=== PATIENT | female | born 1965 | race Caucasian/White ===

== ENCOUNTER 2020-08-13 22:28 | Emergency (ER) | payer OTHER ==
[2020-08-13 22:44] VITALS: TEMP 98
[2020-08-13] MEDS ORDERED: ACET/COD 300 MG/30 MG STARTER PACK 6 TAB BTL PO STA (23:23)
--- NOTE | 2020-08-14 00:05 | XR ---
EXAMINATION TYPE: XR knee complete LT DATE OF EXAM: 08/13/2020 COMPARISON: NONE HISTORY: Knee pain TECHNIQUE: 3 views FINDINGS: I see no fracture nor dislocation. Joint spaces are normal. There is no sign of joint effus ion. IMPRESSION: Negative left knee exam. No fracture.
--- NOTE | 2020-08-14 01:26 | US ---
EXAM: US Duplex Left Lower Extremity Veins CLINICAL HISTORY: ITS.REASON US Reason: Left leg pain TECHNIQUE: Real-time duplex ultrasound scan of the left lower extremity veins integrating B-mode two-dimensional vascular structure, Doppler spectral analysis, color flow Doppler imaging and compression. COMPARISON: No relevant prior studies available. FINDINGS: Deep veins: Unremarkable. No DVT in the visualized common femoral, femoral, proximal deep femoral or popliteal veins. The veins demonstrate normal color flow, are normally compressible, with normal phasic flow and/or augmentation response. Superficial veins: Saphenofemoral junction is patent. Soft tissues: No acute findings. No popliteal cyst. IMPRESSION: No evidence for deep vein thrombosis involving the left lower extremity.
--- NOTE | 2020-08-14 01:28 | ED ---
Lower Extremity Injury HPI - General Chief Complaint: Extremity Injury, Lower Stated Complaint: Knee pain Time Seen by Provider: 08/13/20 22:46 Source: patient Mode of arrival: wheelchair Limitations: no limitations - History of Present Illness Initial Comments: 55 year-old female patient presents to the emergency department for evaluation of left knee pain. States it started about a week ago but worsened today. Denies any known injury or increase strain. States [place] 2[place]5 [place] ride a couple of weeks ago. States that she always has swelling in her left leg. Denies any redness or warmth over the knee. States she has been taking ibuprofen and applying ice without relief. Denies history of knee injury or pain. Denies any fever or chills. Denies any low back pain. States the pain worsens when she bears weight and she is unable to walk due to this. Patient denies any recent rash, cough, shortness of breath, chest pain, racing heart, abdominal pain, nausea, vomiting, diarrhea, constipation, back pain, dizziness, weakness, hematuria, dysuria, urinary urgency, urinary frequency, headache, visual changes, or any other complaints. - Related Data Allergies Allergy/AdvReac Type Severity Reaction Status Date / Time No Known Allergies Allergy Verified 08/13/20 22:44 Review of Systems ROS Statement: Those systems with pertinent positive or pertinent negative responses have been documented in the HPI. ROS Other: All systems not noted in ROS Statement are negative. Past Medical History Past Medical History: No Reported History History of Any Multi-Drug Resistant Organisms: None Reported Past Surgical History: Section, Hysterectomy Additional Past Surgical History / Comment(s): left adrenal gland removed Past Psychological History: No Psychological Hx Reported Smoking Status: Never smoker Past Alcohol Use History: Occasional Past Drug Use History: Marijuana General Exam Limitations: no limitations General appearance: alert, in no apparent distress Respiratory exam: Present: normal lung sounds bilaterally. Absent: respiratory distress, wheezes, rales, rhonchi, stridor Cardiovascular Exam: Present: regular rate, normal rhythm, normal heart sounds. Absent: systolic murmur, diastolic murmur, rubs, gallop, clicks Extremities exam: Present: normal inspection, full ROM, normal capillary refill, other (No pain with valgus or varus maneuvers to the left knee. Negative drawer test. She exhibits full extension and flexion. Skin is pink, warm, dry. Cap refill less than 3 seconds. Pedal and posttibial pulses 2+). Absent: tenderness, pedal edema, joint swelling, calf tenderness Back exam: Present: normal inspection, vertebral tenderness Neurological exam: Present: alert, oriented X3, CN II-XII intact Psychiatric exam: Present: normal affect, normal mood Skin exam: Present: warm, dry, intact, normal color. Absent: rash Course Vital Signs 08/13/20 22:39 Temperature 98.0 F Pulse Rate 98 Respiratory 18 Rate Blood Pressure 162/93 O2 Sat by Pulse 98 Oximetry Procedures - Orthopedic Splinting/Casting Injury #1 Side: left Lower Extremity Injury Location: knee Lower Extremity Immobilizer: Nikko wrap Medical Decision Making - Medical Decision Making 55-year-old female patient presented to the emergency room today for evaluation of left knee pain. Physical examination is unremarkable. Negative valgus and varus maneuvers to the left knee. Negative drawer test. Neurovascular status is intact. She exhibits full flexion and extension. There is no overlying eryt gagandeep or warmth. She is afebrile. X-rays negative. She did have ultrasound of the left leg as well which was negative for DVT. I did discuss signs and results with her. We did discuss possible meniscus injury. She'll be discharged to follow-up with orthopedics for further evaluation as soon as possible. She is instructed to follow-up with her primary care physician for recheck in 1-2 days. She is given an Nikko wrap. She is given Tylenol codeine starter pack. Return parameters were discussed in detail. She verbalizes understanding and agrees with this plan. My attending is Dr. Moyer. - Radiology Data Radiology results: report reviewed, image reviewed Ultrasound of the left lower extremity was obtained. Report was reviewed in its entirety. Impression by Dr. Perez shows no evidence for DVT involving the left lower extremity. 3 views of the left knee were obtained. Report reviewed in its entirety. Impression by Dr. Doshi shows negative left knee exam. No fracture. Disposition Clinical Impression: Left knee pain Disposition: HOME SELF-CARE Condition: Good Instructions (If sedation given, give patient instructions): Knee Pain (ED) Additional Instructions: Rest, ice, elevate the knee. Follow-up the primary care physician for recheck in 1-2 days. Follow up with orthopedics for recheck as soon as possible. Return for any new, worsening, or concerning symptoms. Is patient prescribed a controlled substance at d/c from ED?: No Referrals: Joo Singh MD [Primary Care Provider] - 1-2 days Adolph Gaming MD [STAFF PHYSICIAN] - 1-2 days Time of Disposition: 01:28
[2020-08-14] MEDS ORDERED: KETOROLAC 15 MG/ML 1 ML VIAL IM STA (01:32)
[2020-08-14 02:11] VITALS: BP 167/91; PULSE 74; RESP 16
== END 2020-08-14 02:11 | disposition home or self-care (01) ==
LOC: EC 22:28
DX: M25.562 Pain in left knee (principal); M79.89 Other specified soft tissue disorders; R26.2 Difficulty in walking, not elsewhere classified; F12.90 Cannabis use, unspecified, uncomplicated
CPT/HCPCS: 73562; 93971; 99284; 96372; J1885

== ENCOUNTER 2023-04-08 11:48 | Inpatient (IN) | payer OTHER ==
--- NOTE | 2023-04-08 12:26 | ED ---
General Adult HPI - General Source: RN notes reviewed <Mary Jacques - Last Filed: 04/08/23 12:26> - General Source: patient, family, RN notes reviewed <Mechelle Parry - Last Filed: 04/08/23 23:33> - General Stated complaint: abd pain Time Seen by Provider: 04/08/23 12:25 - History of Present Illness Initial comments: 57-year-old female presents to the emergency department with a chief complaint of abdominal pain. (Mary Jacques) Patient is a 57-year-old female presented ER with chief complaint of left-sided abdominal pain. Patient has a past medical history significant for diverticulitis, hypertension, diabetes. Past surgical history of section, hysterectomy, left adrenal adrenalectomy. Patient states she's been experiencing this since around [place]. Patient describes it as an intermittent crampy pain in the left lower quadrant. No history of kidney st ones. Patient also is endorsing nausea and some recent diarrhea. Patient's last bowel movement was this morning and was satisfactory. Patient reports she does feel like she is fighting a fever and mildly chilled currently. Patient denies any urinary complaints, chest pain, shortness of breath, peripheral edema. (Mechelle Parry) - Related Data Home Medications Medication Instructions Recorded Confirmed Empagliflozin [Jardiance] 10 mg PO W/SUPPER 04/08/23 04/08/23 Levothyroxine Sodium [Synthroid] 75 mcg PO DAILY 04/08/23 04/08/23 Losartan Potassium [Cozaar] 100 mg PO DAILY 04/08/23 04/08/23 amLODIPine [Norvasc] 10 mg PO DAILY@1500 04/08/23 04/08/23 metFORMIN HCL ER [Glucophage XR] 500 mg PO DAILY 04/08/23 04/08/23 Allergies Allergy/AdvReac Type Severity Reaction Status Date / Time No Known Allergies Allergy Verified 04/08/23 20:16 Review of Systems ROS Other: All systems not noted in ROS Statement are negative. <Mary Jacques - Last Filed: 04/08/23 12:26> ROS Other: All systems not noted in ROS Statement are negative. <Mechelle Parry - Last Filed: 04/08/23 23:33> ROS Statement: Those systems with pertinent positive or pertinent negative responses have been documented in the HPI. Past Medical History Past Medical History: No Reported History History of Any Multi-Drug Resistant Organisms: None Reported Past Surgical History: Section, Hysterectomy Additional Past Surgical History / Comment(s): left adrenal gland removed Past Psychological History: No Psychological Hx Reported Smoking Status: Never smoker Past Alcohol Use History: Occasional Past Drug Use History: Marijuana <Mary Jacques - Last Filed: 04/08/23 12:26> General Exam <Mary Jacques - Last Filed: 04/08/23 12:26> General appearance: alert, in no apparent distress Respiratory exam: Present: normal lung sounds bilaterally. Absent: respiratory distress, wheezes, rales, rhonchi, stridor Cardiovascular Exam: Present: regular rate, normal rhythm, normal heart sounds. Absent: systolic murmur, diastolic murmur, rubs, gallop, clicks GI/Abdominal exam: Present: soft, tenderness (Mild left lower quadrant), normal bowel sounds. Absent: distended, guarding, rebound, rigid Back exam: Present: normal inspection Neurological exam: Present: alert, oriented X3, CN II-XII intact Psychiatric exam: Present: normal affect, normal mood Skin exam: Present: warm, dry, intact, normal color. Absent: rash <Mechelle Parry - Last Filed: 04/08/23 23:33> - General Exam Comments Initial Comments: Visual Physical Exam Vital signs reviewed General: Well-appearing, nontoxic, no acute distress. Head: Normocephalic, atraumatic Eyes: PERRLA, EOMI ENT: Airway patent Chest: Nonlabored breathing Skin: No visual rash, normal skin tone Neuro: Alert and oriented 3 Musculoskeletal: No gross abnormalities (Mary Jacques) Course Vital Signs 04/08/23 04/08/23 04/08/23 12:39 17:08 22:04 Temperature 98.0 F 97.6 F Pulse Rate 79 85 83 Respiratory 18 16 18 Rate Blood Pressure 159/87 159/92 141/83 O2 Sat by Pulse 97 96 95 Oximetry Medical Decision Making <Mary Jacques - Last Filed: 04/08/23 12:26> - Lab Data Result diagrams: 04/08/23 13:25 04/08/23 13:25 - Radiology Data Radiology results: report reviewed, image reviewed <Mechelle Parry - Last Filed: 04/08/23 23:33> - Medical Decision Making I performed the quick note portion of this exam, verbal signature Mary Jacques PA-C (Mary Jacques) Was pt. sent in by a medical professional or institution ([facility], [facility], urgent care, hospital, or intermediate...) When possible be specific @ -No Did you speak to anyone other than the patient for history (EMS, parent, family, police, friend...)? What history was obtained from this source @ -No Did you review nursing and triage notes (agree or disagree)? Why? @ -I reviewed and agree with nursing and triage notes Were old charts reviewed (outside hosp., previous admission, EMS record, old EKG, old radiological studies, urgent care reports/EKG's, intermediate records)? Report findings @ -No old charts were reviewed Differential Diagnosis (chest pain, altered mental status, abdominal pain women, abdominal pain men, vaginal bleeding, weakness, fever, dyspnea, syncope, headache, dizziness, GI bleed, back pain, seizure, CVA, palpatations, mental health, musculoskeletal)? @ -Differential Abdominal Pain Women: Appendicitis, Cholecystitis, diverticulosis, ischemic bowel, pancreatitis, hepatitis, UTI, gastroenteritis, AAA, incarcerated hernia, bowel obstruction, constipation, inflammatory bowel, hepatitis, peptic ulcer disease, splenic infarction, perforated viscus, vulvitis, ovarian torsion, PID, kidney stone, placenta abruption, this is not meant to be an all-inclusive list EKG interpreted by me (3pts min.). @ -None done X-rays interpreted by me (1pt min.). @ -None done CT interpreted by me (1pt min.). @ -CT abdomen and pelvis showed a 4.8 cm masslike density seen in the sigmoid region. Uterus appears enlarged with multiple intermixed small foci of gas. Fistula/abscess/infection cannot be excluded. Surgical clips in the left upper quadrant without adrenal gland. Multiple enlarged lymph nodes throughout pelvis and abdomen. U/S interpreted by me (1pt. min.). @ -None done What testing was considered but not performed or refused? (CT, X-rays, U/S, labs)? Why? @ -None What meds were considered but not given or refused? Why? @ -None Did you discuss the management of the patient with other professionals (professionals i.e. , PA, WOOD M[employer]DER, lab, RT, psych nurse, social scientist, research contracts supervisor, teacher, protective services officer, community case manager)? Give summary @ -Yes, I discussed this case with Dr. Chauhan, on-call general surgeon. He stated to make patient nothing by mouth at midnight and advised against antibiotics due to WBC being 11.6. Dr. Warner, ED attending, spoke with radiology about CT scan. Radiology was reporting patient had intact uterus with concern for infection/abscess. Was smoking cessation discussed for >3mins.? @ -No Was critical care preformed (if so, how long)? @ -No Were there social determinants of health that impacted care today? How? (Homelessness, low income, unemployed, alcoholism, drug addiction, transportation, low edu. Level, literacy, decrease access to med. care, fci, rehab)? @ -No Was there de-escalation of care discussed even if they declined (Discuss DNR or withdrawal of care, Hospice)? DNR status @ -No What co-morbidities impacted this encounter? (DM, HTN, Smoking, COPD, CAD, Cancer, CVA, ARF, Chemo, Hep., AIDS, mental health diagnosis, sleep apnea, morbid obesity)? @ -DM, HTN Was patient admitted / discharged? Hospital course, mention meds given and route, prescriptions, significant lab abnormalities, going to OR and other pertinent info. @ -Admitted. Patient is a 57-year-old female presented ER with chief complaint of abdominal pain. Vitals were stable on exam. Patient was tender to left lower quadrant. Labs were significant for white blood cell count of 11.6, glucose of 148, otherwise unremarkable. Urinalysis showed moderate blood with 23 RBCs and 4+ glucose. CT abdomen and pelvis was performed and was significant for a 4.8 cm masslike density near sigmoid colon. There is also multiple enlarged lymph nodes in the pelvis and abdomen. Radiology was reporting patient had an enlarged uterus with possible uterine infection/abscess. Patient stated she had a hysterectomy. More concern of diverticulitis with possible abscess was considered. General surgery, Dr. Chauhan, was consulted and accepted admission. He advised to make patient nothing by mouth at midnight and that antibiotics were not needed due to white count being 11.6. Patient did receive 1 L of IV fluids and Toradol in the ER with improvement of pain. Medicine on consult. I discussed imaging and lab findings with the patient and , at bedside. I also discussed plan with patient. Questions were answered. Patient will be admitted in stable condition for further care and treatment. Patient expressed understanding and agreement with care plan. Undiagnosed new problem with uncertain prognosis? @ -No Drug Therapy requiring intensive monitoring for toxicity (Heparin, Nitro, Insulin, Cardizem)? @ -No Were any procedures done? @ -No Diagnosis/symptom? @ -Sigmoid masslike density/leukocytosis Acute, or Chronic, or Acute on Chronic? @ -Acute Uncomplicated (without systemic symptoms) or Complicated (systemic symptoms)? @ -Complicated Side effects of treatment? @ -No Exacerbation, Progression, or Severe Exacerbation? @ -No Poses a threat to life or bodily function? How? (Chest pain, [place], [place], pneumonia, PE, COPD, DKA, ARF, appy, cholecystitis, CVA, Diverticulitis, Homicidal, Suicidal, threat to staff... and all critical care pts) @ -Possibly (Mechelle Parry) - Lab Data Lab Results 04/08/23 04/08/23 04/08/23 Range/Units 13:25 13:25 13:25 WBC 11.6 H (3.8-10.6) k/uL RBC 4.99 (3.80-5.40) m/uL Hgb 14.1 (11.4-16.0) gm/dL Hct 43.1 (34.0-46.0) % MCV 86.3 (80.0-100.0) fL MCH 28.2 (25.0-35.0) pg MCHC 32.7 (31.0-37.0) g/dL RDW 12.4 (11.5-15.5) % Plt Count 350 (150-450) k/uL MPV 6.6 Neutrophils % 87 % Lymphocytes % 8 % Monocytes % 4 % Eosinophils % 1 % Basophils % 0 % Neutrophils # 10.1 H (1.3-7.7) k/uL Lymphocytes # 0.9 L (1.0-4.8) k/uL Monocytes # 0.5 (0-1.0) k/uL Eosinophils # 0.1 (0-0.7) k/uL Basophils # 0.0 (0-0.2) k/uL Sodium 140 (137-145) mmol/L Potassium 4.4 (3.5-5.1) mmol/L Chloride 104 (98-107) mmol/L Carbon Dioxide 23 (22-30) mmol/L Anion Gap 13 mmol/L BUN 14 (7-17) mg/dL Creatinine 0.54 (0.52-1.04) mg/dL Est GFR (CKD-EPI)AfAm >90 (>60 ml/min/1.73 sqM) Est GFR (CKD-EPI)NonAf >90 (>60 ml/min/1.73 sqM) Glucose 148 H (74-99) mg/dL Plasma Lactic Acid Trip 1.1 (0.7-2.0) mmol/L Calcium 9.1 (8.4-10.2) mg/dL Total Bilirubin 0.4 (0.2-1.3) mg/dL AST 22 (14-36) U/L ALT 21 (4-34) U/L Alkaline Phosphatase 79 (38-126) U/L Total Protein 7.4 (6.3-8.2) g/dL Albumin 3.9 (3.5-5.0) g/dL Lipase 47 (23-300) U/L Urine Color Urine Appearance (Clear) Urine pH (5.0-8.0) Ur Specific [place] (1.001-1.035) Urine Protein (Negative) Urine Glucose (UA) (Negative) Urine Ketones (Negative) Urine Blood (Negative) Urine Nitrite (Negative) Urine Bilirubin (Negative) Urine Urobilinogen (<2.0) mg/dL Ur Leukocyte Esterase (Negative) Urine RBC (0-5) /hpf Ur Squamous Epith Cells (0-4) /hpf Amorphous Sediment (None) /hpf Urine Mucus (None) /hpf Influenza Type A (PCR) (Not Detectd) Influenza Type B (PCR) (Not Detectd) RSV (PCR) (Not Detectd) SARS-CoV-2 (PCR) (Not Detectd) 04/08/23 04/08/23 Range/Units 13:25 14:05 WBC (3.8-10.6) k/uL RBC (3.80-5.40) m/uL Hgb (11.4-16.0) gm/dL Hct (34.0-46.0) % MCV (80.0-100.0) fL MCH (25.0-35.0) pg MCHC (31.0-37.0) g/dL RDW (11.5-15.5) % Plt Count (150-450) k/uL MPV Neutrophils % % Lymphocytes % % Monocytes % % Eosinophils % % Basophils % % Neutrophils # (1.3-7.7) k/uL Lymphocytes # (1.0-4.8) k/uL Monocytes # (0-1.0) k/uL Eosinophils # (0-0.7) k/uL Basophils # (0-0.2) k/uL Sodium (137-145) mmol/L Potassium (3.5-5.1) mmol/L Chloride (98-107) mmol/L Carbon Dioxide (22-30) mmol/L Anion Gap mmol/L BUN (7-17) mg/dL Creatinine (0.52-1.04) mg/dL Est GFR (CKD-EPI)AfAm (>60 ml/min/1.73 sqM) Est GFR (CKD-EPI)NonAf (>60 ml/min/1.73 sqM) Glucose (74-99) mg/dL Plasma Lactic Acid Trip (0.7-2.0) mmol/L Calcium (8.4-10.2) mg/dL Total Bilirubin (0.2-1.3) mg/dL AST (14-36) U/L ALT (4-34) U/L Alkaline Phosphatase (38-126) U/L Total Protein (6.3-8.2) g/dL Albumin (3.5-5.0) g/dL Lipase (23-300) U/L Urine Color Yellow Urine Appearance Turbid H (Clear) Urine pH 5.5 (5.0-8.0) Ur Specific [place] 1.037 H (1.001-1.035) Urine Protein 1+ H (Negative) Urine Glucose (UA) 4+ H (Negative) Urine Ketones Negative (Negative) Urine Blood Moderate H (Negative) Urine Nitrite Negative (Negative) Urine Bilirubin Negative (Negative) Urine Urobilinogen <2.0 (<2.0) mg/dL Ur Leukocyte Esterase Trace H (Negative) Urine RBC 23 H (0-5) /hpf Ur Squamous Epith Cells 1 (0-4) /hpf Amorphous Sediment Few H (None) /hpf Urine Mucus Few H (None) /hpf Influenza Type A (PCR) Not Detected (Not Detectd) Influenza Type B (PCR) Not Detected (Not Detectd) RSV (PCR) Not Detected (Not Detectd) SARS-CoV-2 (PCR) Not Detected (Not Detectd) Disposition <Mary Jacques - Last Filed: 04/08/23 12:26> Time of Disposition: 19:30 <Mechelle Parry - Last Filed: 04/08/23 23:33> Clinical Impression: Abdominal pain Disposition: ADMITTED IP TO THIS HOSP Condition: Stable
[2023-04-08 13:32] LABS: Basophils % (A) 0 %; Eosinophils # (A) 0.1 k/uL (0-0.7); Eosinophils % (A) 1 %; HCT 43.1 % (34.0-46.0); HGB 14.1 gm/dL (11.4-16.0); Lymphocytes # (A) 0.9 k/uL (1.0-4.8); Lymphocytes % (A) 8 %; MCH 28.2 pg (25.0-35.0); MCHC 32.7 g/dL (31.0-37.0); MCV 86.3 fL (80.0-100.0); Mean Platelet Volume 6.6; Monocytes # (A) 0.5 k/uL (0-1.0); Monocytes % (A) 4 %; Neutrophils # (A) 10.1 k/uL (1.3-7.7); Neutrophils % (A) 87 %; Platelet Count 350 k/uL (150-450); RBC 4.99 m/uL (3.80-5.40); RDW 12.4 % (11.5-15.5); WBC 11.6 k/uL (3.8-10.6)
[2023-04-08 13:42] LABS: ALT 21 U/L (4-34); AST 22 U/L (14-36); African American GFR (CKD) >90 (>60 ml/min/1.73 sqM); Albumin 3.9 g/dL (3.5-5.0); Alkaline Phosphatase 79 U/L (38-126); Anion Gap 13 mmol/L; Blood Urea Nitrogen 14 mg/dL (7-17); Calcium 9.1 mg/dL (8.4-10.2); Carbon Dioxide 23 mmol/L (22-30); Chloride 104 mmol/L (98-107); Glucose 148 mg/dL (74-99); Lipase 47 U/L (23-300); Non-African American GFR(CKD) >90 (>60 ml/min/1.73 sqM); Potassium 4.4 mmol/L (3.5-5.1); Sodium 140 mmol/L (137-145); Total Bilirubin 0.4 mg/dL (0.2-1.3); Total Protein 7.4 g/dL (6.3-8.2)
[2023-04-08 14:34] LABS: Amorphous Sediment,Urine Few /hpf; Appearance,Urine Turbid (Clear); Bilirubin,Urine Negative (Negative); Blood,Urine Moderate (Negative); Color,Urine Yellow; Glucose,Urine (UA) 4+ (Negative); Ketones,Urine Negative (Negative); Leukocyte Esterase,Urine Trace (Negative); Mucus,Urine Few /hpf; Nitrite,Urine Negative (Negative); PH, Urine 5.5 (5.0-8.0); Protein,Urine 1+ (Negative); RBC,Urine 23 /hpf (0-5); Specific Gravity,Urine 1.037 (1.001-1.035); Squamous Epithelial Cell,Urine 1 /hpf (0-4); Urobilinogen,Urine <2.0 mg/dL (<2.0)
[2023-04-08] MEDS ORDERED: KETOROLAC 15 MG/ML 1 ML VIAL IVP STA (17:17)
[2023-04-08] MEDS ORDERED: SODIUM CHLORIDE 0.9% 1,000 ML IV STA (17:17)
--- NOTE | 2023-04-08 18:34 | CT ---
EXAMINATION TYPE: CT abdomen pelvis w con CT DLP: 2389.8 mGycm, Automated exposure control for dose reduction was used. DATE OF EXAM: 04/08/2023 4:30 PM COMPARISON: CLINICAL INDICATION:Female, 57 years old with history of LLQ abdominal pain; LLQ pain TECHNIQUE: Axial CT of the abdomen and pelvis. Sagittal and coronal reformats were created on a [employer] workstation. Contrast used:100 mL of Isovue 300 with IV Contrast, (none if empty) Oral contrast used: without Oral Contrast (none if empty) FINDINGS: LOWER CHEST: Unremarkable ABDOMEN LIVER: Moderate hepatic steatosis without focal lesions seen. Omar's lobe is present. GALLBLADDER AND BILE DUCTS: Unremarkable gallbladder. No biliary ductal dilatation. PANCREAS: Unremarkable. SPLEEN: Unremarkable. ADRENAL GLANDS: Right adrenal is unremarkable. Left adrenal is not readily identified, possibly absen t. KIDNEYS AND URETERS: Kidneys enhance symmetrically. Contrast excretion is symmetric. There is no evid ence of hydronephrosis. PELVIS BLADDER: Nearly empty and not well evaluated. No intraluminal gas is suggested.. REPRODUCTIVE: Uterus appears enlarged with lobular areas of low attenuation present within. There are also multiple intermixed small foci of gas. Endometrial stripe is not seen. Ovaries are not clearly identified. ABDOMEN & PELVIS STOMACH AND BOWEL: Limited assessment without enteric contrast. The stomach and small bowel appear no ndistended, no evidence of obstruction. The cecum appears to be low lying and located farther medial than is usual within the pelvis. A normal appendix is seen. There is heterogeneous material with stoo l signature seen anterior to the abnormal uterus, believed to be all within the cecum however this is in close apposition to the uterus, and fistula here cannot be excluded. The ascending colon and soto sverse colon appear relatively empty and decompressed. There are multiple diverticula seen in the mars cending and sigmoid colon. A segment of sigmoid colon sits in close apposition to the left side of th e uterus. There is a somewhat masslike density seen in the sigmoid region measuring up to 4.8 cm, how ever this could be inflammatory pseudotumor rather than a true mass. This could represent phlegmon re lated to diverticulitis. Given the bubbles of gas in the uterus, fistula and/or infection to the uter us is suspected. PERITONEUM/RETROPERITONEUM: No evidence of pneumoperitoneum or free fluid. There are surgical clips in the left upper quadrant, cranial to the renal artery and laterally in the abdomen, medial to the descending colon. Correlate with surgical history. VASCULATURE: Minimal arterial atherosclerotic disease without evidence of critical stenosis or AAA. P ortal veins, splenic vein, IVC and tributaries appear grossly patent as seen. LYMPH NODES: No inguinal adenopathy. Nonenlarged to borderline prominent lymph nodes in the pelvis. T here are multiple mildly enlarged nodes along the iliac arterial trees and extending cranially in the left more than right para-aortic locations. One of the largest is left para-aortic just below the le ft renal artery measuring 25 x 19 mm. Another example is also left para-aortic, measuring 18 x 13 mm. Other examples are possible. SOFT TISSUE/ABDOMINAL WALL: Tiny fat-containing umbilical hernia. Calcified nodule likely injection g ranuloma in the right gluteal subcutaneous fat. MUSCULOSKELETAL: No acute osseous abnormalities. Mild/moderate degenerative changes of the spine, gr eatest at L5-S1 where there is mild to moderate canal and neural foraminal stenoses. IMPRESSION: 1. Abnormal appearance of the pelvis. 2. Uterus appears enlarged with lobular areas of low attenuation present within. There are also mult iple intermixed small foci of gas. Concern for uterine infection/abscesses, versus fibroid uterus wit h superimposed infection and/or fistulization. 3. Multiple diverticula in the descending and sigmoid colon. A segment of sigmoid colon sits in clos e apposition to the left side of the uterus. There is a somewhat masslike density seen in the sigmoid region measuring up to 4.8 cm, however this could be inflammatory pseudotumor rather than a true mas s. This could represent phlegmon related to diverticulitis. Given the bubbles of gas in the uterus, f istula and/or superinfection of the uterus is suspected. 4. Cecum appears low-lying and in close apposition to the uterus; fistula here cannot be excluded. 5. Surgical clips in the left upper quadrant, and nonvisualization of the left adrenal. Correlate wi th surgical history. 6. Multiple borderline enlarged lymph nodes in the pelvis, and multiple mildly to moderately enlarge d nodes within the abdomen, mostly left para-aortic. Correlate for any cancer history, this could rep resent metastases or lymphoma. Reactive nodes are in the differential.
[2023-04-08] MEDS ORDERED: HYDROmorphone 2 MG TAB PO PRN (19:29)
[2023-04-08] MEDS ORDERED: NALOXONE 0.4 MG/ML 1 ML VIAL IV PRN (19:29)
[2023-04-08] MEDS: SODIUM CHLORIDE 0.9% 1,000 ML IV SCH (20:00)
[2023-04-08] MEDS ORDERED: HYDROmorphone 1 MG/ML 1 ML SYRINGE IVP PRN (20:22)
[2023-04-09] MEDS ORDERED: MORPHINE SULFATE 2 MG/ML SYRINGE IVP STA (01:35)
[2023-04-09] MEDS ORDERED: PIPERACILLIN-TAZOBACTAM 3.375 GM in SODIUM CHLORIDE 0.9% 100 ML IVPB STA (02:17)
--- NOTE | 2023-04-09 02:18 | P.CONS ---
History of Present Illness - Reason for Consult Consult date: 04/08/23 - History of Present Illness Patient is a 57-year-old female with a PMH of diverticulitis and peridiverticular abscess, adrenal mass status post resection, type II DM, hypertension, and hypothyroidism who presents to the emergency room with complaints of left lower quadrant abdominal discomfort. Patient reports she has been experiencing intermittent left lower quadrant discomfort for the past 2 weeks, 6 out of 10 at maximal intensity, dull in nature, with associated nausea and 2 episodes of vomiting earlier today. She also reports experiencing intermittent chills at home. Denies experiencing chest pain or shortness of breath. Reports ongoing 3 out of 10 abdominal discomfort at the time of interview. CT abdomen and pelvis in the emergency room revealed concerns for infection with abscess up to 4.8 cm in the sigmoid region. Laboratory evaluation was remarkable for leukocytosis of 11.6, glucose 148, lactic acid 1.1, abnormal UA, and negative viral respiratory panel. ED documentation reviewed and case discussed with ED provider. Review of systems: Pertinent positives and negatives as discussed in HPI, a complete review of systems was performed and all other systems are negative. Physical examination: Vital signs reviewed General: non toxic, no distress, appears at stated age, obese Derm: no unusual rashes/lesions, warm Head: atraumatic, normocephalic, symmetric Eyes: EOMI, no lid lag, anicteric sclera, pupils equal round reactive to light ENT: Nose and ears atraumatic Neck: No cervical lymphadenopathy, trachea midline, supple Mouth: no lip lesion, mucus membranes moist Cardiovascular: S1S2 reg, no murmur, positive dorsalis pedis pulse bilateral, no edema Lungs: CTA bilateral, no rhonchi, no rales, no accessory muscle use Abdominal: soft, mild left lower quadrant abdominal discomfort, no guarding Ext: muscle strength 5 out of 5 in all 4 extremities grossly, no gross muscle atrophy, no contractures, Neuro: CN II-XI grossly intact, no gross focal neuro deficits Psych: Alert, oriented, appropriate affect Assessment: Chronic conditions: Hypertension, hypothyroidism, type II DM Acute diverticulitis with abscess Imaging: CT abdomen and pelvis in the emergency room revealed concerns for infection with abscess up to 4.8 cm in the sigmoid region. Data Review: Laboratory evaluation was remarkable for leukocytosis of 11.6, glucose 148, lactic acid 1.1, abnormal UA, and negative viral respiratory panel. Plan: Continue with home antihypertensives and Synthroid Insulin sliding scale and blood glucose monitoring Defer management of diverticulitis and peridiverticular abscess to primary surgery service. Will order a stat dose of Zosyn. Patient currently nothing by mouth and receiving normal saline fluids at 130 mL/hr We appreciate this opportunity to be involved in this patient's care. We will follow the patient with you. For any further questions, please not hesitate to contact the [facility] [place] inpatient team. Past Medical History Past Medical History: No Reported History, Diabetes Mellitus, Hypertension History of Any Multi-Drug Resistant Organisms: None Reported Past Surgical History: Section, Hysterectomy Additional Past Surgical History / Comment(s): left adrenal gland removed Past Psychological History: No Psychological Hx Reported Smoking Status: Never smoker Past Alcohol Use History: Occasional Past Drug Use History: Marijuana Medications and Allergies Home Medications Medication Instructions Recorded Confirmed Type Empagliflozin [Jardiance] 10 mg PO W/SUPPER 04/08/23 04/08/23 History Levothyroxine Sodium [Synthroid] 75 mcg PO DAILY 04/08/23 04/08/23 History Losartan Potassium [Cozaar] 100 mg PO DAILY 04/08/23 04/08/23 History amLODIPine [Norvasc] 10 mg PO DAILY@1500 04/08/23 04/08/23 History metFORMIN HCL ER [Glucophage XR] 500 mg PO DAILY 04/08/23 04/08/23 History Allergies Allergy/AdvReac Type Severity Reaction Status Date / Time No Known Allergies Allergy Verified 04/08/23 20:16 Physical Exam Vitals: Vital Signs Temp Pulse Resp BP Pulse Ox 04/08/23 22:04 97.6 F 83 18 141/83 95 04/08/23 17:08 85 16 159/92 96 04/08/23 12:39 98.0 F 79 18 159/87 97 Intake and Output 04/08/23 04/08/23 04/09/23 14:59 22:59 06:59 Other: Weight 127.006 kg Results CBC & Chem 7: 04/08/23 13:25 04/08/23 13:25 Labs: Abnormal Lab Results - Last 24 Hours (Table) 04/08/23 04/08/23 04/08/23 Range/Units 13:25 13:25 14:05 WBC 11.6 H (3.8-10.6) k/uL Neutrophils # 10.1 H (1.3-7.7) k/uL Lymphocytes # 0.9 L (1.0-4.8) k/uL Glucose 148 H (74-99) mg/dL Urine Appearance Turbid H (Clear) Ur Specific [place] 1.037 H (1.001-1.035) Urine Protein 1+ H (Negative) Urine Glucose (UA) 4+ H (Negative) Urine Blood Moderate H (Negative) Ur Leukocyte Esterase Trace H (Negative) Urine RBC 23 H (0-5) /hpf Amorphous Sediment Few H (None) /hpf Urine Mucus Few H (None) /hpf
[2023-04-09] MEDS: SODIUM CHLORIDE 0.9% 1,000 ML IV SCH ×3 (03:43→17:00)
[2023-04-09 04:14] LABS: Basophils % (A) 0 %; Eosinophils % (A) 0 %; HCT 37.3 % (34.0-46.0); HGB 12.1 gm/dL (11.4-16.0); Lymphocytes # (A) 1.1 k/uL (1.0-4.8); Lymphocytes % (A) 10 %; MCHC 32.5 g/dL (31.0-37.0); MCV 86.2 fL (80.0-100.0); Mean Platelet Volume 6.6; Monocytes # (A) 0.5 k/uL (0-1.0); Monocytes % (A) 4 %; Neutrophils # (A) 9.6 k/uL (1.3-7.7); Neutrophils % (A) 85 %; Platelet Count 309 k/uL (150-450); RBC 4.33 m/uL (3.80-5.40); RDW 12.6 % (11.5-15.5); WBC 11.4 k/uL (3.8-10.6)
[2023-04-09 04:21] LABS: INR 1.1 (<1.2); Prothrombin Time 12.1 sec (10.0-12.5)
[2023-04-09 04:22] LABS: ALT 19 U/L (4-34); AST 20 U/L (14-36); African American GFR (CKD) >90 (>60 ml/min/1.73 sqM); Albumin 3.2 g/dL (3.5-5.0); Alkaline Phosphatase 71 U/L (38-126); Amylase 33 U/L (30-110); Anion Gap 10 mmol/L; Blood Urea Nitrogen 12 mg/dL (7-17); Calcium 8.3 mg/dL (8.4-10.2); Carbon Dioxide 22 mmol/L (22-30); Chloride 103 mmol/L (98-107); Glucose 134 mg/dL (74-99); Lipase 40 U/L (23-300); Magnesium 1.8 mg/dL (1.6-2.3); Non-African American GFR(CKD) >90 (>60 ml/min/1.73 sqM); Phosphorus 3.1 mg/dL (2.5-4.5); Sodium 135 mmol/L (137-145); Total Bilirubin 0.5 mg/dL (0.2-1.3); Total Protein 6.3 g/dL (6.3-8.2)
[2023-04-09 06:13] LABS: Glucose,Whole Blood 129 mg/dL (70-110)
[2023-04-09] MEDS: INSULIN ASPART (NovoLOG) 100 UNIT/ML VIAL SQ SCH ×4 (06:21→21:05)
[2023-04-09] MEDS: LEVOTHYROXINE 75 MCG TAB PO SCH (06:24)
[2023-04-09] MEDS ORDERED: PEG 3350 (236 GM/BTL) + LYTES 4,000 ML BOTTLE PO ONE (07:49)
[2023-04-09] MEDS: LOSARTAN 50 MG TAB PO SCH (09:33)
[2023-04-09] MEDS ORDERED: FUROSEMIDE 10 MG/ML 4 ML VIAL IV PRN (10:26)
[2023-04-09] MEDS: PIPERACILLIN-TAZOBACTAM 3.375 GM in SODIUM CHLORIDE 0.9% 100 ML IVPB SCH ×2 (10:50→20:19)
[2023-04-09 11:24] LABS: Glucose,Whole Blood 119 mg/dL (70-110)
[2023-04-09] MEDS ORDERED: HYDROmorphone 1 MG/ML 1 ML SYRINGE IVP PRN (11:26)
--- NOTE | 2023-04-09 13:59 | P.PN ---
Subjective Progress Note Date: 04/09/23 (delayed charting seen at 1115) Patient is a 57-year-old female with known diabetes on oral medications only, hypertension, and hypothyroidism who presented with complaints of abdominal pain was subsequently diagnosed with acute diverticulitis with possible abscess formation. She was admitted to surgery were consulted for medical management. Patient seen and examined at bedside. Her pain is somewhat better than yesterday. She states she has had a hysterectomy in the past. She denies any chest pain, shortness breath, nausea and vomiting, diarrhea, constipation. Vital signs reviewed General:, no distress, appears at stated age Cardiovascular: S1S2 reg, no murmur, positive posterior tibial pulse bilateral, Lungs: CTA bilateral, no rhonchi, no rales , no accessory muscle use Abdominal: soft, tender to palpation diffusely, no guarding, no appreciable organomegaly Ext: no gross muscle atrophy, no edema b/l lower extremities, no contractures Neuro: CN II-XI grossly intact, no focal neuro deficits Psych: Alert, oriented, appropriate affect Assessment/Plan: Acute diverticulitis with abscess formation, possible fistulous ? uterus-- patient reports hysterectomy but on CT radiology notes lobulaed uterus -Case discussed with nurse practitioner from general surgery. Plan will be for colonoscopy in a.m. -Start Zosyn 3.375 g IVPB every 8 hours. Patient received 1 dose in the ER. The patient's nothing by mouth status and colonoscopy prep will start Dilaudid 0.5-1 mg every 3 hours as needed for pain. - depending on results of Colonoscopy consider GLASS DEPOSITION TENDER consult. Diabetes mellitus type 2 -Metformin and Jardiance on hold -SSI, follow BS Hypertension -Continue with Cozaar 100 mg daily, Norvasc 10 mg daily Chronic: Obesity, Class III Hypothyroidism Imaging: CT abdomen and pelvis-multiple diverticula in the ascending sigmoid colon mass like density in the sigmoid colon measuring 4.8 cm could be inflammatory pseudotumor rather than a true mass, uterus appears enlarged and lobulated areas (however patient's that she had a hysterectomy). Enlarged lymph nodes. Data Review: Labs reviewed from today include CBC and CMP which are remarkable for white blood cell count 11.4, sodium 135. Thank you for allowing us to participate in the care of this pleasant patient. Do not hesitate to contact us with questions. Someone can be reached from the [facility] hospitalist group all hours of the day at [phone] or via perfect serve. This dictation was prepared using [employer] voice recognition software. Though every attempt is made to correct errors during dictation some may still exist. Objective - Vital Signs Vital signs: Vital Signs Temp 98.3 F 04/09/23 06:59 Pulse 81 04/09/23 06:59 Resp 18 04/09/23 06:59 BP 100/67 04/09/23 06:59 Pulse Ox 92 L 04/09/23 06:59 FiO2 Intake & Output 04/08/23 04/09/23 04/09/23 18:59 06:59 18:59 Weight 127.006 kg 127.006 kg Other: # Voids 2 - Labs CBC & Chem 7: 04/09/23 03:47 04/09/23 03:47 Labs: Abnormal Lab Results - Last 24 Hours (Table) 04/08/23 04/09/23 04/09/23 Range/Units 14:05 03:47 03:47 WBC 11.4 H (3.8-10.6) k/uL Neutrophils # 9.6 H (1.3-7.7) k/uL Sodium 135 L (137-145) mmol/L Glucose 134 H (74-99) mg/dL POC Glucose (mg/dL) (70-110) mg/dL Calcium 8.3 L (8.4-10.2) mg/dL Albumin 3.2 L (3.5-5.0) g/dL Urine Appearance Turbid H (Clear) Ur Specific [place] 1.037 H (1.001-1.035) Urine Protein 1+ H (Negative) Urine Glucose (UA) 4+ H (Negative) Urine Blood Moderate H (Negative) Ur Leukocyte Esterase Trace H (Negative) Urine RBC 23 H (0-5) /hpf Amorphous Sediment Few H (None) /hpf Urine Mucus Few H (None) /hpf 04/09/23 04/09/23 Range/Units 06:12 11:18 WBC (3.8-10.6) k/uL Neutrophils # (1.3-7.7) k/uL Sodium (137-145) mmol/L Glucose (74-99) mg/dL POC Glucose (mg/dL) 129 H 119 H (70-110) mg/dL Calcium (8.4-10.2) mg/dL Albumin (3.5-5.0) g/dL Urine Appearance (Clear) Ur Specific [place] (1.001-1.035) Urine Protein (Negative) Urine Glucose (UA) (Negative) Urine Blood (Negative) Ur Leukocyte Esterase (Negative) Urine RBC (0-5) /hpf Amorphous Sediment (None) /hpf Urine Mucus (None) /hpf
--- NOTE | 2023-04-09 14:05 | P.GSHP ---
History of Present Illness H&P Date: 04/09/23 CHIEF COMPLAINT: Abdominal pain HISTORY OF PRESENT ILLNESS: This is a 57-year-old female who presented with left lower quadrant abdominal pain. She reports that the pain has been intermittent for about 2 weeks and then within the last week the pain has worsened. She describes it as a burning sensation. She did have 2 episodes of vomiting yesterday. She reports her bowel movements are normal. She does have a prior history of diverticulitis with abscess that had required drainage of abscess in the past. Her last colonoscopy was about 10 years ago and she did have evidence of diverticulosis. She did have a cool guard 1 year ago. Family history does include a mother with intestinal cancer and father with Crohn's disease. Patient's past surgical history includes a hysterectomy at age 49 she's also had and a left adrenal gland removed. Patient had a computed tomography scan of the abdomen with concerns of sigmoid mass and she is scheduled for a colonoscopy tomorrow with Dr. stewart. PAST MEDICAL HISTORY: Diabetes, hypertension, diverticulitis PAST SURGICAL HISTORY: , hysterectomy, left adrenal gland removed MEDICATIONS: See below ALLERGIES: See below SOCIAL HISTORY: No illicit drug use. REVIEW OF SYSTEMS: CONSTITUTIONAL: Denies fever or chills. HEENT: Denies blurred vision, vision changes, or eye pain. Denies hemoptysis CARDIOVASCULAR: Denies chest pain or pressure. RESPIRATORY: No shortness of breath. GASTROINTESTINAL: See HPI for pertinent findings HEMATOLOGIC: Denies bleeding disorders. GENITOURINARY: Denies any blood in urine or increased urinary frequency. SKIN: Denies pruitis. Denies rash. PHYSICAL EXAM: VITAL SIGNS: Reviewed GENERAL: Well-developed in no acute distress. ABDOMEN: Soft. Nondistended. Lower quadrant tenderness with palpation NEUROLOGIC: Alert and oriented. Cranial nerves II through XII grossly intact. LABORATORY DATA: IMAGING: Computed tomography scan abdomen and pelvis abnormal appearance of the pelvis. Multiple diverticula in the descending and sigmoid colon. A segment of sigmoid colon sits and close opposition to the left side of the uterus. There is somewhat masslike density seen in the sigmoid colon measuring up to 4.8 cm however this could be inflammatory pseudotumor rather than a true mass. This could represent phlegmon related diverticulitis. Please note that computed tomography scan does report uterus. However, patient has had a hysterectomy. ASSESSMENT: 1. Possible sigmoid colon mass 2. Acute diverticulitis with possible abscess 3. Left lower quadrant Abdominal pain PLAN: -Patient scheduled for colonoscopy tomorrow with Dr. Stewart -Clear liquid diet today -Start GoLYTELY bowel prep -Nothing by mouth after midnight -Continue IV antibiotics Physician Stockroom Supervisor note has been reviewed by physician. Signing provider agrees with the documented findings, assessment, and plan of care. Past Medical History Past Medical History: No Reported History, Diabetes Mellitus, Hypertension History of Any Multi-Drug Resistant Organisms: None Reported Past Surgical History: Section, Hysterectomy Additional Past Surgical History / Comment(s): left adrenal gland removed Past Anesthesia/Blood Transfusion Reactions: No Reported Reaction Past Psychological History: No Psychological Hx Reported Smoking Status: Never smoker Past Alcohol Use History: Occasional Past Drug Use History: Marijuana Medications and Allergies Home Medications Medication Instructions Recorded Confirmed Type Empagliflozin [Jardiance] 10 mg PO W/SUPPER 04/08/23 04/08/23 History Levothyroxine Sodium [Synthroid] 75 mcg PO DAILY 04/08/23 04/08/23 History Losartan Potassium [Cozaar] 100 mg PO DAILY 04/08/23 04/08/23 History amLODIPine [Norvasc] 10 mg PO DAILY@1500 04/08/23 04/08/23 History metFORMIN HCL ER [Glucophage XR] 500 mg PO DAILY 04/08/23 04/08/23 History Allergies Allergy/AdvReac Type Severity Reaction Status Date / Time No Known Allergies Allergy Verified 04/08/23 20:16 Surgical - Exam Vital Signs Temp Pulse Resp BP Pulse Ox 98.0 F 79 18 159/87 97 04/08/23 12:39 04/08/23 12:39 04/08/23 12:39 04/08/23 12:39 04/08/23 12:39 Results - Labs 04/09/23 03:47 04/09/23 03:47 Abnormal Lab Results - Last 24 Hours (Table) 04/08/23 04/08/23 04/08/23 Range/Units 13:25 13:25 14:05 WBC 11.6 H (3.8-10.6) k/uL Neutrophils # 10.1 H (1.3-7.7) k/uL Lymphocytes # 0.9 L (1.0-4.8) k/uL Sodium (137-145) mmol/L Glucose 148 H (74-99) mg/dL POC Glucose (mg/dL) (70-110) mg/dL Calcium (8.4-10.2) mg/dL Albumin (3.5-5.0) g/dL Urine Appearance Turbid H (Clear) Ur Specific [place] 1.037 H (1.001-1.035) Urine Protein 1+ H (Negative) Urine Glucose (UA) 4+ H (Negative) Urine Blood Moderate H (Negative) Ur Leukocyte Esterase Trace H (Negative) Urine RBC 23 H (0-5) /hpf Amorphous Sediment Few H (None) /hpf Urine Mucus Few H (None) /hpf 04/09/23 04/09/23 04/09/23 Range/Units 03:47 03:47 06:12 WBC 11.4 H (3.8-10.6) k/uL Neutrophils # 9.6 H (1.3-7.7) k/uL Lymphocytes # (1.0-4.8) k/uL Sodium 135 L (137-145) mmol/L Glucose 134 H (74-99) mg/dL POC Glucose (mg/dL) 129 H (70-110) mg/dL Calcium 8.3 L (8.4-10.2) mg/dL Albumin 3.2 L (3.5-5.0) g/dL Urine Appearance (Clear) Ur Specific [place] (1.001-1.035) Urine Protein (Negative) Urine Glucose (UA) (Negative) Urine Blood (Negative) Ur Leukocyte Esterase (Negative) Urine RBC (0-5) /hpf Amorphous Sediment (None) /hpf Urine Mucus (None) /hpf 04/09/23 Range/Units 11:18 WBC (3.8-10.6) k/uL Neutrophils # (1.3-7.7) k/uL Lymphocytes # (1.0-4.8) k/uL Sodium (137-145) mmol/L Glucose (74-99) mg/dL POC Glucose (mg/dL) 119 H (70-110) mg/dL Calcium (8.4-10.2) mg/dL Albumin (3.5-5.0) g/dL Urine Appearance (Clear) Ur Specific [place] (1.001-1.035) Urine Protein (Negative) Urine Glucose (UA) (Negative) Urine Blood (Negative) Ur Leukocyte Esterase (Negative) Urine RBC (0-5) /hpf Amorphous Sediment (None) /hpf Urine Mucus (None) /hpf Diabetes panel 04/08/23 04/09/23 Range/Units 13:25 03:47 Sodium 140 135 L (137-145) mmol/L Potassium 4.4 4.0 (3.5-5.1) mmol/L Chloride 104 103 (98-107) mmol/L Carbon Dioxide 23 22 (22-30) mmol/L BUN 14 12 (7-17) mg/dL Creatinine 0.54 0.52 (0.52-1.04) mg/dL Glucose 148 H 134 H (74-99) mg/dL Calcium 9.1 8.3 L (8.4-10.2) mg/dL AST 22 20 (14-36) U/L ALT 21 19 (4-34) U/L Alkaline Phosphatase 79 71 (38-126) U/L Total Protein 7.4 6.3 (6.3-8.2) g/dL Albumin 3.9 3.2 L (3.5-5.0) g/dL Calcium panel 04/08/23 04/09/23 Range/Units 13:25 03:47 Calcium 9.1 8.3 L (8.4-10.2) mg/dL Phosphorus 3.1 (2.5-4.5) mg/dL Albumin 3.9 3.2 L (3.5-5.0) g/dL Pituitary panel 04/08/23 04/09/23 Range/Units 13:25 03:47 Sodium 140 135 L (137-145) mmol/L Potassium 4.4 4.0 (3.5-5.1) mmol/L Chloride 104 103 (98-107) mmol/L Carbon Dioxide 23 22 (22-30) mmol/L BUN 14 12 (7-17) mg/dL Creatinine 0.54 0.52 (0.52-1.04) mg/dL Glucose 148 H 134 H (74-99) mg/dL Calcium 9.1 8.3 L (8.4-10.2) mg/dL Adrenal panel 04/08/23 04/09/23 Range/Units 13:25 03:47 Sodium 140 135 L (137-145) mmol/L Potassium 4.4 4.0 (3.5-5.1) mmol/L Chloride 104 103 (98-107) mmol/L Carbon Dioxide 23 22 (22-30) mmol/L BUN 14 12 (7-17) mg/dL Creatinine 0.54 0.52 (0.52-1.04) mg/dL Glucose 148 H 134 H (74-99) mg/dL Calcium 9.1 8.3 L (8.4-10.2) mg/dL Total Bilirubin 0.4 0.5 (0.2-1.3) mg/dL AST 22 20 (14-36) U/L ALT 21 19 (4-34) U/L Alkaline Phosphatase 79 71 (38-126) U/L Total Protein 7.4 6.3 (6.3-8.2) g/dL Albumin 3.9 3.2 L (3.5-5.0) g/dL
[2023-04-09] MEDS: amLODIPine 10 MG TAB PO SCH (16:42)
[2023-04-09] MEDS: HYDROmorphone 0.5 MG/0.5 ML SYRINGE IVP PRN (16:42)
[2023-04-09 16:53] LABS: Glucose,Whole Blood 119 mg/dL (70-110)
[2023-04-09 21:04] LABS: Glucose,Whole Blood 105 mg/dL (70-110)
[2023-04-10] MEDS: SODIUM CHLORIDE 0.9% 1,000 ML IV SCH ×3 (01:09→17:15)
[2023-04-10] MEDS: LEVOTHYROXINE 75 MCG TAB PO SCH (03:01)
[2023-04-10] MEDS: PIPERACILLIN-TAZOBACTAM 3.375 GM in SODIUM CHLORIDE 0.9% 100 ML IVPB SCH ×3 (04:25→20:17)
[2023-04-10 06:01] LABS: Glucose,Whole Blood 117 mg/dL (70-110)
[2023-04-10] MEDS: INSULIN ASPART (NovoLOG) 100 UNIT/ML VIAL SQ SCH ×4 (06:08→21:10)
[2023-04-10 06:24] LABS: Basophils % (A) 0 %; Eosinophils # (A) 0.2 k/uL (0-0.7); Eosinophils % (A) 2 %; HCT 36.5 % (34.0-46.0); HGB 12.2 gm/dL (11.4-16.0); Lymphocytes # (A) 1.2 k/uL (1.0-4.8); Lymphocytes % (A) 12 %; MCH 28.8 pg (25.0-35.0); MCHC 33.6 g/dL (31.0-37.0); MCV 85.8 fL (80.0-100.0); Mean Platelet Volume 6.7; Monocytes # (A) 0.4 k/uL (0-1.0); Monocytes % (A) 4 %; Neutrophils # (A) 7.9 k/uL (1.3-7.7); Neutrophils % (A) 81 %; Platelet Count 318 k/uL (150-450); RBC 4.25 m/uL (3.80-5.40); RDW 12.4 % (11.5-15.5); WBC 9.7 k/uL (3.8-10.6)
[2023-04-10 06:56] LABS: African American GFR (CKD) >90 (>60 ml/min/1.73 sqM); Anion Gap 8 mmol/L; Blood Urea Nitrogen 6 mg/dL (7-17); Calcium 8.3 mg/dL (8.4-10.2); Carbon Dioxide 24 mmol/L (22-30); Chloride 104 mmol/L (98-107); Glucose 124 mg/dL (74-99); Non-African American GFR(CKD) >90 (>60 ml/min/1.73 sqM); Potassium 4.2 mmol/L (3.5-5.1); Sodium 136 mmol/L (137-145)
[2023-04-10] MEDS: LOSARTAN 50 MG TAB PO SCH (08:48)
[2023-04-10] MEDS: LACTATED RINGERS 1,000 ML IV SCH (09:51)
--- NOTE | 2023-04-10 10:45 | P.PN ---
Subjective Progress Note Date: 04/10/23 CHIEF COMPLAINT: Sigmoid colon mass HISTORY OF PRESENT ILLNESS: Patient scheduled for colonoscopy today. Completed a prep. Stools are clear. Afebrile. Vitals stable. WBC is down from 11.4-9.7 Hgb 12.2 platelets 318 sodium 136 potassium 4.2 creatinine 0.49 and magnesium 2.0 PHYSICAL EXAM: VITAL SIGNS: Reviewed. GENERAL: Well-developed in no acute distress. ABDOMEN: Soft. Nondistended. Left lower quadrant tenderness with palpation NEUROLOGIC: Alert and oriented. Cranial nerves II through XII grossly intact. ASSESSMENT: 1. Possible sigmoid colon mass 2. Acute diverticulitis with possible abscess 3. Left lower quadrant Abdominal pain PLAN: -Patient scheduled for colonoscopy today with Dr. Chauhan -Continue antibiotics Physician Chemical Tester note has been reviewed by physician. Signing provider agrees with the documented findings, assessment, and plan of care. Objective - Vital Signs Vital signs: Vital Signs Temp 98.5 F 04/10/23 08:02 Pulse 85 04/10/23 08:02 Resp 20 04/10/23 08:02 BP 149/82 04/10/23 08:02 Pulse Ox 93 L 04/10/23 08:02 FiO2 Intake & Output 04/09/23 04/10/23 04/10/23 18:59 06:59 18:59 Intake Total 1240 Balance 1240 Intake: Intake, IV Titration 1240 Amount Piperacillin-Tazobactam 3 100 .375 gm In Sodium Chloride 0.9% 100 ml @ 200 mls/hr IVPB ONCE [facility] Rx#:[id number] Piperacillin-Tazobactam 3 100 .375 gm In Sodium Chloride 0.9% 100 ml @ 25 mls/hr IVPB Q8H [facility] Rx#: [id number] Sodium Chloride 0.9% 1, 1040 000 ml @ 130 mls/hr IV . Q7H42M [facility] Rx#:[id number] Other: # Voids 7 # Bowel Movements 7 - Labs CBC & Chem 7: 04/10/23 06:13 04/10/23 06:13 Labs: Abnormal Lab Results - Last 24 Hours (Table) 04/09/23 04/09/23 04/09/23 Range/Units 11:07 11:18 16:52 Neutrophils # (1.3-7.7) k/uL Sodium (137-145) mmol/L BUN (7-17) mg/dL Creatinine (0.52-1.04) mg/dL Glucose (74-99) mg/dL POC Glucose (mg/dL) 119 H 119 H (70-110) mg/dL Calcium (8.4-10.2) mg/dL Crossmatch See Detail 04/10/23 04/10/23 04/10/23 Range/Units 05:58 06:13 06:13 Neutrophils # 7.9 H (1.3-7.7) k/uL Sodium 136 L (137-145) mmol/L BUN 6 L (7-17) mg/dL Creatinine 0.49 L (0.52-1.04) mg/dL Glucose 124 H (74-99) mg/dL POC Glucose (mg/dL) 117 H (70-110) mg/dL Calcium 8.3 L (8.4-10.2) mg/dL Crossmatch
[2023-04-10 11:01] LABS: Glucose,Whole Blood 125 mg/dL (70-110)
[2023-04-10] MEDS ORDERED: PROPOFOL 10 MG/ML 20 ML VIAL IV ONE (12:50)
[2023-04-10] MEDS ORDERED: IV FLUID CONTINUATION 400 ML IV ONE (13:04)
--- NOTE | 2023-04-10 13:10 | P.OP ---
Date of Procedure: 04/10/23 Preoperative Diagnosis: Sigmoid mass Postoperative Diagnosis: Normal colonoscopy to distal sigmoid Procedure(s) Performed: Colonoscopy Anesthesia: MELISSA Surgeon: Kris Chauhan Pathology: none sent Condition: stable Disposition: PACU Description of Procedure: The patient's placed on the endoscopy table in the lateral position. He was she received IV sedation. His rectal exam is performed which revealed no abnormalities. Flexible colonoscope was then advanced into the rectum. Scope was then advanced into the sigmoid colon. In the distal sigmoid colon there colon was very tortuous. Scope could not be advanced beyond this. At this point scope withdrawn. The visualized sigmoid colon and rectum appeared normal. Scope withdrawn for patient.
[2023-04-10] MEDS: amLODIPine 10 MG TAB PO SCH (16:06)
--- NOTE | 2023-04-10 16:29 | P.PN ---
Subjective Progress Note Date: 04/10/23 Patient is a 57-year-old female with known diabetes on oral medications only, hypertension, and hypothyroidism who presented with complaints of abdominal pain was subsequently diagnosed with acute diverticulitis with possible abscess formation. She was admitted to surgery were consulted for medical management. Pt doing well today with no reports of pain, reports her prep went well and is anticipating colonoscopy later today. Vital signs reviewed General:, no distress, appears at stated age Cardiovascular: S1S2 reg, no murmur, positive posterior tibial pulse bilateral, Lungs: CTA bilateral, no rhonchi, no rales , no accessory muscle use Abdominal: soft, tender to palpation diffusely, no guarding, no appreciable organomegaly Ext: no gross muscle atrophy, no edema b/l lower extremities, no contractures Neuro: CN II-XI grossly intact, no focal neuro deficits Psych: Alert, oriented, appropriate affect Assessment/Plan: Acute diverticulitis with abscess formation, possible fistulous ? uterus-- patient reports hysterectomy but on CT radiology notes lobulaed uteru s -Case discussed with nurse practitioner from general surgery. Plan will be for colonoscopy in a.m. -Start Zosyn 3.375 g IVPB every 8 hours. Patient received 1 dose in the ER. The patient's nothing by mouth status and colonoscopy prep will start Dilaudid 0.5-1 mg every 3 hours as needed for pain. - depending on results of Colonoscopy consider PLUMBING ASSEMBLER consult. Diabetes mellitus type 2 -Metformin and Jardiance on hold -SSI, follow BS Hypertension -Continue with Cozaar 100 mg daily, Norvasc 10 mg daily Chronic: Obesity, Class III Hypothyroidism Imaging: No imaging reviewed today Data Review: No labs reviewed today Thank you for allowing us to participate in the care of this pleasant patient. Do not hesitate to contact us with questions. Someone can be reached from the [facility] hospitalist group all hours of the day at [phone] or via [employer]. This dictation was prepared using [employer] voice recognition software. Though every attempt is made to correct errors during dictation some may still exist. Objective - Vital Signs Vital signs: Vital Signs Temp 98.4 F 04/10/23 13:50 Pulse 73 04/10/23 13:50 Resp 20 04/10/23 13:50 BP 130/79 04/10/23 13:50 Pulse Ox 95 04/10/23 13:50 FiO2 Intake & Output 04/09/23 04/10/23 04/10/23 18:59 06:59 18:59 Intake Total 1240 100 Balance 1240 100 Intake: IV 100 Intake, IV Titration 1240 Amount Piperacillin-Tazobactam 3 100 .375 gm In Sodium Chloride 0.9% 100 ml @ 200 mls/hr IVPB [facility] Rx#:[id number] Piperacillin-Tazobactam 3 100 .375 gm In Sodium Chloride 0.9% 100 ml @ 25 mls/hr IVPB Q8H [facility] Rx#: [id number] Sodium Chloride 0.9% 1, 1040 000 ml @ 130 mls/hr IV . Q7H42M [facility] Rx#:[id number] Other: # Voids 7 # Bowel Movements 7 - Labs CBC & Chem 7: 04/10/23 06:13 04/10/23 06:13 Labs: Abnormal Lab Results - Last 24 Hours (Table) 04/09/23 04/10/23 04/10/23 Range/Units 16:52 05:58 06:13 Neutrophils # 7.9 H (1.3-7.7) k/uL Sodium (137-145) mmol/L BUN (7-17) mg/dL Creatinine (0.52-1.04) mg/dL Glucose (74-99) mg/dL POC Glucose (mg/dL) 119 H 117 H (70-110) mg/dL Calcium (8.4-10.2) mg/dL 04/10/23 04/10/23 Range/Units 06:13 10:59 Neutrophils # (1.3-7.7) k/uL Sodium 136 L (137-145) mmol/L BUN 6 L (7-17) mg/dL Creatinine 0.49 L (0.52-1.04) mg/dL Glucose 124 H (74-99) mg/dL POC Glucose (mg/dL) 125 H (70-110) mg/dL Calcium 8.3 L (8.4-10.2) mg/dL
[2023-04-10 16:39] LABS: Glucose,Whole Blood 156 mg/dL (70-110)
[2023-04-10] MEDS: ACETAMINOPHEN TAB 325 MG TAB PO PRN (20:22)
[2023-04-10 20:58] LABS: Glucose,Whole Blood 121 mg/dL (70-110)
[2023-04-11] MEDS: SODIUM CHLORIDE 0.9% 1,000 ML IV SCH ×2 (02:17→20:26)
[2023-04-11] MEDS: PIPERACILLIN-TAZOBACTAM 3.375 GM in SODIUM CHLORIDE 0.9% 100 ML IVPB SCH ×3 (03:38→20:53)
[2023-04-11] MEDS: LEVOTHYROXINE 75 MCG TAB PO SCH (05:58)
[2023-04-11] MEDS: INSULIN ASPART (NovoLOG) 100 UNIT/ML VIAL SQ SCH ×4 (07:49→21:01)
[2023-04-11] MEDS: LOSARTAN 50 MG TAB PO SCH (09:18)
[2023-04-11] MEDS: ACETAMINOPHEN TAB 325 MG TAB PO PRN (09:19)
[2023-04-11 10:58] LABS: Glucose,Whole Blood 135 mg/dL (70-110)
--- NOTE | 2023-04-11 11:13 | P.PN ---
Subjective Progress Note Date: 04/11/23 CHIEF COMPLAINT: Sigmoid colon mass HISTORY OF PRESENT ILLNESS: Patient status post colonoscopy. Patient had normal colonoscopy up to the distal sigmoid colon. Then the colon became very tortuous. Scope could not be advanced beyond this. Patient continues to have left-sided abdominal pain but does report some improvement. Denies any nausea or vomiting. She is tolerating the clear liquids. Afebrile. PHYSICAL EXAM: VITAL SIGNS: Reviewed. GENERAL: Well-developed in no acute distress. ABDOMEN: Soft. Nondistended. Left lower quadrant tenderness with palpation NEUROLOGIC: Alert and oriented. Cranial nerves II through XII grossly intact. ASSESSMENT: 1. Possible sigmoid colon mass 2. Acute diverticulitis with possible abscess 3. Left lower quadrant Abdominal pain PLAN: -Computed tomography scan abdomen and pelvis with oral and IV contrast ordered today for further evaluation of the left lower quadrant abdominal pain and possible sigmoid mass -Patient scheduled for sigmoid colectomy and possible colostomy on 04/14/[address] stewart -Continue clear liquid diet -Continue pain management -Add ensure for protein supplement -Encourage patient to ambulate -Continue antibiotics -DVT prophylaxis subcu heparin Physician Recordist note has been reviewed by physician. Signing provider agrees with the documented findings, assessment, and plan of care. Objective - Vital Signs Vital signs: Vital Signs Temp 98.1 F 04/11/23 06:50 Pulse 73 04/11/23 06:50 Resp 18 04/11/23 06:50 BP 136/84 04/11/23 06:50 Pulse Ox 95 04/11/23 06:50 FiO2 Intake & Output 04/10/23 04/11/23 04/11/23 18:59 06:59 18:59 Intake Total 100 Balance 100 Intake: IV 100 Other: # Voids 3 1 - Labs CBC & Chem 7: 04/10/23 06:13 04/10/23 06:13 Labs: Abnormal Lab Results - Last 24 Hours (Table) 04/09/23 04/10/23 04/10/23 Range/Units 11:07 10:59 16:37 POC Glucose (mg/dL) 125 H 156 H (70-110) mg/dL Crossmatch See Detail 04/10/23 Range/Units 20:56 POC Glucose (mg/dL) 121 H (70-110) mg/dL Crossmatch
[2023-04-11] MEDS: LACTATED RINGERS 1,000 ML IV SCH (11:44)
[2023-04-11] MEDS: HEPARIN SODIUM,PORCINE 5,000 UNIT/ML 1 ML VIAL SQ SCH ×2 (11:57→20:53)
[2023-04-11] MEDS: IOPAMIDOL CONTRAST (ORAL USE) VIAL PO PRN ×2 (11:57→13:00)
--- NOTE | 2023-04-11 14:32 | CT ---
EXAMINATION TYPE: CT abdomen pelvis w con DATE OF EXAM: 04/11/2023 HISTORY: ABDOMINAL PAIN. follow up on possible sigmoid mass CT DLP: 2667.4mGycm Automated Exposure Control for Dose Reduction was Utilized. CONTRAST: CT scan of the abdomen and pelvis is performed with oral and with IV Contrast, patient injected with 100ML mL of Isovue 300. COMPARISON: Prior CT 3 days earlier FINDINGS: LUNG BASES: No significant abnormality is appreciated. LIVER/GB: Liver remains diffusely low dense consistent with fatty infiltrative hepatocellular disease . PANCREAS: No significant abnormality is seen. SPLEEN: No significant abnormality is seen. ADRENALS: No significant abnormality is seen. KIDNEYS: No significant abnormality is seen. Bowel: Oral contrast reaches the level of the splenic flexure. No abnormal small or large bowel dilat ation. Persistent focal moderate to severe wall thickening in the sigmoid colon with diverticulosis. Persistent adjacent focal fluid collection or abscesses with largest measuring near 4.2 cm axial imag e 74 has similar appearance to prior study axial image 76. Area of concern on prior mass shows better visualized portion of the lumen on current study but persistent wall thickening. UTERUS/ADNEXA: Small sized anteverted uterus projects to right of midline adjacent to sigmoid colon. Poor separation from adjacent colon once again noted. LYMPH NODES: Prominent but subcentimeter lymph nodes along the left iliac chain vessels. There are la rger more suspicious lymph nodes in the left retroperitoneum. Lymph node at level of the left kidney measures 2.0 x 1.9 cm axial image 36 is redemonstrated. OSSEOUS STRUCTURES: No significant abnormality is seen. OTHER: No significant additional abnormality is seen. IMPRESSION: Similar findings to prior study. Presumed colitis and/or diverticulitis sigmoid colon wit h adjacent abscess formation. Poor differentiation from adjacent uterus. Abnormal adenopathy is noted . Underlying neoplasm not excluded.
--- NOTE | 2023-04-11 14:37 | P.PN ---
Subjective Progress Note Date: 04/11/23 Patient is a 57-year-old female with known diabetes on oral medications only, hypertension, and hypothyroidism who presented with complaints of abdominal pain was subsequently diagnosed with acute diverticulitis with possible abscess formation. She was admitted to surgery were consulted for medical management. Pt doing well today with no reports of pain, reports her prep went well and is anticipating colonoscopy later today. Vital signs reviewed General:, no distress, appears at stated age Cardiovascular: S1S2 reg, no murmur, positive posterior tibial pulse bilateral, Lungs: CTA bilateral, no rhonchi, no rales , no accessory muscle use Abdominal: soft, tender to palpation diffusely, no guarding, no appreciable organomegaly Ext: no gross muscle atrophy, no edema b/l lower extremities, no contractures Neuro: CN II-XI grossly intact, no focal neuro deficits Psych: Alert, oriented, appropriate affect Assessment/Plan: Acute diverticulitis with abscess formation, possible fistulous ? uterus-- patient reports hysterectomy but on CT radiology notes lobulaed uteru s -Case discussed with nurse practitioner from general surgery. Plan will be for colonoscopy in a.m. -Start Zosyn 3.375 g IVPB every 8 hours. Patient received 1 dose in the ER. The patient's nothing by mouth status and colonoscopy prep will start Dilaudid 0.5-1 mg every 3 hours as needed for pain. - depending on results of Colonoscopy consider QUALITY NURSE consult. Diabetes mellitus type 2 -Metformin and Jardiance on hold -SSI, follow BS Hypertension -Continue with Cozaar 100 mg daily, Norvasc 10 mg daily Chronic: Obesity, Class III Hypothyroidism Imaging: No imaging reviewed today Data Review: No labs reviewed today Thank you for allowing us to participate in the care of this pleasant patient. Do not hesitate to contact us with questions. Someone can be reached from the [facility] hospitalist group all hours of the day at [phone] or via [employer]. This dictation was prepared using [employer] voice recognition software. Though every attempt is made to correct errors during dictation some may still exist. Objective - Vital Signs Vital signs: Vital Signs Temp 98.7 F 04/11/23 12:40 Pulse 63 04/11/23 12:40 Resp 17 04/11/23 12:40 BP 134/83 04/11/23 12:40 Pulse Ox 97 04/11/23 12:40 FiO2 Intake & Output 04/10/23 04/11/23 04/11/23 18:59 06:59 18:59 Intake Total 100 Balance 100 Intake: IV 100 Other: # Voids 3 1 - Labs CBC & Chem 7: 04/10/23 06:13 04/10/23 06:13 Labs: Abnormal Lab Results - Last 24 Hours (Table) 04/09/23 04/10/23 04/10/23 Range/Units 11:07 16:37 20:56 POC Glucose (mg/dL) 156 H 121 H (70-110) mg/dL Crossmatch See Detail 04/11/23 Range/Units 10:57 POC Glucose (mg/dL) 135 H (70-110) mg/dL Crossmatch
[2023-04-11 15:10] VITALS: BMI 46.5
[2023-04-11 16:46] LABS: Glucose,Whole Blood 160 mg/dL (70-110)
[2023-04-11] MEDS: amLODIPine 10 MG TAB PO SCH (17:18)
[2023-04-11 20:22] LABS: Glucose,Whole Blood 95 mg/dL (70-110)
[2023-04-12] MEDS: SODIUM CHLORIDE 0.9% 1,000 ML IV SCH ×4 (03:41→23:58)
[2023-04-12] MEDS: PIPERACILLIN-TAZOBACTAM 3.375 GM in SODIUM CHLORIDE 0.9% 100 ML IVPB SCH ×3 (03:47→21:48)
[2023-04-12 06:22] LABS: Glucose,Whole Blood 112 mg/dL (70-110)
[2023-04-12] MEDS: LEVOTHYROXINE 75 MCG TAB PO SCH (06:39)
[2023-04-12 07:41] LABS: HCT 36.6 % (34.0-46.0); HGB 11.9 gm/dL (11.4-16.0); MCH 28.2 pg (25.0-35.0); MCHC 32.6 g/dL (31.0-37.0); MCV 86.5 fL (80.0-100.0); Mean Platelet Volume 6.7; Platelet Count 328 k/uL (150-450); RBC 4.24 m/uL (3.80-5.40); RDW 12.6 % (11.5-15.5); WBC 10.5 k/uL (3.8-10.6)
[2023-04-12 07:55] LABS: African American GFR (CKD) >90 (>60 ml/min/1.73 sqM); Anion Gap 11 mmol/L; Blood Urea Nitrogen 5 mg/dL (7-17); Calcium 8.6 mg/dL (8.4-10.2); Carbon Dioxide 24 mmol/L (22-30); Chloride 104 mmol/L (98-107); Glucose 114 mg/dL (74-99); Non-African American GFR(CKD) >90 (>60 ml/min/1.73 sqM); Potassium 4.1 mmol/L (3.5-5.1); Sodium 139 mmol/L (137-145)
[2023-04-12] MEDS: INSULIN ASPART (NovoLOG) 100 UNIT/ML VIAL SQ SCH ×4 (08:31→21:47)
[2023-04-12] MEDS: LACTATED RINGERS 1,000 ML IV SCH (08:56)
[2023-04-12] MEDS: LOSARTAN 50 MG TAB PO SCH (08:57)
[2023-04-12] MEDS: HEPARIN SODIUM,PORCINE 5,000 UNIT/ML 1 ML VIAL SQ SCH ×2 (08:57→21:49)
--- NOTE | 2023-04-12 10:46 | P.PN ---
Subjective Progress Note Date: 04/12/23 (Surgery) PHYSICAL EXAM: VITAL SIGNS: Reviewed. GENERAL: Well-developed in no acute distress. ABDOMEN: Soft. Nondistended. Left lower quadrant tenderness with palpation NEUROLOGIC: Alert and oriented. Cranial nerves II through XII grossly intact. ASSESSMENT: 1. Possible sigmoid colon mass 2. Acute diverticulitis with possible abscess. Redemonstrated on computed tomography scan. 3. Left lower quadrant Abdominal pain PLAN: -CT scan from yesterday unchanged from before showing diverticular disease and abscess. -Patient scheduled for sigmoid colectomy and possible colostomy on Friday, with Dr. stewart -Continue clear liquid diet -Continue pain management -Add ensure for protein supplement -Encourage patient to ambulate -Continue antibiotics -DVT prophylaxis subcu heparin Objective - Vital Signs Vital signs: Vital Signs Temp 99.7 F H 04/12/23 07:22 Pulse 76 04/12/23 07:22 Resp 18 04/12/23 07:22 BP 122/69 04/12/23 07:22 Pulse Ox 96 04/12/23 07:22 FiO2 Intake & Output 04/11/23 04/12/23 04/12/23 18:59 06:59 18:59 Weight 127.006 kg Other: # Voids 5 - Labs CBC & Chem 7: 04/12/23 06:54 04/12/23 06:54 Labs: Abnormal Lab Results - Last 24 Hours (Table) 04/11/23 04/11/23 04/12/23 Range/Units 10:57 16:45 06:21 BUN (7-17) mg/dL Glucose (74-99) mg/dL POC Glucose (mg/dL) 135 H 160 H 112 H (70-110) mg/dL 04/12/23 Range/Units 06:54 BUN 5 L (7-17) mg/dL Glucose 114 H (74-99) mg/dL POC Glucose (mg/dL) (70-110) mg/dL
[2023-04-12 11:46] LABS: Glucose,Whole Blood 172 mg/dL (70-110)
--- NOTE | 2023-04-12 12:33 | P.PN ---
Subjective Progress Note Date: 04/12/23 Patient is a 57-year-old female with known diabetes on oral medications only, hypertension, and hypothyroidism who presented with complaints of abdominal pain was subsequently diagnosed with acute diverticulitis with possible abscess formation. She was admitted to surgery were consulted for medical management. Pt doing well today with no reports of pain, reports her prep went well and is anticipating colonoscopy later today. Vital signs reviewed General:, no distress, appears at stated age Cardiovascular: S1S2 reg, no murmur, positive posterior tibial pulse bilateral, Lungs: CTA bilateral, no rhonchi, no rales , no accessory muscle use Abdominal: soft, tender to palpation diffusely, no guarding, no appreciable organomegaly Ext: no gross muscle atrophy, no edema b/l lower extremities, no contractures Neuro: CN II-XI grossly intact, no focal neuro deficits Psych: Alert, oriented, appropriate affect Assessment/Plan: Acute diverticulitis with abscess formation, possible fistulous ? uterus-- patient reports hysterectomy but on CT radiology notes lobulaed uteru s -Case discussed with nurse practitioner from general surgery. Plan will be for colonoscopy in a.m. -Start Zosyn 3.375 g IVPB every 8 hours. Patient received 1 dose in the ER. The patient's nothing by mouth status and colonoscopy prep will start Dilaudid 0.5-1 mg every 3 hours as needed for pain. - depending on results of Colonoscopy consider SUPERVISOR DRYING AND WINDING consult. Diabetes mellitus type 2 -Metformin and Jardiance on hold -SSI, follow BS Hypertension -Continue with Cozaar 100 mg daily, Norvasc 10 mg daily Chronic: Obesity, Class III Hypothyroidism Imaging: No imaging reviewed today Data Review: No labs reviewed today Thank you for allowing us to participate in the care of this pleasant patient. Do not hesitate to contact us with questions. Someone can be reached from the [facility] hospitalist group all hours of the day at [phone] or via [employer]. This dictation was prepared using [employer] voice recognition software. Though every attempt is made to correct errors during dictation some may still exist. Objective - Vital Signs Vital signs: Vital Signs Temp 99.7 F H 04/12/23 07:22 Pulse 76 04/12/23 07:22 Resp 18 04/12/23 07:22 BP 122/69 04/12/23 07:22 Pulse Ox 96 04/12/23 07:22 FiO2 Intake & Output 04/11/23 04/12/23 04/12/23 18:59 06:59 18:59 Weight 127.006 kg Other: # Voids 5 - Labs CBC & Chem 7: 04/12/23 06:54 04/12/23 06:54 Labs: Abnormal Lab Results - Last 24 Hours (Table) 04/11/23 04/12/23 04/12/23 Range/Units 16:45 06:21 06:54 BUN 5 L (7-17) mg/dL Glucose 114 H (74-99) mg/dL POC Glucose (mg/dL) 160 H 112 H (70-110) mg/dL 04/12/23 Range/Units 11:44 BUN (7-17) mg/dL Glucose (74-99) mg/dL POC Glucose (mg/dL) 172 H (70-110) mg/dL
[2023-04-12] MEDS: amLODIPine 10 MG TAB PO SCH (14:48)
[2023-04-12 16:26] LABS: Glucose,Whole Blood 82 mg/dL (70-110)
[2023-04-12 20:10] LABS: Glucose,Whole Blood 147 mg/dL (70-110)
[2023-04-13] MEDS: PIPERACILLIN-TAZOBACTAM 3.375 GM in SODIUM CHLORIDE 0.9% 100 ML IVPB SCH ×3 (04:12→21:06)
[2023-04-13 05:58] LABS: Glucose,Whole Blood 116 mg/dL (70-110)
[2023-04-13] MEDS: INSULIN ASPART (NovoLOG) 100 UNIT/ML VIAL SQ SCH ×4 (06:10→21:06)
[2023-04-13] MEDS: SODIUM CHLORIDE 0.9% 1,000 ML IV SCH ×3 (06:11→21:10)
[2023-04-13] MEDS: LEVOTHYROXINE 75 MCG TAB PO SCH (06:13)
[2023-04-13] MEDS ORDERED: droPERidol 5 MG/2 ML VIAL IVP ONE (07:52)
[2023-04-13] MEDS ORDERED: ONDANSETRON 4 MG/2 ML VIAL IVP PRN (07:52)
[2023-04-13] MEDS ORDERED: HYDROmorphone 0.5 MG/0.5 ML SYRINGE IVP PRN (07:52)
[2023-04-13] MEDS ORDERED: SCOPOLAMINE 1 MG/72 HR PATCH TRANSDERM ONE (07:52)
[2023-04-13] MEDS ORDERED: LIDOCAINE 1% (10MG/ML) FOR IV START INTRADERMA PRN (07:52)
[2023-04-13] MEDS ORDERED: DEXAMETHASONE SOD PHOSPHATE 4 MG/ML 1 ML VIAL IV ONE (07:52)
[2023-04-13] MEDS: LACTATED RINGERS 1,000 ML IV SCH ×2 (07:53→08:18)
[2023-04-13] MEDS: LOSARTAN 50 MG TAB PO SCH (08:24)
[2023-04-13] MEDS: HEPARIN SODIUM,PORCINE 5,000 UNIT/ML 1 ML VIAL SQ SCH ×2 (08:24→21:06)
--- NOTE | 2023-04-13 10:58 | P.PN ---
Subjective Progress Note Date: 04/13/23 Patient still. Her pain is improved. She is scheduled for sigmoidectomy with possible colostomy tomorrow. Objective - Vital Signs Vital signs: Vital Signs Temp 98 F 04/13/23 07:06 Pulse 73 04/13/23 08:30 Resp 18 04/13/23 08:30 BP 130/68 04/13/23 07:06 Pulse Ox 94 L 04/13/23 07:06 FiO2 Intake & Output 04/12/23 04/13/23 04/13/23 18:59 06:59 18:59 Intake Total 480 550 Balance 480 550 Intake: Intake, IV Titration 480 Amount Piperacillin-Tazobactam 3 200 .375 gm In Sodium Chloride 0.9% 100 ml @ 25 mls/hr IVPB Q8H [facility] Rx#: [id number] Sodium Chloride 0.9% 1, 280 000 ml @ 130 mls/hr IV . Q7H42M [facility] Rx#:[id number] Oral 550 Other: # Voids 1 3 - Labs CBC & Chem 7: 04/12/23 06:54 04/12/23 06:54 Labs: Abnormal Lab Results - Last 24 Hours (Table) 04/12/23 04/12/23 04/13/23 Range/Units 11:44 20:09 05:56 POC Glucose (mg/dL) 172 H 147 H 116 H (70-110) mg/dL Assessment and Plan Plan: Sigmoid colon mass possible diverticulitis possible neoplasm patient will underg o bowel resection tomorrow. Patient aware the risk of colostomy.
[2023-04-13 11:18] LABS: Glucose,Whole Blood 170 mg/dL (70-110)
--- NOTE | 2023-04-13 12:11 | P.PN ---
Subjective Progress Note Date: 04/13/23 Patient is a 57-year-old female with known diabetes on oral medications only, hypertension, and hypothyroidism who presented with complaints of abdominal pain was subsequently diagnosed with acute diverticulitis with possible abscess formation. She was admitted to surgery were consulted for medical management. Pt doing well today with no reports of pain, reports her prep went well and is anticipating colonoscopy later today. Vital signs reviewed General:, no distress, appears at stated age Cardiovascular: S1S2 reg, no murmur, positive posterior tibial pulse bilateral, Lungs: CTA bilateral, no rhonchi, no rales , no accessory muscle use Abdominal: soft, tender to palpation diffusely, no guarding, no appreciable organomegaly Ext: no gross muscle atrophy, no edema b/l lower extremities, no contractures Neuro: CN II-XI grossly intact, no focal neuro deficits Psych: Alert, oriented, appropriate affect Assessment/Plan: Acute diverticulitis with abscess formation, possible fistulous ? uterus-- patient reports hysterectomy but on CT radiology notes lobulaed uteru s -Case discussed with nurse practitioner from general surgery. Plan will be for colonoscopy in a.m. -Start Zosyn 3.375 g IVPB every 8 hours. Patient received 1 dose in the ER. The patient's nothing by mouth status and colonoscopy prep will start Dilaudid 0.5-1 mg every 3 hours as needed for pain. - depending on results of Colonoscopy consider ABALONE SHELLER consult. Diabetes mellitus type 2 -Metformin and Jardiance on hold -SSI, follow BS Hypertension -Continue with Cozaar 100 mg daily, Norvasc 10 mg daily Chronic: Obesity, Class III Hypothyroidism Imaging: No imaging reviewed today Data Review: No labs reviewed today Thank you for allowing us to participate in the care of this pleasant patient. Do not hesitate to contact us with questions. Someone can be reached from the [facility] hospitalist group all hours of the day at [phone] or via [employer] This dictation was prepared using [employer] voice recognition software. Though every attempt is made to correct errors during dictation some may still exist. Objective - Vital Signs Vital signs: Vital Signs Temp 98 F 04/13/23 07:06 Pulse 73 04/13/23 08:30 Resp 18 04/13/23 08:30 BP 130/68 04/13/23 07:06 Pulse Ox 94 L 04/13/23 07:06 FiO2 Intake & Output 04/12/23 04/13/23 04/13/23 18:59 06:59 18:59 Intake Total 480 550 Balance 480 550 Intake: Intake, IV Titration 480 Amount Piperacillin-Tazobactam 3 200 .375 gm In Sodium Chloride 0.9% 100 ml @ 25 mls/hr IVPB Q8H [facility] Rx#: [id number] Sodium Chloride 0.9% 1, 280 000 ml @ 130 mls/hr IV . Q7H42M [facility] Rx#:[id number] Oral 550 Other: # Voids 1 3 - Labs CBC & Chem 7: 04/12/23 06:54 04/12/23 06:54 Labs: Abnormal Lab Results - Last 24 Hours (Table) 04/12/23 04/13/23 04/13/23 Range/Units 20:09 05:56 11:16 POC Glucose (mg/dL) 147 H 116 H 170 H (70-110) mg/dL
[2023-04-13] MEDS: amLODIPine 10 MG TAB PO SCH (15:42)
[2023-04-13 17:08] LABS: Glucose,Whole Blood 119 mg/dL (70-110)
[2023-04-13 20:58] LABS: Glucose,Whole Blood 178 mg/dL (70-110)
[2023-04-14] MEDS: PIPERACILLIN-TAZOBACTAM 3.375 GM in SODIUM CHLORIDE 0.9% 100 ML IVPB SCH ×3 (04:32→17:15)
[2023-04-14 05:23] LABS: Glucose,Whole Blood 108 mg/dL (70-110)
[2023-04-14 05:34] LABS: African American GFR (CKD) >90 (>60 ml/min/1.73 sqM); Anion Gap 8 mmol/L; Blood Urea Nitrogen 5 mg/dL (7-17); Calcium 8.4 mg/dL (8.4-10.2); Carbon Dioxide 24 mmol/L (22-30); Chloride 106 mmol/L (98-107); Glucose 109 mg/dL (74-99); Non-African American GFR(CKD) >90 (>60 ml/min/1.73 sqM); Potassium 3.9 mmol/L (3.5-5.1); Sodium 138 mmol/L (137-145)
[2023-04-14 05:39] LABS: HCT 35.6 % (34.0-46.0); HGB 11.7 gm/dL (11.4-16.0); MCH 27.9 pg (25.0-35.0); MCHC 32.9 g/dL (31.0-37.0); MCV 84.8 fL (80.0-100.0); Mean Platelet Volume 6.6; Platelet Count 339 k/uL (150-450); RDW 12.5 % (11.5-15.5); WBC 9.6 k/uL (3.8-10.6)
[2023-04-14] MEDS: INSULIN ASPART (NovoLOG) 100 UNIT/ML VIAL SQ SCH ×4 (05:39→23:00)
[2023-04-14] MEDS: SODIUM CHLORIDE 0.9% 1,000 ML IV SCH ×2 (05:39→10:30)
[2023-04-14] MEDS: LEVOTHYROXINE 75 MCG TAB PO SCH (05:43)
[2023-04-14 06:00] LABS: Band Neutrophils % 1 %; Eosinophils # (M) 0.19 k/uL (0-0.7); Monocytes # (M) 0.48 k/uL (0-1.0); Neutrophils % (M) 67 %; Nucleated Red Blood Cells 0 /100 WBC (0-0); Total Cells Counted 100
[2023-04-14] MEDS: LOSARTAN 50 MG TAB PO SCH (09:09)
[2023-04-14] MEDS: HEPARIN SODIUM,PORCINE 5,000 UNIT/ML 1 ML VIAL SQ SCH ×2 (09:10→23:08)
--- NOTE | 2023-04-14 11:01 | P.PN ---
Subjective Progress Note Date: 04/14/23 Patient is a 57-year-old female with known diabetes on oral medications only, hypertension, and hypothyroidism who presented with complaints of abdominal pain was subsequently diagnosed with acute diverticulitis with possible abscess formation. She was admitted to surgery were consulted for medical management. Pt doing well today with no reports of pain, reports her prep went well and is anticipating surgery later today. Vital signs reviewed General:, no distress, appears at stated age Cardiovascular: S1S2 reg, no murmur, positive posterior tibial pulse bilateral, Lungs: CTA bilateral, no rhonchi, no rales , no accessory muscle use Abdominal: soft, tender to palpation diffusely, no guarding, no appreciable organomegaly Ext: no gross muscle atrophy, no edema b/l lower extremities, no contractures Neuro: CN II-XI grossly intact, no focal neuro deficits Psych: Alert, oriented, appropriate affect Assessment/Plan: Acute diverticulitis with abscess formation, possible fistulous ? uterus-- patient reports hysterectomy but on CT radiology notes lobulaed uterus -Plan is for sigmoidectomy today as discussed with general surgery - Zosyn 3.375 g IVPB every 8 hours. -Dilaudid 0.5-1 mg every 3 hours as needed for pain. Diabetes mellitus type 2 -Metformin and Jardiance on hold -SSI, follow BS Hypertension -Continue with Cozaar 100 mg daily, Norvasc 10 mg daily Chronic: Obesity, Class III Hypothyroidism Imaging: No imaging reviewed today Data Review: No labs reviewed today Thank you for allowing us to participate in the care of this pleasant patient. Do not hesitate to contact us with questions. Someone can be reached from the [facility] hospitalist group all hours of the day at [phone] or via [employer]. This dictation was prepared using [employer] voice recognition software. Though every attempt is made to correct errors during dictation some may still exist. Objective - Vital Signs Vital signs: Vital Signs Temp 98.9 F 04/14/23 07:49 Pulse 74 04/14/23 07:49 Resp 20 04/14/23 07:49 BP 122/70 04/14/23 07:49 Pulse Ox 96 04/14/23 07:49 FiO2 Intake & Output 04/13/23 04/14/23 04/14/23 18:59 06:59 18:59 Intake Total 800 450 Balance 800 450 Intake: Oral 800 450 Other: # Voids 2 2 - Labs CBC & Chem 7: 04/14/23 05:00 04/14/23 05:00 Labs: Abnormal Lab Results - Last 24 Hours (Table) 04/13/23 04/13/23 04/13/23 Range/Units 11:16 17:07 20:56 BUN (7-17) mg/dL Glucose (74-99) mg/dL POC Glucose (mg/dL) 170 H 119 H 178 H (70-110) mg/dL 04/14/23 Range/Units 05:00 BUN 5 L (7-17) mg/dL Glucose 109 H (74-99) mg/dL POC Glucose (mg/dL) (70-110) mg/dL
[2023-04-14 11:35] LABS: Glucose,Whole Blood 101 mg/dL (70-110)
[2023-04-14] MEDS ORDERED: IV FLUID CONTINUATION 800 ML IV ONE ×2 (12:15)
[2023-04-14] MEDS ORDERED: MIDAZOLAM 2 MG/2 ML VIAL IVP ONE (12:45)
[2023-04-14] MEDS ORDERED: ONDANSETRON 4 MG/2 ML VIAL IVP ONE (12:47)
[2023-04-14] MEDS ORDERED: DEXAMETHASONE SOD PHOSPHATE 4 MG/ML 1 ML VIAL IVP ONE (12:48)
[2023-04-14] MEDS ORDERED: LACTATED RINGERS 1,000 ML IV ONE ×2 (12:49→18:02)
--- NOTE | 2023-04-14 13:04 | P.PN ---
Subjective Progress Note Date: 04/14/23 CHIEF COMPLAINT: Sigmoid colon mass HISTORY OF PRESENT ILLNESS: Patient sitting comfortably at bedside chair. She does still report some left-sided abdominal pain. She is scheduled for sigmoid colectomy today. Denies any nausea vomiting. Vitals stable. WBC 9.6 Hgb 11.7 platelets 339 sodium is 138 potassium 3.9 creatinine 0.55 PHYSICAL EXAM: VITAL SIGNS: Reviewed. GENERAL: Well-developed in no acute distress. ABDOMEN: Soft. Nondistended. Left lower quadrant tenderness with palpation NEUROLOGIC: Alert and oriented. Cranial nerves II through XII grossly intact. ASSESSMENT: 1. Possible sigmoid colon mass 2. Acute diverticulitis with possible abscess 3. Left lower quadrant Abdominal pain PLAN: -Patient scheduled for sigmoid colectomy with possible colostomy today with Dr. stewart -Keep patient nothing by mouth Physician Body Engineer note has been reviewed by physician. Signing provider agrees with the documented findings, assessment, and plan of care. Objective - Vital Signs Vital signs: Vital Signs Temp 98.3 F 04/14/23 12:12 Pulse 74 04/14/23 12:12 Resp 18 04/14/23 12:12 BP 121/63 04/14/23 12:12 Pulse Ox 96 04/14/23 12:12 FiO2 Intake & Output 04/13/23 04/14/23 04/14/23 18:59 06:59 18:59 Intake Total 800 450 Balance 800 450 Intake: Oral 800 450 Other: # Voids 2 2 - Labs CBC & Chem 7: 04/14/23 05:00 04/14/23 05:00 Labs: Abnormal Lab Results - Last 24 Hours (Table) 04/13/23 04/13/23 04/14/23 Range/Units 17:07 20:56 05:00 BUN 5 L (7-17) mg/dL Glucose 109 H (74-99) mg/dL POC Glucose (mg/dL) 119 H 178 H (70-110) mg/dL
--- NOTE | 2023-04-14 13:23 | P.ANPRN ---
Procedure Note - Anesthesia - Epidural/Spinal Epidural Continuous Time Out Performed: Yes Date of Procedure: 04/14/23 Procedure Start Time: 12:44 Procedure Stop Time: 12:52 Location of Patient: PreOp Indication: Acute Post-Operative Pain, Analgesia, Requested by Surgeon Sedation Type: Sedate with meaningful contact maintained Preparation: Sterile Prep Position: Sitting Catheter: Indwelling Needle Guage: 18 Injectate: Negative S/S with test dose of 3 ml 1.5% lido with epi. Narrative: Negative CSF, paresthesia or blood. L3-4 level Blood Aspirated: No Pain Paresthesia on Injection Noted: No Events: Uneventful and Well Tolerated
[2023-04-14] MEDS ORDERED: NALOXONE 0.4 MG/ML 1 ML VIAL IV PRN (13:26)
[2023-04-14] MEDS: amLODIPine 10 MG TAB PO SCH (16:18)
[2023-04-14] MEDS ORDERED: NEOSTIGMINE 1 MG/ML 10 ML VIAL ONE (16:35)
[2023-04-14] MEDS ORDERED: ROCURONIUM 10 MG/ML (5 ML VIAL) IV ONE (16:35)
[2023-04-14] MEDS ORDERED: HYDROmorphone (PF) 1 MG/ML ONE (16:35)
[2023-04-14] MEDS ORDERED: MIDAZOLAM 2 MG/2 ML VIAL ONE (16:35)
[2023-04-14] MEDS ORDERED: SUCCINYLCHOLINE CHLORIDE 200 MG/10 ML VIAL IV ONE (16:35)
[2023-04-14] MEDS ORDERED: LIDOCAINE 1% INJ 10MG/ML (20 ML MDV) ONE (16:35)
[2023-04-14] MEDS ORDERED: PROPOFOL 10 MG/ML 20 ML VIAL IV ONE (16:35)
[2023-04-14] MEDS ORDERED: fentaNYL (PF) 50 MCG/ML 2 ML AMP ONE (16:35)
[2023-04-14] MEDS ORDERED: GLYCOPYRROLATE 0.2 MG/ML 2 ML VIAL ONE (16:35)
--- NOTE | 2023-04-14 18:23 | P.OP ---
Date of Procedure: 04/14/23 Preoperative Diagnosis: Colon mass Postoperative Diagnosis: : Colonic/Pelvic mass pathology pending Procedure(s) Performed: Excision of pelvic mass Diverting colostomy Partial omentectomy Anesthesia: MELISSA Surgeon: Kris Chauhan Estimated Blood Loss (ml): 50 Pathology: other (Pelvic mass, omentum) Condition: stable Disposition: PACU Description of Procedure: The patient's placed on the operative table in the supine position. She received general endotracheal tube anesthesia. Her abdomen was then prepped and draped after she was placed in dorsal 5 position. A low midline incision was made. The abdomen was entered using electrocautery. The patient is morbidly obese. Her BMI is 46. The omentum was dissected out of the pelvis. And then the pelvis exam. There appeared to be inflammatory mass on the distal sigmoid colon. The mass did not appear to have the typical appearance of colon cancer or diverticulitis. The colon appeared to be scarred in this area. Using blunt dissection the mass was able to be dissected off the wall of the colon. The mass measured 8 x 6 x 6 cm. He was sent to pathology. At this point due to the scarring of the colon decided perform diverting colostomy. The colon was transected with the MARYLOU stapler. And then the white line of Toldt was divided left colon was mobilized. The colon was brought up through the abdominal wall and a suitable spot in the left periumbilical area. The abdomen was irrigated there is no bleeding seen. A portion of the omentum was pathology. The fascia was then closed with looped #1 PDS suture. Skin was closed edgardo. Patient top she will she was sent to recovery room in stable condition..
[2023-04-14] MEDS: ROPIVACAINE 250 MG, HYDROMORPHONE (PF) 5 MG in SODIUM CHLORIDE 0.9% 200 ML EPIDURAL PRN (18:33)
[2023-04-14] MEDS ORDERED: HYDROmorphone 0.5 MG/0.5 ML SYRINGE IVP ONE (18:58)
[2023-04-14 19:37] LABS: Glucose,Whole Blood 159 mg/dL (70-110)
[2023-04-14 20:54] LABS: Glucose,Whole Blood 153 mg/dL (70-110)
[2023-04-14 22:21] LABS: Basophils % (A) 0 %; Eosinophils % (A) 0 %; HCT 36.5 % (34.0-46.0); HGB 12.3 gm/dL (11.4-16.0); Hypochromasia Slight; Lymphocytes # (A) 0.5 k/uL (1.0-4.8); Lymphocytes % (A) 3 %; MCH 29.2 pg (25.0-35.0); MCHC 33.7 g/dL (31.0-37.0); MCV 86.6 fL (80.0-100.0); Mean Platelet Volume 7.1; Monocytes # (A) 0.9 k/uL (0-1.0); Monocytes % (A) 6 %; Neutrophils # (A) 14.3 k/uL (1.3-7.7); Neutrophils % (A) 90 %; Platelet Count 422 k/uL (150-450); RBC 4.22 m/uL (3.80-5.40); RDW 12.5 % (11.5-15.5); WBC 15.9 k/uL (3.8-10.6)
[2023-04-14] MEDS: LACTATED RINGERS 1,000 ML IV SCH (22:59)
[2023-04-14] MEDS: HYDROmorphone 0.5 MG/0.5 ML SYRINGE IVP PRN (23:06)
[2023-04-15] MEDS: SODIUM CHLORIDE 0.9% 1,000 ML IV SCH ×3 (01:16→20:04)
[2023-04-15 02:16] LABS: Glucose,Whole Blood 245 mg/dL (70-110)
[2023-04-15 02:46] LABS: BUN/Creat Ratio 14.17 Ratio (12.00-20.00); Blood Urea Nitrogen 8.5 mg/dL (9.0-27.0); Calcium 9.1 mg/dL (8.7-10.3); Carbon Dioxide 23.5 mmol/L (21.6-31.8); Chloride 106 mmol/L (96-109); Glucose 141 mg/dL (70-110); Potassium 4.6 mmol/L (3.5-5.5); Sodium 141 mmol/L (135-145)
[2023-04-15] MEDS: PIPERACILLIN-TAZOBACTAM 3.375 GM in SODIUM CHLORIDE 0.9% 100 ML IVPB SCH ×3 (04:10→21:01)
[2023-04-15 05:40] LABS: Glucose,Whole Blood 151 mg/dL (70-110)
[2023-04-15] MEDS: INSULIN ASPART (NovoLOG) 100 UNIT/ML VIAL SQ SCH ×4 (06:04→20:24)
[2023-04-15] MEDS: LEVOTHYROXINE 75 MCG TAB PO SCH (06:13)
[2023-04-15 08:27] LABS: Basophils % (A) 0 %; Eosinophils % (A) 0 %; HCT 37.3 % (34.0-46.0); HGB 11.8 gm/dL (11.4-16.0); Hypochromasia Moderate; Lymphocytes # (A) 0.7 k/uL (1.0-4.8); Lymphocytes % (A) 5 %; MCH 28.1 pg (25.0-35.0); MCHC 31.7 g/dL (31.0-37.0); MCV 88.7 fL (80.0-100.0); Mean Platelet Volume 7.3; Monocytes # (A) 0.5 k/uL (0-1.0); Monocytes % (A) 4 %; Neutrophils # (A) 12.3 k/uL (1.3-7.7); Neutrophils % (A) 90 %; Platelet Count 445 k/uL (150-450); RDW 12.5 % (11.5-15.5); WBC 13.6 k/uL (3.8-10.6)
[2023-04-15] MEDS: HYDROmorphone 0.5 MG/0.5 ML SYRINGE IVP PRN ×3 (08:28→18:49)
[2023-04-15 08:38] LABS: African American GFR (CKD) >90 (>60 ml/min/1.73 sqM); Anion Gap 9 mmol/L; Blood Urea Nitrogen 13 mg/dL (7-17); Calcium 8.8 mg/dL (8.4-10.2); Carbon Dioxide 29 mmol/L (22-30); Chloride 106 mmol/L (98-107); Glucose 117 mg/dL (74-99); Non-African American GFR(CKD) 80 (>60 ml/min/1.73 sqM); Potassium 5.5 mmol/L (3.5-5.1); Sodium 144 mmol/L (137-145)
[2023-04-15] MEDS: HEPARIN SODIUM,PORCINE 5,000 UNIT/ML 1 ML VIAL SQ SCH ×3 (09:59→23:58)
[2023-04-15] MEDS: LOSARTAN 50 MG TAB PO SCH (10:00)
--- NOTE | 2023-04-15 11:20 | P.PN ---
Progress Note - Text 04/15/23 622am 57-year-old female status post explore lap. Patient has an epidural catheter for postop pain control with the solution running at 8 mL an hour with a VAS of 5. No sensory or motor deficit noted. Plan to continue epidural infusion
[2023-04-15 11:30] LABS: Glucose,Whole Blood 89 mg/dL (70-110)
--- NOTE | 2023-04-15 13:42 | P.PN ---
Subjective Progress Note Date: 04/15/23 (delayed charting seen at 1030) Patient is a 57-year-old female with known diabetes on oral medications only, hypertension, and hypothyroidism who presented with complaints of abdominal pain was subsequently diagnosed with acute diverticulitis with possible abscess formation. She was admitted to surgery were consulted for medical management. She underwent colonoscopy on 04/10/2023 where the surgery was unable to advance the scope past the tortuous distal sigmoid colon. Patient subsequently underwent repeat CT which again showed possible fistulous mass near the colon. She then underwent surgery on 04/14/2023 with excision of the pelvis mass, diverting colostomy, and partial omentectomy. Patient seen and examined at bedside. Pain is fairly well-controlled. No nausea or vomiting. No shortness of breath. Vital signs reviewed General: Nontoxic, no distress, appears at stated age Cardiovascular: S1S2 reg, no murmur, positive posterior tibial pulse bilateral, Lungs: Decresed bs b/l with increased respiratory rate, no rhonchi, no rales, no accessory muscle use Abdominal: Soft, tender to palpation diffusely, no guarding, no appreciable organomegaly, colostomy in place with bloody discharge Ext: No gross muscle atrophy, no edema b/l lower extremities, no contractures Neuro: CN II-XI grossly intact, no focal neuro deficits Psych: Alert, oriented, appropriate affect Assessment/Plan: Acute diverticulitis with abscess formation, possible fistulous Pelvic mass- s/p ressection with colosomy and patial omentectom -Start Zosyn 3.375 g IVPB every 8 hours D # 7. - Conitnue NGT - Await pathology from surgery - Dilaudid 0.5-1 mg every 3 hours as needed for pain. - depending on results of Colonoscopy consider CASINO CAGE MANAGER consult. - DC normal saline. Started on 0.45 normal saline at 75 cc/h - With increased respiratory rate check chest x-ray to rule out signs of fluid overload Diabetes mellitus type 2 -Metformin and Jardiance on hold -SSI, follow BS Hypertension -Continue with Cozaar 100 mg daily, Norvasc 10 mg daily Hyperkalemia -Undetermined cause. Repeat potassium level this afternoon - stop ARB Chronic: Obesity, Class III Hypothyroidism Imaging: None new Data Review: Labs reviewed from today include CBC and basic metabolic profile which are remarkable for white blood cell count 13.6, potassium 5.5. DVT prophylaxis: Heparin 5000 units every 8 hours Thank you for allowing us to participate in the care of this pleasant patient. Do not hesitate to contact us with questions. Someone can be reached from the [facility] hospitalist group all hours of the day at [phone] or via [employer]. This dictation was prepared using [employer] voice recognition software. Though every attempt is made to correct errors during dictation some may still exist. Objective - Vital Signs Vital signs: Vital Signs Temp 98.6 F 04/15/23 07:24 Pulse 69 04/15/23 07:24 Resp 20 04/15/23 07:24 BP 132/67 04/15/23 07:24 Pulse Ox 93 L 04/15/23 07:24 FiO2 Intake & Output 04/14/23 04/15/23 04/15/23 18:59 06:59 18:59 Intake Total 2100 Output Total 900 75 Balance 1200 -75 Intake: IV 2100 Output: Urine 850 75 Uretheral (Lees) 75 Estimated Blood Loss 50 Other: Voiding Method Indwelling Catheter - Labs CBC & Chem 7: 04/15/23 08:13 04/15/23 08:13 Labs: Abnormal Lab Results - Last 24 Hours (Table) 04/14/23 04/14/23 04/14/23 Range/Units 19:35 20:52 21:26 WBC 15.9 H (3.8-10.6) k/uL Neutrophils # 14.3 H (1.3-7.7) k/uL Lymphocytes # 0.5 L (1.0-4.8) k/uL Potassium (3.5-5.1) mmol/L BUN (9.0-27.0) mg/dL Glucose (70-110) mg/dL POC Glucose (mg/dL) 159 H 153 H (70-110) mg/dL 04/14/23 04/15/23 04/15/23 Range/Units 21:26 02:15 05:39 WBC (3.8-10.6) k/uL Neutrophils # (1.3-7.7) k/uL Lymphocytes # (1.0-4.8) k/uL Potassium (3.5-5.1) mmol/L BUN 8.5 L (9.0-27.0) mg/dL Glucose 141 H (70-110) mg/dL POC Glucose (mg/dL) 245 H 151 H (70-110) mg/dL 04/15/23 04/15/23 Range/Units 08:13 08:13 WBC 13.6 H (3.8-10.6) k/uL Neutrophils # 12.3 H (1.3-7.7) k/uL Lymphocytes # 0.7 L (1.0-4.8) k/uL Potassium 5.5 H (3.5-5.1) mmol/L BUN (9.0-27.0) mg/dL Glucose 117 H (70-110) mg/dL POC Glucose (mg/dL) (70-110) mg/dL
[2023-04-15] MEDS: SODIUM CHLORIDE 0.45% 1,000 ML IV SCH ×2 (14:06→18:09)
[2023-04-15 14:41] LABS: African American GFR (CKD) 86 (>60 ml/min/1.73 sqM); Anion Gap 11 mmol/L; Blood Urea Nitrogen 16 mg/dL (7-17); Calcium 8.7 mg/dL (8.4-10.2); Carbon Dioxide 26 mmol/L (22-30); Chloride 104 mmol/L (98-107); Glucose 98 mg/dL (74-99); Non-African American GFR(CKD) 75 (>60 ml/min/1.73 sqM); Potassium 4.8 mmol/L (3.5-5.1); Sodium 141 mmol/L (137-145)
--- NOTE | 2023-04-15 14:42 | P.PN ---
Subjective Progress Note Date: 04/15/23 CHIEF COMPLAINT: Pelvic mass HISTORY OF PRESENT ILLNESS: Patient postop day #1 excision of pelvic mass, d iverting colostomy and partial omentectomy. Patient has epidural in place for pain control. She did require an extra dose of IV Dilaudid. She denies any nausea or vomiting. Afebrile. WBC is down from 15-13.6 Hgb 11.8 platelets 445 sodium 144 potassium is 5.5 creatinine 0.83 PHYSICAL EXAM: VITAL SIGNS: Reviewed. GENERAL: Well-developed in no acute distress. ABDOMEN: Mildly distended. Abdominal and's dressing clean dry and intact. Ostomy on the left serosanguineous drainage. No stool output. NEUROLOGIC: Alert and oriented. Cranial nerves II through XII grossly intact. ASSESSMENT: 1. Colonic/pelvic mass 2. Hyperkalemia PLAN: -Continue clear liquid diet -Continue epidural for pain control -Continue Lees catheter -Medicine service has adjusted IV fluids -Repeat potassium level in a.m. -Encourage patient to ambulate -Consult physical therapy -Encourage patient to use incentive spirometer -DVT prophylaxis subcu heparin Physician Beam Dyer note has been reviewed by physician. Signing provider agrees with the documented findings, assessment, and plan of care. Objective - Vital Signs Vital signs: Vital Signs Temp 98.6 F 04/15/23 07:24 Pulse 69 04/15/23 07:24 Resp 20 04/15/23 07:24 BP 132/67 04/15/23 07:24 Pulse Ox 93 L 04/15/23 07:24 FiO2 Intake & Output 04/14/23 04/15/23 04/15/23 18:59 06:59 18:59 Intake Total 2100 Output Total 900 75 Balance 1200 -75 Intake: IV 2100 Output: Urine 850 75 Uretheral (Lees) 75 Estimated Blood Loss 50 Other: Voiding Method Indwelling Catheter - Labs CBC & Chem 7: 04/15/23 08:13 04/15/23 08:13 Labs: Abnormal Lab Results - Last 24 Hours (Table) 04/14/23 04/14/23 04/14/23 Range/Units 19:35 20:52 21:26 WBC 15.9 H (3.8-10.6) k/uL Neutrophils # 14.3 H (1.3-7.7) k/uL Lymphocytes # 0.5 L (1.0-4.8) k/uL Potassium (3.5-5.1) mmol/L BUN (9.0-27.0) mg/dL Glucose (70-110) mg/dL POC Glucose (mg/dL) 159 H 153 H (70-110) mg/dL 04/14/23 04/15/23 04/15/23 Range/Units 21:26 02:15 05:39 WBC (3.8-10.6) k/uL Neutrophils # (1.3-7.7) k/uL Lymphocytes # (1.0-4.8) k/uL Potassium (3.5-5.1) mmol/L BUN 8.5 L (9.0-27.0) mg/dL Glucose 141 H (70-110) mg/dL POC Glucose (mg/dL) 245 H 151 H (70-110) mg/dL 04/15/23 04/15/23 Range/Units 08:13 08:13 WBC 13.6 H (3.8-10.6) k/uL Neutrophils # 12.3 H (1.3-7.7) k/uL Lymphocytes # 0.7 L (1.0-4.8) k/uL Potassium 5.5 H (3.5-5.1) mmol/L BUN (9.0-27.0) mg/dL Glucose 117 H (70-110) mg/dL POC Glucose (mg/dL) (70-110) mg/dL
--- NOTE | 2023-04-15 15:56 | XR ---
EXAMINATION TYPE: XR chest 2V DATE OF EXAM: 04/15/2023 COMPARISON: None HISTORY: 57 year-old female shortness of breath, dyspnea TECHNIQUE: AP and lateral views FINDINGS: Heart borderline enlarged. Low lung volumes with crowded vascular markings. Further limitation due to large body habitus resulting in hazy densities. Some patchy right basilar opacity likely represents atelectasis. Otherwise, no consolidation or pleural effusion. IMPRESSION: AP exam further limited by large body habitus and hypoventilatory changes. Suspect some patchy atelec tasis at the right base.
[2023-04-15] MEDS: amLODIPine 10 MG TAB PO SCH (15:57)
[2023-04-15] MEDS: ROPIVACAINE 250 MG, HYDROMORPHONE (PF) 5 MG in SODIUM CHLORIDE 0.9% 200 ML EPIDURAL PRN (16:56)
[2023-04-15 17:05] LABS: Glucose,Whole Blood 96 mg/dL (70-110)
[2023-04-15] MEDS: ONDANSETRON 4 MG/2 ML VIAL IVP PRN (18:53)
[2023-04-15 20:23] LABS: Glucose,Whole Blood 115 mg/dL (70-110)
[2023-04-15] MEDS: PANTOPRAZOLE 40 MG/10 ML VIAL IVP SCH (22:40)
[2023-04-15] MEDS: LACTATED RINGERS 1,000 ML IV SCH (23:41)
[2023-04-16] MEDS: HYDROmorphone 0.5 MG/0.5 ML SYRINGE IVP PRN (03:34)
[2023-04-16] MEDS: PIPERACILLIN-TAZOBACTAM 3.375 GM in SODIUM CHLORIDE 0.9% 100 ML IVPB SCH ×3 (04:12→20:11)
[2023-04-16 05:35] LABS: Glucose,Whole Blood 107 mg/dL (70-110)
[2023-04-16] MEDS: INSULIN ASPART (NovoLOG) 100 UNIT/ML VIAL SQ SCH ×4 (06:02→21:35)
[2023-04-16] MEDS: LEVOTHYROXINE 75 MCG TAB PO SCH (06:19)
--- NOTE | 2023-04-16 06:41 | P.PN ---
Progress Note - Text Progress Note Date: 04/16/23 Postoperative day #2 status post explaretory laparotomy ,colectomy ,epidural catheter placed for postoperative analgesia, patient doing well epidural site okay, patient currently on combination of epidural infusion solution of Ropivacaine 0.0625% and Dilaudid 20 g per mL the infusion rate at 8 ml per hour , patient had no motor deficit epidural site okay , vital signs stable ,VAS 5 /10 , Assessment and plan= post operative day # 2 patient doing well ,pain well controlled , there is no anesthesia related complications
[2023-04-16] MEDS: HEPARIN SODIUM,PORCINE 5,000 UNIT/ML 1 ML VIAL SQ SCH ×3 (08:48→23:31)
[2023-04-16] MEDS: PANTOPRAZOLE 40 MG/10 ML VIAL IVP SCH (08:48)
[2023-04-16] MEDS ORDERED: FAMOTIDINE 20 MG TAB PO STA (10:04)
[2023-04-16 10:49] LABS: HCT 30.2 % (37.2-46.3); HGB 9.7 g/dL (12.0-15.0); MCH 27.9 pg (27.0-32.0); MCHC 32.1 g/dL (32.0-37.0); MCV 86.8 FL (80.0-97.0); Mean Platelet Volume 8.4 FL (9.5-12.2); NRBC Per 100 WBC 0 X 10*3/uL (0.00-0.01); Platelet Count 325 X 10*3/uL (140-440); RBC 3.48 X 10*6/uL (4.10-5.20); RDW 12.4 % (11.5-14.5); WBC 10.25 X 10*3/uL (4.50-10.00)
[2023-04-16 11:01] LABS: BUN/Creat Ratio 17.83 Ratio (12.00-20.00); Blood Urea Nitrogen 10.7 mg/dL (9.0-27.0); Calcium 8.4 mg/dL (8.7-10.3); Carbon Dioxide 25.5 mmol/L (21.6-31.8); Chloride 100 mmol/L (96-109); Glucose 127 mg/dL (70-110); Potassium 4.1 mmol/L (3.5-5.5); Sodium 134 mmol/L (135-145)
--- NOTE | 2023-04-16 11:14 | P.PN ---
Subjective Progress Note Date: 04/16/23 CHIEF COMPLAINT: Pelvic mass HISTORY OF PRESENT ILLNESS: Patient postop day #2 excision of pelvic mass, d iverting colostomy and partial omentectomy. Patient reports her pain is controlled with Epidural. She did have some nausea this morning. No output from her ostomy. Afebrile. WBC 13.6 down to 10.25 hgb 11.8 down to 9.7 platelets 325 sodium 134 creatinine 0.6 potassium down from 5.5-4.1 chest x-ray report suspect some patchy atelectasis at right base. Large body habitus and hypoventilatory changes. PHYSICAL EXAM: VITAL SIGNS: Reviewed. GENERAL: Well-developed in no acute distress. ABDOMEN: Midline incision clean dry and intact. Ostomy with sanguinous output. Stoma. NEUROLOGIC: Alert and oriented. Cranial nerves II through XII grossly intact. ASSESSMENT: 1. Colonic/pelvic mass PLAN: -Continue clear liquid diet -Continue epidural for pain control -Continue Lees catheter -Continue IV fluids -Change incisional dressing to Optifoam -Continue antiemetics -Encourage patient to ambulate -Encourage patient to use incentive spirometer -Pathology results pending -DVT prophylaxis subcu heparin and GI prophylaxis IV Protonix Physician Grinder Mill Operator note has been reviewed by physician. Signing provider agrees with the documented findings, assessment, and plan of care. Objective - Vital Signs Vital signs: Vital Signs Temp 98.9 F 04/16/23 08:30 Pulse 72 04/16/23 08:30 Resp 20 04/16/23 08:30 BP 108/72 04/16/23 08:30 Pulse Ox 95 04/16/23 10:01 FiO2 Intake & Output 04/15/23 04/16/23 04/16/23 18:59 06:59 18:59 Output Total 325 950 Balance -325 -950 Weight 127.006 kg Output: Urine 325 950 Uretheral (Lees) 75 Other: Voiding Method Indwelling Catheter Indwelling Catheter - Labs CBC & Chem 7: 04/16/23 07:27 04/16/23 07:27 Labs: Abnormal Lab Results - Last 24 Hours (Table) 04/15/23 04/16/23 04/16/23 Range/Units 20:19 07:27 07:27 WBC 10.25 H (4.50-10.00) X 10*3/uL RBC 3.48 L (4.10-5.20) X 10*6/uL Hgb 9.7 L (12.0-15.0) g/dL Hct 30.2 L (37.2-46.3) % MPV 8.4 L (9.5-12.2) FL Sodium 134 L (135-145) mmol/L Glucose 127 H (70-110) mg/dL POC Glucose (mg/dL) 115 H (70-110) mg/dL Calcium 8.4 L (8.7-10.3) mg/dL
[2023-04-16 11:18] LABS: Glucose,Whole Blood 139 mg/dL (70-110)
[2023-04-16] MEDS: ONDANSETRON 4 MG/2 ML VIAL IVP PRN (11:26)
--- NOTE | 2023-04-16 11:40 | P.PN ---
Subjective Progress Note Date: 04/16/23 Patient is a 57-year-old female with known diabetes on oral medications only, hypertension, and hypothyroidism who presented with complaints of abdominal pain was subsequently diagnosed with acute diverticulitis with possible abscess formation. She was admitted to surgery were consulted for medical management. She underwent colonoscopy on 04/10/2023 where the surgery was unable to advance the scope past the tortuous distal sigmoid colon. Patient subsequently underwent repeat CT which again showed possible fistulous mass near the colon. She then underwent surgery on 04/14/2023 with excision of the pelvis mass, diverting colostomy, and partial omentectomy. Patient seen and examined at bedside. She is having some nausea and continues to have some postoperative pain in her abdomen. She is feeling as though her acid reflux is much worse than before surgery. She has not yet had any significant output into her colostomy bag. Vital signs reviewed General: Nontoxic, no distress, appears at stated age Cardiovascular: S1S2 reg, no murmur, positive posterior tibial pulse bilateral, Lungs: Decresed bs b/l with increased respiratory rate, no rhonchi, no rales, no accessory muscle use Abdominal: Soft, tender to palpation diffusely, no guarding, no appreciable organomegaly, colostomy in place with bloody discharge Ext: No gross muscle atrophy, no edema b/l lower extremities, no contractures Neuro: CN II-XI grossly intact, no focal neuro deficits Psych: Alert, oriented, appropriate affect Assessment/Plan: Acute diverticulitis with abscess formation, possible fistulous Pelvic mass- s/p ressection with colosomy and patial omentectom - Zosyn 3.375 g IVPB every 8 hours D # 8. - Conitnue NGT - Await pathology from surgery -General surgery note reviewed from today: Continue clear liquid diet and epidural. - Dilaudid 0.5-1 mg every 3 hours as needed for pain. - Lactated ringers normal saline at 75 cc/h Acute blood loss anemia, antiicpated outcome of surgery - no indication for transfusion at this time - will avoid oral iron until bowel function returns - repeat CBC in AM Diabetes mellitus type 2 -Metformin and Jardiance on hold -SSI, follow BS Hypertension -Continue with Cozaar 100 mg daily, Norvasc 10 mg daily GERD -Increase Protonix to 40 mg IV twice daily, Pepcid 20 mg oral x 1 now Hyperkalemia, factitious Chronic: Obesity, Class III Hypothyroidism Imaging: None new Data Review: Labs reviewed from today include CBC and basic metabolic profile which are remarkable for white blood cell count 10.25, hemoglobin 9.7, sodium 134 DVT prophylaxis: Heparin 5000 units every 8 hours Thank you for allowing us to participate in the care of this pleasant patient. Do not hesitate to contact us with questions. Someone can be reached from the [facility] hospitalist group all hours of the day at [phone] or via [employer]. This dictation was prepared using [employer] voice recognition software. Though every attempt is made to correct errors during dictation some may still exist. Objective - Vital Signs Vital signs: Vital Signs Temp 98.9 F 04/16/23 08:30 Pulse 72 04/16/23 08:30 Resp 20 04/16/23 08:30 BP 108/72 04/16/23 08:30 Pulse Ox 95 04/16/23 10:01 FiO2 Intake & Output 04/15/23 04/16/23 04/16/23 18:59 06:59 18:59 Output Total 325 950 Balance -325 -950 Weight 127.006 kg Output: Urine 325 950 Uretheral (Lees) 75 Other: Voiding Method Indwelling Catheter Indwelling Catheter - Labs CBC & Chem 7: 04/16/23 07:27 04/16/23 07:27 Labs: Abnormal Lab Results - Last 24 Hours (Table) 04/15/23 04/16/23 04/16/23 Range/Units 20:19 07:27 07:27 WBC 10.25 H (4.50-10.00) X 10*3/uL RBC 3.48 L (4.10-5.20) X 10*6/uL Hgb 9.7 L (12.0-15.0) g/dL Hct 30.2 L (37.2-46.3) % MPV 8.4 L (9.5-12.2) FL Sodium 134 L (135-145) mmol/L Glucose 127 H (70-110) mg/dL POC Glucose (mg/dL) 115 H (70-110) mg/dL Calcium 8.4 L (8.7-10.3) mg/dL 04/16/23 Range/Units 11:16 WBC (4.50-10.00) X 10*3/uL RBC (4.10-5.20) X 10*6/uL Hgb (12.0-15.0) g/dL Hct (37.2-46.3) % MPV (9.5-12.2) FL Sodium (135-145) mmol/L Glucose (70-110) mg/dL POC Glucose (mg/dL) 139 H (70-110) mg/dL Calcium (8.7-10.3) mg/dL
[2023-04-16] MEDS: LACTATED RINGERS 1,000 ML IV SCH (12:21)
[2023-04-16] MEDS: amLODIPine 10 MG TAB PO SCH (16:19)
[2023-04-16 16:50] LABS: Glucose,Whole Blood 127 mg/dL (70-110)
[2023-04-16 21:25] LABS: Glucose,Whole Blood 113 mg/dL (70-110)
[2023-04-16] MEDS: ROPIVACAINE 250 MG, HYDROMORPHONE (PF) 5 MG in SODIUM CHLORIDE 0.9% 200 ML EPIDURAL PRN (23:28)
[2023-04-17] MEDS: PIPERACILLIN-TAZOBACTAM 3.375 GM in SODIUM CHLORIDE 0.9% 100 ML IVPB SCH ×3 (04:14→20:25)
[2023-04-17] MEDS: LACTATED RINGERS 1,000 ML IV SCH ×2 (04:23→15:29)
[2023-04-17 05:29] LABS: Glucose,Whole Blood 118 mg/dL (70-110)
[2023-04-17] MEDS: INSULIN ASPART (NovoLOG) 100 UNIT/ML VIAL SQ SCH ×4 (05:37→20:20)
[2023-04-17] MEDS: LEVOTHYROXINE 75 MCG TAB PO SCH (05:39)
--- NOTE | 2023-04-17 07:47 | P.PN ---
Progress Note - Text Progress Note Date: 04/17/23 ionPostoperative day #3 status post low anterior resection epidural catheter placed for postoperative analgesia, patient doing well epidural site okay, patient currently on combination of epidural infusion solution of Ropivacaine 0.0625% and Dilaudid 20 g per mL the infusion rate at 8 ml per hour , patient had no motor deficit epidural site okay , vital signs stable ,VAS /10 , Assessment and plan= post operative day # patient doing well ,pain well controlled , there is no anesthesia related complicats
[2023-04-17] MEDS: PANTOPRAZOLE 40 MG/10 ML VIAL IVPB SCH (08:36)
[2023-04-17] MEDS: HEPARIN SODIUM,PORCINE 5,000 UNIT/ML 1 ML VIAL SQ SCH ×2 (08:37→15:32)
[2023-04-17 09:25] LABS: Basophils # (A) 0.02 X 10*3/uL (0.00-0.10); Basophils % (A) 0.2 %; Eosinophils # (A) 0.17 X 10*3/uL (0.04-0.35); Eosinophils % (A) 2.1 %; HCT 33.7 % (37.2-46.3); HGB 10.8 g/dL (12.0-15.0); Lymphocytes # (A) 0.91 X 10*3/uL (0.90-5.00); Lymphocytes % (A) 11.1 %; MCH 27.5 pg (27.0-32.0); MCV 85.8 FL (80.0-97.0); Mean Platelet Volume 8.5 FL (9.5-12.2); Monocytes # (A) 0.57 X 10*3/uL (0.20-1.00); NRBC Per 100 WBC 0 X 10*3/uL (0.00-0.01); Neutrophils # (A) 6.48 X 10*3/uL (1.80-7.70); Platelet Count 354 X 10*3/uL (140-440); RBC 3.93 X 10*6/uL (4.10-5.20)
--- NOTE | 2023-04-17 11:09 | P.PN ---
Progress Note - Text Progress Note Date: 04/17/23 Patient was seen and evaluated at bedside. Postop day # 3 status post Excision of pelvic mass, Diverting colostomy, Partial omentectomy. Patient is sitting in chair comfortably. Rated pain levels are 2-3 out of 10 in severity. Moving extremities well without any difficulty. He denied any red flag symptoms, pain over the catheter site. Physical exam: Vital signs: stable, afebrile Catheter site: Clean, and intact Dressing. no tenderness over the catheter area. Moving lower extremities without difficulty. Assessment: Acute postoperative pain secondary to Excision of pelvic mass, Diverting colostomy, Partial omentectomy. Plan: Discontinue epidural today. Call anesthesia as needed
[2023-04-17 11:19] LABS: Glucose,Whole Blood 136 mg/dL (70-110)
--- NOTE | 2023-04-17 12:50 | P.PN ---
Subjective Progress Note Date: 04/17/23 CHIEF COMPLAINT: Pelvic mass HISTORY OF PRESENT ILLNESS: Patient postop day #3 Excision of pelvic mass, d iverting colostomy and partial omentectomy. Patient had epidural Lees catheter removed today. She does report a pain is controlled. Denies any nausea or vomiting. Ostomy with no stool output. Afebrile. WBC is down from 10.25-8.20 Hgb 10.8 platelets 354. 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 PHYSICAL EXAM: VITAL SIGNS: Reviewed. GENERAL: Well-developed in no acute distress. ABDOMEN: Midline incision clean dry and intact. Ostomy with sanguinous output. Stoma beefy red. NEUROLOGIC: Alert and oriented. Cranial nerves II through XII grossly intact. ASSESSMENT: 1. Colonic/pelvic mass PLAN: -Continue clear liquid diet -Discontinue epidural and Lees catheter -IV Dilaudid PRN for pain -Continue IV fluids -Encourage patient to ambulate -Encourage patient to use incentive spirometer -DVT prophylaxis subcu heparin and GI prophylaxis IV Protonix Physician Solar Sales Advisor note has been reviewed by physician. Signing provider agrees with the documented findings, assessment, and plan of care. Objective - Vital Signs Vital signs: Vital Signs Temp 97.6 F 04/17/23 08:00 Pulse 77 04/17/23 08:00 Resp 16 04/17/23 08:00 BP 134/79 04/17/23 08:00 Pulse Ox 96 04/17/23 08:00 FiO2 Intake & Output 04/16/23 04/17/23 04/17/23 18:59 06:59 18:59 Intake Total 205 Output Total 1100 1900 Balance -1100 -1695 Intake: Intake, IV Titration 205 Amount Ropivacaine 250 mg 205 Hydromorphone (Pf) 5 mg In Sodium Chloride 0.9% 200 ml @ Per Protocol EPIDURAL .Q0M PRN Rx#: [id number] Output: Urine 1000 1900 Uretheral (Lees) 1000 Stool 100 Other: Voiding Method Indwelling Catheter Indwelling Catheter Indwelling Catheter - Labs CBC & Chem 7: 04/17/23 06:00 04/16/23 07:27 Labs: Abnormal Lab Results - Last 24 Hours (Table) 04/16/23 04/16/23 04/17/23 Range/Units 16:49 21:22 05:25 RBC (4.10-5.20) X 10*6/uL Hgb (12.0-15.0) g/dL Hct (37.2-46.3) % MPV (9.5-12.2) FL Immature Gran # (0.00-0.04) X 10*3/uL POC Glucose (mg/dL) 127 H 113 H 118 H (70-110) mg/dL 04/17/23 04/17/23 Range/Units 06:00 11:18 RBC 3.93 L (4.10-5.20) X 10*6/uL Hgb 10.8 L (12.0-15.0) g/dL Hct 33.7 L (37.2-46.3) % MPV 8.5 L (9.5-12.2) FL Immature Gran # 0.05 H (0.00-0.04) X 10*3/uL POC Glucose (mg/dL) 136 H (70-110) mg/dL
[2023-04-17] MEDS: amLODIPine 10 MG TAB PO SCH (15:32)
[2023-04-17] MEDS: HYDROmorphone 0.5 MG/0.5 ML SYRINGE IVP PRN ×2 (16:33→20:29)
--- NOTE | 2023-04-17 16:38 | P.PN ---
Subjective Progress Note Date: 04/17/23 (delayed charting seen at approx 0915) Patient is a 57-year-old female with known diabetes on oral medications only, hypertension, and hypothyroidism who presented with complaints of abdominal pain was subsequently diagnosed with acute diverticulitis with possible abscess formation. She was admitted to surgery were consulted for medical management. She underwent colonoscopy on 04/10/2023 where the surgery was unable to advance the scope past the tortuous distal sigmoid colon. Patient subsequently unde rwent repeat CT which again showed possible fistulous mass near the colon. She then underwent surgery on 04/14/2023 with excision of the pelvis mass, diverting colostomy, and partial omentectomy. Patient seen and examined at bedside. She is feeling slightly better today. Pain is better controlled. Her acid reflux is improved. She did have some gas in her ostomy bag. Vital signs reviewed General: Nontoxic, no distress, appears at stated age Cardiovascular: S1S2 reg, no murmur, positive posterior tibial pulse bilateral, Lungs: CTA b/l with increased respiratory rate, no rhonchi, no rales, no accessory muscle use Abdominal: Soft, tender to palpation diffusely, no guarding, colostomy in place with bloody discharge Ext: No gross muscle atrophy, no edema b/l lower extremities, no contractures Neuro: CN II-XI grossly intact, no focal neuro deficits Psych: Alert, oriented, appropriate affect Assessment/Plan: Acute diverticulitis with abscess formation, possible fistulous Pelvic mass- s/p resection with colosomy and patial omentectomy - Zosyn 3.375 g IVPB every 8 hours D # 9. - Pathology consistent with inflammation, negative for neoplasm -Surgery note reviewed: Continue clear liquid diet, discontinue epidural and Lees. - Dilaudid 0.5-1 mg every 3 hours as needed for pain. - Lactated ringers normal saline at 75 cc/h Acute blood loss anemia, antiicpated outcome of surgery - no indication for transfusion at this time - will avoid oral iron until bowel function returns - repeat CBC in AM Diabetes mellitus type 2 -Metformin and Jardiance on hold -SSI, follow BS Hypertension -Continue with Cozaar 100 mg daily, Norvasc 10 mg daily GERD -Increase Protonix to 40 mg IV twice daily, Pepcid 20 mg oral x 1 now Hyperkalemia, factitious Chronic: Obesity, Class III Hypothyroidism Imaging: None new Data Review: Labs reviewed from today include CBC which is remarkable for hemoglobin 10.8 DVT prophylaxis: Heparin 5000 units every 8 hours Thank you for allowing us to participate in the care of this pleasant patient. Do not hesitate to contact us with questions. Someone can be reached from the [facility] [place] hospitalist group all hours of the day at [phone] or via perfect serve. This dictation was prepared using [employer] voice recognition software. Though every attempt is made to correct errors during dictation some may still exist. Objective - Vital Signs Vital signs: Vital Signs Temp 98.5 F 04/17/23 15:49 Pulse 80 04/17/23 15:49 Resp 17 04/17/23 15:49 BP 111/73 04/17/23 15:49 Pulse Ox 93 L 04/17/23 15:49 FiO2 Intake & Output 04/16/23 04/17/23 04/17/23 18:59 06:59 18:59 Intake Total 205 100 Output Total 1100 1900 1400 Balance -1100 -1695 -1300 Intake: Intake, IV Titration 205 100 Amount Piperacillin-Tazobactam 3 100 .375 gm In Sodium Chloride 0.9% 100 ml @ 25 mls/hr IVPB Q8H [facility] Rx#: [id number] Ropivacaine 250 mg 205 Hydromorphone (Pf) 5 mg In Sodium Chloride 0.9% 200 ml @ Per Protocol EPIDURAL .Q0M PRN Rx#: [id number] Output: Urine 1000 1900 1400 Uretheral (Lees) 1000 1400 Stool 100 Other: Voiding Method Indwelling Catheter Indwelling Catheter Indwelling Catheter - Labs CBC & Chem 7: 04/17/23 06:00 04/16/23 07:27 Labs: Abnormal Lab Results - Last 24 Hours (Table) 04/16/23 04/16/23 04/17/23 Range/Units 16:49 21:22 05:25 RBC (4.10-5.20) X 10*6/uL Hgb (12.0-15.0) g/dL Hct (37.2-46.3) % MPV (9.5-12.2) FL Immature Gran # (0.00-0.04) X 10*3/uL POC Glucose (mg/dL) 127 H 113 H 118 H (70-110) mg/dL 04/17/23 04/17/23 Range/Units 06:00 11:18 RBC 3.93 L (4.10-5.20) X 10*6/uL Hgb 10.8 L (12.0-15.0) g/dL Hct 33.7 L (37.2-46.3) % MPV 8.5 L (9.5-12.2) FL Immature Gran # 0.05 H (0.00-0.04) X 10*3/uL POC Glucose (mg/dL) 136 H (70-110) mg/dL
[2023-04-17 16:45] LABS: Glucose,Whole Blood 110 mg/dL (70-110)
[2023-04-17 19:02] LABS: Glucose,Whole Blood 122 mg/dL (70-110)
[2023-04-18] MEDS: HEPARIN SODIUM,PORCINE 5,000 UNIT/ML 1 ML VIAL SQ SCH ×3 (00:14→15:54)
[2023-04-18] MEDS: HYDROmorphone 0.5 MG/0.5 ML SYRINGE IVP PRN ×2 (00:15→04:15)
[2023-04-18] MEDS: PIPERACILLIN-TAZOBACTAM 3.375 GM in SODIUM CHLORIDE 0.9% 100 ML IVPB SCH ×3 (04:14→21:25)
[2023-04-18 06:09] LABS: Glucose,Whole Blood 113 mg/dL (70-110)
[2023-04-18] MEDS: LACTATED RINGERS 1,000 ML IV SCH (06:47)
[2023-04-18] MEDS: LEVOTHYROXINE 75 MCG TAB PO SCH (06:47)
[2023-04-18] MEDS: INSULIN ASPART (NovoLOG) 100 UNIT/ML VIAL SQ SCH ×4 (06:48→21:19)
[2023-04-18 07:07] LABS: HCT 34.9 % (34.0-46.0); HGB 11.1 gm/dL (11.4-16.0); MCH 27.3 pg (25.0-35.0); MCHC 31.8 g/dL (31.0-37.0); MCV 85.7 fL (80.0-100.0); Mean Platelet Volume 6.7; Platelet Count 408 k/uL (150-450); RBC 4.07 m/uL (3.80-5.40); RDW 12.6 % (11.5-15.5)
[2023-04-18 07:13] LABS: African American GFR (CKD) >90 (>60 ml/min/1.73 sqM); Anion Gap 8 mmol/L; Blood Urea Nitrogen 5 mg/dL (7-17); Calcium 8.3 mg/dL (8.4-10.2); Carbon Dioxide 30 mmol/L (22-30); Chloride 100 mmol/L (98-107); Glucose 113 mg/dL (74-99); Magnesium 1.9 mg/dL (1.6-2.3); Non-African American GFR(CKD) >90 (>60 ml/min/1.73 sqM); Potassium 3.7 mmol/L (3.5-5.1); Sodium 138 mmol/L (137-145)
[2023-04-18] MEDS: PANTOPRAZOLE 40 MG/10 ML VIAL IVPB SCH (08:17)
[2023-04-18 11:27] LABS: Glucose,Whole Blood 88 mg/dL (70-110)
--- NOTE | 2023-04-18 11:38 | P.PN ---
Subjective Progress Note Date: 04/18/23 CHIEF COMPLAINT: Pelvic mass HISTORY OF PRESENT ILLNESS: Patient postop day #4 Excision of pelvic mass, d iverting colostomy and partial omentectomy. Patient had epidural and Lees catheter removed yesterday. Patient reports urinating without difficulty. She reports her pain is controlled. She denies any nausea or vomiting. She is having flatus from her stoma. No stool yet. Afebrile. 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 PHYSICAL EXAM: VITAL SIGNS: Reviewed. GENERAL: Well-developed in no acute distress. ABDOMEN: Midline incisional dressing clean dry and intact. Ostomy with sanguinous output. Stoma beefy red. NEUROLOGIC: Alert and oriented. Cranial nerves II through XII grossly intact. ASSESSMENT: 1. Pelvic mass PLAN: -Advance diet to full liquids and then advance as tolerated starting tomorrow -Add [place] for oral pain management -Discontinue IV fluids -Encourage patient to ambulate -Encourage patient to use incentive spirometer -DVT prophylaxis subcu heparin and GI prophylaxis IV Protonix -Anticipate discharge on Friday Physician Threading Machine Setter note has been reviewed by physician. Signing provider agrees with the documented findings, assessment, and plan of care. Objective - Vital Signs Vital signs: Vital Signs Temp 98.7 F 04/18/23 08:00 Pulse 66 04/18/23 08:00 Resp 17 04/18/23 08:00 BP 128/73 04/18/23 08:00 Pulse Ox 92 L 04/18/23 08:00 FiO2 Intake & Output 04/17/23 04/18/23 04/18/23 18:59 06:59 18:59 Intake Total 100 Output Total 1400 Balance -1300 Intake: Intake, IV Titration 100 Amount Piperacillin-Tazobactam 3 100 .375 gm In Sodium Chloride 0.9% 100 ml @ 25 mls/hr IVPB Q8H [facility] Rx#: [id number] Output: Urine 1400 Uretheral (Lees) 1400 Other: Voiding Method Indwelling Catheter Toilet - Labs CBC & Chem 7: 04/18/23 06:06 04/18/23 06:06 Labs: Abnormal Lab Results - Last 24 Hours (Table) 04/17/23 04/17/23 04/18/23 Range/Units 11:18 19:01 06:06 Hgb 11.1 L (11.4-16.0) gm/dL BUN (7-17) mg/dL Glucose (74-99) mg/dL POC Glucose (mg/dL) 136 H 122 H (70-110) mg/dL Calcium (8.4-10.2) mg/dL 04/18/23 04/18/23 Range/Units 06:06 06:08 Hgb (11.4-16.0) gm/dL BUN 5 L (7-17) mg/dL Glucose 113 H (74-99) mg/dL POC Glucose (mg/dL) 113 H (70-110) mg/dL Calcium 8.3 L (8.4-10.2) mg/dL
[2023-04-18] MEDS: HYDROcodone/APAP 5-325MG 1 EACH TAB PO PRN ×3 (14:20→22:54)
--- NOTE | 2023-04-18 15:23 | P.PN ---
Subjective Progress Note Date: 04/18/23 (delayed charting seen at 0915) Patient is a 57-year-old female with known diabetes on oral medications only, hypertension, and hypothyroidism who presented with complaints of abdominal pain was subsequently diagnosed with acute diverticulitis with possible abscess formation. She was admitted to surgery were consulted for medical management. She underwent colonoscopy on 04/10/2023 where the surgery was unable to advance the scope past the tortuous distal sigmoid colon. Patient subsequently underwent repeat CT which again showed possible fistulous mass near the colon. She then underwent surgery on 04/14/2023 with excision of the pelvis mass, diverting colostomy, and partial omentectomy. Patient seen and examined at bedside. Doing well today. Pain is well- controlled. Passing more gas into the ostomy bag. Vital signs reviewed General: Nontoxic, no distress, appears at stated age Cardiovascular: S1S2 reg, no murmur, positive posterior tibial pulse bilateral, Lungs: CTA b/l with increased respiratory rate, no rhonchi, no rales, no accessory muscle use Abdominal: Soft, tender to palpation diffusely, no guarding, colostomy in place with bloody discharge Ext: No gross muscle atrophy, no edema b/l lower extremities, no contractures Neuro: CN II-XI grossly intact, no focal neuro deficits Psych: Alert, oriented, appropriate affect Assessment/Plan: Acute diverticulitis with abscess formation, possible fistulous Pelvic mass- s/p resection with colosomy and patial omentectomy - Zosyn 3.375 g IVPB every 8 hours D # 10. - Pathology consistent with inflammation, negative for neoplasm -Surgery note reviewed: Continue clear liquid diet, discontinue epidural and Lees. - Gen surgery note reviewed: Advance to full liquid diet, oral [place] for pain. - Dilaudid 0.5-1 mg every 3 hours as needed for pain. - Discontinue Lactated ringers Acute blood loss anemia, anticipated outcome of surgery - no indication for transfusion at this time - will avoid oral iron until bowel function returns - repeat CBC in AM Diabetes mellitus type 2 -Metformin and Jardiance on hold -SSI, follow BS Hypertension -Continue with Cozaar 100 mg daily, Norvasc 10 mg daily GERD -Protonix to 40 mg IV twice daily Hyperkalemia, factitious Chronic: Obesity, Class III Hypothyroidism Imaging: None new Data Review: Labs reviewed from today include CBC and basic metabolic profile which are rather unremarkable other than a hemoglobin of 11.1 DVT prophylaxis: Heparin 5000 units every 8 hours Thank you for allowing us to participate in the care of this pleasant patient. Do not hesitate to contact us with questions. Someone can be reached from the [facility] hospitalist group all hours of the day at [phone] or via perfect serve. This dictation was prepared using [employer] voice recognition software. Though every attempt is made to correct errors during dictation some may still exist. Objective - Vital Signs Vital signs: Vital Signs Temp 98.7 F 04/18/23 08:00 Pulse 66 04/18/23 08:00 Resp 17 04/18/23 08:00 BP 128/73 04/18/23 08:00 Pulse Ox 92 L 04/18/23 08:00 FiO2 Intake & Output 04/17/23 04/18/23 04/18/23 18:59 06:59 18:59 Intake Total 100 Output Total 1400 Balance -1300 Weight 127.006 kg Intake: Intake, IV Titration 100 Amount Piperacillin-Tazobactam 3 100 .375 gm In Sodium Chloride 0.9% 100 ml @ 25 mls/hr IVPB Q8H [facility] Rx#: [id number] Output: Urine 1400 Uretheral (Lees) 1400 Other: Voiding Method Indwelling Catheter Toilet - Labs CBC & Chem 7: 04/18/23 06:06 04/18/23 06:06 Labs: Abnormal Lab Results - Last 24 Hours (Table) 04/17/23 04/18/23 04/18/23 Range/Units 19:01 06:06 06:06 Hgb 11.1 L (11.4-16.0) gm/dL BUN 5 L (7-17) mg/dL Glucose 113 H (74-99) mg/dL POC Glucose (mg/dL) 122 H (70-110) mg/dL Calcium 8.3 L (8.4-10.2) mg/dL 04/18/23 Range/Units 06:08 Hgb (11.4-16.0) gm/dL BUN (7-17) mg/dL Glucose (74-99) mg/dL POC Glucose (mg/dL) 113 H (70-110) mg/dL Calcium (8.4-10.2) mg/dL
[2023-04-18] MEDS: amLODIPine 10 MG TAB PO SCH (15:54)
[2023-04-18 16:39] LABS: Glucose,Whole Blood 110 mg/dL (70-110)
[2023-04-18 20:37] LABS: Glucose,Whole Blood 119 mg/dL (70-110)
[2023-04-19] MEDS: HEPARIN SODIUM,PORCINE 5,000 UNIT/ML 1 ML VIAL SQ SCH ×4 (00:43→23:58)
[2023-04-19] MEDS: HYDROcodone/APAP 5-325MG 1 EACH TAB PO PRN ×4 (04:13→20:56)
[2023-04-19] MEDS: PIPERACILLIN-TAZOBACTAM 3.375 GM in SODIUM CHLORIDE 0.9% 100 ML IVPB SCH ×3 (04:13→20:55)
[2023-04-19 05:17] LABS: Glucose,Whole Blood 115 mg/dL (70-110)
[2023-04-19] MEDS: LEVOTHYROXINE 75 MCG TAB PO SCH (05:50)
[2023-04-19] MEDS: INSULIN ASPART (NovoLOG) 100 UNIT/ML VIAL SQ SCH ×4 (06:38→20:11)
[2023-04-19] MEDS: PANTOPRAZOLE 40 MG/10 ML VIAL IVPB SCH (08:04)
[2023-04-19 10:17] LABS: HCT 33.3 % (37.2-46.3); HGB 10.7 g/dL (12.0-15.0); MCH 27.1 pg (27.0-32.0); MCHC 32.1 g/dL (32.0-37.0); MCV 84.3 FL (80.0-97.0); Mean Platelet Volume 8.4 FL (9.5-12.2); NRBC Per 100 WBC 0 X 10*3/uL (0.00-0.01); Platelet Count 373 X 10*3/uL (140-440); RBC 3.95 X 10*6/uL (4.10-5.20); RDW 12.1 % (11.5-14.5)
[2023-04-19 10:20] LABS: ALT 16 U/L (8-44); AST 18 U/L (13-35); Albumin 2.8 g/dL (3.8-4.9); Albumin/Globulin Ratio 1.08 Ratio (1.60-3.17); Alkaline Phosphatase 47 U/L (41-126); Blood Urea Nitrogen 5.1 mg/dL (9.0-27.0); Calcium 8.2 mg/dL (8.7-10.3); Carbon Dioxide 28.6 mmol/L (21.6-31.8); Chloride 101 mmol/L (96-109); Globulin 2.6 g/dL (1.6-3.3); Glucose 107 mg/dL (70-110); Magnesium 1.9 mg/dL (1.5-2.4); Phosphorus 3.6 mg/dL (2.4-5.1); Potassium 3.5 mmol/L (3.5-5.5); Sodium 139 mmol/L (135-145); Total Bilirubin 0.3 mg/dL (0.3-1.2); Total Protein 5.4 g/dL (6.2-8.2)
[2023-04-19 11:31] LABS: Glucose,Whole Blood 126 mg/dL (70-110)
--- NOTE | 2023-04-19 14:25 | P.PN ---
Subjective Progress Note Date: 04/19/23 NAEON. No worsening abdominal pain. No F/C. No SOB or CP. Tolerating diet. Admits to flatus per ostomy, no bowel movement appreciated. Tolerating FLD. Objective - Vital Signs Vital signs: Vital Signs Temp 97.7 F 04/19/23 07:40 Pulse 83 04/19/23 07:40 Resp 18 04/19/23 07:40 BP 139/85 04/19/23 07:40 Pulse Ox 92 L 04/19/23 07:40 FiO2 Intake & Output 04/18/23 04/19/23 04/19/23 18:59 06:59 18:59 Weight 127.006 kg - Exam Gen: AxO, NAD Pulm: non-labored respirations Abd: soft, mildly-tender around incisions, non-distended. No guarding/rebound/rigidity Ostomy: pink and patent, gas and bowel sweat seen in ostomy bag, no stool appreciated Extrem: no edema seen - Labs CBC & Chem 7: 04/19/23 05:47 04/19/23 05:47 Labs: Abnormal Lab Results - Last 24 Hours (Table) 04/18/23 04/19/23 04/19/23 Range/Units 20:36 05:15 05:47 RBC 3.95 L (4.10-5.20) X 10*6/uL Hgb 10.7 L (12.0-15.0) g/dL Hct 33.3 L (37.2-46.3) % MPV 8.4 L (9.5-12.2) FL BUN (9.0-27.0) mg/dL Creatinine (0.6-1.5) mg/dL BUN/Creatinine Ratio (12.00-20.00) Ratio POC Glucose (mg/dL) 119 H 115 H (70-110) mg/dL Calcium (8.7-10.3) mg/dL Total Protein (6.2-8.2) g/dL Albumin (3.8-4.9) g/dL Albumin/Globulin Ratio (1.60-3.17) Ratio 04/19/23 04/19/23 Range/Units 05:47 11:30 RBC (4.10-5.20) X 10*6/uL Hgb (12.0-15.0) g/dL Hct (37.2-46.3) % MPV (9.5-12.2) FL BUN 5.1 L (9.0-27.0) mg/dL Creatinine 0.5 L (0.6-1.5) mg/dL BUN/Creatinine Ratio 10.20 L (12.00-20.00) Ratio POC Glucose (mg/dL) 126 H (70-110) mg/dL Calcium 8.2 L (8.7-10.3) mg/dL Total Protein 5.4 L (6.2-8.2) g/dL Albumin 2.8 L (3.8-4.9) g/dL Albumin/Globulin Ratio 1.08 L (1.60-3.17) Ratio Assessment and Plan Assessment: Patient is a 57 year old female who is s/p pelvic mass excision; diverting colostomy creation Plan: -FLD as tolerated -IVF hydration -PRN pain and nausea control -DVT/GI Ppx -Encourage ambulation -Potential DC on 04/20/23 Jarrell Hidalgo MD General Surgery
--- NOTE | 2023-04-19 14:53 | P.PN ---
Subjective Progress Note Date: 04/19/23 Hospital course: Patient is a very pleasant 57-year-old female with a past medical history of hypertension, type II [id number] diabetes mellitus, and hypothyroidism. She presented to the emergency department on 04/08/23 with a chief complaint of abdominal pain. Patient was subsequently diagnosed with acute diverticulitis with concerns of abscess formation the CT findings showing concerns of multiple diverticula in the descending and sigmoid colon was somewhat masslike density in the sigmoid region measuring up to 4.8 cm and concerns as well as abnormal appearance of pelvis/uterus which appears enlarged with concerns of infection/abscess. Patient was admitted under Gen. surgery team and we were consulted for medical management throughout her hospitalization. On 04/14/23 patient underwent surgical procedure with excision of pelvic mass, diverting colostomy, and partial omentectomy by Dr Chauhan. Physical exam: Patient seen and fully evaluated at bedside this morning. She was sitting up in the chair this morning and appears to be doing well. She is postoperative day 5. Her diet was advanced to full liquid diet this morning and she is tolerating well with no reported episodes of nausea or vomiting. Patient reports she has been experiencing an excessive amount of air per ostomy but has not yet had a bowel movement as of yet. She reports postoperative pain is controlled at this time states obviously worsens with movement but is currently controlled. Again she denies having any nausea or vomiting, shortness of breath, chest pain, palpitations, or experiencing any difficulties with her urinary function. Vital signs reviewed and stable. General: Nontoxic, no distress and appears stated age. Derm: Skin warm and dry, normal coloration for ethnicity. Head: Atraumatic, normocephalic and symmetric. Eyes: EOMs intact, no lid lag, and anicteric sclera Mouth: no lip lesions, mucus membranes moist Cardiovascular: regular rate and rhythm with normal S1S2, no murmur, positive posterior tibial pulses bilaterally, and cap refill < 2 seconds. Lungs: Respirations even, regular, and unlabored on room air. Lungs CTA bilaterally, no rhonchi, no rales, no wheezing, and no accessory muscle usage. Abdominal: soft, nontender to palpation, no guarding, no appreciable organomegaly. Colostomy in place. Stoma pink. Surgical Incision midline, dres sing in place with no signs of drainage or shadowing on dressing. Ext: ROM intact. No gross muscle atrophy, no edema, no contractures Neuro: Speech clear, face symmetrical and CN II-XII grossly intact with no noted focal neuro deficits Psych: Alert and oriented to person, place, time, and situation. Appropriate and pleasant affect. Assessment and Plan of Care: Acute diverticulitis with abscess formation, possible fistulous Pelvic mass- s/p resection with colosomy and patial omentectomy -Continue IV antibiotics with Zosyn 3.375 g IVPB every 8 hours D # 11. -Surgical Pathology report reviewed and was negative for neoplasm. Lobulated benign adipose tissue consistent with focal acute and chronic inflammation. -Surgery note reviewed: Continue clear liquid diet, discontinue epidural and F o[place]. -Gen surgery note reviewed: Advance to full liquid diet, oral [place] for pain. -Continuous symptomatic care and pain management with Dilaudid 0.5-1 mg every 3 hours as needed for pain. -Patient tolerating oral intake, no need for further IV fluids. Acute blood loss anemia, anticipated outcome of surgery -Stable and expected outcome of surgical procedure, no indication for transfusion or further intervention at this time -Will avoid oral iron supplementation until bowel function returns - repeat CBC in AM Diabetes mellitus type 2 -Metformin and Jardiance on hold -Continue with glycemic protocol NovoLog sliding scale. Hypertension -Continue with Cozaar 100 mg daily, Norvasc 10 mg daily GERD -Continue GI prophylaxis with Protonix 40 mg IV twice daily Hyperkalemia, factitious Chronic: Obesity, Class III -Recommend outpatient structured weight management program. Hypothyroidism -Continue daily medication regimen with levothyroxine 75 g daily. Imaging reviewed: -Known imaging for review. Data Reviewed: -Labs completed and reviewed. CBC showing stable normocytic anemia with hemoglobin of 10.7. BMP unremarkable. Magnesium normal findings at 1.9. Liver profile unremarkable. -Vital signs reviewed and stable. Blood pressure 139/85, heart rate 83, respiratory rate 18, temp 97.7 her and I, SpO2 of 92% on room air. DVT prophylaxis: Heparin 5000 units every 8 hours Thank you for allowing us to participate in the care of this pleasant patient. Do not hesitate to contact us with questions. Someone can be reached from the [facility] hospitalist group all hours of the day at [phone] or via perfect serve. Patient was seen independently by Nurse Pracitioner. This document was prepared using [employer] dictation software. Please allow for errors in aquatic performer, while rare they do occur. Gary Ramey NP rendered care for this patient independently, reviewed the findings and plan as documented in the note above. I did not physically speak with or examine the patient on this date. Objective - Vital Signs Vital signs: Vital Signs Temp 97.7 F 04/19/23 07:40 Pulse 83 04/19/23 07:40 Resp 18 04/19/23 07:40 BP 139/85 04/19/23 07:40 Pulse Ox 92 L 04/19/23 07:40 FiO2 Intake & Output 04/18/23 04/19/23 04/19/23 18:59 06:59 18:59 Weight 127.006 kg - Labs CBC & Chem 7: 04/19/23 05:47 04/19/23 05:47 Labs: Abnormal Lab Results - Last 24 Hours (Table) 04/18/23 04/19/23 Range/Units 20:36 05:15 POC Glucose (mg/dL) 119 H 115 H (70-110) mg/dL
[2023-04-19] MEDS: amLODIPine 10 MG TAB PO SCH (15:44)
[2023-04-19 17:01] LABS: Glucose,Whole Blood 104 mg/dL (70-110)
[2023-04-19 20:01] LABS: Glucose,Whole Blood 127 mg/dL (70-110)
[2023-04-20] MEDS: HYDROcodone/APAP 5-325MG 1 EACH TAB PO PRN ×5 (01:35→21:10)
[2023-04-20] MEDS: PIPERACILLIN-TAZOBACTAM 3.375 GM in SODIUM CHLORIDE 0.9% 100 ML IVPB SCH ×3 (04:30→21:10)
[2023-04-20 05:08] LABS: Glucose,Whole Blood 105 mg/dL (70-110)
[2023-04-20] MEDS: LEVOTHYROXINE 75 MCG TAB PO SCH (06:06)
[2023-04-20] MEDS: INSULIN ASPART (NovoLOG) 100 UNIT/ML VIAL SQ SCH ×4 (06:51→20:17)
[2023-04-20] MEDS: HEPARIN SODIUM,PORCINE 5,000 UNIT/ML 1 ML VIAL SQ SCH ×3 (08:15→23:26)
[2023-04-20] MEDS: PANTOPRAZOLE 40 MG/10 ML VIAL IVPB SCH (08:15)
[2023-04-20 10:03] LABS: HGB 10.9 g/dL (12.0-15.0); MCH 28.8 pg (27.0-32.0); MCHC 34.1 g/dL (32.0-37.0); MCV 84.7 FL (80.0-97.0); Mean Platelet Volume 8.5 FL (9.5-12.2); NRBC Per 100 WBC 0 X 10*3/uL (0.00-0.01); Platelet Count 385 X 10*3/uL (140-440); RBC 3.78 X 10*6/uL (4.10-5.20); RDW 12.4 % (11.5-14.5); WBC 9.27 X 10*3/uL (4.50-10.00)
[2023-04-20 10:16] LABS: ALT 18 U/L (8-44); AST 15 U/L (13-35); Albumin 2.8 g/dL (3.8-4.9); Albumin/Globulin Ratio 1.12 Ratio (1.60-3.17); Alkaline Phosphatase 44 U/L (41-126); Blood Urea Nitrogen 4.9 mg/dL (9.0-27.0); Calcium 8.6 mg/dL (8.7-10.3); Carbon Dioxide 29.1 mmol/L (21.6-31.8); Chloride 104 mmol/L (96-109); Globulin 2.5 g/dL (1.6-3.3); Glucose 110 mg/dL (70-110); Potassium 3.5 mmol/L (3.5-5.5); Sodium 142 mmol/L (135-145); Total Bilirubin 0.3 mg/dL (0.3-1.2); Total Protein 5.3 g/dL (6.2-8.2)
[2023-04-20 11:36] LABS: Glucose,Whole Blood 140 mg/dL (70-110)
--- NOTE | 2023-04-20 11:45 | P.PN ---
Subjective Progress Note Date: 04/20/23 Hospital course: Patient is a very pleasant 57-year-old female with a past medical history of hypertension, type II qir-onkbgyv-uaubahqun diabetes mellitus, and hypothyroidism. She presented to the emergency department on 04/08/23 with a chief complaint of abdominal pain. Patient was subsequently diagnosed with acute diverticulitis with concerns of abscess formation the CT findings showing concerns of multiple diverticula in the descending and sigmoid colon was somewhat masslike density in the sigmoid region measuring up to 4.8 cm and concerns as well as abnormal appearance of pelvis/uterus which appears enlarged with concerns of infection/abscess. Patient was admitted under Gen. surgery team and we were consulted for medical management throughout her hospitalization. On 04/14/23 patient underwent surgical procedure with excision of pelvic mass, diverting colostomy, and partial omentectomy by Dr Chauhan. Physical exam: Patient seen and fully evaluated at bedside this morning. She is postoperative day 6. Patient appears to be doing well. She was sitting up in the chair. She reports continued flatus from ostomy but denies any passing of stool as of yet. Patient tolerating full liquid diet and denies experiencing any nausea or vomiting. Vital signs reviewed and stable. General: Nontoxic, no distress and appears stated age. Derm: Skin warm and dry, normal coloration for ethnicity. Head: Atraumatic, normocephalic and symmetric. Eyes: EOMs intact, no lid lag, and anicteric sclera Mouth: no lip lesions, mucus membranes moist Cardiovascular: regular rate and rhythm with normal S1S2, no murmur, positive posterior tibial pulses bilaterally, and cap refill < 2 seconds. Lungs: Respirations even, regular, and unlabored on room air. Lungs CTA bilaterally, no rhonchi, no rales, no wheezing, and no accessory muscle usage. Abdominal: soft, nontender to palpation, no guarding, no appreciable organomegaly. Colostomy in place. Stoma pink. Surgical Incision midline, dressing in place with no signs of drainage or shadowing on dressing. Ext: ROM intact. No gross muscle atrophy, no edema, no contractures Neuro: Speech clear, face symmetrical and CN II-XII grossly intact with no noted focal neuro deficits Psych: Alert and oriented to person, place, time, and situation. Appropriate and pleasant affect. Assessment and Plan of Care: Acute diverticulitis with abscess formation, possible fistulous Pelvic mass- s/p resection with colosomy and patial omentectomy -Continue IV antibiotics with Zosyn 3.375 g IVPB every 8 hours D # 12. -Surgical Pathology report reviewed and was negative for neoplasm. Lobulated benign adipose tissue consistent with focal acute and chronic inflammation. -Gen surgery note reviewed: Continue full liquid diet and encourage ambulation. -Continuous symptomatic care and pain management with Tina 5/325 mg every 4 ho urs as needed for moderate pain and Dilaudid 0.5 mg every 3 hours as needed for severe pain. -Patient tolerating oral intake well, no need for further IV fluids. Acute blood loss anemia, anticipated outcome of surgery and stable -Hemoglobin 10.9 and stable and expected outcome of surgical procedure, no indication for transfusion or further intervention at this time -Will avoid oral iron supplementation until bowel function returns - repeat CBC in AM Diabetes mellitus type 2 -Metformin and Jardiance on hold -Continue with glycemic protocol NovoLog sliding scale. Blood glucose levels will controlled and have ranged between 104 and 127 over the past 24 hours. Hypertension -Continue with Cozaar 100 mg daily and Norvasc 10 mg daily GERD -Continue GI prophylaxis with Protonix 40 mg IV twice daily Hyperkalemia, factitious Chronic: Obesity, Class III -Recommend outpatient structured weight management program. Hypothyroidism -Continue daily medication regimen with levothyroxine 75 g daily. Imaging reviewed: -No new imaging for review. Data Reviewed: -Labs completed and reviewed. CBC showing stable normocytic anemia with hemoglobin of 10.9. BMP unremarkable with morning glucose 110. Liver profile normal findings. -Vital signs reviewed and stable. Blood pressure 137/74, heart rate 75, respiratory rate 20, temp 97.9F, SpO2 of 93% on room air. DVT prophylaxis: Heparin 5000 units every 8 hours Thank you for allowing us to participate in the care of this pleasant patient. Do not hesitate to contact us with questions. Someone can be reached from the [facility] hospitalist group all hours of the day at [phone] or via [employer] serve. Patient was seen independently by Nurse Pracitioner. This document was prepared using [employer] dictation software. Please allow for errors in preschool special education teacher, while rare they do occur. Gary Ramey NP rendered care for this patient independently, reviewed the findings and plan as documented in the note above. I did not physically speak with or examine the patient on this date. Objective - Vital Signs Vital signs: Vital Signs Temp 97.9 F 04/20/23 07:47 Pulse 75 04/20/23 07:47 Resp 20 04/20/23 07:47 BP 137/74 04/20/23 07:47 Pulse Ox 93 L 04/20/23 07:47 FiO2 - Labs CBC & Chem 7: 04/21/23 04:47 04/21/23 04:47 Labs: Abnormal Lab Results - Last 24 Hours (Table) 04/19/23 04/19/23 04/19/23 Range/Units 05:47 05:47 11:30 RBC 3.95 L (4.10-5.20) X 10*6/uL Hgb 10.7 L (12.0-15.0) g/dL Hct 33.3 L (37.2-46.3) % MPV 8.4 L (9.5-12.2) FL BUN 5.1 L (9.0-27.0) mg/dL Creatinine 0.5 L (0.6-1.5) mg/dL BUN/Creatinine Ratio 10.20 L (12.00-20.00) Ratio POC Glucose (mg/dL) 126 H (70-110) mg/dL Calcium 8.2 L (8.7-10.3) mg/dL Total Protein 5.4 L (6.2-8.2) g/dL Albumin 2.8 L (3.8-4.9) g/dL Albumin/Globulin Ratio 1.08 L (1.60-3.17) Ratio 04/19/23 Range/Units 20:00 RBC (4.10-5.20) X 10*6/uL Hgb (12.0-15.0) g/dL Hct (37.2-46.3) % MPV (9.5-12.2) FL BUN (9.0-27.0) mg/dL Creatinine (0.6-1.5) mg/dL BUN/Creatinine Ratio (12.00-20.00) Ratio POC Glucose (mg/dL) 127 H (70-110) mg/dL Calcium (8.7-10.3) mg/dL Total Protein (6.2-8.2) g/dL Albumin (3.8-4.9) g/dL Albumin/Globulin Ratio (1.60-3.17) Ratio
--- NOTE | 2023-04-20 12:44 | P.PN ---
Subjective Progress Note Date: 04/20/23 She denies nausea or vomiting. Tolerating diet full liquid. Midline dressing intact. Ostomy with liquid no formed stool. She just started eating. Advance diet. Monitor ostomy once stoma appliance is down. Objective - Vital Signs Vital signs: Vital Signs Temp 97.9 F 04/20/23 07:47 Pulse 75 04/20/23 07:47 Resp 20 04/20/23 07:47 BP 137/74 04/20/23 07:47 Pulse Ox 93 L 04/20/23 07:47 FiO2 - Labs CBC & Chem 7: 04/20/23 05:34 04/20/23 05:34 Labs: Abnormal Lab Results - Last 24 Hours (Table) 04/19/23 04/20/23 04/20/23 Range/Units 20:00 05:34 05:34 RBC 3.78 L (4.10-5.20) X 10*6/uL Hgb 10.9 L (12.0-15.0) g/dL Hct 32.0 L (37.2-46.3) % MPV 8.5 L (9.5-12.2) FL BUN 4.9 L (9.0-27.0) mg/dL Creatinine 0.5 L (0.6-1.5) mg/dL BUN/Creatinine Ratio 9.80 L (12.00-20.00) Ratio POC Glucose (mg/dL) 127 H (70-110) mg/dL Calcium 8.6 L (8.7-10.3) mg/dL Total Protein 5.3 L (6.2-8.2) g/dL Albumin 2.8 L (3.8-4.9) g/dL Albumin/Globulin Ratio 1.12 L (1.60-3.17) Ratio 04/20/23 Range/Units 11:35 RBC (4.10-5.20) X 10*6/uL Hgb (12.0-15.0) g/dL Hct (37.2-46.3) % MPV (9.5-12.2) FL BUN (9.0-27.0) mg/dL Creatinine (0.6-1.5) mg/dL BUN/Creatinine Ratio (12.00-20.00) Ratio POC Glucose (mg/dL) 140 H (70-110) mg/dL Calcium (8.7-10.3) mg/dL Total Protein (6.2-8.2) g/dL Albumin (3.8-4.9) g/dL Albumin/Globulin Ratio (1.60-3.17) Ratio
[2023-04-20] MEDS: amLODIPine 10 MG TAB PO SCH (16:03)
[2023-04-20 16:23] LABS: Glucose,Whole Blood 124 mg/dL (70-110)
[2023-04-20 20:12] LABS: Glucose,Whole Blood 121 mg/dL (70-110)
[2023-04-21] MEDS: HYDROcodone/APAP 5-325MG 1 EACH TAB PO PRN ×3 (02:16→11:49)
[2023-04-21] MEDS: PIPERACILLIN-TAZOBACTAM 3.375 GM in SODIUM CHLORIDE 0.9% 100 ML IVPB SCH ×2 (04:50→11:41)
[2023-04-21 06:12] LABS: Glucose,Whole Blood 101 mg/dL (70-110)
[2023-04-21] MEDS: INSULIN ASPART (NovoLOG) 100 UNIT/ML VIAL SQ SCH ×2 (06:17→11:51)
[2023-04-21] MEDS: LEVOTHYROXINE 75 MCG TAB PO SCH (06:46)
[2023-04-21 08:51] LABS: ALT 18 U/L (8-44); AST 15 U/L (13-35); Albumin 2.9 g/dL (3.8-4.9); Albumin/Globulin Ratio 1.12 Ratio (1.60-3.17); Alkaline Phosphatase 46 U/L (41-126); Blood Urea Nitrogen 5.4 mg/dL (9.0-27.0); Calcium 8.6 mg/dL (8.7-10.3); Carbon Dioxide 27.1 mmol/L (21.6-31.8); Chloride 104 mmol/L (96-109); Globulin 2.6 g/dL (1.6-3.3); Glucose 115 mg/dL (70-110); Potassium 3.9 mmol/L (3.5-5.5); Sodium 140 mmol/L (135-145); Total Bilirubin 0.3 mg/dL (0.3-1.2); Total Protein 5.5 g/dL (6.2-8.2)
[2023-04-21] MEDS: PANTOPRAZOLE 40 MG/10 ML VIAL IVPB SCH (09:06)
[2023-04-21] MEDS: HEPARIN SODIUM,PORCINE 5,000 UNIT/ML 1 ML VIAL SQ SCH (09:06)
[2023-04-21 09:23] LABS: HCT 33.2 % (37.2-46.3); HGB 10.5 g/dL (12.0-15.0); MCH 27.1 pg (27.0-32.0); MCHC 31.6 g/dL (32.0-37.0); MCV 85.6 FL (80.0-97.0); Mean Platelet Volume 8.5 FL (9.5-12.2); NRBC Per 100 WBC 0 X 10*3/uL (0.00-0.01); Platelet Count 382 X 10*3/uL (140-440); RBC 3.88 X 10*6/uL (4.10-5.20); RDW 12.6 % (11.5-14.5); WBC 9.78 X 10*3/uL (4.50-10.00)
[2023-04-21 11:43] LABS: Glucose,Whole Blood 137 mg/dL (70-110)
--- NOTE | 2023-04-21 12:48 | P.DS ---
Providers Date of admission: 04/08/23 21:37 Expected date of discharge: 04/21/23 Attending physician: Kris Chauhan Consults: 04/08/23 19:29 Consult Physician Stat Consulting Provider: Ricardo Jewell Consult Reason/Comments: DM/HTN/sigmoid mass Do you want consulting provider notified?: Yes Primary care physician: Joo Singh Hospital Course: Discharge diagnosis 1. Pelvic mass status post Excision of pelvic mass, diverting colostomy and partial omentectomy. Hospital course This is a 57-year-old female who presented with abdominal pain left lower quadrant. She was taken to the OR for excision of pelvic mass, diverting colostomy and partial omentectomy. 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 Patient tolerated surgery. Her pain is controlled. She has been up and ambulating. She is afebrile. She is tolerating diet. Her ostomy is functioning. She is stable for discharge. Please refer to chart for any further details. Physician On Air Personality note has been reviewed by physician. Signing provider agrees with the documented findings, assessment, and plan of care. Patient Condition at Discharge: Stable Plan - Discharge Summary New Discharge Prescriptions: New Ibuprofen [Motrin] 600 mg PO Q8HR PRN #30 tab PRN Reason: Pain oxyCODONE HCL [OxyIR] 5 mg PO Q6H PRN 3 Days #12 tab PRN Reason: Pain Acetaminophen Tab [Tylenol] 1,000 mg PO Q6HR PRN #30 tablet PRN Reason: Pain Continue Levothyroxine Sodium [Synthroid] 75 mcg PO DAILY metFORMIN HCL ER [Glucophage XR] 500 mg PO DAILY amLODIPine [Norvasc] 10 mg PO DAILY@1500 Empagliflozin [Jardiance] 10 mg PO W/SUPPER Losartan Potassium [Cozaar] 100 mg PO DAILY Discharge Medication List Empagliflozin [Jardiance] 10 mg PO W/SUPPER 04/08/23 [History] Levothyroxine Sodium [Synthroid] 75 mcg PO DAILY 04/08/23 [History] Losartan Potassium [Cozaar] 100 mg PO DAILY 04/08/23 [History] amLODIPine [Norvasc] 10 mg PO DAILY@1500 04/08/23 [History] metFORMIN HCL ER [Glucophage XR] 500 mg PO DAILY 04/08/23 [History] Acetaminophen Tab [Tylenol] 1,000 mg PO Q6HR PRN #30 tablet 04/18/23 [Rx] Ibuprofen [Motrin] 600 mg PO Q8HR PRN #30 tab 04/18/23 [Rx] oxyCODONE HCL [OxyIR] 5 mg PO Q6H PRN 3 Days #12 tab 04/18/23 [Rx] Follow up Appointment(s)/Referral(s): Joo Singh MD [Primary Care Provider] - 1-2 days [facility], [NON-STAFF] - 1 Week ([facility] will call you to arrange a visit) Kris Chauhan MD [STAFF PHYSICIAN] - 1 Week Activity/Diet/Wound Care/Special Instructions: No driving while taking OxyIR No lifting over 10 pounds Shower daily. No soaking or tub baths for 2 weeks Very light activity until you are reevaluated at your follow up appointment with your surgeon Discharge Disposition: HOME SELF-CARE
--- NOTE | 2023-04-21 13:14 | P.PN ---
Subjective Progress Note Date: 04/21/23 Hospital course: Patient is a very pleasant 57-year-old female with a past medical history of hypertension, type II jiv-utmtavk-yzehyztek diabetes mellitus, and hypothyroidism. She presented to the emergency department on 04/08/23 with a chief complaint of abdominal pain. Patient was subsequently diagnosed with acute diverticulitis with concerns of abscess formation the CT findings showing concerns of multiple diverticula in the descending and sigmoid colon was somewhat masslike density in the sigmoid region measuring up to 4.8 cm and concerns as well as abnormal appearance of pelvis/uterus which appears enlarged with concerns of infection/abscess. Patient was admitted under Gen. surgery team and we were consulted for medical management throughout her hospitalization. On 04/14/23 patient underwent surgical procedure with excision of pelvic mass, diverting colostomy, and partial omentectomy by Dr Chauhan. Physical exam: Patient seen and fully evaluated at bedside this morning. She is postoperative day 7. Patient appears to be doing well. Patient tolerating a low fiber diet and denies having any episodes of nausea or vomiting. Patient now having stool output from colostomy. Patient ambulating in the halls and denies having any needs, questions, or concerns at this time. From a medical perspective patient is stable for discharge once cleared by primary admitting general surgery team. Vital signs reviewed and stable. General: Nontoxic, no distress and appears stated age. Derm: Skin warm and dry, normal coloration for ethnicity. Head: Atraumatic, normocephalic and symmetric. Eyes: EOMs intact, no lid lag, and anicteric sclera Mouth: no lip lesions, mucus membranes moist Cardiovascular: regular rate and rhythm with normal S1S2, no murmur, positive posterior tibial pulses bilaterally, and cap refill < 2 seconds. Lungs: Respirations even, regular, and unlabored on room air. Lungs CTA bilaterally, no rhonchi, no rales, no wheezing, and no accessory muscle usage. Abdominal: soft, nontender to palpation, no guarding, no appreciable organomeg leslie. Colostomy in place. Stoma pink. Surgical Incision midline, dressing in place with no signs of drainage or shadowing on dressing. Ext: ROM intact. No gross muscle atrophy, no edema, no contractures Neuro: Speech clear, face symmetrical and CN II-XII grossly intact with no noted focal neuro deficits Psych: Alert and oriented to person, place, time, and situation. Appropriate and pleasant affect. Assessment and Plan of Care: Acute diverticulitis with abscess formation, possible fistulous Pelvic mass- s/p resection with colosomy and patial omentectomy -Continue IV antibiotics with Zosyn 3.375 g IVPB every 8 hours D # 12. -Surgical Pathology report reviewed and was negative for neoplasm. Lobulated benign adipose tissue consistent with focal acute and chronic inflammation. -Gen surgery note reviewed: Continue low fiber diet. -Continuous symptomatic care and pain management with David 5/325 mg every 4 hours as needed for moderate pain and Dilaudid 0.5 mg every 3 hours as needed for severe pain. -Patient tolerating oral intake well, no need for further IV fluids. Acute blood loss anemia, anticipated outcome of surgery and stable -Hemoglobin 10.9 and stable and expected outcome of surgical procedure, no indication for transfusion or further intervention at this time -Will avoid oral iron supplementation until bowel function returns - repeat CBC in AM Diabetes mellitus type 2 -Metformin and Jardiance on hold -Continue with glycemic protocol NovoLog sliding scale. Blood glucose levels will controlled and have ranged between 104 and 127 over the past 24 hours. Hypertension -Continue with Cozaar 100 mg daily and Norvasc 10 mg daily GERD -Continue GI prophylaxis with Protonix 40 mg IV twice daily Hyperkalemia, factitious Chronic: Obesity, Class III -Recommend outpatient structured weight management program. Hypothyroidism -Continue daily medication regimen with levothyroxine 75 g daily. Imaging reviewed: -No new imaging for review. Data Reviewed: -Labs completed and reviewed. BMP remains unremarkable with sodium 140, potassium 3.9, chloride 104, bicarb 27.1, and anion gap of 8.90 with BUN of 5.4 and creatinine is 0.6. Blood glucose 105. -Vital signs reviewed and stable. Blood pressure 145/78, heart rate 73, respiratory rate 18, temp 97.7F, SpO2 of 96% on room air. DVT prophylaxis: Heparin 5000 units every 8 hours From a medical perspective, patient is stable for discharge once cleared by primary admitting general surgery team. Thank you for allowing us to participate in the care of this pleasant patient. Do not hesitate to contact us with questions. Someone can be reached from the [facility] hospitalist group all hours of the day at [phone] or via [employer]. Patient was seen independently by Nurse Pracitioner. This document was prepared using [employer] dictation software. Please allow for errors in nitro man, while rare they do occur. Gary Ramey WHITING MACHINE OPERATOR rendered care for this patient independently, reviewed the findings and plan as documented in the note above. I did not physically speak with or examine the patient on this date. Objective - Vital Signs Vital signs: Vital Signs Temp 97.7 F 04/21/23 07:23 Pulse 73 04/21/23 07:23 Resp 18 04/21/23 07:23 BP 145/78 04/21/23 07:23 Pulse Ox 96 04/21/23 07:23 FiO2 - Labs CBC & Chem 7: 04/21/23 04:47 04/21/23 04:47 Labs: Abnormal Lab Results - Last 24 Hours (Table) 04/20/23 04/20/23 04/20/23 Range/Units 05:34 05:34 11:35 RBC 3.78 L (4.10-5.20) X 10*6/uL Hgb 10.9 L (12.0-15.0) g/dL Hct 32.0 L (37.2-46.3) % MPV 8.5 L (9.5-12.2) FL BUN 4.9 L (9.0-27.0) mg/dL Creatinine 0.5 L (0.6-1.5) mg/dL BUN/Creatinine Ratio 9.80 L (12.00-20.00) Ratio Glucose (70-110) mg/dL POC Glucose (mg/dL) 140 H (70-110) mg/dL Calcium 8.6 L (8.7-10.3) mg/dL Total Protein 5.3 L (6.2-8.2) g/dL Albumin 2.8 L (3.8-4.9) g/dL Albumin/Globulin Ratio 1.12 L (1.60-3.17) Ratio 04/20/23 04/20/23 04/21/23 Range/Units 16:22 20:10 04:47 RBC (4.10-5.20) X 10*6/uL Hgb (12.0-15.0) g/dL Hct (37.2-46.3) % MPV (9.5-12.2) FL BUN 5.4 L (9.0-27.0) mg/dL Creatinine (0.6-1.5) mg/dL BUN/Creatinine Ratio 9.00 L (12.00-20.00) Ratio Glucose 115 H (70-110) mg/dL POC Glucose (mg/dL) 124 H 121 H (70-110) mg/dL Calcium 8.6 L (8.7-10.3) mg/dL Total Protein 5.5 L (6.2-8.2) g/dL Albumin 2.9 L (3.8-4.9) g/dL Albumin/Globulin Ratio 1.12 L (1.60-3.17) Ratio
[2023-04-21 15:14] VITALS: BP 131/72; PULSE 72; RESP 15; TEMP 97.6
[2023-04-21] MEDS: amLODIPine 10 MG TAB PO SCH (15:18)
== END 2023-04-21 16:10 | disposition home or self-care (01) | DRG 330 ==
LOC: EC 11:48 → 4SSUR 21:37
PROVIDERS: ADMIT Surgery; ATTEND Surgery
PROC: 0DJD8ZZ Inspection of Lower Intestinal Tract, Via Natural or Artificial Opening Endoscopic (ICD-10-PCS; 2023-04-10)
PROC: 0DTN0ZZ Resection of Sigmoid Colon, Open Approach (ICD-10-PCS; 2023-04-14)
PROC: 0DBU0ZZ Excision of Omentum, Open Approach (ICD-10-PCS; 2023-04-14)
PROC: 3E0R33Z Introduction of Anti-inflammatory into Spinal Canal, Percutaneous Approach (ICD-10-PCS; 2023-04-14)
PROC: 00HU33Z Insertion of Infusion Device into Spinal Canal, Percutaneous Approach (ICD-10-PCS; 2023-04-14)
PROC: 3E0R3BZ Introduction of Anesthetic Agent into Spinal Canal, Percutaneous Approach (ICD-10-PCS; 2023-04-14)
PROC: 0D1N0Z4 Bypass Sigmoid Colon to Cutaneous, Open Approach (ICD-10-PCS; principal; 2023-04-14 15:15)
DX: K57.20 Diverticulitis of large intestine with perforation and abscess without bleeding (principal); D62 Acute posthemorrhagic anemia; K63.2 Fistula of intestine; Z68.42 Body mass index [BMI] 45.0-49.9, adult; E66.01 Morbid (severe) obesity due to excess calories; E11.9 Type 2 diabetes mellitus without complications; I10 Essential (primary) hypertension; E03.9 Hypothyroidism, unspecified; E87.5 Hyperkalemia; K21.9 Gastro-esophageal reflux disease without esophagitis; R59.0 Localized enlarged lymph nodes; Z79.84 Long term (current) use of oral hypoglycemic drugs; Z79.890 Hormone replacement therapy; Z79.899 Other long term (current) drug therapy; Z28.310 Unvaccinated for COVID-19; Z11.52 Encounter for screening for COVID-19; Z80.0 Family history of malignant neoplasm of digestive organs; Z83.79 Family history of other diseases of the digestive system; Z87.19 Personal history of other diseases of the digestive system; Z90.89 Acquired absence of other organs; Z86.03 Personal history of neoplasm of uncertain behavior
CPT/HCPCS: 36415; 45330; 71046; 74177; 80048; 80053; 81001; 82150; 83605; 83690; 83735; 84100; 85025; 85027; 85610; 86850; 86900; 86901; 86920; 87636; 88305; 88307; 94760; 96361; 96374; 96375; 99285

== ENCOUNTER → 2023-07-10 | Outpatient (CLI) | payer OTHER | END | disposition home or self-care (01) | LOC: LABPAT 10:26 | PROVIDERS: ATTEND Surgery | DX: Z53.9 Procedure and treatment not carried out, unspecified reason (principal) ==

== ENCOUNTER → 2023-07-10 | Outpatient (CLI) | payer OTHER ==
[2023-07-10 14:49] LABS: Basophils # (A) 0.04 X 10*3/uL (0.00-0.10); Basophils % (A) 0.7 %; Eosinophils # (A) 0.31 X 10*3/uL (0.04-0.35); Eosinophils % (A) 5.1 %; HCT 44.4 % (37.2-46.3); HGB 14.5 g/dL (12.0-15.0); Lymphocytes # (A) 1.37 X 10*3/uL (0.90-5.00); Lymphocytes % (A) 22.7 %; MCH 27.7 pg (27.0-32.0); MCHC 32.7 g/dL (32.0-37.0); MCV 84.7 FL (80.0-97.0); Mean Platelet Volume 8.7 FL (9.5-12.2); Monocytes # (A) 0.34 X 10*3/uL (0.20-1.00); Monocytes % (A) 5.6 %; NRBC Per 100 WBC 0 X 10*3/uL (0.00-0.01); Neutrophils # (A) 3.96 X 10*3/uL (1.80-7.70); Neutrophils % (A) 65.6 %; Platelet Count 291 X 10*3/uL (140-440); RBC 5.24 X 10*6/uL (4.10-5.20); RDW 14.1 % (11.5-14.5); WBC 6.04 X 10*3/uL (4.50-10.00)
[2023-07-10 17:11] LABS: Carbon Dioxide 22.3 mmol/L (21.6-31.8); Chloride 106 mmol/L (96-109); Chol/HDL Ratio 3.35 Ratio; LDL Cholesterol,Calculated 86.1 mg/dL (0.0-131.0); Potassium 4.7 mmol/L (3.5-5.5); Sodium 141 mmol/L (135-145)
== END | disposition home or self-care (01) ==
LOC: LABWHC1 10:24
PROVIDERS: ATTEND Family Medicine
DX: Z00.01 Encounter for general adult medical examination with abnormal findings (principal)
CPT/HCPCS: 36415; 80051; 80061; 84443; 85025; 93005

== ENCOUNTER → 2023-07-18 | Outpatient (CLI) | payer OTHER | END | disposition home or self-care (01) | LOC: LABPAT 10:15 | PROVIDERS: ATTEND Surgery | DX: Z01.812 Encounter for preprocedural laboratory examination (principal); K57.32 Diverticulitis of large intestine without perforation or abscess without bleeding | CPT/HCPCS: 86850; 86900; 86901 ==

== ENCOUNTER 2023-07-25 07:00 | Inpatient (IN) | payer OTHER ==
[2023-07-25] MEDS ORDERED: HYDROmorphone 0.5 MG/0.5 ML SYRINGE IVP PRN (07:28)
[2023-07-25] MEDS ORDERED: MIDAZOLAM 2 MG/2 ML VIAL IV PRN (07:28)
[2023-07-25] MEDS: LACTATED RINGERS 1,000 ML IV SCH (07:40)
[2023-07-25 08:01] LABS: Glucose,Whole Blood 176 mg/dL (70-110)
[2023-07-25] MEDS: DEXAMETHASONE SOD PHOSPHATE 4 MG/ML 1 ML VIAL IV ONE (08:09)
[2023-07-25] MEDS: ONDANSETRON 4 MG/2 ML VIAL IVP ONE (08:09)
[2023-07-25] MEDS: MIDAZOLAM 2 MG/2 ML VIAL IVP ONE (08:13)
[2023-07-25] MEDS ORDERED: NALOXONE 0.4 MG/ML 1 ML VIAL IV PRN (08:41)
--- NOTE | 2023-07-25 08:41 | P.ANPRN ---
Procedure Note - Anesthesia - Epidural/Spinal Epidural Continuous Time Out Performed: Yes Date of Procedure: 07/25/23 Procedure Start Time: 08:13 Procedure Stop Time: 08:20 Location of Patient: PreOp Indication: Acute Post-Operative Pain, Requested by Surgeon Sedation Type: Sedate with meaningful contact maintained Preparation: Sterile Dressing Position: Sitting Catheter: Indwelling Needle Guage: 18 Blood Aspirated: Yes Pain Paresthesia on Injection Noted: Yes Events: Uneventful and Well Tolerated
--- NOTE | 2023-07-25 08:52 | P.GSHP ---
History of Present Illness H&P Date: 07/25/23 Chief Complaint: History of perforated diverticulitis This a 58-year-old female with previous history of perforated diverticulitis. Patient presents today for reversal colostomy. Past Medical History Past Medical History: Diabetes Mellitus, Hypertension, Thyroid Disorder Additional Past Medical History / Comment(s): diverticulitis History of Any Multi-Drug Resistant Organisms: None Reported Past Surgical History: Bowel Resection, Section, Hysterectomy Additional Past Surgical History / Comment(s): left adrenal gland removed, pelvic mass removal/partial omentectomy/colostomy Past Anesthesia/Blood Transfusion Reactions: No Reported Reaction Past Psychological History: No Psychological Hx Reported Smoking Status: Never smoker Past Alcohol Use History: Occasional Past Drug Use History: Marijuana - Past Family History Mother Family Medical History: Cancer, Diabetes Mellitus Additional Family Medical History / Comment(s): "heart issues", bowel CA Father Additional Family Medical History / Comment(s): Crohn's disease Medications and Allergies Home Medications Medication Instructions Recorded Confirmed Type Empagliflozin [Jardiance] 10 mg PO W/SUPPER 04/08/23 07/25/23 History Levothyroxine Sodium [Synthroid] 75 mcg PO DAILY 04/08/23 07/25/23 History Losartan Potassium [Cozaar] 100 mg PO DAILY 04/08/23 07/25/23 History amLODIPine [Norvasc] 10 mg PO DAILY 04/08/23 07/25/23 History metFORMIN HCL ER [Glucophage XR] 500 mg PO DAILY 04/08/23 07/25/23 History Allergies Allergy/AdvReac Type Severity Reaction Status Date / Time No Known Allergies Allergy Verified 07/25/23 07:40 Surgical - Exam Vital Signs Temp Pulse Resp BP Pulse Ox 97.2 F L 84 18 122/72 96 07/25/23 07:39 07/25/23 07:39 07/25/23 07:39 07/25/23 07:39 07/25/23 07:39 - General well developed, well nourished, no distress - Eyes PERRL - ENT normal pinna - Neck no masses - Respiratory normal expansion - Cardiovascular Rhythm: regular - Abdomen Colostomy left lower quadrant Abdomen: soft, non tender Results - Labs Abnormal Lab Results - Last 24 Hours (Table) 07/25/23 Range/Units 07:57 POC Glucose (mg/dL) 176 H (70-110) mg/dL Assessment and Plan Assessment: History of perforated diverticulitis. Patient will be scheduled for reversal colostomy.
[2023-07-25] MEDS ORDERED: HEPARIN SODIUM,PORCINE 5,000 UNIT/ML 1 ML VIAL ONE (09:32)
[2023-07-25] MEDS ORDERED: SUCCINYLCHOLINE CHLORIDE 200 MG/10 ML VIAL IV ONE (09:32)
[2023-07-25] MEDS ORDERED: ROCURONIUM 10 MG/ML (5 ML VIAL) IV ONE (09:32)
[2023-07-25] MEDS ORDERED: LIDOCAINE 1% INJ 10MG/ML (20 ML MDV) ONE (09:32)
[2023-07-25] MEDS ORDERED: NEOSTIGMINE 1 MG/ML 10 ML VIAL ONE (09:32)
[2023-07-25] MEDS ORDERED: PROPOFOL 10 MG/ML 20 ML VIAL IV ONE (09:32)
[2023-07-25] MEDS ORDERED: PHENYLEPHRINE-0.9% NACL SYG 1,000 MCG/10 ML SYRINGE ONE (09:32)
[2023-07-25] MEDS ORDERED: WATER FOR INJECTION, STERILE 10 ML VIAL IV ONE (09:32)
[2023-07-25] MEDS ORDERED: GLYCOPYRROLATE 0.2 MG/ML 2 ML VIAL ONE (09:32)
[2023-07-25] MEDS ORDERED: fentaNYL (PF) 50 MCG/ML 2 ML AMP ONE (09:32)
[2023-07-25] MEDS ORDERED: ePHEDrine 50 MG/ML 1 ML VIAL ONE (09:32)
[2023-07-25] MEDS: metroNIDAZOLE-NS PMX 500 MG in SALINE 1 100ML.BAG IVPB PRN (10:02)
[2023-07-25] MEDS: LACTATED RINGERS 1,000 ML IV ONE (10:43)
--- NOTE | 2023-07-25 13:16 | P.OP ---
Date of Procedure: 07/25/23 Preoperative Diagnosis: History of perforated diverticulitis Postoperative Diagnosis: History of perforated diverticulitis Extensive adhesions Procedure(s) Performed: Exploratory laparotomy Lysis of extensive adhesions Small bowel resection Partial colectomy with end colostomy Partial omentectomy Takedown of splenic flexure Anesthesia: MELISSA Surgeon: Kris Chauhan Estimated Blood Loss (ml): 100 Pathology: other (Colon, omentum, small bowel) Condition: stable Disposition: PACU Description of Procedure: The patient's placed on the operating table in the supine position. She received general anesthesia. She was then placed in dorsal lithotomy position. Her abdomen was prepped and draped usual sterile fashion. Using an Ioban the colostomy was draped. This midline using left cautery and subcutaneous tissue divided. And then the fascia was opened. Extensive adhesions between small bowel fashion. These were lysed with sharp dissection. There were extensive adhesions from the peritoneal cavity. Approximately 35 minutes operative used to lyse adhesions. The colostomy was visualized. The colostomy was transected next the fascia using the GI stapler. At this point the abdomen pelvis. The small bowel was dissected out of the pelvis using sharp dissection. There was a question of bowel habits several serosal tears and some scarring from adhesions. This portion of bowel was transected with a GI stapler proximally distally and then the LigaSure device used to divide the mesentery. A sensor functional end-to-end staple anastomosis using the MARYLOU stapler. The distal colon was visualized. The distal colon was palpated towards the rectum. There appeared to be inflammatory changes especially colon. It was then decided to dissect the remaining sigmoid colon and Scarred rectum. Using the LigaSure device the mesentery of the bowel was divided. And then the rectum was dissected down to a suitable position where the rectum was not inflamed. The rectum was then transected with the contour stapler. The splenic flexure was then mobilized. This was done with sharp dissection electrocautery. This wasn't done in order to increase the length of the proximal colon to the pelvis. Once the colon was mobilized. There was adequate length to the pelvis. This point the proximal colon was opened at the staple line. The anvil for the 29 mm stapler was placed in the colon. And then the stapler was closed with a GI stapler. The ample spike was driven through the staple line. At this point the social service assistant went below and inserted the anal dilator. Sequential diDilation of the anus was performed using the 25 the 29 mm EEA dilators. Next the stapler is placed into the rectum. The stapler was positioned appropriately. And then the spike was driven through the rectal wall. The rectal wall appeared to be quite neck. The ampulla could not be safely connected to the stapler due to the thickness of the rectal wall. The stapler was then repositioned and once again we tried to position the stapler and dried the spike through the rectal wall. However this wasn't possible due to the thickness of the rectum. At this point decided to not perform a anastomosis. The site of the previous colostomy was then dissected. The colon within the colostomy site was excised. And then the proximal colon was brought up through the old colostomy site. The abdomen was irrigated there was no bleeding seen. The fascia was then closed with looped #1 PDS suture. Skin was closed edgardo. The colostomy then matured with 3-0 Vicryl suture. The colostomy appliance applied. Then the prevena: System was placed on the skin. Patient top she will well. She was sent to recovery room in stable condition.
[2023-07-25] MEDS: ROPIVACAINE 250 MG, HYDROMORPHONE (PF) 5 MG in SODIUM CHLORIDE 0.9% 200 ML EPIDURAL PRN (13:26)
[2023-07-25] MEDS: PHENYLEPHRINE-0.9% NACL SYG 1,000 MCG/10 ML SYRINGE IVP ONE (13:34)
[2023-07-25] MEDS: fentaNYL (PF) 50 MCG/ML 2 ML AMP INTRATHECA ONE (13:42)
[2023-07-25] MEDS: ALBUMIN HUMAN 5% (12.5gm) 250 ML BOTTLE IVPB ONE (14:03)
[2023-07-25] MEDS: ePHEDrine 50 MG/ML 1 ML VIAL IVP ONE (14:04)
[2023-07-25] MEDS: SODIUM CHLORIDE 0.9% 1,000 ML IV ONE ×4 (14:12→16:53)
[2023-07-25 14:17] LABS: Glucose,Whole Blood 147 mg/dL (70-110)
[2023-07-25 14:35] LABS: Basophils % (A) 0 %; Eosinophils % (A) 0 %; HCT 37.1 % (34.0-46.0); HGB 11.8 gm/dL (11.4-16.0); Lymphocytes # (A) 0.6 k/uL (1.0-4.8); Lymphocytes % (A) 4 %; MCH 27.8 pg (25.0-35.0); MCHC 31.8 g/dL (31.0-37.0); MCV 87.5 fL (80.0-100.0); Mean Platelet Volume 6.9; Monocytes # (A) 0.4 k/uL (0-1.0); Monocytes % (A) 3 %; Neutrophils # (A) 11.6 k/uL (1.3-7.7); Neutrophils % (A) 92 %; Platelet Count 251 k/uL (150-450); RBC 4.24 m/uL (3.80-5.40); RDW 14.6 % (11.5-15.5); WBC 12.6 k/uL (3.8-10.6)
[2023-07-25] MEDS ORDERED: DEXTROSE 50% SYRINGE 50 ML IVP PRN ×2 (16:36)
--- NOTE | 2023-07-25 16:39 | P.CONS ---
History of Present Illness - Reason for Consult Consult date: 07/25/23 - History of Present Illness 58 year old F with PMH of perforated diverticulitis with colostomy, HTN, hypothyroidim, diabetes mellitus presents to [facility] for elective surgery. She underwent exploratory laparotomy, lysis of adhesions, small bowel resection, partial colectomy with end colostomy, partial omentectomy and takedown of splenic flexure with Dr. Chauhan on 07/24. [facility] has been consulted for medical management of this patient. Patient was seen and examined in recovery. She reports well controlled pain 2- 3/10 in severity. Post operative complications include hypoxia and hypotension. She was given 100 mcg of IV phenylephrine, 20 mcg of ephedrine IV and 250 ml of 5% albumin. Her epidural has been placed on hold. Pre-operative antibiotics included one dose of Flagyl 500 mg IV and Cefzolin 2g IV. Per RN, she has received about 5L of IVF so far. Patient reports no chest pain, shortness of breath, palpitations, lightheadedness. She reports a history of snoring and likely undiagnosed sleep apnea. She reports history of left adrenal gland removal. She denies smoking cigarettes or drinking alcohol. Patient is currently on 4L NC saturation high 90s. Her SBP is in the 90s and MAP in the 70s during my encounter. CBC shows WBC 12.6 with neutrophilia. POC glucose 147. General: non toxic, no distress, appears at stated age Derm: warm, dry Head: atraumatic, normocephalic, symmetric Eyes: EOMI, no lid lag, anicteric sclera Mouth: no lip lesion, mucus membranes moist Cardiovascular: S1S2 reg, no murmur Lungs: CTA bilateral, no rhonchi, no rales , no accessory muscle use Ext: no gross muscle atrophy, no edema, no contractures Neuro: no focal neuro deficits Psych: Alert, oriented, appropriate affect Based on my assessment of this patient, this patient meets a high complexity level of care. Patient has an acute diagnosis of shock and hypoxia post operatively that poses a threat to life or bodily function. Shock: Per RN, she has received about 5L of IVF so far. Likely due to effects of anesthesia. MAP maintaining in the 70s during my encounter. Hold amlodipine and losartan. Continue IV hydration. Telemetry monitoring. Maintain MAP > 65. Phenylephrine 0.5 mcg/kg/min ordered by anesthesia on hold. Check TSH and cortisol. Consider echocardiogram if requires pressors. Hypoxia: Currently on 4L NC. Reports history of snoring and likely undiagnosed sleep apnea. Likely due to effects of anesthesia. Supplemental O2 to maintain O2 saturation > 92%. Incentive spirometer. CXR ordered. Pulmonary consulted. Leukocytosis: Likely reactive from surgery. Monitor fever profile. Hypothyroidism: Synthroid 75 mcg PO QD. Diabetes mellitus: ISS. Accuchecks ACHS. Hypoglycemic precautions. Check A1c. CODE STATUS: FULL CODE. DVT Prophylaxis: SCD GI Prophylaxis: Designated medical POA if patient is not able to make medical decisions for themselves: I have reviewed the following healthcare network consultant notes: Operative note. I have reviewed the results of the following tests: CBC, POC glucose. I have ordered the following tests: A1c. TSH. Cortisol. CXR I have discussed the care of this patient with the following independent historian: NORMA. I have independently interpreted the following test below: I have discussed the management of this patient with the following physician: Past Medical History Past Medical History: Diabetes Mellitus, Hypertension, Thyroid Disorder Additional Past Medical History / Comment(s): diverticulitis History of Any Multi-Drug Resistant Organisms: None Reported Past Surgical History: Bowel Resection, Section, Hysterectomy Additional Past Surgical History / Comment(s): left adrenal gland removed, pelvic mass removal/partial omentectomy/colostomy Past Anesthesia/Blood Transfusion Reactions: No Reported Reaction Past Psychological History: No Psychological Hx Reported Smoking Status: Never smoker Past Alcohol Use History: Occasional Past Drug Use History: Marijuana - Past Family History Mother Family Medical History: Cancer, Diabetes Mellitus Additional Family Medical History / Comment(s): "heart issues", bowel CA Father Additional Family Medical History / Comment(s): Crohn's disease Medications and Allergies Home Medications Medication Instructions Recorded Confirmed Type Empagliflozin [Jardiance] 10 mg PO W/SUPPER 04/08/23 07/25/23 History Levothyroxine Sodium [Synthroid] 75 mcg PO DAILY 04/08/23 07/25/23 History Losartan Potassium [Cozaar] 100 mg PO DAILY 04/08/23 07/25/23 History amLODIPine [Norvasc] 10 mg PO DAILY 04/08/23 07/25/23 History metFORMIN HCL ER [Glucophage XR] 500 mg PO DAILY 04/08/23 07/25/23 History Allergies Allergy/AdvReac Type Severity Reaction Status Date / Time No Known Allergies Allergy Verified 07/25/23 07:40 Physical Exam Vitals: Vital Signs Temp Pulse Pulse Resp BP BP Pulse Ox 07/25/23 16:23 93 16 95/48 100 07/25/23 16:08 72 16 100/52 99 07/25/23 15:53 86 16 104/44 99 07/25/23 15:38 92 16 96/51 99 07/25/23 15:23 75 16 105/52 98 07/25/23 15:08 70 16 95/44 86 L 07/25/23 14:53 97.4 F L 63 16 97/52 97 07/25/23 14:38 83 16 93/47 92 L 07/25/23 14:23 88 16 90/43 98 07/25/23 14:08 93 16 83/52 99 07/25/23 13:52 70 16 75/43 100 07/25/23 13:37 77 16 82/46 92 L 07/25/23 13:22 97.6 F 88 12 83/43 98 07/25/23 08:26 80 17 100/57 97 07/25/23 07:39 97.2 F L 84 18 122/72 96 Intake and Output 07/25/23 07/25/23 07/25/23 06:59 14:59 22:59 Intake Total 1455 Output Total 100 Balance 1355 Intake: IV 1455 Output: Estimated Blood Loss 100 Other: Weight 114.2 kg Results CBC & Chem 7: 07/25/23 14:29 Labs: Abnormal Lab Results - Last 24 Hours (Table) 07/25/23 07/25/23 07/25/23 Range/Units 07:57 14:15 14:29 WBC 12.6 H (3.8-10.6) k/uL Neutrophils # 11.6 H (1.3-7.7) k/uL Lymphocytes # 0.6 L (1.0-4.8) k/uL POC Glucose (mg/dL) 176 H 147 H (70-110) mg/dL
[2023-07-25 16:49] LABS: Basophils % (A) 0 %; Eosinophils % (A) 0 %; HCT 38.6 % (34.0-46.0); HGB 12.2 gm/dL (11.4-16.0); Lymphocytes # (A) 0.6 k/uL (1.0-4.8); Lymphocytes % (A) 5 %; MCH 28.2 pg (25.0-35.0); MCHC 31.6 g/dL (31.0-37.0); MCV 89.2 fL (80.0-100.0); Mean Platelet Volume 6.8; Monocytes # (A) 0.6 k/uL (0-1.0); Monocytes % (A) 5 %; Neutrophils # (A) 11.6 k/uL (1.3-7.7); Neutrophils % (A) 90 %; Platelet Count 286 k/uL (150-450); RBC 4.32 m/uL (3.80-5.40); RDW 14.6 % (11.5-15.5); WBC 12.9 k/uL (3.8-10.6)
--- NOTE | 2023-07-25 17:40 | P.CNPUL ---
History of Present Illness Consult date: 07/25/23 Requesting physician: Kris Chauhan Reason for consult: other (, ICU management) Chief complaint: Status post attempt for reversal colostomy History of present illness: This is a 58-year-old female admitted electively today for exploratory laparotomy and the plan was to reverse colostomy patient had previous history of perforated diverticulitis, and the plan was to explore and possibly reverse colostomy. Patient ended up having significant amount of adhesions, she underwent lysis of extensive adhesions, small bowel resection partial colectomy with end colostomy partial omentectomy takedown of splenic flexure, and could not reverse colostomy. Postoperatively, patient was in the recovery room, and she required multiple fluid boluses blood pressure remained soft in spite of 5 L of fluids. Her hemoglobin postoperatively was 12.2, baseline hemoglobin is 11.8. Considering her low blood pressure, I was notified about this patient, and I saw the patient in the recovery room. During my evaluation, the patient seems to be pleasant, in no distress, did not seem in any form of distress. Her labs were all reviewed, discussed her condition with Dr. Chauhan over the phone, and I am planning to admit the patient to the ICU for relatively low soft blood pressure, may or may not require pressors for low blood pressure. Patient had no chest pain, no shortness of breath, no palpitations, and again her labs were basically unremarkable. Review of Systems REVIEW OF SYSTEMS: CONSTITUTIONAL: Negative. EYES: Negative. ENT: Negative. CARDIAC: Negative. PULMONARY: No cough no wheezing no shortness of breath GI: Negative. GENITOURINARY: Negative. MUSCULOSKELETAL: Negative. SKIN: Negative. NEUROPSYCH: Negative. ENDOCRINE: Negative. HEMATOLOGIC: Negative. Past Medical History Past Medical History: Diabetes Mellitus, Hypertension, Thyroid Disorder Additional Past Medical History / Comment(s): diverticulitis History of Any Multi-Drug Resistant Organisms: None Reported Past Surgical History: Bowel Resection, Section, Hysterectomy Additional Past Surgical History / Comment(s): left adrenal gland removed, pelvic mass removal/partial omentectomy/colostomy Past Anesthesia/Blood Transfusion Reactions: No Reported Reaction Past Psychological History: No Psychological Hx Reported Smoking Status: Never smoker Past Alcohol Use History: Occasional Past Drug Use History: Marijuana - Past Family History Mother Family Medical History: Cancer, Diabetes Mellitus Additional Family Medical History / Comment(s): "heart issues", bowel CA Father Additional Family Medical History / Comment(s): Crohn's disease Medications and Allergies Home Medications Medication Instructions Recorded Confirmed Type Empagliflozin [Jardiance] 10 mg PO W/SUPPER 04/08/23 07/25/23 History Levothyroxine Sodium [Synthroid] 75 mcg PO DAILY 04/08/23 07/25/23 History Losartan Potassium [Cozaar] 100 mg PO DAILY 04/08/23 07/25/23 History amLODIPine [Norvasc] 10 mg PO DAILY 04/08/23 07/25/23 History metFORMIN HCL ER [Glucophage XR] 500 mg PO DAILY 04/08/23 07/25/23 History Allergies Allergy/AdvReac Type Severity Reaction Status Date / Time No Known Allergies Allergy Verified 07/25/23 07:40 Physical Exam Vitals: Vital Signs Temp Pulse Pulse Resp BP BP Pulse Ox 07/25/23 16:53 88 16 96/46 93 L 07/25/23 16:37 56 L 16 99/53 92 L 07/25/23 16:23 93 16 95/48 100 07/25/23 16:08 72 16 100/52 99 07/25/23 15:53 86 16 104/44 99 07/25/23 15:38 92 16 96/51 99 07/25/23 15:23 75 16 105/52 98 07/25/23 15:08 70 16 95/44 86 L 07/25/23 14:53 97.4 F L 63 16 97/52 97 07/25/23 14:38 83 16 93/47 92 L 07/25/23 14:23 88 16 90/43 98 07/25/23 14:08 93 16 83/52 99 07/25/23 13:52 70 16 75/43 100 07/25/23 13:37 77 16 82/46 92 L 07/25/23 13:22 97.6 F 88 12 83/43 98 07/25/23 08:26 80 17 100/57 97 07/25/23 07:39 97.2 F L 84 18 122/72 96 Intake and Output 07/25/23 07/25/23 07/25/23 06:59 14:59 22:59 Intake Total 3455 Output Total 100 350 Balance 3355 -350 Intake: IV 3455 Output: Urine 350 Estimated Blood Loss 100 Other: Weight 114.2 kg General: Reveals a 58-year-old female in no distress, on room air Head: Atraumatic, normocephalic. Skin: Skin is warm and dry and no rashes or lesions are noted. Eye: Pupils are equal, round and reactive to light, extra-ocular movements are intact; there is normal conjunctiva bilaterally. Ears, nose, mouth and throat: There are moist mucous membranes and no oral lesions. Neck: The neck is supple, there is no tenderness or JVD. Cardiovascular: Distant S1-S2, no S3 gallop. Respiratory: Symmetrical chest expansion, clear bilaterally no rhonchi no wheeze s Gastrointestinal: Colostomy is noted, wound VAC is noted, abdomen is soft, minimally tender, no rebound no guarding. Diminished bowel sounds. Musculoskeletal: No deformities and no limitation range of motion Neurological: Alert and oriented x 3 no gross focal deficit Psychiatric: Normal mood affect and normal mental status examination Results - Laboratory Findings CBC and BMP: 07/25/23 14:29 Abnormal lab findings: Abnormal Labs 07/25/23 07/25/23 07/25/23 07:57 14:15 14:29 WBC 12.6 H Neutrophils # 11.6 H Lymphocytes # 0.6 L POC Glucose (mg/dL) 176 H 147 H - Diagnostic Findings Chest x-ray: image reviewed (Chest x-ray showed no evidence of active disease, no evidence of congestive heart failure) Assessment and Plan Assessment: Impression: Status post exploratory laparotomy, lysis of extensive adhesions, small bowel resection, partial colectomy and end colostomy partial omentectomy and takedown of splenic flexure postoperative day #0 Postoperative hypotension, most likely hypovolemic shock in nature, patient is improving with fluid boluses, nonetheless I believe the patient should be admitted to the ICU since her blood pressure remains soft may or may not require more fluids or pressors. Type 2 diabetes Benign essential hypertension History of perforated diverticulitis History of hypothyroidism, on replacement therapy History of colostomy Recommendation: Admit patient to ICU Continue fluid maintenance for now no need for further fluid boluses at this point Monitor blood pressure closely in the ICU may consider more fluid boluses or pressors Serum cortisol level is pending, thyroid profile is pending Repeat CBC in the next few hours and monitor hemoglobin make sure there is no bleeding or blood loss. Incentive spirometry GI and DVT prophylaxis Will continue to follow. While in ICU Time with Patient: Greater than 30
--- NOTE | 2023-07-25 17:42 | XR ---
EXAMINATION TYPE: XR chest 1V portable DATE OF EXAM: 07/25/2023 4:56 PM CLINICAL INDICATION:Female, 58 years old with history of hypoxia; COMPARISON: None TECHNIQUE: XR chest 1V portable Frontal view of the chest. FINDINGS: Lungs/Pleura: Low lung volumes are present. There is no evidence of pleural effusion, focal consolida tion, or pneumothorax. Pulmonary vascularity: Unremarkable. Heart/mediastinum: Cardiomediastinal silhouette is unremarkable. Musculoskeletal: No acute osseous pathology. Other findings: None IMPRESSION: Low lung volumes with a generalized hazy appearance which could represent atelectasis versus pulmonar y edema correlate with serum BNP.
[2023-07-25 17:49] LABS: Glucose,Whole Blood 141 mg/dL (70-110)
[2023-07-25] MEDS: HEPARIN SODIUM,PORCINE 5,000 UNIT/ML 1 ML VIAL SQ SCH (18:08)
[2023-07-25] MEDS: PHENYLEPHRINE 40 MG in SODIUM CHLORIDE 0.9% 250 ML IV SCH (18:08)
[2023-07-25] MEDS ORDERED: Magnesium Replacement Protocol 1 EACH MISC MISCELLANE PRN (18:16)
[2023-07-25] MEDS ORDERED: Potassium Replacement Protocol 1 EACH MISC MISCELLANE PRN (18:16)
[2023-07-25] MEDS ORDERED: Phosphorus Replacement Protoco 1 EACH MISC MISCELLANE PRN (18:16)
[2023-07-25] MEDS: ONDANSETRON 4 MG/2 ML VIAL IVP PRN (18:28)
[2023-07-25] MEDS: SCOPOLAMINE 1 MG/72 HR PATCH TRANSDERM ONE (18:47)
[2023-07-25] MEDS: HYDROmorphone 1 MG/ML 1 ML SYRINGE IVP PRN (18:47)
[2023-07-25] MEDS: INSULIN ASPART (NovoLOG) 100 UNIT/ML VIAL SQ SCH (18:47)
[2023-07-25] MEDS: D5-0.45% NACL WITH KCL 20MEQ/L 1,000 ML IV SCH (19:04)
[2023-07-25 19:48] LABS: Basophils % (A) 0 %; Eosinophils % (A) 0 %; HGB 11.9 gm/dL (11.4-16.0); Hypochromasia Slight; Lymphocytes # (A) 0.5 k/uL (1.0-4.8); Lymphocytes % (A) 4 %; MCH 28.5 pg (25.0-35.0); Mean Platelet Volume 6.7; Monocytes # (A) 0.5 k/uL (0-1.0); Monocytes % (A) 4 %; Neutrophils # (A) 10.6 k/uL (1.3-7.7); Neutrophils % (A) 91 %; Platelet Count 249 k/uL (150-450); RBC 4.16 m/uL (3.80-5.40); RDW 14.5 % (11.5-15.5); WBC 11.7 k/uL (3.8-10.6)
[2023-07-25 19:53] LABS: ALT 24 U/L (4-34); AST 27 U/L (14-36); African American GFR (CKD) >90 (>60 ml/min/1.73 sqM); Albumin 3.4 g/dL (3.5-5.0); Alkaline Phosphatase 53 U/L (38-126); Anion Gap 9 mmol/L; Blood Urea Nitrogen 12 mg/dL (7-17); Calcium 8.1 mg/dL (8.4-10.2); Carbon Dioxide 18 mmol/L (22-30); Chloride 109 mmol/L (98-107); Glucose 146 mg/dL (74-99); Magnesium 1.6 mg/dL (1.6-2.3); Non-African American GFR(CKD) >90 (>60 ml/min/1.73 sqM); Phosphorus 4.7 mg/dL (2.5-4.5); Sodium 136 mmol/L (137-145); Total Bilirubin 0.4 mg/dL (0.2-1.3); Total Protein 6.2 g/dL (6.3-8.2)
[2023-07-25 19:57] LABS: Partial Thromboplastin Time 22.9 sec (22.0-30.0); Prothrombin Time 11.1 sec (10.0-12.5)
[2023-07-25 20:16] LABS: Glucose,Whole Blood 157 mg/dL (70-110)
[2023-07-25] MEDS: ALVIMOPAN 12 MG CAPSULE PO SCH (20:56)
[2023-07-26 04:43] LABS: Basophils % (A) 0 %; Eosinophils % (A) 0 %; HCT 37.8 % (34.0-46.0); HGB 11.4 gm/dL (11.4-16.0); Hypochromasia Moderate; Lymphocytes # (A) 0.9 k/uL (1.0-4.8); Lymphocytes % (A) 9 %; MCH 27.3 pg (25.0-35.0); MCHC 30.1 g/dL (31.0-37.0); MCV 90.8 fL (80.0-100.0); Mean Platelet Volume 7.4; Monocytes # (A) 0.6 k/uL (0-1.0); Monocytes % (A) 7 %; Neutrophils # (A) 7.6 k/uL (1.3-7.7); Neutrophils % (A) 82 %; Platelet Count 268 k/uL (150-450); RBC 4.16 m/uL (3.80-5.40); RDW 14.6 % (11.5-15.5); WBC 9.2 k/uL (3.8-10.6)
[2023-07-26 05:05] LABS: African American GFR (CKD) 87 (>60 ml/min/1.73 sqM); Anion Gap 6 mmol/L; Blood Urea Nitrogen 14 mg/dL (7-17); Carbon Dioxide 24 mmol/L (22-30); Chloride 106 mmol/L (98-107); Glucose 132 mg/dL (74-99); Non-African American GFR(CKD) 76 (>60 ml/min/1.73 sqM); Potassium 5.5 mmol/L (3.5-5.1); Sodium 136 mmol/L (137-145)
[2023-07-26 06:28] LABS: Glucose,Whole Blood 102 mg/dL (70-110)
[2023-07-26] MEDS: LEVOTHYROXINE 75 MCG TAB PO SCH (06:30)
[2023-07-26 06:50] LABS: T4, Free (Free Thyroxine) 1.11 ng/dL (0.78-2.19)
[2023-07-26] MEDS: PANTOPRAZOLE 40 MG/10 ML VIAL IV SCH (08:29)
[2023-07-26] MEDS: FUROSEMIDE 10 MG/ML 2 ML VIAL IV ONE (09:20)
[2023-07-26] MEDS: SODIUM CHLORIDE 0.9% 1,000 ML IV SCH (09:20)
--- NOTE | 2023-07-26 11:41 | P.PN ---
Subjective Progress Note Date: 07/26/23 Hospital course 58 year old F with PMH of perforated diverticulitis with colostomy, HTN, hypothyroidim, diabetes mellitus presents to [facility] for elective surgery. She underwent exploratory laparotomy, lysis of adhesions, small bowel resection, partial colectomy with end colostomy, partial omentectomy and takedown of splenic flexure with Dr. Chauhan on 07/24. [facility] has been consulted for medical management of this patient. After the procedure darcie leger was transferred to the ICU for hypoxia and hypotension. Patient was started on pressors. Patient also started on broad-spectrum antibiotics. HPI Patient seen this morning. Patient is complaining of abdominal pain. She otherwise has no other acute complaints. Patient currently off pressors. Her blood pressures in the 90s systolically. Patient is also getting 100 cc of normal saline fluid. She is on 5 L nasal cannula. Physical exam General examination - Alert and Oriented 3 in NAD Heart - + S1S2 no murmurs Lungs -crackles in bilateral lower lungs Abdomen surgical incision in the mid abdomen with wound VAC, ostomy with serosan guineous fluid. Diffuse tenderness to palpate as expected after surgery Extremities - No edema [employer] - Moving all 4 extremities spontaneously Psych - Calm and cooperative Assessment and plan Shock: This could be due to anesthesia Patient's hemoglobin is stable so hemorrhagic shock ruled out No clear source of infection. Possible source of infection could be peritonitis Likely etiology of the hypotension is the anesthesia Patient is now off pressors Continue with fluids Hold BP meds and restart when patient able to tolerate Continue with aggressive fluids for now since blood pressure is still on the soft side. Continue to monitor for signs of volume overload Dip Filler on board Need to be cautious with pain medications Follow-up on blood culture Status post exploratory laparotomy, lysis of adhesions, small bowel resection, partial colectomy with end colostomy, partial omentectomy and takedown of splenic flexure As per your primary team management Acute hypoxic respiratory failure likely due to pulmonary edema from aggressive fluids given during surgery and after surgery Dip Filler ordered one-time dose of IV Lasix 20 mg Leukocytosis Likely reactive Resolved Hypothyroidism Continue Synthroid Diabetes mellitus Sliding scale insulin DVT prophylaxis: Will defer to surgery. Patient currently on subcu heparin Objective - Vital Signs Vital signs: Vital Signs Temp 98.1 F 07/26/23 08:00 Pulse 74 07/26/23 11:00 Resp 19 07/26/23 11:00 BP 90/44 07/26/23 11:00 Pulse Ox 95 07/26/23 11:00 FiO2 40 07/26/23 07:47 Intake & Output 07/25/23 07/26/23 07/26/23 18:59 06:59 18:59 Intake Total 3465 2605 460 Output Total 450 585 413 Balance 3015 2020 47 Weight 114.2 kg 121.4 kg Intake: IV 3465 1405 210 D5-0.45% NaCl with KCl 1375 20Meq/l 1,000 ml @ 125 mls/hr IV .Q8H PAIRS Rx#: [id number] Invasive Line 3 10 30 10 Sodium Chloride 0.9% 1, 200 000 ml @ 100 mls/hr IV . Q10H [place] Rx#:[id number] Oral 1200 250 Output: Urine 350 585 413 Estimated Blood Loss 100 Other: Voiding Method Indwelling Catheter Indwelling Catheter Indwelling Catheter - Labs CBC & Chem 7: 07/26/23 04:00 07/26/23 04:00 Labs: Abnormal Lab Results - Last 24 Hours (Table) 07/25/23 07/25/23 07/25/23 Range/Units 14:15 14:29 16:24 WBC 12.6 H 12.9 H (3.8-10.6) k/uL MCHC (31.0-37.0) g/dL Neutrophils # 11.6 H 11.6 H (1.3-7.7) k/uL Lymphocytes # 0.6 L 0.6 L (1.0-4.8) k/uL Sodium (137-145) mmol/L Potassium (3.5-5.1) mmol/L Chloride (98-107) mmol/L Carbon Dioxide (22-30) mmol/L Glucose (74-99) mg/dL POC Glucose (mg/dL) 147 H (70-110) mg/dL Hemoglobin A1c (<=6.0) % Calcium (8.4-10.2) mg/dL Phosphorus (2.5-4.5) mg/dL Total Protein (6.3-8.2) g/dL Albumin (3.5-5.0) g/dL TSH (0.465-4.680) mIU/L Cortisol (3.1-22.4) UG/DL 07/25/23 07/25/23 07/25/23 Range/Units 17:47 18:45 18:45 WBC 11.7 H (3.8-10.6) k/uL MCHC (31.0-37.0) g/dL Neutrophils # 10.6 H (1.3-7.7) k/uL Lymphocytes # 0.5 L (1.0-4.8) k/uL Sodium 136 L (137-145) mmol/L Potassium (3.5-5.1) mmol/L Chloride 109 H (98-107) mmol/L Carbon Dioxide 18 L (22-30) mmol/L Glucose 146 H (74-99) mg/dL POC Glucose (mg/dL) 141 H (70-110) mg/dL Hemoglobin A1c (<=6.0) % Calcium 8.1 L (8.4-10.2) mg/dL Phosphorus 4.7 H (2.5-4.5) mg/dL Total Protein 6.2 L (6.3-8.2) g/dL Albumin 3.4 L (3.5-5.0) g/dL TSH (0.465-4.680) mIU/L Cortisol (3.1-22.4) UG/DL 07/25/23 07/25/23 07/26/23 Range/Units 18:45 20:14 04:00 WBC (3.8-10.6) k/uL MCHC (31.0-37.0) g/dL Neutrophils # (1.3-7.7) k/uL Lymphocytes # (1.0-4.8) k/uL Sodium (137-145) mmol/L Potassium (3.5-5.1) mmol/L Chloride (98-107) mmol/L Carbon Dioxide (22-30) mmol/L Glucose (74-99) mg/dL POC Glucose (mg/dL) 157 H (70-110) mg/dL Hemoglobin A1c 6.1 H (<=6.0) % Calcium 8.3 L (8.4-10.2) mg/dL Phosphorus (2.5-4.5) mg/dL Total Protein (6.3-8.2) g/dL Albumin (3.5-5.0) g/dL TSH (0.465-4.680) mIU/L Cortisol (3.1-22.4) UG/DL 07/26/23 07/26/23 Range/Units 04:00 04:00 WBC (3.8-10.6) k/uL MCHC 30.1 L (31.0-37.0) g/dL Neutrophils # (1.3-7.7) k/uL Lymphocytes # 0.9 L (1.0-4.8) k/uL Sodium 136 L (137-145) mmol/L Potassium 5.5 H (3.5-5.1) mmol/L Chloride (98-107) mmol/L Carbon Dioxide (22-30) mmol/L Glucose 132 H (74-99) mg/dL POC Glucose (mg/dL) (70-110) mg/dL Hemoglobin A1c (<=6.0) % Calcium 8.0 L (8.4-10.2) mg/dL Phosphorus (2.5-4.5) mg/dL Total Protein (6.3-8.2) g/dL Albumin (3.5-5.0) g/dL TSH 5.270 H (0.465-4.680) mIU/L Cortisol 2.3 L (3.1-22.4) UG/DL
[2023-07-26 11:59] LABS: Glucose,Whole Blood 137 mg/dL (70-110)
--- NOTE | 2023-07-26 12:54 | P.PN ---
Subjective Progress Note Date: 07/26/23 Principal diagnosis: Status post exploratory laparotomy lysis of extensive adhesions and bowel resection and partial colectomy with end colostomy partial omentectomy, postoperative day #1 This is a 58-year-old female admitted electively today for exploratory laparotomy and the plan was to reverse colostomy patient had previous history of perforated diverticulitis, and the plan was to explore and possibly reverse colostomy. Patient ended up having significant amount of adhesions, she underwent lysis of extensive adhesions, small bowel resection partial colectomy with end colostomy partial omentectomy takedown of splenic flexure, and could not reverse colostomy. Postoperatively, patient was in the recovery room, and she required multiple fluid boluses blood pressure remained soft in spite of 5 L of fluids. Her hemoglobin postoperatively was 12.2, baseline hemoglobin is 11.8. Considering her low blood pressure, I was notified about this patient, and I saw the patient in the recovery room. During my evaluation, the patient seems to be pleasant, in no distress, did not seem in any form of distress. Her labs were all reviewed, discussed her condition with Dr. Chauhan over the phone, and I am planning to admit the patient to the ICU for relatively low soft blood pressure, may or may not require pressors for low blood pressure. Patient had no chest pain, no shortness of breath, no palpitations, and again her labs were basically unremarkable. Patient reevaluated today on 07/26/2023, patient remains in the ICU, I saw her yesterday on consultation and transferred the patient to the ICU mostly because of relatively low soft blood pressure. Patient received multiple fluid boluses in the recovery room after her surgery, and her blood pressure remained m arginal. Admitted to the ICU, did not require any pressors overnight. Remains on IV fluids, urine output is marginal, and the patient will be receiving a dose of Lasix 20 mg IV push. Patient required to go on BiPAP last night because of obstructive sleep apnea symptoms and findings while she was sleeping with stop breathing episodes and desaturation while sleeping. Today the patient is doing well, relatively asymptomatic.On 3 L nasal cannula with O2 saturation of 97%. WBC count is 9.2 hemoglobin 11.4 potassium is a bit high at 5.5 patient will receive a dose of Lasix today. Renal profile is normal bicarb is normal, serum cortisol is low at 2.3, that may explain the low blood pressure yesterday after her surgery, hence I will give the patient a dose of Solu-Cortef, may eventually require a Cortrosyn stimulation test Objective - Vital Signs Vital signs: Vital Signs Temp 98.4 F 07/26/23 12:00 Pulse 82 07/26/23 12:00 Resp 19 07/26/23 12:00 BP 83/56 07/26/23 12:00 Pulse Ox 97 07/26/23 12:00 FiO2 40 07/26/23 07:47 Intake & Output 07/25/23 07/26/23 07/26/23 18:59 06:59 18:59 Intake Total 3465 2605 560 Output Total 450 585 643 Balance 3014 Weight 114.2 kg 121.4 kg Intake: IV 3465 1405 310 D5-0.45% NaCl with KCl 1375 20Meq/l 1,000 ml @ 125 mls/hr IV .Q8H [facility] Rx#: [id number] Invasive Line 3 10 30 10 Sodium Chloride 0.9% 1, 300 000 ml @ 100 mls/hr IV . Q10H [facility] Rx#:[id number] Oral 1200 250 Output: Urine 350 585 643 Estimated Blood Loss 100 Other: Voiding Method Indwelling Catheter Indwelling Catheter Indwelling Catheter - Exam General: Reveals a 58-year-old female in no distress, on 3 L nasal cannula with O2 sats of 97% Head: Atraumatic, normocephalic. Skin: Skin is warm and dry and no rashes or lesions are noted. Eye: Pupils are equal, round and reactive to light, extra-ocular movements are intact; there is normal conjunctiva bilaterally. Ears, nose, mouth and throat: There are moist mucous membranes and no oral lesions. Neck: The neck is supple, there is no tenderness or JVD. Cardiovascular: Distant S1-S2, no S3 gallop. Respiratory: Symmetrical chest expansion, clear bilaterally no rhonchi no wheeze s Gastrointestinal: Colostomy is noted, wound VAC is noted, abdomen is soft, minimally tender, no rebound no guarding. Diminished bowel sounds. Musculoskeletal: No deformities and no limitation range of motion Neurological: Alert and oriented x 3 no gross focal deficit Psychiatric: Normal mood affect and normal mental status examination - Labs CBC & Chem 7: 07/26/23 04:00 07/26/23 04:00 Labs: Abnormal Lab Results - Last 24 Hours (Table) 07/25/23 07/25/23 07/25/23 Range/Units 14:15 14:29 16:24 WBC 12.6 H 12.9 H (3.8-10.6) k/uL MCHC (31.0-37.0) g/dL Neutrophils # 11.6 H 11.6 H (1.3-7.7) k/uL Lymphocytes # 0.6 L 0.6 L (1.0-4.8) k/uL Sodium (137-145) mmol/L Potassium (3.5-5.1) mmol/L Chloride (98-107) mmol/L Carbon Dioxide (22-30) mmol/L Glucose (74-99) mg/dL POC Glucose (mg/dL) 147 H (70-110) mg/dL Hemoglobin A1c (<=6.0) % Calcium (8.4-10.2) mg/dL Phosphorus (2.5-4.5) mg/dL Total Protein (6.3-8.2) g/dL Albumin (3.5-5.0) g/dL TSH (0.465-4.680) mIU/L Cortisol (3.1-22.4) UG/DL 07/25/23 07/25/23 07/25/23 Range/Units 17:47 18:45 18:45 WBC 11.7 H (3.8-10.6) k/uL MCHC (31.0-37.0) g/dL Neutrophils # 10.6 H (1.3-7.7) k/uL Lymphocytes # 0.5 L (1.0-4.8) k/uL Sodium 136 L (137-145) mmol/L Potassium (3.5-5.1) mmol/L Chloride 109 H (98-107) mmol/L Carbon Dioxide 18 L (22-30) mmol/L Glucose 146 H (74-99) mg/dL POC Glucose (mg/dL) 141 H (70-110) mg/dL Hemoglobin A1c (<=6.0) % Calcium 8.1 L (8.4-10.2) mg/dL Phosphorus 4.7 H (2.5-4.5) mg/dL Total Protein 6.2 L (6.3-8.2) g/dL Albumin 3.4 L (3.5-5.0) g/dL TSH (0.465-4.680) mIU/L Cortisol (3.1-22.4) UG/DL 07/25/23 07/25/23 07/26/23 Range/Units 18:45 20:14 04:00 WBC (3.8-10.6) k/uL MCHC (31.0-37.0) g/dL Neutrophils # (1.3-7.7) k/uL Lymphocytes # (1.0-4.8) k/uL Sodium (137-145) mmol/L Potassium (3.5-5.1) mmol/L Chloride (98-107) mmol/L Carbon Dioxide (22-30) mmol/L Glucose (74-99) mg/dL POC Glucose (mg/dL) 157 H (70-110) mg/dL Hemoglobin A1c 6.1 H (<=6.0) % Calcium 8.3 L (8.4-10.2) mg/dL Phosphorus (2.5-4.5) mg/dL Total Protein (6.3-8.2) g/dL Albumin (3.5-5.0) g/dL TSH (0.465-4.680) mIU/L Cortisol (3.1-22.4) UG/DL 07/26/23 07/26/23 07/26/23 Range/Units 04:00 04:00 11:58 WBC (3.8-10.6) k/uL MCHC 30.1 L (31.0-37.0) g/dL Neutrophils # (1.3-7.7) k/uL Lymphocytes # 0.9 L (1.0-4.8) k/uL Sodium 136 L (137-145) mmol/L Potassium 5.5 H (3.5-5.1) mmol/L Chloride (98-107) mmol/L Carbon Dioxide (22-30) mmol/L Glucose 132 H (74-99) mg/dL POC Glucose (mg/dL) 137 H (70-110) mg/dL Hemoglobin A1c (<=6.0) % Calcium 8.0 L (8.4-10.2) mg/dL Phosphorus (2.5-4.5) mg/dL Total Protein (6.3-8.2) g/dL Albumin (3.5-5.0) g/dL TSH 5.270 H (0.465-4.680) mIU/L Cortisol 2.3 L (3.1-22.4) UG/DL Assessment and Plan Assessment: Impression: Status post exploratory laparotomy, lysis of extensive adhesions, small bowel resection, partial colectomy and end colostomy partial omentectomy and takedown of splenic flexure postoperative day #0 Postoperative hypotension, most likely hypovolemic shock in nature, considering her low serum cortisol level, I am suspecting that the patient may have adrenal insufficiency and the patient received a dose of Solu-Cortef, if her blood pressure significantly improved may have to consider Cortrosyn stimulation test on this patient. And maintain the patient on Cortef Type 2 diabetes Benign essential hypertension History of perforated diverticulitis History of hypothyroidism, on replacement therapy History of colostomy Recommendation: Continue present supportive care measures Continue IV fluids Gentle diuresis considering her urine output is extremely poor and marginal Give the patient 1 dose of Solu-Cortef and if blood pressure significantly improved this may be consistent with adrenal insufficiency Serum cortisol level is low suggestive of adrenal insufficiency Incentive spirometry GI and DVT prophylaxis Blood pressure is noted to improve and urine output improves in the next few hours, may consider transferring the patient out of the ICU to regular medical floor. Will continue to follow. Time with Patient: Less than 30
[2023-07-26] MEDS: HYDROCORTISONE SUCCINATE 100 MG/2 ML VIAL IV STA (12:56)
[2023-07-26 16:38] LABS: Glucose,Whole Blood 148 mg/dL (70-110)
[2023-07-26 20:16] LABS: Glucose,Whole Blood 112 mg/dL (70-110)
--- NOTE | 2023-07-26 20:29 | P.PN ---
Subjective Progress Note Date: 07/26/23 Status post exploratory laparotomy lysis of extensive adhesions and bowel resection and partial colectomy with end colostomy partial omentectomy, postoperative day #1 doing well chest CTA B CV RRR Abd soft NT ND + BS Objective - Vital Signs Vital signs: Vital Signs Temp 99.3 F 07/26/23 17:58 Pulse 90 07/26/23 17:58 Resp 18 07/26/23 17:58 BP 125/56 07/26/23 17:58 Pulse Ox 93 L 07/26/23 17:58 FiO2 40 07/26/23 07:47 Intake & Output 07/26/23 07/26/23 07/27/23 06:59 18:59 06:59 Intake Total 2605 1310 Output Total 585 1278 Balance 2020 32 Weight 121.4 kg Intake: IV 1405 810 D5-0.45% NaCl with KCl 1375 20Meq/l 1,000 ml @ 125 mls/hr IV .Q8H [facility] Rx#: [id number] Invasive Line 3 30 10 Sodium Chloride 0.9% 1, 800 000 ml @ 100 mls/hr IV . Q10H [facility] Rx#:[id number] Oral 1200 500 Output: Urine 585 1278 Other: Voiding Method Indwelling Catheter Indwelling Catheter - Labs CBC & Chem 7: 07/26/23 04:00 07/26/23 04:00 Labs: Abnormal Lab Results - Last 24 Hours (Table) 07/26/23 07/26/23 07/26/23 Range/Units 04:00 04:00 04:00 MCHC 30.1 L (31.0-37.0) g/dL Lymphocytes # 0.9 L (1.0-4.8) k/uL Sodium 136 L (137-145) mmol/L Potassium 5.5 H (3.5-5.1) mmol/L Glucose 132 H (74-99) mg/dL POC Glucose (mg/dL) (70-110) mg/dL Hemoglobin A1c 6.1 H (<=6.0) % Calcium 8.0 L (8.4-10.2) mg/dL TSH 5.270 H (0.465-4.680) mIU/L Cortisol 2.3 L (3.1-22.4) UG/DL 07/26/23 07/26/2324 Range/Units 11:58 16:36 20:14 MCHC (31.0-37.0) g/dL Lymphocytes # (1.0-4.8) k/uL Sodium (137-145) mmol/L Potassium (3.5-5.1) mmol/L Glucose (74-99) mg/dL POC Glucose (mg/dL) 137 H 148 H 112 H (70-110) mg/dL Hemoglobin A1c (<=6.0) % Calcium (8.4-10.2) mg/dL TSH (0.465-4.680) mIU/L Cortisol (3.1-22.4) UG/DL Assessment and Plan (1) Diverticulitis large intestine w/o perforation or abscess w/o bleeding Current Visit: Yes Status: Acute Code(s): K57.32 - DVTRCLI OF LG INT W/O PERFORATION OR ABSCESS W/O BLEEDING SNOMED Code(s): 9407167 Plan: doing well, CLD DVT Prophylaxix
[2023-07-27 06:06] LABS: Glucose,Whole Blood 126 mg/dL (70-110)
--- NOTE | 2023-07-27 09:11 | P.PN ---
Subjective Progress Note Date: 07/27/23 Patient feels better today. She has had some issues with her for prevena Wound system Leaking Her blood pressures have been stable. On exam vital signs are stable. Abdomen soft. Incision is clean dry intact. Colostomy has no significant output. Status post attempted reversal of colostomy with small bowel and colonic resection. Patient can receive supportive care. Objective - Vital Signs Vital signs: Vital Signs Temp 98.3 F 07/27/23 08:00 Pulse 105 H 07/27/23 08:00 Resp 18 07/27/23 08:00 BP 112/60 07/27/23 08:00 Pulse Ox 93 L 07/27/23 08:00 FiO2 40 07/27/23 04:04 Intake & Output 07/26/23 07/27/23 07/27/23 18:59 06:59 18:59 Intake Total 1310 Output Total 1278 520 Balance 32 -520 Intake: IV 810 Invasive Line 3 10 Sodium Chloride 0.9% 1, 800 000 ml @ 100 mls/hr IV . Q10H [facility] Rx#:[id number] Oral 500 Output: Urine 1278 520 Other: Voiding Method Indwelling Catheter Indwelling Catheter - Labs CBC & Chem 7: 07/26/23 04:00 07/26/23 04:00 Labs: Abnormal Lab Results - Last 24 Hours (Table) 07/26/23 07/26/23 07/26/23 Range/Units 04:00 04:00 11:58 POC Glucose (mg/dL) 137 H (70-110) mg/dL Hemoglobin A1c 6.1 H (<=6.0) % Cortisol 2.3 L (3.1-22.4) UG/DL 07/26/23 07/26/23 07/27/23 Range/Units 16:36 20:14 06:03 POC Glucose (mg/dL) 148 H 112 H 126 H (70-110) mg/dL Hemoglobin A1c (<=6.0) % Cortisol (3.1-22.4) UG/DL Microbiology - Last 24 Hours (Table) 07/25/23 18:50 Blood Culture - Preliminary Blood
[2023-07-27 11:45] LABS: Glucose,Whole Blood 111 mg/dL (70-110)
[2023-07-27] MEDS: HYDROCORTISONE SUCCINATE 100 MG/2 ML VIAL IV SCH (11:59)
[2023-07-27] MEDS: PIPERACILLIN-TAZOBACTAM 3.375 GM in SODIUM CHLORIDE 0.9% 100 ML IVPB SCH (12:00)
[2023-07-27 12:36] LABS: African American GFR (CKD) >90 (>60 ml/min/1.73 sqM); Anion Gap 6 mmol/L; Blood Urea Nitrogen 9 mg/dL (7-17); Carbon Dioxide 23 mmol/L (22-30); Chloride 106 mmol/L (98-107); Glucose 111 mg/dL (74-99); Non-African American GFR(CKD) >90 (>60 ml/min/1.73 sqM); Potassium 4.4 mmol/L (3.5-5.1); Sodium 135 mmol/L (137-145)
[2023-07-27 12:41] LABS: Basophils % (A) 0 %; Eosinophils # (A) 0.1 k/uL (0-0.7); Eosinophils % (A) 1 %; HCT 33.6 % (34.0-46.0); HGB 10.6 gm/dL (11.4-16.0); Hypochromasia Slight; Lymphocytes # (A) 0.8 k/uL (1.0-4.8); Lymphocytes % (A) 7 %; MCH 28.9 pg (25.0-35.0); MCHC 31.6 g/dL (31.0-37.0); MCV 91.4 fL (80.0-100.0); Mean Platelet Volume 7.2; Monocytes # (A) 0.7 k/uL (0-1.0); Monocytes % (A) 6 %; Neutrophils # (A) 9.5 k/uL (1.3-7.7); Neutrophils % (A) 85 %; Platelet Count 215 k/uL (150-450); RBC 3.67 m/uL (3.80-5.40); RDW 14.4 % (11.5-15.5); WBC 11.1 k/uL (3.8-10.6)
--- NOTE | 2023-07-27 13:19 | P.PN ---
Subjective Progress Note Date: 07/27/23 Hospital course 58 year old F with PMH of perforated diverticulitis with colostomy, HTN, hypothyroidim, diabetes mellitus presents to [facility] for elective surgery. She underwent exploratory laparotomy, lysis of adhesions, small bowel resection, partial colectomy with end colostomy, partial omentectomy and takedown of splenic flexure with Dr. Chauhan on 07/24. [facility] has been consulted for medical management of this patient. After the procedure darcie leger was transferred to the ICU for hypoxia and hypotension. Patient was started on pressors. Patient also started on broad-spectrum antibiotics. As there is no source of infection the antibiotics were discontinued. Patient's cortisol was low which is the likely etiology of the hypotension. 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 Patient was given a dose of hydrocortisone 100 mg after which her blood pressure responded well. [facility] Director started the patient on hydrocortisone 50 mg twice daily. Patient's chest x-ray showed findings consistent with pulmonary edema. Patient likely became volume overloaded from aggressive fluids given during surgery and after surgery. Patient was given a dose of IV Lasix. Her hypoxia is improving and she is now being weaned off of the nasal cannula.. HPI Patient seen this morning. She denies any acute complaints. No other acute issues overnight. Physical exam General examination - Alert and Oriented 3 in NAD Heart - + S1S2 no murmurs Lungs -crackles in bilateral lower lungs Abdomen surgical incision in the mid abdomen with wound VAC, ostomy with serosanguineous fluid. Diffuse tenderness to palpate as expected after surgery Extremities - No edema KILN SETTER - Moving all 4 extremities spontaneously Psych - Calm and cooperative Assessment and plan Shock: Likely due to adrenal insufficiency since cortisol level was low and patient responded well to IV hydrocortisone Patient's hemoglobin is stable so hemorrhagic shock ruled out No clear source of infection. Antibiotics discontinued Patient is now off pressors and transferred out of ICU Decrease fluids Hold BP meds and restart when patient able to tolerate Child Care Centre Director on board Patient started hydrocortisone 50 mg twice daily Follow-up on blood culture Status post exploratory laparotomy, lysis of adhesions, small bowel resection, partial colectomy with end colostomy, partial omentectomy and takedown of spl enic flexure As per your primary team management Acute hypoxic respiratory failure likely due to pulmonary edema from aggressive fluids given during surgery and after surgery Responded well to Lasix Will defer Lasix to grand scribe Wean O2 as tolerated. Patient current 2 L nasal cannula Leukocytosis Likely reactive Resolved Hypothyroidism Continue Synthroid Diabetes mellitus Sliding scale insulin DVT prophylaxis: Will defer to surgery. Patient currently on subcu heparin Objective - Vital Signs Vital signs: Vital Signs Temp 99.0 F 07/27/23 12:00 Pulse 67 07/27/23 12:00 Resp 18 07/27/23 12:00 BP 111/56 07/27/23 12:00 Pulse Ox 92 L 07/27/23 12:00 FiO2 40 07/27/23 04:04 Intake & Output 07/26/23 07/27/23 07/27/23 18:59 06:59 18:59 Intake Total 1310 Output Total 1278 520 425 Balance 32 -520 -425 Intake: IV 810 Invasive Line 3 10 Sodium Chloride 0.9% 1, 800 000 ml @ 50 mls/hr IV . Q20H [facility] Rx#:[id number] Oral 500 Output: Urine 1278 520 425 Other: Voiding Method Indwelling Catheter Indwelling Catheter - Labs CBC & Chem 7: 07/27/23 10:42 07/27/23 10:42 Labs: Abnormal Lab Results - Last 24 Hours (Table) 07/26/23 07/26/23 07/27/23 Range/Units 16:36 20:14 06:03 WBC (3.8-10.6) k/uL RBC (3.80-5.40) m/uL Hgb (11.4-16.0) gm/dL Hct (34.0-46.0) % Neutrophils # (1.3-7.7) k/uL Lymphocytes # (1.0-4.8) k/uL Sodium (137-145) mmol/L Glucose (74-99) mg/dL POC Glucose (mg/dL) 148 H 112 H 126 H (70-110) mg/dL Calcium (8.4-10.2) mg/dL 07/27/23 07/27/23 07/27/23 Range/Units 10:42 10:42 11:43 WBC 11.1 H (3.8-10.6) k/uL RBC 3.67 L (3.80-5.40) m/uL Hgb 10.6 L (11.4-16.0) gm/dL Hct 33.6 L (34.0-46.0) % Neutrophils # 9.5 H (1.3-7.7) k/uL Lymphocytes # 0.8 L (1.0-4.8) k/uL Sodium 135 L (137-145) mmol/L Glucose 111 H (74-99) mg/dL POC Glucose (mg/dL) 111 H (70-110) mg/dL Calcium 8.0 L (8.4-10.2) mg/dL Microbiology - Last 24 Hours (Table) 07/25/23 18:50 Blood Culture - Preliminary Blood
--- NOTE | 2023-07-27 15:51 | P.PN ---
Subjective Progress Note Date: 07/27/23 Principal diagnosis: Status post exploratory laparotomy lysis of extensive adhesions and bowel resection and partial colectomy with end colostomy partial omentectomy, postoperative day #2 This is a 58-year-old female admitted electively today for exploratory laparotomy and the plan was to reverse colostomy patient had previous history of perforated diverticulitis, and the plan was to explore and possibly reverse colostomy. Patient ended up having significant amount of adhesions, she underwent lysis of extensive adhesions, small bowel resection partial colectomy with end colostomy partial omentectomy takedown of splenic flexure, and could not reverse colostomy. Postoperatively, patient was in the recovery room, and she required multiple fluid boluses blood pressure remained soft in spite of 5 L of fluids. Her hemoglobin postoperatively was 12.2, baseline hemoglobin is 11.8. Considering her low blood pressure, I was notified about this patient, and I saw the patient in the recovery room. During my evaluation, the patient seems to be pleasant, in no distress, did not seem in any form of distress. Her labs were all reviewed, discussed her condition with Dr. Chauhan over the phone, and I am planning to admit the patient to the ICU for relatively low soft blood pressure, may or may not require pressors for low blood pressure. Patient had no chest pain, no shortness of breath, no palpitations, and again her labs were basically unremarkable. Patient reevaluated today on 07/26/2023, patient remains in the ICU, I saw her yesterday on consultation and transferred the patient to the ICU mostly because of relatively low soft blood pressure. Patient received multiple fluid boluses in the recovery room after her surgery, and her blood pressure remained m arginal. Admitted to the ICU, did not require any pressors overnight. Remains on IV fluids, urine output is marginal, and the patient will be receiving a dose of Lasix 20 mg IV push. Patient required to go on BiPAP last night because of obstructive sleep apnea symptoms and findings while she was sleeping with stop breathing episodes and desaturation while sleeping. Today the patient is doing well, relatively asymptomatic.On 3 L nasal cannula with O2 saturation of 97%. WBC count is 9.2 hemoglobin 11.4 potassium is a bit high at 5.5 patient will receive a dose of Lasix today. Renal profile is normal bicarb is normal, serum cortisol is low at 2.3, that may explain the low blood pressure yesterday after her surgery, hence I will give the patient a dose of Solu-Cortef, may eventually require a Cortrosyn stimulation test Patient was reevaluated today on 07/27/2023, patient is doing better today, she has mostly some vague abdominal pain, her blood pressure seems to have stabilized.This morning blood pressure is ranging between 101 11, mean arterial pressure is 75 patient was given Solu-Cortef yesterday for very low cortisol level, patient told me today that she had one of her 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 Believe the patient clearly has adrenal insufficiency, and she would benefit from going home on Cortef and follow-up with endocrinology on outpatient basis. Meantime she is still receiving Cortef at 50 mg IV push every 12 hours, and that seems to be helping her blood pressure significantly. Plus her potassium came down from 5.5-4.4 today CBC is relatively normal hemoglobin is 10.6. Basic metabolic profile is normal renal profile is normal bicarb is 23 Objective - Vital Signs Vital signs: Vital Signs Temp 98.7 F 07/27/23 15:23 Pulse 78 07/27/23 15:23 Resp 18 07/27/23 15:23 BP 109/58 07/27/23 15:23 Pulse Ox 95 07/27/23 15:23 FiO2 40 07/27/23 04:04 Intake & Output 07/26/23 07/27/23 07/27/23 18:59 06:59 18:59 Intake Total 1310 Output Total 1278 520 425 Balance 32 -520 -425 Intake: IV 810 Invasive Line 3 10 Sodium Chloride 0.9% 1, 800 000 ml @ 50 mls/hr IV . Q20H [facility] Rx#:[id number] Oral 500 Output: Urine 1278 520 425 Other: Voiding Method Indwelling Catheter Indwelling Catheter Indwelling Catheter - Exam General: Reveals a 58-year-old female in no distress, on 2 L nasal cannula O2 saturation 95% Head: Atraumatic, normocephalic. Skin: Skin is warm and dry and no rashes or lesions are noted. Eye: Pupils are equal, round and reactive to light, extra-ocular movements are intact; there is normal conjunctiva bilaterally. Ears, nose, mouth and throat: There are moist mucous membranes and no oral lesions. Neck: The neck is supple, there is no tenderness or JVD. Cardiovascular: Distant S1-S2, no S3 gallop. Respiratory: Symmetrical chest expansion, clear bilaterally no rhonchi no wheezes Gastrointestinal: Colostomy is noted, wound VAC is noted, abdomen is soft, mi nimally tender, no rebound no guarding. Diminished bowel sounds. Musculoskeletal: No deformities and no limitation range of motion Neurological: Alert and oriented x 3 no gross focal deficit Psychiatric: Normal mood affect and normal mental status examination - Labs CBC & Chem 7: 07/27/23 10:42 07/27/23 10:42 Labs: Abnormal Lab Results - Last 24 Hours (Table) 07/26/23 07/26/23 07/27/23 Range/Units 16:36 20:14 06:03 WBC (3.8-10.6) k/uL RBC (3.80-5.40) m/uL Hgb (11.4-16.0) gm/dL Hct (34.0-46.0) % Neutrophils # (1.3-7.7) k/uL Lymphocytes # (1.0-4.8) k/uL Sodium (137-145) mmol/L Glucose (74-99) mg/dL POC Glucose (mg/dL) 148 H 112 H 126 H (70-110) mg/dL Calcium (8.4-10.2) mg/dL 07/27/23 07/27/23 07/27/23 Range/Units 10:42 10:42 11:43 WBC 11.1 H (3.8-10.6) k/uL RBC 3.67 L (3.80-5.40) m/uL Hgb 10.6 L (11.4-16.0) gm/dL Hct 33.6 L (34.0-46.0) % Neutrophils # 9.5 H (1.3-7.7) k/uL Lymphocytes # 0.8 L (1.0-4.8) k/uL Sodium 135 L (137-145) mmol/L Glucose 111 H (74-99) mg/dL POC Glucose (mg/dL) 111 H (70-110) mg/dL Calcium 8.0 L (8.4-10.2) mg/dL Microbiology - Last 24 Hours (Table) 07/25/23 18:50 Blood Culture - Preliminary Blood Assessment and Plan Assessment: Impression: Status post exploratory laparotomy, lysis of extensive adhesions, small bowel resection, partial colectomy and end colostomy partial omentectomy and takedown of splenic flexure postoperative day #2 Postoperative hypotension, most likely hypovolemic shock in nature, considering her low serum cortisol level, I am suspecting that the patient may have adrenal insufficiency and the patient received a dose of Solu-Cortef, if her blood pressure significantly improved may have to consider Cortrosyn stimulation test on this patient. And maintain the patient on Cortef Type 2 diabetes Benign essential hypertension History of perforated diverticulitis History of hypothyroidism, on replacement therapy History of colostomy strongly suspect underlying adrenal insufficiency based on her low serum cortisol level Recommendation: Continue present supportive care measures Continue IV fluids Continue Solu-Cortef, most likely the patient will need to be discharged home on oral Cortef Incentive spirometry GI and DVT prophylaxis Recommend follow-up on her adrenal insufficiency with endocrinology on outpatient basis Time with Patient: Less than 30
[2023-07-27 16:30] LABS: Glucose,Whole Blood 118 mg/dL (70-110)
[2023-07-27 20:03] LABS: Glucose,Whole Blood 103 mg/dL (70-110)
[2023-07-28] MEDS: SODIUM CHLORIDE 0.9% 1,000 ML IV ONE (03:27)
[2023-07-28 06:07] LABS: Glucose,Whole Blood 116 mg/dL (70-110)
[2023-07-28] MEDS: ONDANSETRON 4 MG/2 ML VIAL IVP STA (06:46)
[2023-07-28 11:20] LABS: African American GFR (CKD) >90 (>60 ml/min/1.73 sqM); Anion Gap 5 mmol/L; Blood Urea Nitrogen 11 mg/dL (7-17); Carbon Dioxide 27 mmol/L (22-30); Chloride 106 mmol/L (98-107); Glucose 116 mg/dL (74-99); Non-African American GFR(CKD) >90 (>60 ml/min/1.73 sqM); Potassium 4.3 mmol/L (3.5-5.1); Sodium 138 mmol/L (137-145)
[2023-07-28] MEDS: METOCLOPRAMIDE 5 MG/ML 2 ML VIAL IVP SCH (11:37)
[2023-07-28 11:40] LABS: Glucose,Whole Blood 113 mg/dL (70-110)
[2023-07-28 11:50] LABS: Basophils % (A) 0 %; Eosinophils % (A) 0 %; HCT 33.8 % (34.0-46.0); HGB 10.9 gm/dL (11.4-16.0); Hypochromasia Slight; Lymphocytes # (A) 0.5 k/uL (1.0-4.8); Lymphocytes % (A) 5 %; MCH 28.8 pg (25.0-35.0); MCHC 32.1 g/dL (31.0-37.0); MCV 89.6 fL (80.0-100.0); Monocytes # (A) 0.4 k/uL (0-1.0); Monocytes % (A) 4 %; Neutrophils # (A) 9.6 k/uL (1.3-7.7); Neutrophils % (A) 90 %; Platelet Count 238 k/uL (150-450); RBC 3.77 m/uL (3.80-5.40); RDW 14.3 % (11.5-15.5); WBC 10.7 k/uL (3.8-10.6)
--- NOTE | 2023-07-28 13:27 | XR ---
EXAMINATION TYPE: XR chest 1V portable DATE OF EXAM: 07/28/2023 Comparison: 07/25/2023 Clinical History: 58-year-old female confirm NG placement Findings: NG tube courses below the diaphragm, satisfactory. Heart mildly enlarged. Interstitial changes have i ncreased. No sizable pleural effusion. Impression: Satisfactory NG tube. Hypoventilatory changes and suspected mild interstitial pulmonary edema.
--- NOTE | 2023-07-28 13:37 | P.PN ---
Subjective Progress Note Date: 07/28/23 Hospital course 58 year old F with PMH of perforated diverticulitis with colostomy, HTN, hypothyroidim, diabetes mellitus presents to [facility] for elective surgery. She underwent exploratory laparotomy, lysis of adhesions, small bowel resection, partial colectomy with end colostomy, partial omentectomy and takedown of splenic flexure with Dr. Chauhan on 07/24. [facility] has been consulted for medical management of this patient. After the procedure darcie leger was transferred to the ICU for hypoxia and hypotension. Patient was started on pressors. Patient also started on broad-spectrum antibiotics. As there is no source of infection the antibiotics were discontinued. Patient's cortisol was low which is the likely etiology of the hypotension. 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 Patient was given a dose of hydrocortisone 100 mg after which her blood pressure responded well. Cable Lacer started the patient on hydrocortisone 50 mg twice daily. Patient's chest x-ray showed findings consistent with pulmonary edema. Patient likely became volume overloaded from aggressive fluids given during surgery and after surgery. Patient was given a dose of IV Lasix. Her hypoxia is improving and she is now being weaned off of the nasal cannula. On 07/28/2023 patient became nauseous. Likely developed ileus. NG tube placed. General surgery following. HPI Patient seen this morning. She is complaining of nausea and vomiting. Patient states that she has not had a bowel movement since her surgery. Physical exam General examination - Alert and Oriented 3 in NAD Heart - + S1S2 no murmurs Lungs -crackles in bilateral lower lungs Abdomen surgical incision in the mid abdomen with wound VAC, ostomy with serosanguineous fluid. 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 Blood cultures are negative to date. Antibiotics discontinued Patient is now off pressors and transferred out of ICU Hold BP meds and restart when patient able to tolerate Blood pressure has improved Patient started hydrocortisone 50 mg twice daily by travel money advisor Once patient's nausea resolves we will start tapering down on hydrocortisone. I recommend the following tapering regimen 50/25 x 3 days then 30/20 x 3 days then 20/10 and then to follow-up with PCP or director industrial relations for further tapering and testing. Status post exploratory laparotomy, lysis of adhesions, small bowel resection, partial colectomy with end colostomy, partial omentectomy and takedown of splenic flexure As per your primary team management Postop ileus NG tube placed As per your primary team management Avoid opioids Acute hypoxic respiratory failure likely due to pulmonary edema from aggressive fluids given during surgery and after surgery Responded well to Lasix Will defer Lasix to pulmonology Wean O2 as tolerated. Patient current 2 L nasal cannula Leukocytosis Likely reactive Improving Hypothyroidism Continue Synthroid Diabetes mellitus Sliding scale insulin DVT prophylaxis: Will defer to surgery. Patient currently on subcu heparin Objective - Vital Signs Vital signs: Vital Signs Temp 98.4 F 07/28/23 11:58 Pulse 90 07/28/23 11:58 Resp 19 07/28/23 11:58 BP 159/81 07/28/23 11:58 Pulse Ox 94 L 07/28/23 11:58 FiO2 40 07/27/23 04:04 Intake & Output 07/27/23 07/28/23 07/28/23 18:59 06:59 18:59 Output Total 425 1270 20 Balance -425 -1270 -20 Output: Urine 425 770 Emesis 500 Other 20 Other: Voiding Method Indwelling Catheter Indwelling Catheter Indwelling Catheter - Labs CBC & Chem 7: 07/28/23 09:30 07/28/23 09:30 Labs: Abnormal Lab Results - Last 24 Hours (Table) 07/27/23 07/28/23 07/28/23 Range/Units 16:29 06:05 09:30 WBC 10.7 H (3.8-10.6) k/uL RBC 3.77 L (3.80-5.40) m/uL Hgb 10.9 L (11.4-16.0) gm/dL Hct 33.8 L (34.0-46.0) % Neutrophils # 9.6 H (1.3-7.7) k/uL Lymphocytes # 0.5 L (1.0-4.8) k/uL Glucose (74-99) mg/dL POC Glucose (mg/dL) 118 H 116 H (70-110) mg/dL Calcium (8.4-10.2) mg/dL 07/28/23 07/28/23 Range/Units 09:30 11:39 WBC (3.8-10.6) k/uL RBC (3.80-5.40) m/uL Hgb (11.4-16.0) gm/dL Hct (34.0-46.0) % Neutrophils # (1.3-7.7) k/uL Lymphocytes # (1.0-4.8) k/uL Glucose 116 H (74-99) mg/dL POC Glucose (mg/dL) 113 H (70-110) mg/dL Calcium 8.0 L (8.4-10.2) mg/dL Microbiology - Last 24 Hours (Table) 07/25/23 18:50 Blood Culture - Preliminary Blood
--- NOTE | 2023-07-28 14:10 | P.PN ---
Subjective Progress Note Date: 07/28/23 Principal diagnosis: Diverticulitis. This is a 58-year-old female admitted electively today for exploratory laparotomy and the plan was to reverse colostomy patient had previous history of perforated diverticulitis, and the plan was to explore and possibly reverse colostomy. Patient ended up having significant amount of adhesions, she underwent lysis of extensive adhesions, small bowel resection partial colectomy with end colostomy partial omentectomy takedown of splenic flexure, and could not reverse colostomy. Postoperatively, patient was in the recovery room, and she required multiple fluid boluses blood pressure remained soft in spite of 5 L of fluids. Her hemoglobin postoperatively was 12.2, baseline hemoglobin is 11.8. Considering her low blood pressure, I was notified about this patient, and I saw the patient in the recovery room. During my evaluation, the patient seems to be pleasant, in no distress, did not seem in any form of distress. Her labs were all reviewed, discussed her condition with Dr. Chauhan over the phone, and I am planning to admit the patient to the ICU for relatively low soft blood pressure, may or may not require pressors for low blood pressure. Patient had no chest pain, no shortness of breath, no palpitations, and again her labs were basically unremarkable. Patient reevaluated today on 07/26/2023, patient remains in the ICU, I saw her yesterday on consultation and transferred the patient to the ICU mostly because of relatively low soft blood pressure. Patient received multiple fluid boluses in the recovery room after her surgery, and her blood pressure remained marginal. Admitted to the ICU, did not require any pressors overnight. Remains on IV fluids, urine output is marginal, and the patient will be receiving a dose of Lasix 20 mg IV push. Patient required to go on BiPAP last night because of obstructive sleep apnea symptoms and findings while she was sleeping with stop breathing episodes and desaturation while sleeping. Today the patient is doing well, relatively asymptomatic.On 3 L nasal cannula with O2 saturation of 97%. WBC count is 9.2 hemoglobin 11.4 potassium is a bit high at 5.5 patient will receive a dose of Lasix today. Renal profile is normal bicarb is normal, serum cortisol is low at 2.3, that may explain the low blood pressure yesterday after her surgery, hence I will give the patient a dose of Solu-Cortef, may eventually require a Cortrosyn stimulation test Patient was reevaluated today on 07/27/2023, patient is doing better today, she has mostly some vague abdominal pain, her blood pressure seems to have stabilized.This morning blood pressure is ranging between 101 11, mean arterial pressure is 75 patient was given Solu-Cortef yesterday for very low cortisol level, patient told me today that she had one of her 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 Believe the patient clearly has adrenal insufficiency, and she would benefit from going home on Cortef and follow-up with endocrinology on outpatient basis. Meantime she is still receiving Cortef at 50 mg IV push every 12 hours, and that seems to be helping her blood pressure significantly. Plus her potassium came down from 5.5-4.4 today CBC is relatively normal hemoglobin is 10.6. Basic metabolic profile is normal renal profile is normal bicarb is 23 Progress note dated July 28, 2023. The patient is seen today in room 369. She appears to be relatively stable. She continues on oxygen at 2 L, and saline at 120 cc an hour. In addition, she continues on Zosyn. She has no specific complaints today. She denies any shortness of breath, cough, wheezing, or chest tightness. Current labs include a white count 10.7, hemoglobin 10.9, hematocrit 33.8, and a platelet count of 238,000. Sodium 138, potassium 4.3, chlorides 106, CO2 27, BUN 11, creatinine 0.56. Glucose is 116. Calcium is 8.0. Chest x-ray shows small lung volumes, and some mild interstitial pulmonary edema. Objective - Vital Signs Vital signs: Vital Signs Temp 98.4 F 07/28/23 11:58 Pulse 90 07/28/23 11:58 Resp 19 07/28/23 11:58 BP 159/81 07/28/23 11:58 Pulse Ox 94 L 07/28/23 11:58 FiO2 40 07/27/23 04:04 Intake & Output 07/27/23 07/28/23 07/28/23 18:59 06:59 18:59 Output Total 425 1270 1220 Balance -425 -1270 -1220 Output: Urine 425 770 400 Stool 800 Emesis 500 Other 20 Other: Voiding Method Indwelling Catheter Indwelling Catheter Indwelling Catheter - Exam No acute distress, oriented 3. No respiratory distress. Currently on 2 L. HEENT examination is grossly unremarkable. Mucous membranes are moist. No oral lesions. Neck supple. Full range of motion. No adenopathy thyromegaly or neck vein distention. Cardiovascular examination reveals regular rhythm rate. S1-S2 normal. No S3 or S4. No discernible murmur noted. Lungs reveal clear breath sounds. Breath sounds are equal bilaterally. No adventitious lung sounds including wheezes rhonchi or crackles. Abdomen is soft. Colostomy is noted. Bowel sounds are noted. Extremities are intact. No cyanosis clubbing or edema. Skin is without rash or lesion. Neurologic examination is brief but nonfocal. - Labs CBC & Chem 7: 07/28/23 09:30 07/28/23 09:30 Labs: Abnormal Lab Results - Last 24 Hours (Table) 07/27/23 07/28/23 07/28/23 Range/Units 16:29 06:05 09:30 WBC 10.7 H (3.8-10.6) k/uL RBC 3.77 L (3.80-5.40) m/uL Hgb 10.9 L (11.4-16.0) gm/dL Hct 33.8 L (34.0-46.0) % Neutrophils # 9.6 H (1.3-7.7) k/uL Lymphocytes # 0.5 L (1.0-4.8) k/uL Glucose (74-99) mg/dL POC Glucose (mg/dL) 118 H 116 H (70-110) mg/dL Calcium (8.4-10.2) mg/dL 07/28/23 07/28/23 Range/Units 09:30 11:39 WBC (3.8-10.6) k/uL RBC (3.80-5.40) m/uL Hgb (11.4-16.0) gm/dL Hct (34.0-46.0) % Neutrophils # (1.3-7.7) k/uL Lymphocytes # (1.0-4.8) k/uL Glucose 116 H (74-99) mg/dL POC Glucose (mg/dL) 113 H (70-110) mg/dL Calcium 8.0 L (8.4-10.2) mg/dL Microbiology - Last 24 Hours (Table) 07/25/23 18:50 Blood Culture - Preliminary Blood Assessment and Plan Assessment: S/P exploratory laparotomy, lysis of extensive adhesions, small bowel resection, partial colectomy and end colostomy, partial omentectomy, and takedown of splenic flexure, postop day #3. Postoperative hypotension, likely related to low volumes, resolved. Possible adrenal insufficiency. Type 2 diabetes mellitus. Benign essential hypertension. History of perforated diverticulitis. History of hypothyroidism. Plan: Plan dated July 28, 2023. The patient appears to be doing relatively well. Labs, x-rays, and medications are reviewed. We will continue to follow and make recommendations along the way. My partner started the patient on Solu-Cortef, thinking that the patient might have adrenal insufficiency. The patient can be discharged home on oral Cortef, typically at doses of 20 mg in the morning, and 10 mg in the evening, which can be weaned over time. Additional recommendations and suggestions are f orthcoming. Time with Patient: Less than 30
--- NOTE | 2023-07-28 16:31 | P.PN ---
Subjective Progress Note Date: 07/28/23 CHIEF COMPLAINT: History of perforated diverticulitis HISTORY OF PRESENT ILLNESS: Patient postop day #1 status post exploratory laparotomy, lysis of adhesions, small bowel resection, partial colectomy with end colostomy and partial omentectomy and takedown of splenic flexure. Patient had 3 episodes of emesis during the night. They did make her n.p.o. She has had no output from her ostomy. Abdomen is more distended. She had decreased urine output they gave a fluid bolus. Her Prevana wound VAC has been changed. And now there is no leak. WBC 10.7 afebrile. PHYSICAL EXAM: VITAL SIGNS: Reviewed. GENERAL: Well-developed in no acute distress. HEENT: No sclera icterus. Extraocular movements grossly intact. Moist buccal mucosa. Head is atraumatic, normocephalic. ABDOMEN: Soft. Mildly distended. Ostomy no stool. Babb stoma. Pre-Kaylah dressing intact NEUROLOGIC: Alert and oriented. Cranial nerves II through XII grossly intact. ASSESSMENT: 1. History of perforated diverticulitis and extensive adhesions 2. Possible postoperative ileus PLAN: -NG tube for decompression -Keep patient n.p.o. -Continue Prevana wound vac dressing -Continue IV fluids -Continue antibiotics -Consult PT OT. Encourage patient to increase activity level -Continue antiemetics -Reglan scheduled added -DVT prophylaxis subcu heparin and GI prophylaxis Protonix Physician Helper Driver note has been reviewed by physician. Signing provider agrees with the documented findings, assessment, and plan of care. Objective - Vital Signs Vital signs: Vital Signs Temp 98.6 F 07/28/23 15:41 Pulse 86 07/28/23 15:41 Resp 15 07/28/23 15:41 BP 143/74 07/28/23 15:41 Pulse Ox 93 L 07/28/23 15:41 FiO2 40 07/27/23 04:04 Intake & Output 07/27/23 07/28/23 07/28/23 18:59 06:59 18:59 Output Total 425 1270 1220 Balance -425 -1270 -1220 Output: Urine 425 770 Emesis 500 1200 Other 20 Other: Voiding Method Indwelling Catheter Indwelling Catheter Indwelling Catheter - Labs CBC & Chem 7: 07/28/23 09:30 07/28/23 09:30 Labs: Abnormal Lab Results - Last 24 Hours (Table) 07/27/23 07/28/23 07/28/23 Range/Units 16:29 06:05 09:30 WBC 10.7 H (3.8-10.6) k/uL RBC 3.77 L (3.80-5.40) m/uL Hgb 10.9 L (11.4-16.0) gm/dL Hct 33.8 L (34.0-46.0) % Neutrophils # 9.6 H (1.3-7.7) k/uL Lymphocytes # 0.5 L (1.0-4.8) k/uL Glucose (74-99) mg/dL POC Glucose (mg/dL) 118 H 116 H (70-110) mg/dL Calcium (8.4-10.2) mg/dL 07/28/23 07/28/23 Range/Units 09:30 11:39 WBC (3.8-10.6) k/uL RBC (3.80-5.40) m/uL Hgb (11.4-16.0) gm/dL Hct (34.0-46.0) % Neutrophils # (1.3-7.7) k/uL Lymphocytes # (1.0-4.8) k/uL Glucose 116 H (74-99) mg/dL POC Glucose (mg/dL) 113 H (70-110) mg/dL Calcium 8.0 L (8.4-10.2) mg/dL Microbiology - Last 24 Hours (Table) 07/25/23 18:50 Blood Culture - Preliminary Blood
[2023-07-28 17:06] LABS: Glucose,Whole Blood 87 mg/dL (70-110)
[2023-07-28] MEDS: traZODone HCL 50 MG TAB PO SCH (19:47)
[2023-07-28 20:06] LABS: Glucose,Whole Blood 85 mg/dL (70-110)
[2023-07-29 00:08] LABS: Glucose,Whole Blood 95 mg/dL (70-110)
[2023-07-29 06:16] LABS: Glucose,Whole Blood 97 mg/dL (70-110)
[2023-07-29 10:13] LABS: Basophils % (A) 0 %; Eosinophils # (A) 0.3 k/uL (0-0.7); Eosinophils % (A) 4 %; HCT 31.1 % (34.0-46.0); HGB 9.8 gm/dL (11.4-16.0); Lymphocytes # (A) 0.8 k/uL (1.0-4.8); Lymphocytes % (A) 9 %; MCH 28.1 pg (25.0-35.0); MCHC 31.5 g/dL (31.0-37.0); MCV 89.1 fL (80.0-100.0); Mean Platelet Volume 7.2; Monocytes # (A) 0.4 k/uL (0-1.0); Monocytes % (A) 5 %; Neutrophils # (A) 7.3 k/uL (1.3-7.7); Neutrophils % (A) 82 %; Platelet Count 297 k/uL (150-450); RBC 3.49 m/uL (3.80-5.40); RDW 14.2 % (11.5-15.5); WBC 8.9 k/uL (3.8-10.6)
[2023-07-29 10:30] LABS: African American GFR (CKD) >90 (>60 ml/min/1.73 sqM); Anion Gap 4 mmol/L; Blood Urea Nitrogen 12 mg/dL (7-17); Calcium 7.7 mg/dL (8.4-10.2); Carbon Dioxide 27 mmol/L (22-30); Chloride 109 mmol/L (98-107); Glucose 99 mg/dL (74-99); Magnesium 1.9 mg/dL (1.6-2.3); Non-African American GFR(CKD) >90 (>60 ml/min/1.73 sqM); Potassium 3.7 mmol/L (3.5-5.1); Sodium 140 mmol/L (137-145)
[2023-07-29 11:34] LABS: Glucose,Whole Blood 112 mg/dL (70-110)
--- NOTE | 2023-07-29 12:37 | P.PN ---
Subjective Progress Note Date: 07/29/23 Principal diagnosis: Diverticulitis. This is a 58-year-old female admitted electively today for exploratory laparotomy and the plan was to reverse colostomy patient had previous history of perforated diverticulitis, and the plan was to explore and possibly reverse colostomy. Patient ended up having significant amount of adhesions, she underwent lysis of extensive adhesions, small bowel resection partial colectomy with end colostomy partial omentectomy takedown of splenic flexure, and could not reverse colostomy. Postoperatively, patient was in the recovery room, and she required multiple fluid boluses blood pressure remained soft in spite of 5 L of fluids. Her hemoglobin postoperatively was 12.2, baseline hemoglobin is 11.8. Considering her low blood pressure, I was notified about this patient, and I saw the patient in the recovery room. During my evaluation, the patient seems to be pleasant, in no distress, did not seem in any form of distress. Her labs were all reviewed, discussed her condition with Dr. Chauhan over the phone, and I am planning to admit the patient to the ICU for relatively low soft blood pressure, may or may not require pressors for low blood pressure. Patient had no chest pain, no shortness of breath, no palpitations, and again her labs were basically unremarkable. Patient reevaluated today on 07/26/2023, patient remains in the ICU, I saw her yesterday on consultation and transferred the patient to the ICU mostly because of relatively low soft blood pressure. Patient received multiple fluid boluses in the recovery room after her surgery, and her blood pressure remained marginal. Admitted to the ICU, did not require any pressors overnight. Remains on IV fluids, urine output is marginal, and the patient will be receiving a dose of Lasix 20 mg IV push. Patient required to go on BiPAP last night because of obstructive sleep apnea symptoms and findings while she was sleeping with stop breathing episodes and desaturation while sleeping. Today the patient is doing well, relatively asymptomatic.On 3 L nasal cannula with O2 saturation of 97%. WBC count is 9.2 hemoglobin 11.4 potassium is a bit high at 5.5 patient will receive a dose of Lasix today. Renal profile is normal bicarb is normal, serum cortisol is low at 2.3, that may explain the low blood pressure yesterday after her surgery, hence I will give the patient a dose of Solu-Cortef, may eventually require a Cortrosyn stimulation test Patient was reevaluated today on 07/27/2023, patient is doing better today, she has mostly some vague abdominal pain, her blood pressure seems to have stabilized.This morning blood pressure is ranging between 101 11, mean arterial pressure is 75 patient was given Solu-Cortef yesterday for very low cortisol level, patient told me today that she had one of her 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 Believe the patient clearly has adrenal insufficiency, and she would benefit from going home on Cortef and follow-up with endocrinology on outpatient basis. Meantime she is still receiving Cortef at 50 mg IV push every 12 hours, and that seems to be helping her blood pressure significantly. Plus her potassium came down from 5.5-4.4 today CBC is relatively normal hemoglobin is 10.6. Basic metabolic profile is normal renal profile is normal bicarb is 23 Progress note dated July 28, 2023. The patient is seen today in room 369. She appears to be relatively stable. She continues on oxygen at 2 L, and saline at 120 cc an hour. In addition, she continues on Zosyn. She has no specific complaints today. She denies any shortness of breath, cough, wheezing, or chest tightness. Current labs include a white count 10.7, hemoglobin 10.9, hematocrit 33.8, and a platelet count of 238,000. Sodium 138, potassium 4.3, chlorides 106, CO2 27, BUN 11, creatinine 0.56. Glucose is 116. Calcium is 8.0. Chest x-ray shows small lung volumes, and some mild interstitial pulmonary edema. Progress note dated July 29, 2023. The patient is seen in room 369. The patient currently is on saline at 120 cc an hour. She is between 2 to 3 L of oxygen by nasal cannula. She did not use the BiPAP last night. NG tube remains in place. The patient states that she feels "okay". Current labs include a white count 8.9, hemoglobin 9.8, hematocrit 31.1, and a platelet count of 297,000. Sodium 140, potassium 3.7, chlorides 109, CO2 27, BUN 12, creatinine 0.64. Glucose is 112. Calcium 7.7. Magnesium 1.9. Objective - Vital Signs Vital signs: Vital Signs Temp 97.7 F 07/29/23 11:21 Pulse 80 07/29/23 11:21 Resp 16 07/29/23 11:21 BP 144/85 07/29/23 11:21 Pulse Ox 97 07/29/23 11:21 FiO2 40 07/27/23 04:04 Intake & Output 07/28/23 07/29/23 07/29/23 18:59 06:59 18:59 Intake Total 0 Output Total 2019 Balance -2019 Intake: Oral 0 Output: Gastric Drainage 1000 Urine 600 375 Emesis 400 Other 20 Other: Voiding Method Indwelling Catheter Indwelling Catheter Indwelling Catheter - Exam No acute distress, oriented 3. No respiratory distress. Currently on 3 L. HEENT examination is grossly unremarkable. Mucous membranes are moist. No oral lesions. NG tube remains in place. Neck supple. Full range of motion. No adenopathy thyromegaly or neck vein distention. Cardiovascular examination reveals regular rhythm rate. S1-S2 normal. No S3 or S4. No discernible murmur noted. Heart sounds are distant. Heart rate 80 bpm. Lungs reveal clear breath sounds. Breath sounds are equal bilaterally. No adventitious lung sounds including wheezes rhonchi or crackles. 3 L saturation is 97%. Abdomen is soft. Colostomy is noted. Bowel sounds are noted. Extremities are intact. No cyanosis clubbing or edema. Skin is without rash or lesion. Neurologic examination is brief but nonfocal. - Labs CBC & Chem 7: 07/29/23 09:08 07/29/23 09:08 Labs: Abnormal Lab Results - Last 24 Hours (Table) 07/29/23 07/29/23 07/29/23 Range/Units 09:08 09:08 11:32 RBC 3.49 L (3.80-5.40) m/uL Hgb 9.8 L (11.4-16.0) gm/dL Hct 31.1 L (34.0-46.0) % Lymphocytes # 0.8 L (1.0-4.8) k/uL Chloride 109 H (98-107) mmol/L POC Glucose (mg/dL) 112 H (70-110) mg/dL Calcium 7.7 L (8.4-10.2) mg/dL Microbiology - Last 24 Hours (Table) 04/19/24 18:50 Blood Culture - Preliminary Blood Assessment and Plan Assessment: S/P exploratory laparotomy, lysis of extensive adhesions, small bowel resection, partial colectomy and end colostomy, partial omentectomy, and takedown of splenic flexure, postop day #4. Postoperative hypotension, likely related to low volumes, resolved. Possible adrenal insufficiency. Type 2 diabetes mellitus. Benign essential hypertension. History of perforated diverticulitis. History of hypothyroidism. Plan: Plan dated July 28, 2023. The patient appears to be doing relatively well. Labs, x-rays, and medications are reviewed. We will continue to follow and make recommendations along the way. My partner started the patient on Solu-Cortef, thinking that the patient might have adrenal insufficiency. The patient can be discharged home on oral Cortef, typically at doses of 20 mg in the morning, and 10 mg in the evening, which can be weaned over time. Additional recommendations and suggestions are forthcoming. Plan dated July 29, 2023. The patient is seen today in room 369. The patient is on saline at 120 cc an hour. An NG tube remains in place. The patient is receiving nasal O2 at 3 L. She did not use the BiPAP last night. Labs, x-rays, and medications are reviewed. Overall, the patient appears to be doing reasonably well. When asked, she states I am feeling "okay". We will continue to follow the patient, make recommendations along the way. Prognosis is guarded. Time with Patient: Less than 30
--- NOTE | 2023-07-29 13:21 | P.PN ---
Subjective Progress Note Date: 07/29/23 (seen at 1120) Patient is a 58-year-old female with history of perforated diverticulitis with colostomy, hypertension, hypothyroidism, and diabetes mellitus type 2 who presented for elective exploratory laparotomy with lysis of adhesion, small bowel resection, colectomy and partial omentectomy, they were unable to reverse her colostomy on 07/24. We were initially consulted for medical management. Postoperatively the patient was transferred to the ICU for hypoxia and hypotension. At that point in time she required vasopressors and was started on broad-spectrum antibiotics. There is no identified source of infection and the patient was therefore taken off of antibiotics. 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 Patient was started on hydrocortisone 100 mg after surgery and her blood pressure improved appropriately, she was decreased to 50 mg IV BID by pulmonary. Chest x-ray showed pulmonary edema. Patient became volume ove rloaded after receiving IV fluid resuscitation due to hypotension and was therefore started on IV Lasix. On 07/27 she became nauseous and an NG tube was placed. She was suspected to have postoperative ileus. Patient seen and examined at bedside with present. Her nausea and vomiting has resolved. She is having mild abdominal pain which is tolerable. She has not yet passed a significant amount of flatus into her ostomy bag and has had no significant ostomy output. We had a marc discussion regarding her findings of relative steroid insufficiency with probable underlying adrenal insufficiency. They are aware of the importance of following up with endocrinology in the outpatient setting. Vital signs reviewed General: Nontoxic, no distress, appears at stated age Cardiovascular: S1S2 reg, no murmur Lungs: Decreased breath sounds bilateral, no rhonchi, no rales, no accessory muscle use Abdominal: Soft, nontender to palpation, no guarding, Ostomy bag without output Ext: No gross muscle atrophy, no edema b/l lower extremities, no contractures Neuro: CN II-XI grossly intact, no focal neuro deficits Psych: Alert, oriented, appropriate affect Assessment/Plan: Adrenal insufficeincy Shock due to adrenal crisis -Currently on hydrocortisone 50 mg IV every 12 hours -Will need to see an endocrinology in the outpatient setting -Has been weaned off vasopressors. -Once her nausea resolves consider tapering down the hydrocortisone. The following taper regimen should be utilized 50/25 x 3 days then 30/20 x 3 days then 20/, then follow with endocrinology -Pulmonary note reviewed: Continue current care. Status post exploratory laparotomy, lysis of adhesions, small bowel resection, partial colectomy with end colostomy, partial omentectomy and takedown of splenic flexure Post-op ileus - NGT - Surgery recommendations reviewed from 07/27 -Reglan 10 mg IV push every 6 hours -Entereg 12 mg p.o. twice daily dose #10/18 -Zosyn 3.375 g IV every 6 hours day #3, D/C once okay with surgery Acute hypoxic respiratory failure likely due to pulmonary edema due to fluid resuscitation - continue to wean O2 - Encouraged IS Hypothyroidism -Synthroid 75 mcg daily Diabetes mellitus -Sliding scale insulin Leukocytosis, Likely reactive, resolved Imaging: None new Data Review: Labs reviewed from today include CBC and BMP which are remarkable for hemoglobin of 9.8 DVT prophylaxis: Heparin Thank you for allowing us to participate in the care of this pleasant patient. Do not hesitate to contact us with questions. Someone can be reached from the [facility] hospitalist group all hours of the day at [phone] or via [employer]. This dictation was prepared using [employer] voice recognition software. Though every attempt is made to correct errors during dictation some may still exist. Objective - Vital Signs Vital signs: Vital Signs Temp 97.9 F 07/29/23 04:00 Pulse 66 07/29/23 04:00 Resp 18 07/29/23 04:00 BP 147/65 07/29/23 04:00 Pulse Ox 95 07/29/23 04:13 FiO2 40 07/27/23 04:04 Intake & Output 07/28/23 07/29/23 07/29/23 18:59 06:59 18:59 Intake Total 0 Output Total 2019 375 Balance -2019 Intake: Oral 0 Output: Gastric Drainage 1000 Urine 600 375 Emesis 400 Other 20 Other: Voiding Method Indwelling Catheter Indwelling Catheter - Labs CBC & Chem 7: 07/29/23 09:08 07/29/23 09:08 Labs: Abnormal Lab Results - Last 24 Hours (Table) 07/28/23 07/28/23 07/28/23 Range/Units 09:30 09:30 11:39 WBC 10.7 H (3.8-10.6) k/uL RBC 3.77 L (3.80-5.40) m/uL Hgb 10.9 L (11.4-16.0) gm/dL Hct 33.8 L (34.0-46.0) % Neutrophils # 9.6 H (1.3-7.7) k/uL Lymphocytes # 0.5 L (1.0-4.8) k/uL Glucose 116 H (74-99) mg/dL POC Glucose (mg/dL) 113 H (70-110) mg/dL Calcium 8.0 L (8.4-10.2) mg/dL Microbiology - Last 24 Hours (Table) 07/25/23 18:50 Blood Culture - Preliminary Blood
[2023-07-29] MEDS: ACETAMINOPHEN IV (For NPO) 1,000 MG in EMPTY BAG 1 BAG IVPB SCH (13:28)
[2023-07-29 13:30] VITALS: BMI 44.5
--- NOTE | 2023-07-29 15:24 | P.PN ---
Subjective Progress Note Date: 07/29/23 CHIEF COMPLAINT: History of perforated diverticulitis HISTORY OF PRESENT ILLNESS: Patient postop day #2 status post exploratory laparotomy, lysis of adhesions, small bowel resection, partial colectomy with end colostomy and partial omentectomy and takedown of splenic flexure. Patient reports feeling better after NG tube placed. Patient had 1 L output yesterday from NG tube. Patient reports a small amount of flatus in her ostomy bag. No stool. She is sitting up at bedside chair. Urine output improved with IV fluids. PHYSICAL EXAM: VITAL SIGNS: Reviewed. GENERAL: Well-developed in no acute distress. HEENT: No sclera icterus. Extraocular movements grossly intact. Moist buccal mucosa. Head is atraumatic, normocephalic. ABDOMEN: Soft. Mildly distended. Ostomy no stool. Pale pink stoma. Pre-Kaylah dressing intact NEUROLOGIC: Alert and oriented. Cranial nerves II through XII grossly intact. ASSESSMENT: 1. History of perforated diverticulitis and extensive adhesions 2. Possible postoperative ileus PLAN: -DC Lees catheter -IV Tylenol added for pain control -NG tube for decompression -Keep patient n.p.o. -Continue Prevana wound vac dressing -Continue IV fluids -Continue antibiotics -Consult PT OT. Encourage patient to increase activity level -Continue antiemetics -Reglan scheduled added -DVT prophylaxis subcu heparin and GI prophylaxis Protonix Physician Chucking Machine Set Up Operator Tool note has been reviewed by physician. Signing provider agrees with the documented findings, assessment, and plan of care. Objective - Vital Signs Vital signs: Vital Signs Temp 97.7 F 07/29/23 11:21 Pulse 80 07/29/23 11:21 Resp 18 07/29/23 14:00 BP 144/85 07/29/23 11:21 Pulse Ox 97 07/29/23 11:21 FiO2 40 07/27/23 04:04 Intake & Output 07/28/23 07/29/23 07/29/23 18:59 06:59 18:59 Intake Total 0 Output Total 2019 375 350 Balance -2020 -375 -350 Weight 121.4 kg Intake: Oral 0 Output: Gastric Drainage 1000 Urine 600 375 350 Uretheral (Lees) 350 Emesis 400 Other 20 Other: Voiding Method Indwelling Catheter Indwelling Catheter Indwelling Catheter - Labs CBC & Chem 7: 07/29/23 09:08 07/29/23 09:08 Labs: Abnormal Lab Results - Last 24 Hours (Table) 07/29/23 07/29/23 07/29/23 Range/Units 09:08 09:08 11:32 RBC 3.49 L (3.80-5.40) m/uL Hgb 9.8 L (11.4-16.0) gm/dL Hct 31.1 L (34.0-46.0) % Lymphocytes # 0.8 L (1.0-4.8) k/uL Chloride 109 H (98-107) mmol/L POC Glucose (mg/dL) 112 H (70-110) mg/dL Calcium 7.7 L (8.4-10.2) mg/dL Microbiology - Last 24 Hours (Table) 07/25/23 18:50 Blood Culture - Preliminary Blood
[2023-07-29 16:23] LABS: Glucose,Whole Blood 89 mg/dL (70-110)
[2023-07-30 00:01] LABS: Glucose,Whole Blood 97 mg/dL (70-110)
[2023-07-30 06:26] LABS: Glucose,Whole Blood 83 mg/dL (70-110)
[2023-07-30 11:45] LABS: Glucose,Whole Blood 87 mg/dL (70-110)
[2023-07-30] MEDS: ACETAMINOPHEN TAB 325 MG TAB PO PRN (13:33)
--- NOTE | 2023-07-30 14:15 | P.PN ---
Subjective Progress Note Date: 07/30/23 Principal diagnosis: Diverticulitis. This is a 58-year-old female admitted electively today for exploratory laparotomy and the plan was to reverse colostomy patient had previous history of perforated diverticulitis, and the plan was to explore and possibly reverse colostomy. Patient ended up having significant amount of adhesions, she underwent lysis of extensive adhesions, small bowel resection partial colectomy with end colostomy partial omentectomy takedown of splenic flexure, and could not reverse colostomy. Postoperatively, patient was in the recovery room, and she required multiple fluid boluses blood pressure remained soft in spite of 5 L of fluids. Her hemoglobin postoperatively was 12.2, baseline hemoglobin is 11.8. Considering her low blood pressure, I was notified about this patient, and I saw the patient in the recovery room. During my evaluation, the patient seems to be pleasant, in no distress, did not seem in any form of distress. Her labs were all reviewed, discussed her condition with Dr. Chauhan over the phone, and I am planning to admit the patient to the ICU for relatively low soft blood pressure, may or may not require pressors for low blood pressure. Patient had no chest pain, no shortness of breath, no palpitations, and again her labs were basically unremarkable. Patient reevaluated today on 07/26/2023, patient remains in the ICU, I saw her yesterday on consultation and transferred the patient to the ICU mostly because of relatively low soft blood pressure. Patient received multiple fluid boluses in the recovery room after her surgery, and her blood pressure remained marginal. Admitted to the ICU, did not require any pressors overnight. Remains on IV fluids, urine output is marginal, and the patient will be receiving a dose of Lasix 20 mg IV push. Patient required to go on BiPAP last night because of obstructive sleep apnea symptoms and findings while she was sleeping with stop breathing episodes and desaturation while sleeping. Today the patient is doing well, relatively asymptomatic.On 3 L nasal cannula with O2 saturation of 97%. WBC count is 9.2 hemoglobin 11.4 potassium is a bit high at 5.5 patient will receive a dose of Lasix today. Renal profile is normal bicarb is normal, serum cortisol is low at 2.3, that may explain the low blood pressure yesterday after her surgery, hence I will give the patient a dose of Solu-Cortef, may eventually require a Cortrosyn stimulation test Patient was reevaluated today on 07/27/2023, patient is doing better today, she has mostly some vague abdominal pain, her blood pressure seems to have stabilized.This morning blood pressure is ranging between 101 11, mean arterial pressure is 75 patient was given Solu-Cortef yesterday for very low cortisol level, patient told me today that she had one of her 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 Believe the patient clearly has adrenal insufficiency, and she would benefit from going home on Cortef and follow-up with endocrinology on outpatient basis. Meantime she is still receiving Cortef at 50 mg IV push every 12 hours, and that seems to be helping her blood pressure significantly. Plus her potassium came down from 5.5-4.4 today CBC is relatively normal hemoglobin is 10.6. Basic metabolic profile is normal renal profile is normal bicarb is 23 Progress note dated July 28, 2023. The patient is seen today in room 369. She appears to be relatively stable. She continues on oxygen at 2 L, and saline at 120 cc an hour. In addition, she continues on Zosyn. She has no specific complaints today. She denies any shortness of breath, cough, wheezing, or chest tightness. Current labs include a white count 10.7, hemoglobin 10.9, hematocrit 33.8, and a platelet count of 238,000. Sodium 138, potassium 4.3, chlorides 106, CO2 27, BUN 11, creatinine 0.56. Glucose is 116. Calcium is 8.0. Chest x-ray shows small lung volumes, and some mild interstitial pulmonary edema. Progress note dated July 29, 2023. The patient is seen in room 369. The patient currently is on saline at 120 cc an hour. She is between 2 to 3 L of oxygen by nasal cannula. She did not use the BiPAP last night. NG tube remains in place. The patient states that she feels "okay". Current labs include a white count 8.9, hemoglobin 9.8, hematocrit 31.1, and a platelet count of 297,000. Sodium 140, potassium 3.7, chlorides 109, CO2 27, BUN 12, creatinine 0.64. Glucose is 112. Calcium 7.7. Magnesium 1.9. Progress note dated July 30, 2023. The patient is seen today in room 369. The patient is currently not on any oxygen. The NG tube has been removed. She is receiving saline at 120 cc an hour. She is sitting in a chair next to her hospital bed. She looks very stable. Current laboratory data includes only a glucose of 87. She denies any chest pain or chest discomfort. She denies any shortness of breath, cough, wheezing, chest tightness, or phlegm production. Objective - Vital Signs Vital signs: Vital Signs Temp 98.4 F 07/29/23 20:23 Pulse 105 H 07/30/23 14:00 Resp 16 07/30/23 14:00 BP 168/77 07/30/23 12:00 Pulse Ox 97 07/30/23 12:00 FiO2 40 07/27/23 04:04 Intake & Output 07/29/23 07/30/23 07/30/23 18:59 06:59 18:59 Output Total 350 200 500 Balance -350 -200 -500 Weight 121.4 kg Output: Urine 350 200 500 Uretheral (Lees) 350 Other: Voiding Method Indwelling Catheter Bedside Commode Bedside Commode # Voids 1 1 - Exam No acute distress, oriented 3. No respiratory distress. Currently on room air. HEENT examination is grossly unremarkable. Mucous membranes are moist. No oral lesions. NG tube has been removed. Neck supple. Full range of motion. No adenopathy thyromegaly or neck vein distention. Cardiovascular examination reveals regular rhythm rate. S1-S2 normal. No S3 or S4. No discernible murmur noted. Heart sounds are distant. Heart rate 100 bpm. Lungs reveal clear breath sounds. Breath sounds are equal bilaterally. No adventitious lung sounds including wheezes rhonchi or crackles. Room air saturation is 97%. Abdomen is soft. Colostomy is noted. Bowel sounds are noted. Extremities are intact. No cyanosis clubbing or edema. Skin is without rash or lesion. Neurologic examination is brief but nonfocal. - Labs CBC & Chem 7: 07/29/23 09:08 07/29/23 09:08 Assessment and Plan Assessment: S/P exploratory laparotomy, lysis of extensive adhesions, small bowel resection, partial colectomy and end colostomy, partial omentectomy, and takedown of splenic flexure, postop day #5. Postoperative hypotension, likely related to low volumes, resolved. Possible adrenal insufficiency. Type 2 diabetes mellitus. Benign essential hypertension. History of perforated diverticulitis. History of hypothyroidism. Plan: Plan dated July 28, 2023. The patient appears to be doing relatively well. Labs, x-rays, and medications are reviewed. We will continue to follow and make recommendations along the way. My partner started the patient on Solu-Cortef, thinking that the patient might have adrenal insufficiency. The patient can be discharged home on oral C ortef, typically at doses of 20 mg in the morning, and 10 mg in the evening, which can be weaned over time. Additional recommendations and suggestions are forthcoming. Plan dated July 29, 2023. The patient is seen today in room 369. The patient is on saline at 120 cc an hour. An NG tube remains in place. The patient is receiving nasal O2 at 3 L. She did not use the BiPAP last night. Labs, x-rays, and medications are reviewed. Overall, the patient appears to be doing reasonably well. When asked, she states I am feeling "okay". We will continue to follow the patient, make recommendations along the way. Prognosis is guarded. Plan dated July 30, 2023. The patient is currently not on any oxygen. The NG tube was removed. The patient continues on saline at 120 cc an hour. Labs, x-rays, and medications are reviewed. The patient is sitting in a chair next to her hospital bed. She looks comfortable. We will continue to follow make recommendations along the way. Prognosis is certainly guarded. Time with Patient: Less than 30
--- NOTE | 2023-07-30 15:35 | CDI ---
Documentation Clarification Form Date: 07/30/2023 03:10:13 PM From: Chula Hernandez RN, CCDS Phone: [phone] Admit Date: 07/25/2023 07:12:00 AM Patient Name: Yolanda De Luna Visit Number: [id number] Discharge Date: ATTENTION: The Clinical Documentation Specialists (CDI) and [facility] Coding Staff appreciate your assistance in clarifying documentation. Please respond to the clarification below the line at the bottom and electronically sign. The CDI & [facility] Coding staff will review the response and follow-up if needed. Please note: Queries are made part of the Legal Health Record. If you have any questions, please contact the author of this message via ITS. Ladan Cantor PA-C Postoperative ileus is documented in the progress notes starting on 07/28/23, and the patient had exploratory laparotomy, lysis of adhesions, small bowel resection, and partial colectomy with end colostomy. Partial omentectomy. Additional clarification is requested regarding the relationship, if any, that exists between the diagnosis and the procedure. Patients Admitting Diagnosis: History of perforated diverticulitis present for colostomy reversal Postoperative Diagnosis: History of perforated diverticulitis Procedure performed: Exploratory laparotomy, lysis of adhesions, small bowel resection, partial colectomy with end colostomy. Partial omentectomy History/Risk Factors: Diabetes Mellitus, Hypertension, Thyroid Disorder, left adrenal gland removed, Clinical Indicators: 58-year-old female with PMH of perforated diverticulitis with colostomy. She is post procedure. Exploratory laparotomy, lysis of adhesions, small bowel resection, partial colectomy with end colostomy, partial omentectomy and takedown of splenic flexure with Dr. Chauhan on 07/24. 07/27 IM and surgical progress notes has: She is complaining of nausea and vomiting. Patient states that she has not had a bowel movement since her surgery. Postop ileus. 07/27 VS: 110/58 82 17 97.8 07/27 Labs: WBC 10.7 HGB 10.9 Treatment: NG tube placed for decompression. Keep patient n.p.o. Consult PT OT. Encourage patient to increase activity level Reglan 10 MG IVP Q 6 HRS 07/27-07/29 Zofran 4MG IVP Q 8 HRS 07/24-07/27 Protonix 40 MG IV Daily 07/25-07/29 Zosyn 3.375 MG IVPB Q 8 HRS 07/26-07/29 What relationship, if any, exists between the diagnosis of postoperative ileus and the procedure? [ ] Postoperative ileus is a complication of surgical procedure [ x ] Postoperative ileus is an expected outcome of the surgical procedure [ ] Postoperative ileus is related to patients co-morbid condition(s) of & not a complication of the procedure [ ] Postoperative ileus has been ruled out [ ] Other please specify ____ [ ] Unable to determine (Template Last Revised: June 2020) MTDD
[2023-07-30 16:23] LABS: Glucose,Whole Blood 98 mg/dL (70-110)
--- NOTE | 2023-07-30 16:29 | P.PN ---
Subjective Progress Note Date: 07/30/23 CHIEF COMPLAINT: History of perforated diverticulitis HISTORY OF PRESENT ILLNESS: Patient postop day #3 status post exploratory laparotomy, lysis of adhesions, small bowel resection, partial colectomy with end colostomy and partial omentectomy and takedown of splenic flexure. Her ostomy is functioning. She reports the nausea is improved. Afebrile. No new labs. Lees catheter discontinued. Patient urinating without difficulty. PHYSICAL EXAM: VITAL SIGNS: Reviewed. GENERAL: Well-developed in no acute distress. HEENT: No sclera icterus. Extraocular movements grossly intact. Moist buccal mucosa. Head is atraumatic, normocephalic. ABDOMEN: Softer. Mildly distended. Ostomy functioning with liquidy stool present pre-Kaylah dressing intact NEUROLOGIC: Alert and oriented. Cranial nerves II through XII grossly intact. ASSESSMENT: 1. History of perforated diverticulitis and extensive adhesions 2. Possible postoperative ileus PLAN: -Discontinue NG tube -Start clear liquid diet for lunch and advance to full liquid diet for dinner -Continue pain management -Add [place] for oral pain medication -Continue Prevana wound vac dressing -Discontinue IV fluids -Continue antibiotics -Consult PT OT. Encourage patient to increase activity level -Continue antiemetics -Reglan scheduled continue -DVT prophylaxis subcu heparin and GI prophylaxis Protonix Physician Avionics Repair Technician note has been reviewed by physician. Signing provider agrees with the documented findings, assessment, and plan of care. Objective - Vital Signs Vital signs: Vital Signs Temp 97.4 F L 07/30/23 16:00 Pulse 97 07/30/23 16:00 Resp 14 07/30/23 16:00 BP 168/77 07/30/23 12:00 Pulse Ox 97 07/30/23 16:00 FiO2 40 07/27/23 04:04 Intake & Output 07/29/23 07/30/23 07/30/23 18:59 06:59 18:59 Output Total 350 200 500 Balance -350 -200 -500 Weight 121.4 kg Output: Urine 350 200 500 Uretheral (Lees) 350 Other: Voiding Method Indwelling Catheter Bedside Commode Bedside Commode # Voids 1 1 - Labs CBC & Chem 7: 07/29/23 09:08 07/29/23 09:08
--- NOTE | 2023-07-30 16:41 | P.PN ---
Subjective Progress Note Date: 07/30/23 (delayed charting seen at 1030) Patient is a 58-year-old female with history of perforated diverticulitis with colostomy, hypertension, hypothyroidism, and diabetes mellitus type 2 who presented for elective exploratory laparotomy with lysis of adhesion, small bowel resection, colectomy and partial omentectomy, they were unable to reverse her colostomy on 07/24. We were initially consulted for medical management. Postoperatively the patient was transferred to the ICU for hypoxia and hypotens ion. At that point in time she required vasopressors and was started on broad- spectrum antibiotics. There is no identified source of infection and the patient was therefore taken off of antibiotics. 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 Patient was started on hydrocortisone 100 mg after surgery and her blood pressure improved appropriately, she was decreased to 50 mg IV BID by pulmonary. Chest x-ray showed pulmonary edema. Patient became volume overloaded after receiving IV fluid resuscitation due to hypotension and was therefore started on IV Lasix. On 07/27 she became nauseous and an NG tube was placed. She was suspected to have postoperative ileus. Patient seen and examined at bedside. Patient seen and examined at bedside. NG tube is out. No other complaints at this time. No nausea or vomiting. Has output in the colostomy bag Vital signs reviewed General: Nontoxic, no distress, appears at stated age Cardiovascular: S1S2 reg, no murmur Lungs: Decreased breath sounds bilateral, no rhonchi, no rales, no accessory muscle use Abdominal: Soft, nontender to palpation, no guarding, Ostomy bag with output Ext: No gross muscle atrophy, no edema b/l lower extremities, no contractures Neuro: CN II-XI grossly intact, no focal neuro deficits Psych: Alert, oriented, appropriate affect Assessment/Plan: Adrenal insufficiency Shock due to adrenal crisis -Currently on hydrocortisone 50 mg IV every 12 hours -Will need to see an endocrinology in the outpatient setting -Start oral hydrocortisone at 25 mg tonight and then continue with the following taper 50/25 x 3 days then 30/20 x 3 days then 20/10, then follow with endocrinology (patient aware of need for ACTH stim test for definitive diagno sis) -Pulmonary note reviewed: Continue current care. Status post exploratory laparotomy, lysis of adhesions, small bowel resection, partial colectomy with end colostomy, partial omentectomy and takedown of splenic flexure Post-op ileus, resolved -Surgery note reviewed: Clear liquid diet for lunch and full for dinner. Continue scheduled Reglan -Reglan 10 mg IV push every 6 hours -Entereg 12 mg p.o. twice daily dose #01/18 -Zosyn 3.375 g IV every 6 hours day #4 will discontinue Hypothyroidism -Synthroid 75 mcg daily Diabetes mellitus -Sliding scale insulin - A1C 6.1 Leukocytosis, Likely reactive, resolved Acute hypoxic respiratory failure likely due to pulmonary edema due to fluid resuscitation, resolved Imaging: None new Data Review: None new DVT prophylaxis: Heparin Thank you for allowing us to participate in the care of this pleasant patient. Do not hesitate to contact us with questions. Someone can be reached from the [facility] hospitalist group all hours of the day at [phone] or via [employer]. This dictation was prepared using [employer] voice recognition software. Though every attempt is made to correct errors during dictation some may still exist. Objective - Vital Signs Vital signs: Vital Signs Temp 97.4 F L 07/30/23 16:00 Pulse 97 07/30/23 16:00 Resp 14 07/30/23 16:00 BP 168/77 07/30/23 12:00 Pulse Ox 97 07/30/23 16:00 FiO2 40 07/27/23 04:04 Intake & Output 07/29/23 07/30/23 07/30/23 18:59 06:59 18:59 Output Total 350 200 500 Balance -350 -200 -500 Weight 121.4 kg Output: Urine 350 200 500 Uretheral (Lees) 350 Other: Voiding Method Indwelling Catheter Bedside Commode Bedside Commode # Voids 1 1 - Labs CBC & Chem 7: 07/29/23 09:08 07/29/23 09:08
[2023-07-30] MEDS: HYDROCORTISONE 10 MG TAB PO SCH (21:51)
[2023-07-30] MEDS: HYDROcodone/APAP 5-325MG 1 EACH TAB PO PRN (23:24)
[2023-07-31 00:01] LABS: Glucose,Whole Blood 93 mg/dL (70-110)
[2023-07-31] MEDS: diphenhydrAMINE 25 MG CAP PO STA (01:06)
[2023-07-31 06:11] LABS: Glucose,Whole Blood 109 mg/dL (70-110)
[2023-07-31] MEDS: HYDROCORTISONE 20 MG TAB PO SCH (10:00)
[2023-07-31 10:35] LABS: Basophils % (A) 0 %; Eosinophils # (A) 0.4 k/uL (0-0.7); Eosinophils % (A) 6 %; HCT 29.9 % (34.0-46.0); HGB 9.7 gm/dL (11.4-16.0); Hypochromasia Slight; Lymphocytes # (A) 1.2 k/uL (1.0-4.8); Lymphocytes % (A) 18 %; MCH 28.8 pg (25.0-35.0); MCHC 32.6 g/dL (31.0-37.0); MCV 88.2 fL (80.0-100.0); Mean Platelet Volume 7.5; Monocytes # (A) 0.3 k/uL (0-1.0); Monocytes % (A) 4 %; Neutrophils # (A) 4.9 k/uL (1.3-7.7); Neutrophils % (A) 71 %; Platelet Count 303 k/uL (150-450); RBC 3.39 m/uL (3.80-5.40); RDW 14.6 % (11.5-15.5); WBC 6.9 k/uL (3.8-10.6)
[2023-07-31 11:02] LABS: ALT 18 U/L (4-34); AST 22 U/L (14-36); African American GFR (CKD) >90 (>60 ml/min/1.73 sqM); Albumin 2.6 g/dL (3.5-5.0); Alkaline Phosphatase 61 U/L (38-126); Anion Gap 4 mmol/L; Blood Urea Nitrogen 12 mg/dL (7-17); Calcium 8.2 mg/dL (8.4-10.2); Carbon Dioxide 27 mmol/L (22-30); Chloride 108 mmol/L (98-107); Glucose 136 mg/dL (74-99); Magnesium 1.8 mg/dL (1.6-2.3); Non-African American GFR(CKD) >90 (>60 ml/min/1.73 sqM); Potassium 3.2 mmol/L (3.5-5.1); Sodium 139 mmol/L (137-145); Total Bilirubin 0.3 mg/dL (0.2-1.3); Total Protein 5.3 g/dL (6.3-8.2)
[2023-07-31 11:49] LABS: Glucose,Whole Blood 101 mg/dL (70-110)
[2023-07-31] MEDS: POTASSIUM CHLORIDE ER 20 MEQ TAB.ER PO ONE (12:34)
--- NOTE | 2023-07-31 14:50 | P.PN ---
Subjective Progress Note Date: 07/31/23 Principal diagnosis: Diverticulitis. This is a 58-year-old female admitted electively today for exploratory laparotomy and the plan was to reverse colostomy patient had previous history of perforated diverticulitis, and the plan was to explore and possibly reverse colostomy. Patient ended up having significant amount of adhesions, she underwent lysis of extensive adhesions, small bowel resection partial colectomy with end colostomy partial omentectomy takedown of splenic flexure, and could not reverse colostomy. Postoperatively, patient was in the recovery room, and she required multiple fluid boluses blood pressure remained soft in spite of 5 L of fluids. Her hemoglobin postoperatively was 12.2, baseline hemoglobin is 11.8. Considering her low blood pressure, I was notified about this patient, and I saw the patient in the recovery room. During my evaluation, the patient seems to be pleasant, in no distress, did not seem in any form of distress. Her labs were all reviewed, discussed her condition with Dr. Chauhan over the phone, and I am planning to admit the patient to the ICU for relatively low soft blood pressure, may or may not require pressors for low blood pressure. Patient had no chest pain, no shortness of breath, no palpitations, and again her labs were basically unremarkable. Patient reevaluated today on 07/26/2023, patient remains in the ICU, I saw her yesterday on consultation and transferred the patient to the ICU mostly because of relatively low soft blood pressure. Patient received multiple fluid boluses in the recovery room after her surgery, and her blood pressure remained marginal. Admitted to the ICU, did not require any pressors overnight. Remains on IV fluids, urine output is marginal, and the patient will be receiving a dose of Lasix 20 mg IV push. Patient required to go on BiPAP last night because of obstructive sleep apnea symptoms and findings while she was sleeping with stop breathing episodes and desaturation while sleeping. Today the patient is doing well, relatively asymptomatic.On 3 L nasal cannula with O2 saturation of 97%. WBC count is 9.2 hemoglobin 11.4 potassium is a bit high at 5.5 patient will receive a dose of Lasix today. Renal profile is normal bicarb is normal, serum cortisol is low at 2.3, that may explain the low blood pressure yesterday after her surgery, hence I will give the patient a dose of Solu-Cortef, may eventually require a Cortrosyn stimulation test Patient was reevaluated today on 07/27/2023, patient is doing better today, she has mostly some vague abdominal pain, her blood pressure seems to have stabilized.This morning blood pressure is ranging between 101 11, mean arterial pressure is 75 patient was given Solu-Cortef yesterday for very low cortisol level, patient told me today that she had one of her 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 Believe the patient clearly has adrenal insufficiency, and she would benefit from going home on Cortef and follow-up with endocrinology on outpatient basis. Meantime she is still receiving Cortef at 50 mg IV push every 12 hours, and that seems to be helping her blood pressure significantly. Plus her potassium came down from 5.5-4.4 today CBC is relatively normal hemoglobin is 10.6. Basic metabolic profile is normal renal profile is normal bicarb is 23 Progress note dated July 28, 2023. The patient is seen today in room 369. She appears to be relatively stable. She continues on oxygen at 2 L, and saline at 120 cc an hour. In addition, she continues on Zosyn. She has no specific complaints today. She denies any shortness of breath, cough, wheezing, or chest tightness. Current labs include a white count 10.7, hemoglobin 10.9, hematocrit 33.8, and a platelet count of 238,000. Sodium 138, potassium 4.3, chlorides 106, CO2 27, BUN 11, creatinine 0.56. Glucose is 116. Calcium is 8.0. Chest x-ray shows small lung volumes, and some mild interstitial pulmonary edema. Progress note dated July 29, 2023. The patient is seen in room 369. The patient currently is on saline at 120 cc an hour. She is between 2 to 3 L of oxygen by nasal cannula. She did not use the BiPAP last night. NG tube remains in place. The patient states that she feels "okay". Current labs include a white count 8.9, hemoglobin 9.8, hematocrit 31.1, and a platelet count of 297,000. Sodium 140, potassium 3.7, chlorides 109, CO2 27, BUN 12, creatinine 0.64. Glucose is 112. Calcium 7.7. Magnesium 1.9. Progress note dated July 30, 2023. The patient is seen today in room 369. The patient is currently not on any oxygen. The NG tube has been removed. She is receiving saline at 120 cc an hour. She is sitting in a chair next to her hospital bed. She looks very stable. Current laboratory data includes only a glucose of 87. She denies any chest pain or chest discomfort. She denies any shortness of breath, cough, wheezing, chest tightness, or phlegm production. Progress note dated July 31, 2023. This is a 58-year-old female seen today in room 369. The patient is sitting in a chair, next to her hospital bed. She is currently off oxygen, she is not receiving any IV fluids. The NG tube has been removed. She feels well, without any specific complaints. She denies any chest pain or chest discomfort. She denies any shortness of breath, cough, wheezing, chest tightness, or phlegm production. Current labs include a white count 6.9, hemoglobin 9.7, hematocrit 29.9, and a platelet count that was normal. Sodium 139, potassium 3.2, chlorides 108, CO2 27, BUN 12, creatinine 0.56. Calcium is 8.2. Albumin is 2.6. Blood cultures are negative. No recent chest x-ray. Objective - Vital Signs Vital signs: Vital Signs Temp 97.1 F L 07/31/23 08:00 Pulse 105 H 07/31/23 08:00 Resp 18 07/31/23 08:00 BP 135/75 07/31/23 08:00 Pulse Ox 95 07/31/23 08:00 FiO2 40 07/27/23 04:04 Intake & Output 07/30/23 07/31/23 07/31/23 18:59 06:59 18:59 Intake Total 1560 Output Total 500 Balance -500 1560 Weight 121.4 kg Intake: Oral 1560 Output: Urine 500 Other: Voiding Method Bedside Commode Bedside Commode # Voids 1 1 # Bowel Movements 1 - Exam No acute distress, oriented 3. No respiratory distress. Currently on room air. HEENT examination is grossly unremarkable. Mucous membranes are moist. No oral lesions. NG tube has been removed. Neck supple. Full range of motion. No adenopathy thyromegaly or neck vein distention. Cardiovascular examination reveals regular rhythm rate. S1-S2 normal. No S3 or S4. No discernible murmur noted. Heart sounds are distant. Heart rate 97 bpm. Lungs reveal clear breath sounds. Breath sounds are equal bilaterally. No adventitious lung sounds including wheezes rhonchi or crackles. Room air saturation is 96 %. Abdomen is soft. Colostomy is noted. Bowel sounds are noted. Extremities are intact. No cyanosis clubbing or edema. Skin is without rash or lesion. Neurologic examination is brief but nonfocal. - Labs CBC & Chem 7: 07/31/23 09:44 07/31/23 09:44 Labs: Abnormal Lab Results - Last 24 Hours (Table) 07/31/23 07/31/23 Range/Units 09:44 09:44 RBC 3.39 L (3.80-5.40) m/uL Hgb 9.7 L (11.4-16.0) gm/dL Hct 29.9 L (34.0-46.0) % Potassium 3.2 L (3.5-5.1) mmol/L Chloride 108 H (98-107) mmol/L Glucose 136 H (74-99) mg/dL Calcium 8.2 L (8.4-10.2) mg/dL Total Protein 5.3 L (6.3-8.2) g/dL Albumin 2.6 L (3.5-5.0) g/dL Microbiology - Last 24 Hours (Table) 07/25/23 18:50 Blood Culture - Final Blood Assessment and Plan Assessment: S/P exploratory laparotomy, lysis of extensive adhesions, small bowel resection, partial colectomy and end colostomy, partial omentectomy, and takedown of splenic flexure, postop day #6. Postoperative hypotension, likely related to low volumes, resolved. Possible adrenal insufficiency. Type 2 diabetes mellitus. Benign essential hypertension. History of perforated diverticulitis. History of hypothyroidism. Plan: Plan dated July 28, 2023. The patient appears to be doing relatively well. Labs, x-rays, and medications are reviewed. We will continue to follow and make recommendations along the way. My partner started the patient on Solu-Cortef, thinking that the patient might have adrenal insufficiency. The patient can be discharged home on oral Co rtef, typically at doses of 20 mg in the morning, and 10 mg in the evening, which can be weaned over time. Additional recommendations and suggestions are forthcoming. Plan dated July 29, 2023. The patient is seen today in room 369. The patient is on saline at 120 cc an hour. An NG tube remains in place. The patient is receiving nasal O2 at 3 L. She did not use the BiPAP last night. Labs, x-rays, and medications are reviewed. Overall, the patient appears to be doing reasonably well. When asked, she states I am feeling "okay". We will continue to follow the patient, make recommendations along the way. Prognosis is guarded. Plan dated July 30, 2023. The patient is currently not on any oxygen. The NG tube was removed. The patient continues on saline at 120 cc an hour. Labs, x-rays, and medications are reviewed. The patient is sitting in a chair next to her hospital bed. She looks comfortable. We will continue to follow make recommendations along the way. Prognosis is certainly guarded. Plan dated July 31, 2023. The patient appears to be doing relatively well. The patient is currently not on any supplemental oxygen, not receiving any IV fluids. The NG tube has been removed. Labs, x-rays, medications are reviewed. I encouraged her to continue to use the incentive spirometer, every hour while awake. In addition, we recommend deep breathing, coughing, clearing of secretions. Labs, x-rays, medications are reviewed. We will continue to follow the patient, and make recommendations. Time with Patient: Less than 30
--- NOTE | 2023-07-31 14:53 | P.PN ---
Subjective Progress Note Date: 07/31/23 CHIEF COMPLAINT: History of perforated diverticulitis HISTORY OF PRESENT ILLNESS: Patient postop day #6 status post exploratory laparotomy, lysis of adhesions, small bowel resection, partial colectomy with end colostomy and partial omentectomy and takedown of splenic flexure. Her ostomy is functioning. She is sitting up at bedside chair. She has ambulated. Afebrile. Denies any nausea or vomiting. WBC 6.9 Hgb 9.7 potassium 3.2 and being replaced PHYSICAL EXAM: VITAL SIGNS: Reviewed. GENERAL: Well-developed in no acute distress. HEENT: No sclera icterus. Extraocular movements grossly intact. Moist buccal mucosa. Head is atraumatic, normocephalic. ABDOMEN: Softer. Mildly distended. Ostomy functioning with liquidy stool present pre-Kaylah dressing intact NEUROLOGIC: Alert and oriented. Cranial nerves II through XII grossly intact. ASSESSMENT: 1. History of perforated diverticulitis and extensive adhesions 2. Possible postoperative ileus resolved. Can be an expected finding. 3. Hypokalemia. Continue to replace PLAN: -Advance diet to regular for dinner -Anticipate possible discharge tomorrow -Continue pain management -Anticipate discontinuing provide no wound VAC dressing tomorrow -DVT prophylaxis subcu heparin and GI prophylaxis Protonix Physician Barge Engineer note has been reviewed by physician. Signing provider agrees with the documented findings, assessment, and plan of care. Objective - Vital Signs Vital signs: Vital Signs Temp 97.1 F L 07/31/23 08:00 Pulse 105 H 07/31/23 08:00 Resp 18 07/31/23 08:00 BP 135/75 07/31/23 08:00 Pulse Ox 95 07/31/23 08:00 FiO2 40 07/27/23 04:04 Intake & Output 07/30/23 07/31/23 07/31/23 18:59 06:59 18:59 Intake Total 1020 Output Total 500 Balance -500 1020 Intake: Oral 1020 Output: Urine 500 Other: Voiding Method Bedside Commode Bedside Commode # Voids 1 # Bowel Movements 1 - Labs CBC & Chem 7: 07/31/23 09:44 07/31/23 09:44 Labs: Abnormal Lab Results - Last 24 Hours (Table) 07/31/23 07/31/23 Range/Units 09:44 09:44 RBC 3.39 L (3.80-5.40) m/uL Hgb 9.7 L (11.4-16.0) gm/dL Hct 29.9 L (34.0-46.0) % Potassium 3.2 L (3.5-5.1) mmol/L Chloride 108 H (98-107) mmol/L Glucose 136 H (74-99) mg/dL Calcium 8.2 L (8.4-10.2) mg/dL Total Protein 5.3 L (6.3-8.2) g/dL Albumin 2.6 L (3.5-5.0) g/dL Microbiology - Last 24 Hours (Table) 07/25/23 18:50 Blood Culture - Final Blood
--- NOTE | 2023-07-31 15:42 | P.PN ---
Subjective Progress Note Date: 07/31/23 Patient is a 58-year-old female with history of perforated diverticulitis with colostomy, hypertension, hypothyroidism, and diabetes mellitus type 2 who presented for elective exploratory laparotomy with lysis of adhesion, small bowel resection, colectomy and partial omentectomy, they were unable to reverse her colostomy on 07/24. We were initially consulted for medical management. Postoperatively the patient was transferred to the ICU for hypoxia and hypotension. At that point in time she required vasopressors and was started on broad-spectrum antibiotics. There is no identified source of infection and the patient was therefore taken off of antibiotics. 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 Patient was started on hydrocortisone 100 mg after surgery and her blood pressure improved appropriately, she was decreased to 50 mg IV BID by pulmonary. Chest x-ray showed pulmonary edema. Patient became volume overloaded after receiving IV fluid resuscitation due to hypotension and was therefore started on IV Lasix. On 07/27 she became nauseous and an NG tube was placed. She was suspected to have postoperative ileus. NG tube was discontinued 07/29. Patient has been tolerating diet since. 07/30 Patient was seen and examined. Tolerating diet well. She has no complaints. CBC shows Hg 9.7 Hct 29.9. BMP K 3.2, Cl 108, glu 136, Ca 8.2, alb 2.6.Mag 1.8. General: non toxic, no distress, appears at stated age Derm: warm, dry Head: atraumatic, normocephalic, symmetric Eyes: EOMI, no lid lag, anicteric sclera Mouth: no lip lesion, mucus membranes moist Cardiovascular: good distal perfusion in all 4 extremities Lungs: Breathing comfortably, no accessory muscle use Ext: no gross muscle atrophy, no edema, no contractures Psych: Alert, oriented, appropriate affect Based on my assessment of this patient, this patient meets a high complexity level of care. Adrenal insufficiency Shock due to adrenal crisis: Will need to see an endocrinology in the outpatient setting. Hydrocortisone taper 50/25 x 3 days then 30/20 x 3 days then 20/10, then follow with endocrinology (patient aware of need for ACTH stim test for definitive diagnosis). Status post exploratory laparotomy, lysis of adhesions, small bowel resection, partial colectomy with end colostomy, partial omentectomy and takedown of splenic flexure Post-op ileus: Resolved. Surgery note reviewed advance diet to regular anticipate discharge tomorrow. Reglan 10 mg IV push every 6 hours. Entereg 12 mg p.o. twice daily dose. Hypothyroidism: Synthroid 75 mcg daily Diabetes mellitus: Sliding scale insulin. A1c 6.1. Resolved: Leukocytosis, Acute hypoxic respiratory failure likely due to pulmonary edema due to fluid resuscitation CODE STATUS: FULL CODE DVT Prophylaxis: Heparin GI Prophylaxis: Protonix Designated medical POA if patient is not able to make medical decisions for themselves: I have reviewed the following software consultant notes: Surgery I have reviewed the results of the following tests: CBC, BMP. Mag I have ordered the following tests: I have discussed the care of this patient with the following independent historian: I have independently interpreted the following test below: I have discussed the management of this patient with the following physician: Objective - Vital Signs Vital signs: Vital Signs Temp 97.1 F L 07/31/23 08:00 Pulse 105 H 07/31/23 08:00 Resp 18 07/31/23 08:00 BP 135/75 07/31/23 08:00 Pulse Ox 95 07/31/23 08:00 FiO2 40 07/27/23 04:04 Intake & Output 07/30/23 07/31/23 07/31/23 18:59 06:59 18:59 Intake Total 1560 Output Total 500 Balance -500 1560 Weight 121.4 kg Intake: Oral 1560 Output: Urine 500 Other: Voiding Method Bedside Commode Bedside Commode # Voids 1 1 # Bowel Movements 1 - Labs CBC & Chem 7: 07/31/23 09:44 07/31/23 09:44 Labs: Abnormal Lab Results - Last 24 Hours (Table) 07/31/23 07/31/23 Range/Units 09:44 09:44 RBC 3.39 L (3.80-5.40) m/uL Hgb 9.7 L (11.4-16.0) gm/dL Hct 29.9 L (34.0-46.0) % Potassium 3.2 L (3.5-5.1) mmol/L Chloride 108 H (98-107) mmol/L Glucose 136 H (74-99) mg/dL Calcium 8.2 L (8.4-10.2) mg/dL Total Protein 5.3 L (6.3-8.2) g/dL Albumin 2.6 L (3.5-5.0) g/dL Microbiology - Last 24 Hours (Table) 07/25/23 18:50 Blood Culture - Final Blood
[2023-07-31 16:44] LABS: Glucose,Whole Blood 145 mg/dL (70-110)
[2023-07-31 20:06] LABS: Glucose,Whole Blood 157 mg/dL (70-110)
[2023-08-01 04:11] LABS: African American GFR (CKD) >90 (>60 ml/min/1.73 sqM); Anion Gap 2 mmol/L; Blood Urea Nitrogen 8 mg/dL (7-17); Calcium 8.2 mg/dL (8.4-10.2); Carbon Dioxide 28 mmol/L (22-30); Chloride 108 mmol/L (98-107); Glucose 112 mg/dL (74-99); Non-African American GFR(CKD) >90 (>60 ml/min/1.73 sqM); Potassium 3.5 mmol/L (3.5-5.1); Sodium 138 mmol/L (137-145)
[2023-08-01 06:19] LABS: Glucose,Whole Blood 105 mg/dL (70-110)
[2023-08-01 10:27] VITALS: RESP 18; TEMP 98.5
[2023-08-01 11:07] LABS: Glucose,Whole Blood 111 mg/dL (70-110)
--- NOTE | 2023-08-01 11:41 | P.PN ---
Subjective Progress Note Date: 08/01/23 Patient is a 58-year-old female with history of perforated diverticulitis with colostomy, hypertension, hypothyroidism, and diabetes mellitus type 2 who presented for elective exploratory laparotomy with lysis of adhesion, small bowel resection, colectomy and partial omentectomy, they were unable to reverse her colostomy on 07/24. We were initially consulted for medical management. Postoperatively the patient was transferred to the ICU for hypoxia and hypotension. At that point in time she required vasopressors and was started on broad-spectrum antibiotics. There is no identified source of infection and the patient was therefore taken off of antibiotics. 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 Patient was started on hydrocortisone 100 mg after surgery and her blood pressure improved appropriately, she was decreased to 50 mg IV BID by pulmonary. Chest x-ray showed pulmonary edema. Patient became volume overloaded after receiving IV fluid resuscitation due to hypotension and was therefore started on IV Lasix. On 07/27 she became nauseous and an NG tube was placed. She was suspected to have postoperative ileus. NG tube was discontinued 07/29. Patient has been tolerating diet since. 07/30 Patient was seen and examined. Tolerating diet well. She has no complaints. CBC shows Hg 9.7 Hct 29.9. BMP K 3.2, Cl 108, glu 136, Ca 8.2, alb 2.6. Mag 1.8. 07/31 Patient was seen and examined. BP this morning 138/83 HR 62. BMP shows Cl 108, glu 112, Ca 8.2. Will prescribe hydrocortisone taper to pharmacy as described below. Follow up with Endocrinology in the outpatient setting. General: non toxic, no distress, appears at stated age Derm: warm, dry Head: atraumatic, normocephalic, symmetric Eyes: EOMI, no lid lag, anicteric sclera Mouth: no lip lesion, mucus membranes moist Cardiovascular: good distal perfusion in all 4 extremities Lungs: Breathing comfortably, no accessory muscle use Ext: no gross muscle atrophy, no edema, no contractures Psych: Alert, oriented, appropriate affect Based on my assessment of this patient, this patient meets a high complexity level of care. Adrenal insufficiency Shock due to adrenal crisis: Will need to see an endocrinology in the outpatient setting. Hydrocortisone taper 50/25 x 3 days then 30/20 x 3 days then 20/10, then follow with endocrinology (patient aware of need for ACTH stim test for definitive diagnosis). Status post exploratory laparotomy, lysis of adhesions, small bowel resection, partial colectomy with end colostomy, partial omentectomy and takedown of splenic flexure Post-op ileus: Resolved. Surgery note reviewed advance diet to regular anticipate discharge tomorrow. Reglan 10 mg IV push every 6 hours. Entereg 12 mg p.o. twice daily dose. Hypothyroidism: Synthroid 75 mcg daily Diabetes mellitus: Sliding scale insulin. A1c 6.1. Resolved: Leukocytosis, Acute hypoxic respiratory failure likely due to pulmonary edema due to fluid resuscitation CODE STATUS: FULL CODE DVT Prophylaxis: Heparin GI Prophylaxis: Protonix Designated medical POA if patient is not able to make medical decisions for themselves: I have reviewed the following consultant internship notes: Surgery I have reviewed the results of the following tests: BMP I have ordered the following tests: I have discussed the care of this patient with the following independent historian: I have independently interpreted the following test below: I have discussed the management of this patient with the following physician: Objective - Vital Signs Vital signs: Vital Signs Temp 97.9 F 08/01/23 04:00 Pulse 62 08/01/23 04:00 Resp 19 08/01/23 04:00 BP 138/83 08/01/23 04:00 Pulse Ox 93 L 08/01/23 04:00 FiO2 40 07/27/23 04:04 Intake & Output 07/31/23 08/01/23 08/01/23 18:59 06:59 18:59 Intake Total 1796 Balance 1796 Weight 121.4 kg Intake: Oral 1796 Other: Voiding Method Toilet # Voids 1 2 - Labs CBC & Chem 7: 07/31/23 09:44 08/01/23 03:30 Labs: Abnormal Lab Results - Last 24 Hours (Table) 07/31/23 07/31/23 07/31/23 Range/Units 09:44 09:44 16:42 RBC 3.39 L (3.80-5.40) m/uL Hgb 9.7 L (11.4-16.0) gm/dL Hct 29.9 L (34.0-46.0) % Potassium 3.2 L (3.5-5.1) mmol/L Chloride 108 H (98-107) mmol/L Glucose 136 H (74-99) mg/dL POC Glucose (mg/dL) 145 H (70-110) mg/dL Calcium 8.2 L (8.4-10.2) mg/dL Total Protein 5.3 L (6.3-8.2) g/dL Albumin 2.6 L (3.5-5.0) g/dL 07/31/23 08/01/23 Range/Units 20:04 03:30 RBC (3.80-5.40) m/uL Hgb (11.4-16.0) gm/dL Hct (34.0-46.0) % Potassium (3.5-5.1) mmol/L Chloride 108 H (98-107) mmol/L Glucose 112 H (74-99) mg/dL POC Glucose (mg/dL) 157 H (70-110) mg/dL Calcium 8.2 L (8.4-10.2) mg/dL Total Protein (6.3-8.2) g/dL Albumin (3.5-5.0) g/dL Microbiology - Last 24 Hours (Table) 07/25/23 18:50 Blood Culture - Final Blood
--- NOTE | 2023-08-01 11:41 | P.DS ---
Providers Date of admission: 07/25/23 07:12 Expected date of discharge: 08/01/23 Attending physician: Kris Chauhan Consults: 07/25/23 13:16 Consult Physician Routine Consulting Provider: Samara Shepherd Consult Reason/Comments: Medical management Do you want consulting provider notified?: Yes 07/25/23 15:00 Consult Physician Urgent Consulting Provider: Shalonda Esquivel Consult Reason/Comments: ICU/BP management Do you want consulting provider notified?: Already Contacted Primary care physician: Joo Singh Hospital Course: Discharge diagnosis 1. History of perforated diverticulitis and extensive adhesions 2. Possible postoperative ileus resolved. Can be an expected finding. 3. Hypokalemia. Improved Hospital course This is a 58-year-old female with a history of perforated diverticulitis. Patient is status post exploratory laparotomy, lysis of extensive adhesions, small bowel resection, partial colectomy with end colostomy, partial omentectomy and takedown of splenic flexure. Patient tolerated surgery well. Her pain is controlled. She is tolerating diet. Her ostomy is functioning. She is afebrile. She has been ambulating. She is stable for discharge. Please refer to chart for any further details. Physician Library Technology Instructor note has been reviewed by physician. Signing provider agrees with the documented findings, assessment, and plan of care. Patient Condition at Discharge: Stable Plan - Discharge Summary Discharge Rx Participant: No New Discharge Prescriptions: New HYDROcodone/APAP 5-325MG [[place] 5-325] 1 tab PO Q6HR PRN 3 Days #12 tab PRN Reason: Pain Hydrocortisone [Cortef] See Rx Instructions .ROUTE .COMPLEX #105 tablet No Action Levothyroxine Sodium [Synthroid] 75 mcg PO DAILY metFORMIN HCL ER [Glucophage XR] 500 mg PO DAILY amLODIPine [Norvasc] 10 mg PO DAILY Empagliflozin [Jardiance] 10 mg PO W/SUPPER Losartan Potassium [Cozaar] 100 mg PO DAILY Discharge Medication List Empagliflozin [Jardiance] 10 mg PO W/SUPPER 04/08/23 [History] Levothyroxine Sodium [Synthroid] 75 mcg PO DAILY 04/08/23 [History] Losartan Potassium [Cozaar] 100 mg PO DAILY 04/08/23 [History] amLODIPine [Norvasc] 10 mg PO DAILY 04/08/23 [History] metFORMIN HCL ER [Glucophage XR] 500 mg PO DAILY 04/08/23 [History] HYDROcodone/APAP 5-325MG [[place] 5-325] 1 tab PO Q6HR PRN 3 Days #12 tab 08/01/23 [Rx] Hydrocortisone [Cortef] See Rx Instructions .ROUTE .COMPLEX #105 tablet 08/01/23 [Rx] Follow up Appointment(s)/Referral(s): Jomar Tejeda MD [REFERRING] - As Needed Dottie Liz [STAFF PHYSICIAN] - As Needed [facility] Nurse, [NON-STAFF] - 1 Week Kris Chauhan MD [STAFF PHYSICIAN] - 1 Week Activity/Diet/Wound Care/Special Instructions: YOU WILL NEED TO SEE YOUR PRIMARY CARE DOCTOR TO HAVE A SLEEP STUDY TEST DONE. Ostomy: Last changed 08/01/2023 [place] convex 1 piece appliance #[id number]; barrier extenders [id number]; Wolf seal 2" [id number] No driving while taking [place] No lifting over 10 pounds Shower daily. No soaking or tub baths for 2 weeks Very light activity until you are reevaluated at your follow up appointment with your surgeon Discharge Disposition: HOME SELF-CARE
--- NOTE | 2023-08-01 13:09 | P.PN ---
Subjective Progress Note Date: 08/01/23 Principal diagnosis: Diverticulitis. This is a 58-year-old female admitted electively today for exploratory laparotomy and the plan was to reverse colostomy patient had previous history of perforated diverticulitis, and the plan was to explore and possibly reverse colostomy. Patient ended up having significant amount of adhesions, she underwent lysis of extensive adhesions, small bowel resection partial colectomy with end colostomy partial omentectomy takedown of splenic flexure, and could not reverse colostomy. Postoperatively, patient was in the recovery room, and she required multiple fluid boluses blood pressure remained soft in spite of 5 L of fluids. Her hemoglobin postoperatively was 12.2, baseline hemoglobin is 11.8. Considering her low blood pressure, I was notified about this patient, and I saw the patient in the recovery room. During my evaluation, the patient seems to be pleasant, in no distress, did not seem in any form of distress. Her labs were all reviewed, discussed her condition with Dr. Chauhan over the phone, and I am planning to admit the patient to the ICU for relatively low soft blood pressure, may or may not require pressors for low blood pressure. Patient had no chest pain, no shortness of breath, no palpitations, and again her labs were basically unremarkable. Patient reevaluated today on 07/26/2023, patient remains in the ICU, I saw her yesterday on consultation and transferred the patient to the ICU mostly because of relatively low soft blood pressure. Patient received multiple fluid boluses in the recovery room after her surgery, and her blood pressure remained marginal. Admitted to the ICU, did not require any pressors overnight. Remains on IV fluids, urine output is marginal, and the patient will be receiving a dose of Lasix 20 mg IV push. Patient required to go on BiPAP last night because of obstructive sleep apnea symptoms and findings while she was sleeping with stop breathing episodes and desaturation while sleeping. Today the patient is doing well, relatively asymptomatic.On 3 L nasal cannula with O2 saturation of 97%. WBC count is 9.2 hemoglobin 11.4 potassium is a bit high at 5.5 patient will receive a dose of Lasix today. Renal profile is normal bicarb is normal, serum cortisol is low at 2.3, that may explain the low blood pressure yesterday after her surgery, hence I will give the patient a dose of Solu-Cortef, may eventually require a Cortrosyn stimulation test Patient was reevaluated today on 07/27/2023, patient is doing better today, she has mostly some vague abdominal pain, her blood pressure seems to have stabilized.This morning blood pressure is ranging between 101 11, mean arterial pressure is 75 patient was given Solu-Cortef yesterday for very low cortisol level, patient told me today that she had one of her 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 Believe the patient clearly has adrenal insufficiency, and she would benefit from going home on Cortef and follow-up with endocrinology on outpatient basis. Meantime she is still receiving Cortef at 50 mg IV push every 12 hours, and that seems to be helping her blood pressure significantly. Plus her potassium came down from 5.5-4.4 today CBC is relatively normal hemoglobin is 10.6. Basic metabolic profile is normal renal profile is normal bicarb is 23 Progress note dated July 28, 2023. The patient is seen today in room 369. She appears to be relatively stable. She continues on oxygen at 2 L, and saline at 120 cc an hour. In addition, she continues on Zosyn. She has no specific complaints today. She denies any shortness of breath, cough, wheezing, or chest tightness. Current labs include a white count 10.7, hemoglobin 10.9, hematocrit 33.8, and a platelet count of 238,000. Sodium 138, potassium 4.3, chlorides 106, CO2 27, BUN 11, creatinine 0.56. Glucose is 116. Calcium is 8.0. Chest x-ray shows small lung volumes, and some mild interstitial pulmonary edema. Progress note dated July 29, 2023. The patient is seen in room 369. The patient currently is on saline at 120 cc an hour. She is between 2 to 3 L of oxygen by nasal cannula. She did not use the BiPAP last night. NG tube remains in place. The patient states that she feels "okay". Current labs include a white count 8.9, hemoglobin 9.8, hematocrit 31.1, and a platelet count of 297,000. Sodium 140, potassium 3.7, chlorides 109, CO2 27, BUN 12, creatinine 0.64. Glucose is 112. Calcium 7.7. Magnesium 1.9. Progress note dated July 30, 2023. The patient is seen today in room 369. The patient is currently not on any oxygen. The NG tube has been removed. She is receiving saline at 120 cc an hour. She is sitting in a chair next to her hospital bed. She looks very stable. Current laboratory data includes only a glucose of 87. She denies any chest pain or chest discomfort. She denies any shortness of breath, cough, wheezing, chest tightness, or phlegm production. Progress note dated July 31, 2023. This is a 58-year-old female seen today in room 369. The patient is sitting in a chair, next to her hospital bed. She is currently off oxygen, she is not receiving any IV fluids. The NG tube has been removed. She feels well, without any specific complaints. She denies any chest pain or chest discomfort. She denies any shortness of breath, cough, wheezing, chest tightness, or phlegm production. Current labs include a white count 6.9, hemoglobin 9.7, hematocrit 29.9, and a platelet count that was normal. Sodium 139, potassium 3.2, chlorides 108, CO2 27, BUN 12, creatinine 0.56. Calcium is 8.2. Albumin is 2.6. Blood cultures are negative. No recent chest x-ray. Progress note dated August 01, 2023. The patient is seen today in room 369. She is currently on room air. No IV fluids. NG tube was removed a few days ago. She denies any pain or discomfort. She is not having any issues with her lungs, and denies any shortness of breath, cough, wheezing, chest tightness, or phlegm production. She also denies any chest pain or pressure. Sodium 138, potassium 3.5, chlorides 108, CO2 28, BUN 8, creatinine 0.67. Glucose is 111. Calcium is 8.2. Objective - Vital Signs Vital signs: Vital Signs Temp 98.5 F 08/01/23 08:15 Pulse 61 08/01/23 08:15 Resp 18 08/01/23 08:15 BP 168/75 08/01/23 08:15 Pulse Ox 94 L 08/01/23 08:15 FiO2 40 07/27/23 04:04 Intake & Output 07/31/23 08/01/23 08/01/23 18:59 06:59 18:59 Intake Total 1796 360 Balance 1795 360 Weight 121.4 kg Intake: Oral 1795 360 Other: Voiding Method Toilet # Voids 1 2 - Exam No acute distress, oriented 3. No respiratory distress. Currently on room air. HEENT examination is grossly unremarkable. Mucous membranes are moist. No oral lesions. NG tube has been removed. Neck supple. Full range of motion. No adenopathy thyromegaly or neck vein distention. Cardiovascular examination reveals regular rhythm rate. S1-S2 normal. No S3 or S4. No discernible murmur noted. Heart sounds are distant. Heart rate 61 bpm. Lungs reveal clear breath sounds. Breath sounds are equal bilaterally. No adventitious lung sounds including wheezes rhonchi or crackles. Room air saturation is 94 %. Abdomen is soft. Colostomy is noted. Bowel sounds are noted. Extremities are intact. No cyanosis clubbing or edema. Skin is without rash or lesion. Neurologic examination is brief but nonfocal. - Labs CBC & Chem 7: 07/31/23 09:44 08/01/23 03:30 Labs: Abnormal Lab Results - Last 24 Hours (Table) 07/31/23 07/31/23 08/01/23 Range/Units 16:42 20:04 03:30 Chloride 108 H (98-107) mmol/L Glucose 112 H (74-99) mg/dL POC Glucose (mg/dL) 145 H 157 H (70-110) mg/dL Calcium 8.2 L (8.4-10.2) mg/dL 08/01/23 Range/Units 11:06 Chloride (98-107) mmol/L Glucose (74-99) mg/dL POC Glucose (mg/dL) 111 H (70-110) mg/dL Calcium (8.4-10.2) mg/dL Assessment and Plan Assessment: S/P exploratory laparotomy, lysis of extensive adhesions, small bowel resection, partial colectomy and end colostomy, partial omentectomy, and takedown of splenic flexure, postop day #7. Postoperative hypotension, likely related to low volumes, resolved. Possible adrenal insufficiency. Type 2 diabetes mellitus. Benign essential hypertension. History of perforated diverticulitis. History of hypothyroidism. Plan: Plan dated July 28, 2023. The patient appears to be doing relatively well. Labs, x-rays, and medications are reviewed. We will continue to follow and make recommendations along the way. My partner started the patient on Solu-Cortef, thinking that the patient might have adrenal insufficiency. The patient can be discharged home on oral Cortef, typically at doses of 20 mg in the morning, and 10 mg in the evening, which can be weaned over time. Additional recommendations and suggestions are forthcoming. Plan dated July 29, 2023. The patient is seen today in room 369. The patient is on saline at 120 cc an hour. An NG tube remains in place. The patient is receiving nasal O2 at 3 L. She did not use the BiPAP last night. Labs, x-rays, and medications are reviewed. Overall, the patient appears to be doing reasonably well. When asked, she states I am feeling "okay". We will continue to follow the patient, make recommendations along the way. Prognosis is guarded. Plan dated July 30, 2023. The patient is currently not on any oxygen. The NG tube was removed. The patient continues on saline at 120 cc an hour. Labs, x-rays, and medications are reviewed. The patient is sitting in a chair next to her hospital bed. She looks comfortable. We will continue to follow make recommendations along the way. Prognosis is certainly guarded. Plan dated July 31, 2023. The patient appears to be doing relatively well. The patient is currently not on any supplemental oxygen, not receiving any IV fluids. The NG tube has been removed. Labs, x-rays, medications are reviewed. I encouraged her to continue to use the incentive spirometer, every hour while awake. In addition, we recommend deep breathing, coughing, clearing of secretions. Labs, x-rays, medications are reviewed. We will continue to follow the patient, and make recommendations. Plan dated August 01, 2023. The patient appears to be doing relatively well. The patient denies any chest pain or pressure. She also denies any respiratory issues including shortness of breath, cough, wheezing, chest tightness, or phlegm production. The patient is resting comfortably in her room. She is sitting in a chair next to her hospital bed. She is on room air. She is not receiving any IV fluids. We will continue to follow the patient, make recommendations along the way. Labs, x-rays, and all medications are reviewed. Time with Patient: Less than 30
[2023-08-01 13:30] VITALS: BP 165/52; PULSE 56
== END 2023-08-01 13:54 | disposition home or self-care (01) | DRG 329 ==
LOC: 2ORMAIN 07:12 → 4SSUR 13:40 → 2SICU 14:50 → 3SCARD 07-26 17:37
PROVIDERS: ADMIT Surgery; ATTEND Surgery
PROC: 0DT80ZZ Resection of Small Intestine, Open Approach (ICD-10-PCS; 2023-07-25)
PROC: 0D1N0Z4 Bypass Sigmoid Colon to Cutaneous, Open Approach (ICD-10-PCS; 2023-07-25)
PROC: 0DNW0ZZ Release Peritoneum, Open Approach (ICD-10-PCS; 2023-07-25)
PROC: 2W13X6Z Compression of Abdominal Wall using Pressure Dressing (ICD-10-PCS; 2023-07-25)
PROC: 0DBU0ZZ Excision of Omentum, Open Approach (ICD-10-PCS; 2023-07-25)
PROC: 0D9670Z Drainage of Stomach with Drainage Device, Via Natural or Artificial Opening (ICD-10-PCS; principal; 2023-07-28)
DX: Z43.3 Encounter for attention to colostomy (principal); J96.01 Acute respiratory failure with hypoxia; R57.1 Hypovolemic shock; K56.7 Ileus, unspecified; J81.1 Chronic pulmonary edema; E03.9 Hypothyroidism, unspecified; E11.9 Type 2 diabetes mellitus without complications; I10 Essential (primary) hypertension; E87.70 Fluid overload, unspecified; I95.81 Postprocedural hypotension; E87.6 Hypokalemia; G47.33 Obstructive sleep apnea (adult) (pediatric); Z79.4 Long term (current) use of insulin; K66.0 Peritoneal adhesions (postprocedural) (postinfection); Z79.84 Long term (current) use of oral hypoglycemic drugs; Z79.890 Hormone replacement therapy; Z79.899 Other long term (current) drug therapy; Z90.710 Acquired absence of both cervix and uterus
CPT/HCPCS: 71045; 80048; 80053; 82310; 82533; 83036; 83735; 84100; 84439; 84443; 85025; 85610; 85730; 87040; 88307; 94660; 94760

== ENCOUNTER 2024-02-25 08:30 | Inpatient (IN) | payer OTHER ==
[2024-03-15] MEDS ORDERED: metroNIDAZOLE-NS PMX 500 MG in SALINE 1 100ML.BAG IVPB PRN (05:00)
[2024-03-15] MEDS ORDERED: HEPARIN SODIUM,PORCINE 5,000 UNIT/ML 1 ML VIAL SQ PRN (05:00)
[2024-03-15] MEDS ORDERED: ceFAZolin 3 GM in SODIUM CHLORIDE 0.9% 100 ML IVPB PRN (05:00)
[2024-03-15] MEDS ORDERED: HYDROmorphone 0.5 MG/0.5 ML SYRINGE IVP PRN ×2 (07:35→14:01)
[2024-03-15] MEDS: ACETAMINOPHEN TAB 500 MG TAB PO PRN (09:29)
[2024-03-15] MEDS: LACTATED RINGERS 1,000 ML IV SCH ×2 (09:30→16:31)
[2024-03-15] MEDS: IV FLUID CONTINUATION 1,000 ML IV ONE (09:40)
[2024-03-15] MEDS: LIDOCAINE 1% (10MG/ML) FOR IV START INTRADERMA STA (09:40)
[2024-03-15] MEDS: ONDANSETRON 4 MG/2 ML VIAL IVP ONE (09:46)
[2024-03-15] MEDS: HYDROCORTISONE SUCCINATE 100 MG/2 ML VIAL IV STA (09:47)
[2024-03-15] MEDS: fentaNYL (PF) 50 MCG/ML 2 ML AMP IVP PRN (09:51)
[2024-03-15] MEDS: MIDAZOLAM 2 MG/2 ML VIAL IV ONE (09:51)
[2024-03-15 09:53] LABS: Glucose,Whole Blood 152 mg/dL (70-110)
[2024-03-15] MEDS: DEXAMETHASONE SOD PHOSPHATE 4 MG/ML 1 ML VIAL IV ONE (09:54)
[2024-03-15 10:06] LABS: African American GFR (CKD) >90 (>60 ml/min/1.73 sqM); Anion Gap 9 mmol/L; Blood Urea Nitrogen 7 mg/dL (7-17); Calcium 9.4 mg/dL (8.4-10.2); Carbon Dioxide 25 mmol/L (22-30); Chloride 106 mmol/L (98-107); Glucose 138 mg/dL (74-99); Non-African American GFR(CKD) >90 (>60 ml/min/1.73 sqM); Potassium 4.3 mmol/L (3.5-5.1); Sodium 140 mmol/L (137-145)
[2024-03-15] MEDS ORDERED: NALOXONE 0.4 MG/ML 1 ML VIAL IV PRN ×2 (10:09→14:01)
[2024-03-15] MEDS ORDERED: NALBUPHINE 10 MG/ML (10 ML MDV) IV PRN (10:09)
[2024-03-15] MEDS ORDERED: diphenhydrAMINE 50 MG/ML 1 ML VIAL IVP PRN (10:09)
[2024-03-15] MEDS ORDERED: ROCURONIUM 10 MG/ML (5 ML VIAL) IV ONE (10:12)
[2024-03-15] MEDS ORDERED: PROPOFOL 10 MG/ML 20 ML VIAL IV ONE (10:12)
[2024-03-15] MEDS ORDERED: fentaNYL (PF) 50 MCG/ML 2 ML AMP ONE (10:12)
[2024-03-15] MEDS ORDERED: PHENYLEPHRINE 10 MG/ML VIAL ONE (10:12)
[2024-03-15] MEDS ORDERED: GLYCOPYRROLATE 0.2 MG/ML 2 ML VIAL ONE (10:12)
[2024-03-15] MEDS ORDERED: MIDAZOLAM 2 MG/2 ML VIAL ONE (10:12)
[2024-03-15] MEDS ORDERED: NEOSTIGMINE 1 MG/ML 10 ML VIAL ONE (10:12)
[2024-03-15] MEDS ORDERED: SUCCINYLCHOLINE CHLORIDE 200 MG/10 ML VIAL IV ONE (10:12)
--- NOTE | 2024-03-15 10:12 | P.ANPRN ---
Procedure Note - Anesthesia - Epidural/Spinal Epidural Continuous Time Out Performed: Yes Date of Procedure: 03/15/24 Procedure Start Time: 09:51 Procedure Stop Time: 09:59 Location of Patient: PreOp Indication: Acute Post-Operative Pain, Requested by Surgeon Sedation Type: Sedate with meaningful contact maintained Preparation: Sterile Dressing Position: Sitting Catheter: Indwelling Needle Guage: 18 Blood Aspirated: No Pain Paresthesia on Injection Noted: No Events: Uneventful and Well Tolerated
[2024-03-15] MEDS: LACTATED RINGERS 1,000 ML IV ONE (11:40)
[2024-03-15] MEDS ORDERED: ACETAMINOPHEN TAB 325 MG TAB PO PRN (14:01)
[2024-03-15] MEDS ORDERED: METOCLOPRAMIDE 5 MG/ML 2 ML VIAL IVP PRN (14:01)
[2024-03-15] MEDS: ROPIVACAINE 250 MG, HYDROMORPHONE (PF) 5 MG in SODIUM CHLORIDE 0.9% 200 ML EPIDURAL PRN (14:20)
--- NOTE | 2024-03-15 15:39 | P.OP ---
Date of Procedure: 03/15/24 Preoperative Diagnosis: history of perforated diverticulitis Postoperative Diagnosis: extensive adhesions Incisional hernia Partial hernia Procedure(s) Performed: exploratory laparotomy Attempt reversal colostomy Lysis of extensive adhesions 2 hours of operative time Repair of incisional hernia repair parastomal hernia Anesthesia: MELISSA Surgeon: Kris Chauhan Estimated Blood Loss (ml): 50 Pathology: other (hernia sac) Condition: stable Disposition: PACU Operative Findings: severe abdominal adhesions Rectal wall thickening Description of Procedure: patient's placed on the operating table in the supine position. She received general endotracheal tube anesthesia. Her abdomen was prepped and draped usual sterile fashion. She was placed in dorsolithotomy position. Patient previous midline scar. This was excised using a 10 blade which cautery. The midline incision was then opened. There was evidence of a large incisional hernia located along the midline scar. There were extensive adhesions. Approximately 2 hours of operative time used to lyse adhesions. During the lysis of adhesions there was an enterotomy made in the small bowel. The area of severely adhesed small bowel was then transected distally and proximally with a GI stapler. And then a vmvm-oy-unid functional end-to-end staple anastomosis created using MARYLOU and TA staplers. 3-0 GI silk sutures used to crotch stitch. This point the stoma was dissected. There appeared to be evidence of a parastomal hernia with small bowel loops entering the stoma site. These were reduced. Scope was then transected using the MARYLOU stapler. And then the pelvis was dissected. Loops of small bowel were dissected out of the pelvis. And then the rectum was visualized. The rectal stump was found. The head start assistant teacher placed the EEA sizing patient's rectal stump. This could be palpated. This point the anvil from 29 mm EEA stapler was placed the colon. The distal stapler was opened. He was placed the colon. Then the colon was closed using the GI stapler. The small se gment colon was dissected free using the HMr. device. The spike for the a.m. was then driven through the staple line. At this point the head start assistant teacher placed the EEA stapler patient's anus. He spike was driven through the rectal stump. The anvil was connected to the stapler. The tissue of the rectal stump appeared to be thickened. The stapler was then closed and fired. 2 intact tissue rings were withdrawn. The rectum was insufflated with air. It appeared that the stapler had not closed edgardo probably due to the thickness of the rectal stump. The anastomosis showed a leak insufflation. When this was examined the entire anastomosis appeared to fail. At this point decided to not attempt to do a colorectal anastomosis again. A colostomy was made above the original colostomy site. In the colon was brought up through the new colostomy site. The fascia at the peristomal hernia site was closed using #1 Niranjan fix suture. The abdomen was irrigated there is no bleeding seen. The hernia sac was dissected free from midline scar. And then the fascia was closed with looped #1 PDS suture. The skin was closed edgardo. The old colostomy site was dissected free and then the anterior fascia was closed with 0 Vicryl suture. The skin of the classic closed edgardo. A towel was placed over top the stable. Skin. And then the new colostomy matured with 3-0 Vicryl suture. The Prevena the wounds this was placed over the staple line. Patient tolerated well. And was sent to recovery in stable condition.
[2024-03-15 15:59] LABS: Glucose,Whole Blood 119 mg/dL (70-110)
[2024-03-15] MEDS ORDERED: DEXTROSE 50% SYRINGE 50 ML IVP PRN ×2 (17:11)
--- NOTE | 2024-03-15 17:18 | P.CONS ---
History of Present Illness - Reason for Consult Consult date: 03/15/24 - Chief Complaint medical management - History of Present Illness Patient is a 58-year-old female with past medical history of perforated diverticulitis, history of her reversal colostomy, partial omentectomy, takedown of splenic flexure on 07/24 complicated by ICU stay required vasopressors due to adrenal crisis, her cortisol level was found to be low given history of adrenal gland resection due to adrenal mass, patient was started on hydrocortisone, hypertension, hypothyroidism, type II DM, who presented for elective reversal colostomy that was performed on 03/15/2024 and was unsuccessful. Hospitalist service consulted for medical management. Preop blood work reviewed, patient is creatinine and electrolytes are normal, glucose is controlled Patient was seen at bedside after surgery, patient's and son present during encounter. She does not have any active complaints and still little bit sleepy after anesthesia. Pertinent positives and negatives as discussed in HPI, a complete review of systems was performed and all other systems are negative. Patient seen and examined at bedside. [] Vital signs reviewed General: nontoxic, no distress, appears at stated age Derm: warm, dry Head: atraumatic, normocephalic, symmetric Eyes: EOMI, no lid lag, anicteric sclera, pupils equal round reactive to light ENT: Nose and ears atraumatic Neck: No thyromegaly, supple Mouth: no lip lesion, mucus membranes moist Cardiovascular: S1S2 reg, no murmur, no edema Lungs: clear to auscultation bilateral, no rhonchi, no rales, no wheeze, no accessory muscle use Abdominal: soft, nontender to palpation, no guarding, no appreciable organomegaly. 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 -Patient was off all steroids for some time and was started back on 5 mg of hydrocortisone by her primary care physician preoperatively, received stress dose presurgically, ordered hydrocortisone 50 mg every 6 hours, further dosing to be determined pending clinical progress hypertension: Continue home medications, monitor for hypotension hypothyroidism: Sinew home levothyroxine type II DM: SSI ordered, will continue Jardiance, hold metformin Morbid obesity BARBRA on CPAP: Continue CPAP CODE STATUS:[] Full code DVT prophylaxis: Per surgical team A total of [] minutes was spent on the care of this complex patient more than 50% of the time was spent in counseling and care coordination. Past Medical History Past Medical History: Diabetes Mellitus, Hypertension, Sleep Apnea/CPAP/BIPAP, Thyroid Disorder Additional Past Medical History / Comment(s): diverticulitis, Type II DM, hypothyroidism, low cortisol levels post surgery July 2023, in process of getting CPAP for sleep apnea History of Any Multi-Drug Resistant Organisms: None Reported Past Surgical History: Section, Hysterectomy Additional Past Surgical History / Comment(s): left adrenal gland removed 2013, bowel resection w/ colostomy 2023, colostomy reversal attempt July/2023, attempted colostomy reversal, hernia repair, creation of new stoma on 03/15/24 Past Anesthesia/Blood Transfusion Reactions: No Reported Reaction Smoking Status: Never smoker - Past Family History Mother Family Medical History: Cancer, Diabetes Mellitus Additional Family Medical History / Comment(s): "heart issues", bowel CA Father Additional Family Medical History / Comment(s): Crohn's disease Medications and Allergies Home Medications Medication Instructions Recorded Confirmed Type Empagliflozin [Jardiance] 10 mg PO W/SUPPER 04/08/23 03/11/24 History Levothyroxine Sodium [Synthroid] 75 mcg PO DAILY 04/08/23 03/11/24 History Losartan Potassium [Cozaar] 100 mg PO DAILY 04/08/23 03/11/24 History amLODIPine [Norvasc] 10 mg PO DAILY 04/08/23 03/11/24 History metFORMIN HCL ER [Glucophage XR] 500 mg PO DAILY 04/08/23 03/11/24 History Hydrocortisone 5 mg PO DAILY 02/19/24 03/11/24 History Allergies Allergy/AdvReac Type Severity Reaction Status Date / Time No Known Allergies Allergy Verified 03/11/24 15:33 Physical Exam Vitals: Vital Signs Temp Pulse Resp BP Pulse Ox 03/15/24 16:39 97.2 F L 58 L 16 95/60 93 L 03/15/24 15:50 64 16 99/56 98 03/15/24 15:35 58 L 16 101/54 99 03/15/24 15:20 59 L 16 106/58 98 03/15/24 15:05 54 L 16 98/59 96 03/15/24 14:50 57 L 18 100/53 92 L 03/15/24 14:35 60 19 86/61 99 03/15/24 14:20 97.2 F L 72 20 83/50 97 03/15/24 10:00 80 16 121/60 94 L 03/15/24 09:20 97.6 F 80 16 143/79 96 Intake and Output 03/15/24 03/15/24 03/15/24 06:59 14:59 22:59 Intake Total 1600 313 Output Total 250 100 Balance 1350 213 Intake: IV 1600 313 Output: Urine 100 Estimated Blood Loss 250 Other: Voiding Method Indwelling Catheter Weight 124.3 kg 124.3 kg Results CBC & Chem 7: 03/15/24 09:40 Labs: Abnormal Lab Results - Last 24 Hours (Table) 03/15/24 03/15/24 03/15/24 Range/Units 09:36 09:40 15:57 Glucose 138 H (74-99) mg/dL POC Glucose (mg/dL) 152 H 119 H (70-110) mg/dL
[2024-03-15] MEDS: DAPAGLIFLOZIN PROPANEDIOL 5 MG TABLET PO SCH (17:32)
[2024-03-15] MEDS: INSULIN ASPART (NovoLOG) 100 UNIT/ML VIAL SQ SCH (17:32)
[2024-03-15] MEDS: HYDROCORTISONE SUCCINATE 100 MG/2 ML VIAL IV SCH (17:42)
[2024-03-15 21:10] LABS: Glucose,Whole Blood 134 mg/dL (70-110)
[2024-03-16] MEDS: HEPARIN SODIUM,PORCINE 5,000 UNIT/ML 1 ML VIAL SQ SCH (01:29)
[2024-03-16 06:26] LABS: Glucose,Whole Blood 127 mg/dL (70-110)
[2024-03-16] MEDS: LEVOTHYROXINE 75 MCG TAB PO SCH (06:38)
[2024-03-16] MEDS: LOSARTAN 50 MG TAB PO SCH (08:27)
[2024-03-16] MEDS: amLODIPine 10 MG TAB PO SCH (08:27)
[2024-03-16 08:53] LABS: Basophils # (A) 0.02 X 10*3/uL (0.00-0.10); Basophils % (A) 0.2 %; Eosinophils # (A) 0.01 X 10*3/uL (0.04-0.35); Eosinophils % (A) 0.1 %; HCT 39.3 % (37.2-46.3); HGB 12.3 g/dL (12.0-15.0); Lymphocytes # (A) 0.49 X 10*3/uL (0.90-5.00); Lymphocytes % (A) 4.2 %; MCHC 31.3 g/dL (32.0-37.0); MCV 89.5 FL (80.0-97.0); Mean Platelet Volume 9.4 FL (9.5-12.2); Monocytes # (A) 1.01 X 10*3/uL (0.20-1.00); Monocytes % (A) 8.6 %; NRBC Per 100 WBC 0 X 10*3/uL (0.00-0.01); Neutrophils # (A) 10.09 X 10*3/uL (1.80-7.70); Neutrophils % (A) 86.3 %; Platelet Count 242 X 10*3/uL (140-440); RBC 4.39 X 10*6/uL (4.10-5.20); RDW 13.2 % (11.5-14.5); WBC 11.69 X 10*3/uL (4.50-10.00)
[2024-03-16 08:58] LABS: Blood Urea Nitrogen 14.1 mg/dL (9.0-27.0); Glucose 127 mg/dL (70-110)
[2024-03-16 08:59] LABS: ALT 34 U/L (8-44); AST 33 U/L (13-35); Albumin 3.8 g/dL (3.8-4.9); Albumin/Globulin Ratio 1.58 Ratio (1.60-3.17); Alkaline Phosphatase 58 U/L (41-126); Calcium 8.7 mg/dL (8.7-10.3); Carbon Dioxide 21.6 mmol/L (21.6-31.8); Chloride 105 mmol/L (96-109); Globulin 2.4 g/dL (1.6-3.3); Potassium 5.2 mmol/L (3.5-5.5); Sodium 140 mmol/L (135-145); Total Bilirubin 0.5 mg/dL (0.3-1.2); Total Protein 6.2 g/dL (6.2-8.2)
--- NOTE | 2024-03-16 11:53 | P.PN ---
Progress Note - Text 03/16/24 641am 58-year-old female status post explore lap. Patient has an epidural catheter for postop pain control with a solution running at 7 cc an hour with a VAS of 4, no motor or sensory deficit noted. Plan to continue epidural infusion
[2024-03-16 11:58] LABS: Glucose,Whole Blood 117 mg/dL (70-110)
--- NOTE | 2024-03-16 13:44 | P.PN ---
Subjective Progress Note Date: 03/16/24 Subjective Patient seen this morning she had no acute complaints. Patient states that last time she was in the hospital she had an adrenal crisis. She states that she only has 1 adrenal gland. Patient states that her last admission she was told to get an ACTH stimulation test however she was unable to get this done because her insurance denied it. 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 CUTTER - Moving all 4 extremities spontaneously Psych - Calm and cooperative Assessment and plan Status post exploratory laparotomy with unsuccessful reversal of her colostomy on 03/15/2024 hx perforated diverticulitis, history of her reversal colostomy, partial omentectomy, takedown of splenic flexure on 07/25/23 -As per your surgical management, pain medications -VTE prophylaxis per surgical team -PT OT -Incentive spirometry hx of adrenal crisis history of adrenal gland resection due to adrenal mass -Patient was off all steroids for some time and was started back on 5 mg of hydrocortisone by her primary care physician preoperatively, received stress dose presurgically, ordered hydrocortisone 50 mg every 6 hours, further dosing to be determined pending clinical progress. Patient's blood pressure this morning was 90/58. Low blood pressure could also be due to pain medications. Once blood pressure improves well transition to oral hydrocortisone and will taper off gradually. hypertension: Hold BP meds as blood pressure is on the low side. Holding amlodipine and losartan hypothyroidism: Continue levothyroxine 75 mcg p.o. daily type II DM: SSI ordered, will continue Jardiance, hold metformin. Please range is [id number]. Controlled Morbid obesity: Encourage weight loss BARBRA on CPAP: Continue CPAP CODE STATUS:[] Full code DVT prophylaxis: Per surgical team Objective - Vital Signs Vital signs: Vital Signs Temp 99.0 F 03/16/24 07:00 Pulse 89 03/16/24 07:00 Resp 18 03/16/24 10:09 BP 90/58 03/16/24 07:00 Pulse Ox 92 L 03/16/24 07:00 FiO2 21 03/16/24 03:35 Intake & Output 03/15/24 03/16/24 03/16/24 18:59 06:59 18:59 Intake Total 1930.467 Output Total 600 300 Balance 1330.467 -300 Weight 124.3 kg Intake: IV 1913 Intake, IV Titration 17.467 Amount Ropivacaine 250 mg 17.467 Hydromorphone (Pf) 5 mg In Sodium Chloride 0.9% 200 ml @ Per Protocol EPIDURAL .Q0M PRN Rx#: [id number] Output: Urine 350 300 Estimated Blood Loss 250 Other: Voiding Method Indwelling Catheter Indwelling Catheter Indwelling Catheter - Labs CBC & Chem 7: 03/16/24 03:08 03/16/24 03:08 Labs: Abnormal Lab Results - Last 24 Hours (Table) 03/15/24 03/15/24 03/16/24 Range/Units 15:57 21:08 03:08 WBC 11.69 H (4.50-10.00) X 10*3/uL MCHC 31.3 L (32.0-37.0) g/dL MPV 9.4 L (9.5-12.2) FL Immature Gran # 0.07 H (0.00-0.04) X 10*3/uL Neutrophils # 10.09 H (1.80-7.70) X 10*3/uL Lymphocytes # 0.49 L (0.90-5.00) X 10*3/uL Monocytes # 1.01 H (0.20-1.00) X 10*3/uL Eosinophils # 0.01 L (0.04-0.35) X 10*3/uL Anion Gap (4.00-12.00) mmol/L Glucose (70-110) mg/dL POC Glucose (mg/dL) 119 H 134 H (70-110) mg/dL Albumin/Globulin Ratio (1.60-3.17) Ratio 03/16/24 03/16/24 03/16/24 Range/Units 03:08 06:25 11:56 WBC (4.50-10.00) X 10*3/uL MCHC (32.0-37.0) g/dL MPV (9.5-12.2) FL Immature Gran # (0.00-0.04) X 10*3/uL Neutrophils # (1.80-7.70) X 10*3/uL Lymphocytes # (0.90-5.00) X 10*3/uL Monocytes # (0.20-1.00) X 10*3/uL Eosinophils # (0.04-0.35) X 10*3/uL Anion Gap 13.40 H (4.00-12.00) mmol/L Glucose 127 H (70-110) mg/dL POC Glucose (mg/dL) 127 H 117 H (70-110) mg/dL Albumin/Globulin Ratio 1.58 L (1.60-3.17) Ratio
--- NOTE | 2024-03-16 14:37 | P.PN ---
Subjective Progress Note Date: 03/16/24 SURGICAL PROGRESS NOTE CHIEF COMPLAINT: History of perforated diverticulitis HISTORY OF PRESENT ILLNESS: Patient is postop day# 1 status post exploratory laparotomy, attempted reversal of colostomy, lysis of extensive adhesions, repair of incisional hernia and repair of parastomal hernia. Afebrile. Hy potensive. BP 90/56 WBC 6.9 Hgb 12.3 sodium 140 potassium is 5.2 creatinine 1.0. Urine is dark. PHYSICAL EXAM: VITAL SIGNS: Reviewed. GENERAL: Well-developed in no acute distress. ABDOMEN: Soft. Nondistended. Tender at incision sites. Patient has Prevena wound VAC in place. Patient with new colostomy up on the left side of the abdomen. Serosanguineous drainage. NEUROLOGIC: Alert and oriented. Cranial nerves II through XII grossly intact. ASSESSMENT: 1. History of perforated diverticulitis 2. Hypotension PLAN: -Keep patient n.p.o. -1 L IV fluid bolus ordered for hypotension and dark urine output -Hypotension also may be due to the epidural. Nursing staff is decreasing rate of the epidural and anesthesia has been notified -Continue IV fluids -Agree with holding BP meds -Encourage patient to increase activity level -Encourage patient to use incentive spirometer -DVT prophylaxis subcu heparin and GI prophylaxis pepcid Physician Adjunct Instructor Chemistry note has been reviewed by physician. Signing provider agrees with the documented findings, assessment, and plan of care. Objective - Vital Signs Vital signs: Vital Signs Temp 99.0 F 03/16/24 07:00 Pulse 89 03/16/24 07:00 Resp 18 03/16/24 10:09 BP 90/58 03/16/24 07:00 Pulse Ox 92 L 03/16/24 07:00 FiO2 21 03/16/24 03:35 Intake & Output 03/15/24 03/16/24 03/16/24 18:59 06:59 18:59 Intake Total 1930.467 Output Total 600 300 Balance 1330.467 -300 Weight 124.3 kg Intake: IV 1913 Intake, IV Titration 17.467 Amount Ropivacaine 250 mg 17.467 Hydromorphone (Pf) 5 mg In Sodium Chloride 0.9% 200 ml @ Per Protocol EPIDURAL .Q0M PRN Rx#: [id number] Output: Urine 350 300 Estimated Blood Loss 250 Other: Voiding Method Indwelling Catheter Indwelling Catheter Indwelling Catheter - Labs CBC & Chem 7: 03/16/24 03:08 03/16/24 03:08 Labs: Abnormal Lab Results - Last 24 Hours (Table) 03/15/24 03/15/24 03/16/24 Range/Units 15:57 21:08 03:08 WBC 11.69 H (4.50-10.00) X 10*3/uL MCHC 31.3 L (32.0-37.0) g/dL MPV 9.4 L (9.5-12.2) FL Immature Gran # 0.07 H (0.00-0.04) X 10*3/uL Neutrophils # 10.09 H (1.80-7.70) X 10*3/uL Lymphocytes # 0.49 L (0.90-5.00) X 10*3/uL Monocytes # 1.01 H (0.20-1.00) X 10*3/uL Eosinophils # 0.01 L (0.04-0.35) X 10*3/uL Anion Gap (4.00-12.00) mmol/L Glucose (70-110) mg/dL POC Glucose (mg/dL) 119 H 134 H (70-110) mg/dL Albumin/Globulin Ratio (1.60-3.17) Ratio 03/16/24 03/16/24 03/16/24 Range/Units 03:08 06:25 11:56 WBC (4.50-10.00) X 10*3/uL MCHC (32.0-37.0) g/dL MPV (9.5-12.2) FL Immature Gran # (0.00-0.04) X 10*3/uL Neutrophils # (1.80-7.70) X 10*3/uL Lymphocytes # (0.90-5.00) X 10*3/uL Monocytes # (0.20-1.00) X 10*3/uL Eosinophils # (0.04-0.35) X 10*3/uL Anion Gap 13.40 H (4.00-12.00) mmol/L Glucose 127 H (70-110) mg/dL POC Glucose (mg/dL) 127 H 117 H (70-110) mg/dL Albumin/Globulin Ratio 1.58 L (1.60-3.17) Ratio
[2024-03-16] MEDS: SODIUM CHLORIDE 0.9% 1,000 ML IV ONE (14:38)
[2024-03-16] MEDS: ONDANSETRON 4 MG/2 ML VIAL IVP PRN (15:50)
[2024-03-16 16:46] LABS: Glucose,Whole Blood 107 mg/dL (70-110)
[2024-03-16] MEDS: FAMOTIDINE 20 MG/2 ML VIAL IV SCH (20:06)
[2024-03-16 20:39] LABS: Glucose,Whole Blood 118 mg/dL (70-110)
[2024-03-17 06:13] LABS: Glucose,Whole Blood 152 mg/dL (70-110)
--- NOTE | 2024-03-17 06:43 | P.PN ---
Progress Note - Text Progress Note Date: 03/17/24 Patient was seen and evaluated at bedside. Postop day # 2 status post exploratory laparotomy, Lysis of extensive adhesions , hernia repair . Patient is comfortably lying on the bed. Rated pain levels are 3-4 out of 10 in severity. Moving extremities well without any difficulty. He denied any red flag symptoms, pain over the catheter site. Physical exam: Vital signs: stable, afebrile Catheter site: Clean, and intact Dressing. no tenderness over the catheter area. Moving lower extremities without difficulty. LAbs ; Platelets ; 242 Heparin : 5000 units s/c Q8 H Assessment: Acute postoperative pain secondary to exploratory laparotomy, Lysis of extensive adhesions , hernia repair Plan: Change heparin 5000 units subcutaneous dose from every 8 hours to every 12 hours. Continue epidural infusion solution. We will continue epidural catheter one more day unless primary team planned to send the patient home then we will discontinue. Call anesthesia as needed
[2024-03-17] MEDS: HYDROCORTISONE 10 MG TAB PO SCH ×2 (10:14→15:45)
--- NOTE | 2024-03-17 11:21 | P.PN ---
Subjective Progress Note Date: 03/17/24 Subjective Patient seen this morning she had no acute complaints. Patient states that last time she was in the hospital she had an adrenal crisis. She states that she only has 1 adrenal gland. Patient states that her last admission she was told to get an ACTH stimulation test however she was unable to get this done because her insurance denied it. 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 CONSULTANT - Moving all 4 extremities spontaneously Psych - Calm and cooperative Assessment and plan Status post exploratory laparotomy with unsuccessful reversal of her colostomy on 03/15/2024 hx perforated diverticulitis, history of her reversal colostomy, partial omentectomy, takedown of splenic flexure on 07/25/23 -As per your surgical management, pain medications -VTE prophylaxis per surgical team -PT OT -Incentive spirometry hx of adrenal crisis history of adrenal gland resection due to adrenal mass This morning blood pressure is good at 117/75 Will taper her off hydrocortisone Will start the patient on hydrocortisone 50/25 mg for 3 days and then 30/20 mg for 3 days and then 20/10 mg for 3days and have her follow-up with her PCP. Postop hypoxia Currently patient is on 5 L nasal cannula. Encourage use of incentive spirometer. Patient does not appear to be in any respiratory distress. Wean her off the epidural as soon as possible. hypertension: Hold BP meds as blood pressure is on the low side. Holding amlodipine and losartan hypothyroidism: Continue levothyroxine 75 mcg p.o. daily type II DM: SSI ordered, will continue Jardiance, hold metformin. Please range is [id number]. Controlled Morbid obesity: Encourage weight loss BARBRA on CPAP: Continue CPAP CODE STATUS:[] Full code DVT prophylaxis: Per surgical team Objective - Vital Signs Vital signs: Vital Signs Temp 98.6 F 03/17/24 07:44 Pulse 81 03/17/24 07:44 Resp 19 03/17/24 07:44 BP 117/75 03/17/24 07:44 Pulse Ox 94 L 03/17/24 09:36 FiO2 21 03/16/24 03:35 Intake & Output 03/16/24 03/17/24 03/17/24 18:59 06:59 18:59 Intake Total 144.667 Output Total 600 675 Balance -455.333 -675 Intake: Intake, IV Titration 144.667 Amount Ropivacaine 250 mg 144.667 Hydromorphone (Pf) 5 mg In Sodium Chloride 0.9% 200 ml @ Per Protocol EPIDURAL .Q0M PRN Rx#: [id number] Output: Urine 600 675 Other: Voiding Method Indwelling Catheter Indwelling Catheter - Labs CBC & Chem 7: 03/16/24 03:08 03/16/24 03:08 Labs: Abnormal Lab Results - Last 24 Hours (Table) 03/16/24 03/16/24 03/17/24 Range/Units 11:56 20:37 06:08 POC Glucose (mg/dL) 117 H 118 H 152 H (70-110) mg/dL
[2024-03-17 11:32] LABS: Glucose,Whole Blood 112 mg/dL (70-110)
--- NOTE | 2024-03-17 11:43 | P.PN ---
Subjective Progress Note Date: 03/17/24 SURGICAL PROGRESS NOTE CHIEF COMPLAINT: History of perforated diverticulitis HISTORY OF PRESENT ILLNESS: Patient is postop day# 2 status post exploratory laparotomy, attempted reversal of colostomy, lysis of extensive adhesions, repair of incisional hernia and repair of parastomal hernia. Afebrile. Hy potension did improve with IV fluid bolus yesterday. Epidural was decreased to 6. Urine output improving. Patient reports her pain is controlled. No output from the ostomy. She did report a mild cough. Denies any nausea or vomiting. Patient was on 5 L of oxygen satting at 94%. Patient also scrunched in bed. PHYSICAL EXAM: VITAL SIGNS: Reviewed. GENERAL: Well-developed in no acute distress. ABDOMEN: Soft. Nondistended. Tender at incision sites. Patient has Prevena wound VAC in place. Patient with new colostomy up on the left side of the abdomen. Serosanguineous drainage. No stool output NEUROLOGIC: Alert and oriented. Cranial nerves II through XII grossly intact. ASSESSMENT: 1. History of perforated diverticulitis 2. Hypotension improved with IV fluids and could also be related to the epidural PLAN: -Keep patient n.p.o. -Continue IV fluids -Encourage patient to increase activity level -Encourage patient to use incentive spirometer -DVT prophylaxis subcu heparin and GI prophylaxis pepcid Physician Dock Coordinator note has been reviewed by physician. Signing provider agrees with the documented findings, assessment, and plan of care. Objective - Vital Signs Vital signs: Vital Signs Temp 98.6 F 03/17/24 07:44 Pulse 81 03/17/24 07:44 Resp 19 03/17/24 07:44 BP 117/75 03/17/24 07:44 Pulse Ox 94 L 03/17/24 09:36 FiO2 21 03/16/24 03:35 Intake & Output 03/16/24 03/17/24 03/17/24 18:59 06:59 18:59 Intake Total 144.667 Output Total 600 675 Balance -455.333 -675 Intake: Intake, IV Titration 144.667 Amount Ropivacaine 250 mg 144.667 Hydromorphone (Pf) 5 mg In Sodium Chloride 0.9% 200 ml @ Per Protocol EPIDURAL .Q0M PRN Rx#: [id number] Output: Urine 600 675 Other: Voiding Method Indwelling Catheter Indwelling Catheter - Labs CBC & Chem 7: 03/16/24 03:08 03/16/24 03:08 Labs: Abnormal Lab Results - Last 24 Hours (Table) 03/16/24 03/16/24 03/17/24 Range/Units 11:56 20:37 06:08 POC Glucose (mg/dL) 117 H 118 H 152 H (70-110) mg/dL 03/17/24 Range/Units 11:30 POC Glucose (mg/dL) 112 H (70-110) mg/dL
[2024-03-17 12:03] LABS: Basophils % (A) 0 %; Eosinophils # (A) 0.2 k/uL (0-0.7); Eosinophils % (A) 2 %; HCT 34.1 % (34.0-46.0); HGB 10.8 gm/dL (11.4-16.0); Hypochromasia Slight; Lymphocytes % (A) 9 %; MCH 28.7 pg (25.0-35.0); MCHC 31.6 g/dL (31.0-37.0); MCV 90.8 fL (80.0-100.0); Mean Platelet Volume 6.6; Monocytes # (A) 0.5 k/uL (0-1.0); Monocytes % (A) 5 %; Neutrophils # (A) 8.9 k/uL (1.3-7.7); Neutrophils % (A) 83 %; Platelet Count 199 k/uL (150-450); RBC 3.76 m/uL (3.80-5.40); RDW 13.2 % (11.5-15.5); WBC 10.8 k/uL (3.8-10.6)
[2024-03-17 16:23] LABS: Glucose,Whole Blood 115 mg/dL (70-110)
[2024-03-17 20:06] LABS: Glucose,Whole Blood 106 mg/dL (70-110)
[2024-03-18 04:43] LABS: Basophils % (A) 0 %; Eosinophils # (A) 0.4 k/uL (0-0.7); Eosinophils % (A) 4 %; HCT 30.4 % (34.0-46.0); Lymphocytes # (A) 0.9 k/uL (1.0-4.8); Lymphocytes % (A) 10 %; MCH 29.5 pg (25.0-35.0); MCHC 32.9 g/dL (31.0-37.0); MCV 89.6 fL (80.0-100.0); Mean Platelet Volume 7.7; Monocytes # (A) 0.5 k/uL (0-1.0); Monocytes % (A) 6 %; Neutrophils # (A) 6.6 k/uL (1.3-7.7); Neutrophils % (A) 78 %; Platelet Count 199 k/uL (150-450); RDW 13.5 % (11.5-15.5); WBC 8.4 k/uL (3.8-10.6)
[2024-03-18 04:57] LABS: African American GFR (CKD) >90 (>60 ml/min/1.73 sqM); Anion Gap 0 mmol/L; Blood Urea Nitrogen 13 mg/dL (7-17); Calcium 8.1 mg/dL (8.4-10.2); Carbon Dioxide 28 mmol/L (22-30); Chloride 106 mmol/L (98-107); Glucose 93 mg/dL (74-99); Non-African American GFR(CKD) >90 (>60 ml/min/1.73 sqM); Potassium 4.5 mmol/L (3.5-5.1); Sodium 134 mmol/L (137-145)
[2024-03-18 06:37] LABS: Glucose,Whole Blood 94 mg/dL (70-110)
--- NOTE | 2024-03-18 07:30 | P.PN ---
Progress Note - Text Adequate analgesia.No epidural complication.
[2024-03-18 11:30] LABS: Glucose,Whole Blood 98 mg/dL (70-110)
--- NOTE | 2024-03-18 11:42 | XR ---
EXAMINATION TYPE: XR chest 1V portable DATE OF EXAM: 03/18/2024 11:22 AM COMPARISON: 07/28/2023 CLINICAL INDICATION: Female, 58 years old with history of hypoxia; TECHNIQUE: XR chest 1V portable Frontal view of the chest. FINDINGS: Lungs/Pleura: There is no evidence of pleural effusion, focal consolidation, or pneumothorax. Pulmonary vascularity: Unremarkable. Heart/mediastinum: Cardiomediastinal silhouette is unremarkable. Musculoskeletal: No acute osseous pathology. IMPRESSION: No acute cardiopulmonary disease/process. [facility], , 03/18/2024 11:39 AM
--- NOTE | 2024-03-18 12:31 | P.PN ---
Subjective Progress Note Date: 03/18/24 Subjective Patient seen this morning. She is still on 5 L nasal cannula. Blood pressures on the low side. She is still on the epidural. She states that she is passing gas. Patient denies any shortness of breath. She states that she has some sputum when she coughs up. She does not feel congested. 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 Continue with hydrocortisone 50/25 mg for 3 days and then 30/20 mg for 3 days and then 20/10 mg for 3days and have her follow-up with her PCP. Postop hypoxia secondary to atelectasis Currently patient is on 5 L nasal cannula. I independently interpreted the chest x-ray that shows no acute process this morning. Patient encouraged to use the spirometer. Patient does not appear to be in any respiratory distress. Wean her off the epidural as soon as possible. hypertension: Hold BP meds as blood pressure is on the low side. Holding amlodipine and losartan hypothyroidism: Continue levothyroxine 75 mcg p.o. daily type II DM: SSI ordered, will continue Jardiance, hold metformin. Controlled Morbid obesity: Encourage weight loss BARBRA on CPAP: Continue CPAP CODE STATUS:[] Full code DVT prophylaxis: Per surgical team Objective - Vital Signs Vital signs: Vital Signs Temp 97.5 F L 03/18/24 07:41 Pulse 69 03/18/24 07:41 Resp 18 03/18/24 07:41 BP 119/73 03/18/24 07:41 Pulse Ox 93 L 03/18/24 07:41 FiO2 21 03/16/24 03:35 Intake & Output 03/17/24 03/18/24 03/18/24 18:59 06:59 18:59 Intake Total 196.5 Output Total 350 1200 Balance -350 -1003.5 Intake: Intake, IV Titration 196.5 Amount Ropivacaine 250 mg 196.5 Hydromorphone (Pf) 5 mg In Sodium Chloride 0.9% 200 ml @ Per Protocol EPIDURAL .Q0M PRN Rx#: [id number] Output: Urine 350 1200 Other: Voiding Method Indwelling Catheter Indwelling Catheter Indwelling Catheter - Labs CBC & Chem 7: 03/18/24 04:19 03/18/24 04:19 Labs: Abnormal Lab Results - Last 24 Hours (Table) 03/17/24 03/18/24 03/18/24 Range/Units 16:20 04:19 04:19 RBC 3.40 L (3.80-5.40) m/uL Hgb 10.0 L (11.4-16.0) gm/dL Hct 30.4 L (34.0-46.0) % Lymphocytes # 0.9 L (1.0-4.8) k/uL Sodium 134 L (137-145) mmol/L POC Glucose (mg/dL) 115 H (70-110) mg/dL Calcium 8.1 L (8.4-10.2) mg/dL
--- NOTE | 2024-03-18 14:11 | P.PN ---
Subjective Progress Note Date: 03/18/24 SURGICAL PROGRESS NOTE CHIEF COMPLAINT: History of perforated diverticulitis HISTORY OF PRESENT ILLNESS: Patient is postop day# 3 status post exploratory laparotomy, attempted reversal of colostomy, lysis of extensive adhesions, repair of incisional hernia and repair of parastomal hernia. Her pain is c ontrolled. She denies any nausea or vomiting. She is having flatus in her colostomy bag. Afebrile. BP stable. Good urine output. Patient is now on 4 L of oxygen. Patient seen and examined with Dr. Chauhan PHYSICAL EXAM: VITAL SIGNS: Reviewed. GENERAL: Well-developed in no acute distress. ABDOMEN: Soft. Nondistended. Tender at incision sites. Patient has Prevena wound VAC in place. Patient with new colostomy up on the left side of the abdomen with air present in colostomy bag NEUROLOGIC: Alert and oriented. Cranial nerves II through XII grossly intact. ASSESSMENT: 1. History of perforated diverticulitis 2. 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 Signing provider agrees with the documented findings, assessment, and plan of care. Objective - Vital Signs Vital signs: Vital Signs Temp 97.5 F L 03/18/24 07:41 Pulse 69 03/18/24 07:41 Resp 18 03/18/24 07:41 BP 119/73 03/18/24 07:41 Pulse Ox 93 L 03/18/24 07:41 FiO2 21 03/16/24 03:35 Intake & Output 03/17/24 03/18/24 03/18/24 18:59 06:59 18:59 Intake Total 196.5 Output Total 350 1200 Balance -350 -1003.5 Intake: Intake, IV Titration 196.5 Amount Ropivacaine 250 mg 196.5 Hydromorphone (Pf) 5 mg In Sodium Chloride 0.9% 200 ml @ Per Protocol EPIDURAL .Q0M PRN Rx#: [id number] Output: Urine 350 1200 Other: Voiding Method Indwelling Catheter Indwelling Catheter Indwelling Catheter - Labs CBC & Chem 7: 03/18/24 04:19 03/18/24 04:19 Labs: Abnormal Lab Results - Last 24 Hours (Table) 03/17/24 03/17/24 03/18/24 Range/Units 11:50 16:20 04:19 WBC 10.8 H (3.8-10.6) k/uL RBC 3.76 L 3.40 L (3.80-5.40) m/uL Hgb 10.8 L 10.0 L (11.4-16.0) gm/dL Hct 30.4 L (34.0-46.0) % Neutrophils # 8.9 H (1.3-7.7) k/uL Lymphocytes # 0.9 L (1.0-4.8) k/uL Sodium (137-145) mmol/L POC Glucose (mg/dL) 115 H (70-110) mg/dL Calcium (8.4-10.2) mg/dL 03/18/24 Range/Units 04:19 WBC (3.8-10.6) k/uL RBC (3.80-5.40) m/uL Hgb (11.4-16.0) gm/dL Hct (34.0-46.0) % Neutrophils # (1.3-7.7) k/uL Lymphocytes # (1.0-4.8) k/uL Sodium 134 L (137-145) mmol/L POC Glucose (mg/dL) (70-110) mg/dL Calcium 8.1 L (8.4-10.2) mg/dL
[2024-03-18 16:32] LABS: Glucose,Whole Blood 91 mg/dL (70-110)
[2024-03-18 20:36] LABS: Glucose,Whole Blood 123 mg/dL (70-110)
[2024-03-18] MEDS: HYDROmorphone 1 MG/ML 1 ML SYRINGE IVP PRN (22:08)
[2024-03-19] MEDS: HYDROcodone/APAP 5-325MG 1 EACH TAB PO PRN (01:46)
[2024-03-19 06:55] LABS: Glucose,Whole Blood 91 mg/dL (70-110)
[2024-03-19 08:13] LABS: Basophils % (A) 0 %; Eosinophils # (A) 0.3 k/uL (0-0.7); Eosinophils % (A) 4 %; HCT 31.2 % (34.0-46.0); Lymphocytes % (A) 14 %; MCH 28.4 pg (25.0-35.0); MCV 88.8 fL (80.0-100.0); Monocytes # (A) 0.4 k/uL (0-1.0); Monocytes % (A) 6 %; Neutrophils # (A) 5.3 k/uL (1.3-7.7); Neutrophils % (A) 75 %; Platelet Count 241 k/uL (150-450); RBC 3.52 m/uL (3.80-5.40); RDW 12.9 % (11.5-15.5)
[2024-03-19 08:26] LABS: African American GFR (CKD) >90 (>60 ml/min/1.73 sqM); Anion Gap 1 mmol/L; Blood Urea Nitrogen 13 mg/dL (7-17); Calcium 8.2 mg/dL (8.4-10.2); Carbon Dioxide 30 mmol/L (22-30); Chloride 103 mmol/L (98-107); Glucose 96 mg/dL (74-99); Non-African American GFR(CKD) >90 (>60 ml/min/1.73 sqM); Potassium 4.2 mmol/L (3.5-5.1); Sodium 134 mmol/L (137-145)
--- NOTE | 2024-03-19 10:34 | P.PN ---
Subjective Progress Note Date: 03/19/24 SURGICAL PROGRESS NOTE CHIEF COMPLAINT: History of perforated diverticulitis HISTORY OF PRESENT ILLNESS: Patient is postop day# 4 status post exploratory laparotomy, attempted reversal of colostomy, lysis of extensive adhesions, repair of incisional hernia and repair of parastomal hernia. Patient having issues with urinary retention after Lees catheter discontinued yesterday. Patient was straight cath for 1100 this morning. Nursing staff had difficulty placing Lees catheter due to swelling at the urethra. Urology has been consulted. Epidural was discontinued yesterday. Patient continues to have flatus from her ostomy. No stool output yet. Pain is controlled. Afebrile. BP stable. On 4 L of oxygen. Chest x-ray no acute cardiopulmonary disease/process. WBC 7.0 Hgb 10 platelets 241 PHYSICAL EXAM: VITAL SIGNS: Reviewed. GENERAL: Well-developed in no acute distress. ABDOMEN: Soft. Nondistended. Tender at incision sites. Patient has Prevena wound VAC in place. Patient with new colostomy up on the left side of the abdomen with air present in colostomy bag. Stoma beefy red. NEUROLOGIC: Alert and oriented. Cranial nerves II through XII grossly intact. ASSESSMENT: 1. History of perforated diverticulitis 2. Hypotension improved with IV fluids and could also have been related to the epidural. BP improved 3. Urinary retention 4. Atelectasis PLAN: -Urology consulted in regards to urinary retention and difficultly with placing catheter -Continue clear liquid diet -Continue pain management -Decrease IV fluids to 75 mL/h -Encourage patient to increase activity level -Encourage patient to use incentive spirometer -DVT prophylaxis subcu heparin and GI prophylaxis pepcid Physician Financial Engineer note has been reviewed by physician. Signing provider agrees with the documented findings, assessment, and plan of care. Objective - Vital Signs Vital signs: Vital Signs Temp 98.1 F 03/19/24 07:01 Pulse 55 L 03/19/24 07:01 Resp 20 03/19/24 07:01 BP 118/74 03/19/24 07:01 Pulse Ox 98 03/19/24 07:01 FiO2 21 03/16/24 03:35 Intake & Output 03/18/24 03/19/24 03/19/24 18:59 06:59 18:59 Output Total 325 1100 736 Balance -325 -1100 -736 Output: Urine 325 1100 Straight 1100 Post Void Residual 736 Other: Voiding Method Indwelling Catheter - Labs CBC & Chem 7: 03/19/24 07:55 03/19/24 07:55 Labs: Abnormal Lab Results - Last 24 Hours (Table) 03/18/24 03/19/24 03/19/24 Range/Units 20:33 07:55 07:55 RBC 3.52 L (3.80-5.40) m/uL Hgb 10.0 L (11.4-16.0) gm/dL Hct 31.2 L (34.0-46.0) % Sodium 134 L (137-145) mmol/L POC Glucose (mg/dL) 123 H (70-110) mg/dL Calcium 8.2 L (8.4-10.2) mg/dL
[2024-03-19 11:38] LABS: Glucose,Whole Blood 123 mg/dL (70-110)
--- NOTE | 2024-03-19 12:46 | P.PN ---
Subjective Progress Note Date: 03/19/24 Subjective Patient seen this morning. She denies any shortness of breath. I encouraged the patient to get out of the bed and to ambulate how she was at home. Patient states that she is not able to urinate. 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 Psych - Calm and cooperative Assessment and plan Status post exploratory laparotomy with unsuccessful reversal of her colostomy on 03/15/2024 hx perforated diverticulitis, history of her reversal colostomy, partial om entectomy, takedown of splenic flexure on 07/25/23 -As per your surgical management, pain medications -VTE prophylaxis per surgical team -PT OT -Incentive spirometry -Patient is now off epidural hx of adrenal crisis history of adrenal gland resection due to adrenal mass Blood pressure this morning is normotensive Continue with hydrocortisone 50/25 mg for 2 days and then 30/20 mg for 3 days and then 20/10 mg for 3days and have her follow-up with her PCP. Postop hypoxia secondary to atelectasis Currently patient is on 5 L nasal cannula. I independently interpreted the chest x-ray that shows no acute process this morning. Patient encouraged to use the spirometer and to also ambulate. Patient does not appear to be in any respiratory distress. Urinary retention Patient is difficult Lees catheter placement so urology consulted hypertension: Hold BP meds as blood pressure is on the low side. Holding amlodipine and losartan hypothyroidism: Continue levothyroxine 75 mcg p.o. daily type II DM: SSI ordered, will continue Jardiance, hold metformin. Controlled Morbid obesity: Encourage weight loss BARBRA on CPAP: Continue CPAP CODE STATUS:[] Full code DVT prophylaxis: Per surgical team Objective - Vital Signs Vital signs: Vital Signs Temp 98.1 F 03/19/24 07:01 Pulse 55 L 03/19/24 07:01 Resp 20 03/19/24 07:01 BP 118/74 03/19/24 07:01 Pulse Ox 98 03/19/24 07:01 FiO2 21 03/16/24 03:35 Intake & Output 03/18/24 03/19/24 03/19/24 18:59 06:59 18:59 Output Total 325 1100 1985 Balance -325 -1100 -1985 Output: Urine 325 1100 1250 Straight 1100 Post Void Residual 736 Other: Voiding Method Indwelling Catheter - Labs CBC & Chem 7: 03/19/24 07:55 03/19/24 07:55 Labs: Abnormal Lab Results - Last 24 Hours (Table) 03/18/24 03/19/24 03/19/24 Range/Units 20:33 07:55 07:55 RBC 3.52 L (3.80-5.40) m/uL Hgb 10.0 L (11.4-16.0) gm/dL Hct 31.2 L (34.0-46.0) % Sodium 134 L (137-145) mmol/L POC Glucose (mg/dL) 123 H (70-110) mg/dL Calcium 8.2 L (8.4-10.2) mg/dL 03/19/24 Range/Units 11:37 RBC (3.80-5.40) m/uL Hgb (11.4-16.0) gm/dL Hct (34.0-46.0) % Sodium (137-145) mmol/L POC Glucose (mg/dL) 123 H (70-110) mg/dL Calcium (8.4-10.2) mg/dL
[2024-03-19 17:11] LABS: Glucose,Whole Blood 137 mg/dL (70-110)
--- NOTE | 2024-03-19 17:12 | P.GSCN ---
History of Present Illness Consult date: 03/19/24 Reason for Consult: Urinary retention History of present illness: This is a 58-year-old female with postoperative urinary retention. She under went exploratory laparotomy and attempted colostomy reversal on December [address] Harden. Patient had a Lees catheter removed today, she has been unable to void following catheter removal. At baseline she denies any voiding dysfunction, no history of recurrent UTIs or previous history of urinary retention. Her postvoid residual was greater than 800 mL and subsequently a Lees catheter was placed Review of Systems - Constitutional Denies fever, Denies weight loss - EENT Ears, nose, mouth and throat: Denies dysphagia - Cardiovascular Denies chest pain, Denies shortness of breath - Respiratory Denies cough, Denies 7 - Gastrointestinal Denies abdominal pain, Denies nausea, Denies vomiting - Genitourinary Genitourinary: Denies dysuria, Denies flank pain, Denies hematuria - Neurological Denies headaches, Denies syncope Past Medical History Past Medical History: Diabetes Mellitus, Hypertension, Sleep Apnea/CPAP/BIPAP, Thyroid Disorder Additional Past Medical History / Comment(s): diverticulitis, Type II DM, hypothyroidism, low cortisol levels post surgery July 2023, in process of g etting CPAP for sleep apnea History of Any Multi-Drug Resistant Organisms: None Reported Past Surgical History: Section, Hysterectomy Additional Past Surgical History / Comment(s): left adrenal gland removed 2013, bowel resection w/ colostomy 2023, colostomy reversal attempt July/2023, attempted colostomy reversal, hernia repair, creation of new stoma on 03/15/24 Past Anesthesia/Blood Transfusion Reactions: No Reported Reaction Smoking Status: Never smoker - Past Family History Mother Family Medical History: Cancer, Diabetes Mellitus Additional Family Medical History / Comment(s): "heart issues", bowel CA Father Additional Family Medical History / Comment(s): Crohn's disease Medications and Allergies Home Medications Medication Instructions Recorded Confirmed Type Empagliflozin [Jardiance] 10 mg PO W/SUPPER 04/08/23 03/11/24 History Levothyroxine Sodium [Synthroid] 75 mcg PO DAILY 04/08/23 03/11/24 History Losartan Potassium [Cozaar] 100 mg PO DAILY 04/08/23 03/11/24 History amLODIPine [Norvasc] 10 mg PO DAILY 04/08/23 03/11/24 History metFORMIN HCL ER [Glucophage XR] 500 mg PO DAILY 04/08/23 03/11/24 History Hydrocortisone 5 mg PO DAILY 02/19/24 03/11/24 History Allergies Allergy/AdvReac Type Severity Reaction Status Date / Time No Known Allergies Allergy Verified 03/11/24 15:33 Surgical - Exam Vital Signs Temp Pulse Resp BP Pulse Ox 97.6 F 80 16 143/79 96 03/15/24 09:20 03/15/24 09:20 03/15/24 09:20 03/15/24 09:20 03/15/24 09:20 - General no distress, no pain - Eyes normal ocular movement, no pale - ENT normal nares, normal mucosa - Respiratory normal expansion, normal respiratory effort - Abdomen Abdomen: soft, non tender - Psychiatric oriented to time, oriented to person, oriented to place Results - Labs 03/19/24 07:55 03/19/24 07:55 Abnormal Lab Results - Last 24 Hours (Table) 03/18/24 03/19/24 03/19/24 Range/Units 20:33 07:55 07:55 RBC 3.52 L (3.80-5.40) m/uL Hgb 10.0 L (11.4-16.0) gm/dL Hct 31.2 L (34.0-46.0) % Sodium 134 L (137-145) mmol/L POC Glucose (mg/dL) 123 H (70-110) mg/dL Calcium 8.2 L (8.4-10.2) mg/dL 03/19/24 Range/Units 11:37 RBC (3.80-5.40) m/uL Hgb (11.4-16.0) gm/dL Hct (34.0-46.0) % Sodium (137-145) mmol/L POC Glucose (mg/dL) 123 H (70-110) mg/dL Calcium (8.4-10.2) mg/dL Diabetes panel 03/19/24 Range/Units 07:55 Sodium 134 L (137-145) mmol/L Potassium 4.2 (3.5-5.1) mmol/L Chloride 103 (98-107) mmol/L Carbon Dioxide 30 (22-30) mmol/L BUN 13 (7-17) mg/dL Creatinine 0.61 (0.52-1.04) mg/dL Glucose 96 (74-99) mg/dL Calcium 8.2 L (8.4-10.2) mg/dL Calcium panel 03/19/24 Range/Units 07:55 Calcium 8.2 L (8.4-10.2) mg/dL Pituitary panel 03/19/24 Range/Units 07:55 Sodium 134 L (137-145) mmol/L Potassium 4.2 (3.5-5.1) mmol/L Chloride 103 (98-107) mmol/L Carbon Dioxide 30 (22-30) mmol/L BUN 13 (7-17) mg/dL Creatinine 0.61 (0.52-1.04) mg/dL Glucose 96 (74-99) mg/dL Calcium 8.2 L (8.4-10.2) mg/dL Adrenal panel 03/19/24 Range/Units 07:55 Sodium 134 L (137-145) mmol/L Potassium 4.2 (3.5-5.1) mmol/L Chloride 103 (98-107) mmol/L Carbon Dioxide 30 (22-30) mmol/L BUN 13 (7-17) mg/dL Creatinine 0.61 (0.52-1.04) mg/dL Glucose 96 (74-99) mg/dL Calcium 8.2 L (8.4-10.2) mg/dL Assessment and Plan Assessment: 58-year-old female with postoperative urinary retention, Lees was reinserted for 800 mL PVR. She can have a repeat trial of void prior to discharge, I am going to start her on Flomax at this time
[2024-03-19 20:18] LABS: Glucose,Whole Blood 124 mg/dL (70-110)
[2024-03-20 06:31] LABS: Glucose,Whole Blood 103 mg/dL (70-110)
[2024-03-20] MEDS: TAMSULOSIN 0.4 MG CAP.ER.24H PO SCH (08:23)
--- NOTE | 2024-03-20 10:07 | P.PN ---
Subjective Progress Note Date: 03/20/24 Subjective Patient seen this morning. She states that last night she was walking the hallways. This morning patient is on room air. Yesterday patient had Lees catheter placed for urinary retention. She states that she is tolerating her clear liquid diet. She states that she is passing a lot of gas however there is no stool output in her ostomy. 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 spontaneously Psych - Calm and cooperative Assessment and plan Status post exploratory laparotomy with unsuccessful reversal of her colostomy on 03/15/2024 hx perforated diverticulitis, history of her reversal colostomy, partial omentectomy, takedown of splenic flexure on 07/25/23 -As per your surgical management, pain medications -VTE prophylaxis per surgical team -PT OT -Incentive spirometry -Patient is now off epidural hx of adrenal crisis history of adrenal gland resection due to adrenal mass Blood pressure this morning is normotensive Continue with hydrocortisone 50/25 mg for 1 day and then 30/20 mg for 3 days and then 20/10 mg for 3days and have her follow-up with her PCP -> medicine service will prescribe the hydrocortisone at the time of discharge Postop hypoxia secondary to atelectasis Resolved and now patient is on room air Urinary retention Lees catheter placed by urology hypertension: Will restart her home dose amlodipine and losartan if blood pressure is elevated. Currently blood pressure is normotensive. hypothyroidism: Continue levothyroxine 75 mcg p.o. daily type II DM: SSI ordered, will continue Jardiance, hold metformin. Controlled Morbid obesity: Encourage weight loss BARBRA on CPAP: Continue CPAP CODE STATUS:[] Full code DVT prophylaxis: Per surgical team Objective - Vital Signs Vital signs: Vital Signs Temp 99.4 F 03/20/24 07:21 Pulse 76 03/20/24 07:21 Resp 20 03/20/24 07:21 BP 133/78 03/20/24 07:21 Pulse Ox 95 03/20/24 07:21 FiO2 21 03/16/24 03:35 Intake & Output 03/19/24 03/20/24 03/20/24 18:59 06:59 18:59 Output Total 3386 2400 Balance -3386 -2400 Output: Urine 2650 2400 Post Void Residual 736 Other: Voiding Method Indwelling Catheter Indwelling Catheter - Labs CBC & Chem 7: 03/19/24 07:55 03/19/24 07:55 Labs: Abnormal Lab Results - Last 24 Hours (Table) 03/19/24 03/19/24 03/19/24 Range/Units 11:37 17:10 20:13 POC Glucose (mg/dL) 123 H 137 H 124 H (70-110) mg/dL
[2024-03-20 12:18] LABS: Glucose,Whole Blood 129 mg/dL (70-110)
--- NOTE | 2024-03-20 13:08 | P.PN ---
Subjective Progress Note Date: 03/20/24 CHIEF COMPLAINT: Diverticulitis HISTORY OF PRESENT ILLNESS: The patient is a 58-year-old female with attempted reversal of colostomy with reposition colostomy. Yesterday, patient had trouble with urinary tension. She has been seen by urology. She is on Flomax. She denies any increased abdominal pain. She is tolerating clear liquid diet. She is sitting up in a chair. ROS: No reports of nausea and vomiting. No bowel movements. No fevers or chills. No new chest pain. No productive sputum. Morbid obesity excess calories, BMI 45.6. PHYSICAL EXAM: VITAL SIGNS: Reviewed CONSTITUTIONAL: Well developed and in no acute distress. EYES: Conjuctivae without sclera icterus. Extraocular movements grossly intact. HEAD, EARS, NOSE, THROAT: Moist buccal mucosa. Head is atraumatic, normocephal ic. Hears conversational speech. No nasal drainage. RESPIRATORY: Non-labored respirations and equal bilateral excursions. CARDIOVASCULAR: Palpable 2+ radial pulses. ABDOMEN: Obese. Minimal air within ostomy appliance. Stoma pink patent. Incisional wound VAC system intact. No infection. MUSCULOSKELETAL: No gross deformity of the lower extremities noted. No clubbing. No cyanosis. SKIN: Good skin turgor. Well perfused. NEUROLOGIC: Cranial nerves II through XII grossly intact. No focal or lateralizing signs. PSYCH: Appropriate affect. Alert and oriented to person, place and time. CLINICAL LABS: Reviewed. Blood sugar glucose 120s less than 200s. ASSESSMENT: 1. Diverticulitis complicated 2. Morbid obesity excess calories, BMI 45.6. 3. Urinary retention. PLAN: 1. Continue liquid diet. Will advance as bowel function resumes. 2. Continue Lees catheter. 3. Flomax 0.4 mg ordered daily. Objective - Vital Signs Vital signs: Vital Signs Temp 99.4 F 03/20/24 07:21 Pulse 76 03/20/24 07:21 Resp 20 03/20/24 07:21 BP 133/78 03/20/24 07:21 Pulse Ox 94 L 03/20/24 12:35 FiO2 21 03/16/24 03:35 Intake & Output 03/19/24 03/20/24 03/20/24 18:59 06:59 18:59 Output Total 3386 2400 Balance -3386 -2400 Output: Urine 2650 2400 Post Void Residual 736 Other: Voiding Method Indwelling Catheter Indwelling Catheter - Labs CBC & Chem 7: 03/19/24 07:55 03/19/24 07:55 Labs: Abnormal Lab Results - Last 24 Hours (Table) 03/19/24 03/19/24 03/20/24 Range/Units 17:10 20:13 12:17 POC Glucose (mg/dL) 137 H 124 H 129 H (70-110) mg/dL
[2024-03-20 16:25] LABS: Glucose,Whole Blood 138 mg/dL (70-110)
[2024-03-20 20:31] LABS: Glucose,Whole Blood 124 mg/dL (70-110)
[2024-03-21 06:27] LABS: Glucose,Whole Blood 95 mg/dL (70-110)
[2024-03-21] MEDS: HYDROCORTISONE 10 MG TAB PO SCH ×2 (08:03→15:44)
--- NOTE | 2024-03-21 11:03 | P.PN ---
Subjective Progress Note Date: 03/14/24 Subjective Patient seen this morning. She states that still no stool output from her ostomy. She states that she feels hungry and wants something more than a liquid diet. 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 Psych - Calm and cooperative Assessment and plan Status post exploratory laparotomy with unsuccessful reversal of her colostomy on 03/15/2024 hx perforated diverticulitis, history of her reversal colostomy, partial omentectomy, takedown of splenic flexure on 07/25/23 -As per your surgical management, pain medications -VTE prophylaxis per surgical team -PT OT -Incentive spirometry -Patient is now off epidural -Diet as per general surgery hx of adrenal crisis history of adrenal gland resection due to adrenal mass Blood pressure this morning is normotensive Continue with hydrocortisone PO 30mg in AM and 20mg in afternoon for 3 days and then 20mg in AM and 10 mg in afternoon on discharge and have her follow-up with her PCP to taper down the hydrocortisone-> medicine service will prescribe the hydrocortisone at the time of discharge Postop hypoxia secondary to atelectasis Resolved and now patient is on room air Urinary retention Lees catheter placed by urology hypertension: Will restart her home dose amlodipine and losartan if blood pressure is elevated. Currently blood pressure is normotensive. hypothyroidism: Continue levothyroxine 75 mcg p.o. daily type II DM: SSI ordered, will continue Jardiance, hold metformin. Controlled Morbid obesity: Encourage weight loss BARBRA on CPAP: Continue CPAP CODE STATUS:[] Full code DVT prophylaxis: Per surgical team Objective - Vital Signs Vital signs: Vital Signs Temp 98.1 F 03/21/24 07:24 Pulse 63 03/21/24 07:24 Resp 18 03/21/24 07:24 BP 115/75 03/21/24 07:24 Pulse Ox 94 L 03/21/24 07:24 FiO2 21 03/16/24 03:35 Intake & Output 03/20/24 03/21/24 03/21/24 18:59 06:59 18:59 Output Total 2400 1800 Balance -2400 -1800 Output: Urine 2400 1800 Other: Voiding Method Indwelling Catheter Indwelling Catheter - Labs CBC & Chem 7: 03/19/24 07:55 03/19/24 07:55 Labs: Abnormal Lab Results - Last 24 Hours (Table) 03/20/24 03/20/24 03/20/24 Range/Units 12:17 16:24 20:29 POC Glucose (mg/dL) 129 H 138 H 124 H (70-110) mg/dL
[2024-03-21 12:03] LABS: Glucose,Whole Blood 121 mg/dL (70-110)
--- NOTE | 2024-03-21 14:23 | P.PN ---
Subjective Progress Note Date: 03/21/24 CHIEF COMPLAINT: Diverticulitis HISTORY OF PRESENT ILLNESS: The patient is a 58-year-old female with attempted reversal of colostomy with reposition colostomy. She reports feeling much better today. She is sitting up in chair. She is surrounded by multiple family members. "I need to eat.". She reports moderate flatus in her ostomy bag. No formed stool yet. ROS: No reports of nausea and vomiting. No bowel movements. No fevers or chills. No new chest pain. No productive sputum. Morbid obesity excess calories, BMI 45.6. PHYSICAL EXAM: VITAL SIGNS: Reviewed CONSTITUTIONAL: Well developed and in no acute distress. EYES: Conjuctivae without sclera icterus. Extraocular movements grossly intact. HEAD, EARS, NOSE, THROAT: Moist buccal mucosa. Head is atraumatic, normocephalic. Hears conversational speech. No nasal drainage. RESPIRATORY: Non-labored respirations and equal bilateral excursions. CARDIOVASCULAR: Palpable 2+ radial pulses. ABDOMEN: Obese. Moderate air ostomy appliance. Stoma pink patent. Incisional wound VAC system intact. No infection. MUSCULOSKELETAL: No gross deformity of the lower extremities noted. No clubbing. No cyanosis. SKIN: Good skin turgor. Well perfused. NEUROLOGIC: Cranial nerves II through XII grossly intact. No focal or lateralizing signs. PSYCH: Appropriate affect. Alert and oriented to person, place and time. CLINICAL LABS: Reviewed. Blood sugar glucose 95-120 ASSESSMENT: 1. Diverticulitis complicated 2. Morbid obesity excess calories, BMI 45.6. 3. Urinary retention. PLAN: 1. Will advance diet to low fiber. 2. Monitor for bowel movement via Coloplast. Objective - Vital Signs Vital signs: Vital Signs Temp 98.1 F 03/21/24 07:24 Pulse 63 03/21/24 07:24 Resp 18 03/21/24 07:24 BP 115/75 03/21/24 07:24 Pulse Ox 94 L 03/21/24 07:24 FiO2 21 03/16/24 03:35 Intake & Output 03/20/24 03/21/24 03/21/24 18:59 06:59 18:59 Output Total 2400 1800 Balance -2400 -1800 Output: Urine 2400 1800 Other: Voiding Method Indwelling Catheter Indwelling Catheter - Labs CBC & Chem 7: 03/19/24 07:55 03/19/24 07:55 Labs: Abnormal Lab Results - Last 24 Hours (Table) 03/20/24 03/20/24 03/21/24 Range/Units 16:24 20:29 12:02 POC Glucose (mg/dL) 138 H 124 H 121 H (70-110) mg/dL
[2024-03-21 17:02] LABS: Glucose,Whole Blood 138 mg/dL (70-110)
[2024-03-21 21:08] LABS: Glucose,Whole Blood 131 mg/dL (70-110)
[2024-03-22 03:28] VITALS: RESP 18
[2024-03-22 06:28] LABS: Glucose,Whole Blood 94 mg/dL (70-110)
[2024-03-22 11:25] LABS: Glucose,Whole Blood 110 mg/dL (70-110)
[2024-03-22 13:33] VITALS: BMI 45.6
--- NOTE | 2024-03-22 13:43 | P.PN ---
Subjective Progress Note Date: 03/22/24 Subjective: Was seen and examined this morning, no acute event overnight, some output from her ostomy noted, patient tolerates diet well, no nausea or vomiting. Patient has been discharged per surgery team Pertinent positives and negatives as discussed above, a complete review of systems was performed and all other systems are negative. Vitals Signs Reviewed. General: [nontoxic], [no distress], [appears at stated age] Derm: [warm], [dry] Head: [atraumatic], [normocephalic], [symmetric] Eyes: [EOMI], [no lid lag], [anicteric sclera] Mouth: [no lip lesion], [mucus membranes moist] Cardiovascular: [S1S2 reg], [no murmur] Lungs: [CTA bilateral], [no rhonchi, no rales] , [no accessory muscle use] Abdominal: [soft], [ nontender to palpation], [no guarding], [no appreciable organomegaly] ostomy bag with liquid brown stool Ext: [no gross muscle atrophy], [no edema], [no contractures] Neuro: [ CN II-XI grossly intact], [no focal neuro deficits] Psych: [Alert], [oriented], [appropriate affect] Data Reviewed Today: Pertinent Labs: Blood glucose is well-controlled Assessment and Plan: Status post exploratory laparotomy with unsuccessful reversal of her colostomy on 03/15/2024 hx perforated diverticulitis, history of her reversal colostomy, partial omentectomy, takedown of splenic flexure on 07/25/23 -As per your surgical management, pain medications -VTE prophylaxis per surgical team -PT OT -Incentive spirometry -Patient is now off epidural -Diet as per general surgery -Can be discharged from medical standpoint hx of adrenal crisis history of adrenal gland resection due to adrenal mass Blood pressure this morning is normotensive Continue with hydrocortisone 20mg in AM and 10 mg in afternoon on discharge and have her follow-up with her PCP to taper down the hydrocortisone. Prescription for hydrocortisone sent Postop hypoxia secondary to atelectasis Resolved and now patient is on room air Urinary retention, resolved Lees catheter placed by urology removed 03/22/2024 hypertension: Will restart her home dose amlodipine and losartan if blood pressure is elevated. Currently blood pressure is normotensive. Patient can continue her home medications at discharge, daily blood pressure checks hypothyroidism: Continue levothyroxine 75 mcg p.o. daily type II DM: SSI ordered, will continue Jardiance, hold metformin. Controlled Morbid obesity: Encourage weight loss BARBRA on CPAP: Continue CPAP DVT ppx: Per surgical team Objective - Vital Signs Vital signs: Vital Signs Temp 98.2 F 03/22/24 07:03 Pulse 54 L 03/22/24 07:03 Resp 18 03/22/24 07:03 BP 123/80 03/22/24 07:03 Pulse Ox 95 03/22/24 07:03 FiO2 21 03/16/24 03:35 Intake & Output 03/21/24 03/22/24 03/22/24 18:59 06:59 18:59 Intake Total 520 Output Total 3100 1450 Balance -3100 -930 Weight 124.3 kg Intake: Oral 520 Output: Urine 3100 1450 Uretheral ([place]) 1450 Other: Voiding Method Indwelling Catheter Indwelling Catheter - Labs CBC & Chem 7: 03/19/24 07:55 03/19/24 07:55 Labs: Abnormal Lab Results - Last 24 Hours (Table) 03/21/24 03/21/24 Range/Units 17:01 21:06 POC Glucose (mg/dL) 138 H 131 H (70-110) mg/dL
[2024-03-22 13:51] VITALS: BP 135/76; PULSE 62; TEMP 98.8
--- NOTE | 2024-03-22 13:59 | P.DS ---
Providers Date of admission: 03/15/24 08:35 Expected date of discharge: 03/22/24 Attending physician: Kris Chauhan Consults: 03/15/24 14:01 Consult Physician Routine Consulting Provider: Gabe Diaz Consult Reason/Comments: medical management Do you want consulting provider notified?: Yes 03/19/24 08:49 Consult Physician Urgent Consulting Provider: Obie Henriquez Consult Reason/Comments: retention, unable to straight cath Do you want consulting provider notified?: Yes Primary care physician: Joo Singh Hospital Course: Discharge diagnosis 1. History of perforated diverticulitis 2. Hypotension improved with IV fluids and could also have been related to the epidural. BP improved 3. Urinary retention resolved 4. Atelectasis Hospital course This is a 58-year-old female with a history of perforated diverticulitis. She is status post exploratory laparotomy, attempted reversal of colostomy, lysis of extensive adhesions, repair of incisional hernia and repair of parastomal hernia. Patient's ostomy is functioning. She is tolerating diet. She is afebrile. She has been up and ambulating. She is able to urinate. She is stable for discharge. Please refer to chart for any further details. Physician Jewelry Technician note has been reviewed by physician. Signing provider agrees with the documented findings, assessment, and plan of care. Patient Condition at Discharge: Stable Plan - Discharge Summary Discharge Rx Participant: Yes New Discharge Prescriptions: New HYDROcodone/APAP 5-325MG [[place] 5-325] 1 tab PO Q6HR PRN 3 Days #12 tab PRN Reason: Pain Hydrocortisone [Cortef] 20 mg PO DAILY #14 tab Hydrocortisone [Cortef] 10 mg PO Q24HR@1400 #14 tab Tamsulosin [Flomax] 0.4 mg PO DAILY 30 Days #30 cap Continue Levothyroxine Sodium [Synthroid] 75 mcg PO DAILY metFORMIN HCL ER [Glucophage XR] 500 mg PO DAILY amLODIPine [Norvasc] 10 mg PO DAILY Empagliflozin [Jardiance] 10 mg PO W/SUPPER Losartan Potassium [Cozaar] 100 mg PO DAILY Discontinued Hydrocortisone 5 mg PO DAILY Discharge Medication List Empagliflozin [Jardiance] 10 mg PO W/SUPPER 04/08/23 [History] Levothyroxine Sodium [Synthroid] 75 mcg PO DAILY 04/08/23 [History] Losartan Potassium [Cozaar] 100 mg PO DAILY 04/08/23 [History] amLODIPine [Norvasc] 10 mg PO DAILY 04/08/23 [History] metFORMIN HCL ER [Glucophage XR] 500 mg PO DAILY 04/08/23 [History] HYDROcodone/APAP 5-325MG [[place] 5-325] 1 tab PO Q6HR PRN 3 Days #12 tab 03/22/24 [Rx] Hydrocortisone [Cortef] 10 mg PO Q24HR@1400 #14 tab 03/22/24 [Rx] Hydrocortisone [Cortef] 20 mg PO DAILY #14 tab 03/22/24 [Rx] Tamsulosin [Flomax] 0.4 mg PO DAILY 30 Days #30 cap 03/22/24 [Rx] Follow up Appointment(s)/Referral(s): [facility], [NON-STAFF] - 1-2 Days Kris Chauhan MD [STAFF PHYSICIAN] - 1 Week Activity/Diet/Wound Care/Special Instructions: No driving while taking [place] No lifting over 10 pounds Shower daily. No soaking or tub baths for 2 weeks Very light activity until you are reevaluated at your follow up appointment with your surgeon Please, follow up with PCP as soon as possible to discuss your hydrocortisone dosing. In the meantime, continue with 20mg in AM and 10 mg in PM Discharge Disposition: HOME SELF-CARE
[2024-03-22] MEDS: HYDROCORTISONE 20 MG TAB PO SCH (14:54)
== END 2024-03-22 15:41 | disposition home or self-care (01) | DRG 330 ==
LOC: 2ORMAIN 03-15 08:35 → 4SSUR 03-15 14:49
PROVIDERS: ADMIT Surgery; ATTEND Surgery
PROC: 0DNW0ZZ Release Peritoneum, Open Approach (ICD-10-PCS; 2024-03-15)
PROC: 0DSN0ZZ Reposition Sigmoid Colon, Open Approach (ICD-10-PCS; 2024-03-15)
PROC: 0DB80ZZ Excision of Small Intestine, Open Approach (ICD-10-PCS; principal; 2024-03-15 10:35)
DX: K43.2 Incisional hernia without obstruction or gangrene (principal); J98.11 Atelectasis; K91.71 Accidental puncture and laceration of a digestive system organ or structure during a digestive system procedure; Z68.42 Body mass index [BMI] 45.0-49.9, adult; K66.0 Peritoneal adhesions (postprocedural) (postinfection); E66.01 Morbid (severe) obesity due to excess calories; E03.9 Hypothyroidism, unspecified; I10 Essential (primary) hypertension; K43.5 Parastomal hernia without obstruction or gangrene; G47.33 Obstructive sleep apnea (adult) (pediatric); E11.9 Type 2 diabetes mellitus without complications; Y65.8 Other specified misadventures during surgical and medical care; Z43.3 Encounter for attention to colostomy; Z79.84 Long term (current) use of oral hypoglycemic drugs; Z79.890 Hormone replacement therapy; Z79.899 Other long term (current) drug therapy; Z90.710 Acquired absence of both cervix and uterus
CPT/HCPCS: 71045; 80048; 80053; 85025; 88302; 88307; 94660; 94760

== ENCOUNTER → 2024-03-11 | Outpatient (CLI) | payer OTHER ==
[2024-03-11 16:03] LABS: Basophils # (A) 0.03 X 10*3/uL (0.00-0.10); Basophils % (A) 0.4 %; Eosinophils # (A) 0.19 X 10*3/uL (0.04-0.35); Eosinophils % (A) 2.7 %; HCT 45.8 % (37.2-46.3); Lymphocytes # (A) 1.51 X 10*3/uL (0.90-5.00); Lymphocytes % (A) 21.9 %; MCH 28.6 pg (27.0-32.0); MCHC 32.8 g/dL (32.0-37.0); MCV 87.2 FL (80.0-97.0); Mean Platelet Volume 9.2 FL (9.5-12.2); Monocytes # (A) 0.37 X 10*3/uL (0.20-1.00); Monocytes % (A) 5.4 %; NRBC Per 100 WBC 0 X 10*3/uL (0.00-0.01); Neutrophils # (A) 4.78 X 10*3/uL (1.80-7.70); Neutrophils % (A) 69.2 %; Platelet Count 265 X 10*3/uL (140-440); RBC 5.25 X 10*6/uL (4.10-5.20); RDW 12.8 % (11.5-14.5); WBC 6.91 X 10*3/uL (4.50-10.00)
== END | disposition home or self-care (01) ==
LOC: LABWHC1 12:23
PROVIDERS: ATTEND Surgery
DX: Z01.818 Encounter for other preprocedural examination (principal); K57.32 Diverticulitis of large intestine without perforation or abscess without bleeding
CPT/HCPCS: 85025; 86850; 86900; 86901

== ENCOUNTER → 2024-08-06 | Outpatient (CLI) | payer OTHER ==
[2024-08-06 15:49] LABS: Basophils # (A) 0.03 X 10*3/uL (0.00-0.10); Basophils % (A) 0.5 %; Eosinophils # (A) 0.18 X 10*3/uL (0.04-0.35); HCT 43.1 % (37.2-46.3); HGB 13.6 g/dL (12.0-15.0); Lymphocytes # (A) 1.28 X 10*3/uL (0.90-5.00); Lymphocytes % (A) 21.4 %; MCH 27.4 pg (27.0-32.0); MCHC 31.6 g/dL (32.0-37.0); MCV 86.9 FL (80.0-97.0); Mean Platelet Volume 9.3 FL (9.5-12.2); Monocytes # (A) 0.31 X 10*3/uL (0.20-1.00); Monocytes % (A) 5.2 %; NRBC Per 100 WBC 0 X 10*3/uL (0.00-0.01); Neutrophils # (A) 4.17 X 10*3/uL (1.80-7.70); Neutrophils % (A) 69.6 %; Platelet Count 279 X 10*3/uL (140-440); RBC 4.96 X 10*6/uL (4.10-5.20); RDW 14.4 % (11.5-14.5); WBC 5.99 X 10*3/uL (4.50-10.00)
[2024-08-06 16:02] LABS: % Iron Saturation 13.91 (12.00-45.00); ALT 33 U/L (8-44); AST 27 U/L (13-35); Albumin 4.4 g/dL (3.8-4.9); Albumin/Globulin Ratio 1.38 Ratio (1.60-3.17); Alkaline Phosphatase 80 U/L (41-126); BUN/Creat Ratio 16.88 Ratio (12.00-20.00); Blood Urea Nitrogen 13.5 mg/dL (9.0-27.0); Calcium 9.4 mg/dL (8.7-10.3); Carbon Dioxide 22.8 mmol/L (21.6-31.8); Chloride 105 mmol/L (96-109); Ferritin 30.3 ng/mL (10.0-291.0); Globulin 3.2 g/dL (1.6-3.3); Glucose 113 mg/dL (70-110); Iron 58 UG/DL (50-170); LDL Cholesterol,Calculated 68.4 mg/dL (0.0-131.0); Potassium 4.5 mmol/L (3.5-5.5); Sodium 141 mmol/L (135-145); T4, Free (Free Thyroxine) 0.85 ng/dL (0.80-1.80); Total Bilirubin 0.4 mg/dL (0.3-1.2); Total Iron Binding Capacity 417 UG/DL (228-460); Total Protein 7.6 g/dL (6.2-8.2)
== END | disposition home or self-care (01) ==
LOC: LABWHC1 09:30
PROVIDERS: ATTEND Family Medicine
DX: Z00.00 Encounter for general adult medical examination without abnormal findings (principal); E03.9 Hypothyroidism, unspecified; L65.9 Nonscarring hair loss, unspecified
CPT/HCPCS: 36415; 80053; 80061; 82607; 82728; 82746; 83540; 83550; 84439; 84443; 84481; 85025